=== PATIENT | female | born 1970 | race Caucasian/White ===

== ENCOUNTER 2020-05-14 22:38 | Emergency (ER) | payer OTHER, SELFPAY ==
--- NOTE | 2020-05-14 22:58 | ED.FEMALEGU ---
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 Time Seen by Provider: 05/14/20 22:58 Source: patient and RN notes reviewed Mode of arrival: ambulatory Limitations: no limitations History of Present Illness MD elicited complaint: other (Retained tampon) Onset (ago): week(s) (1) Location of symptoms: vaginal Severity: moderate Female Urogenital Radiation: Non-Radiating Quality of pain: dull and aching Consistency: constant Vaginal discharge: none Vaginal bleeding: none Exacerbating factors: intercourse Relieving factors: none Treatment prior to arrival: none Sexual activity: Yes Patient : No Related Data Home Medications Medication Instructions Recorded Confirmed citalopram 40 mg PO DAILY 05/14/20 05/14/20 Allergies Allergy/AdvReac Type Severity Reaction Status Date / Time adhesive Allergy Unknown Verified 08/02/15 09:30 bacitracin Allergy Unknown Verified 05/27/15 17:23 cefuroxime Allergy Unknown Verified 05/27/15 17:23 Cephalosporins Allergy Unknown . Verified 08/02/15 09:30 clarithromycin Allergy Unknown Verified 05/27/15 17:22 latex Allergy Unknown Verified 08/02/15 09:30 Review of Systems Review of Systems: All systems reviewed & are unremarkable except as noted in HPI and below Constitutional: Constitutional: Denies chills PMFSH Past Medical History Medical History (Updated 05/14/20 @ 23:09 by Husam Salas MD) Depression Surgical History Surgical History (Updated 05/14/20 @ 23:06 by Husam Salas MD) Delivery by section History of bilateral tubal ligation History of tonsillectomy and adenoidectomy Family History Family History (Updated 05/27/15 @ 17:26 by DOCTOR UNKNOWN) Grandparent Hypertension Carcinoma of colon Acute myocardial infarction Sibling Family history of malignant neoplasm of kidney Family history of rheumatoid arthritis Family history of lupus erythematosus Acute myocardial infarction Other Family history of malignant neoplasm of gastrointestinal tract Social History Social History (Updated 05/14/20 @ 23:07 by Husam Salas MD) Smoking packs per day: 1 Smoking cigarettes per day: 20.0 Smoking status: Current every day smoker Alcohol intake: current Substance use: never Exam Const: General: healthy appearing and no acute distress Nutritional Appearance: well nourished and thin Orientation/consciousness: patient oriented x3 HENMT: Head: normal to inspection Ears: external ears normal Eyes: Conjunctivae: conjunctivae normal Pupils: Equal, round and reactive pupils present EOM: EOMs intact bilaterally Neck: Neck: normal visual inspection Resp: Effort & Inspection: normal respiratory effort Auscultation: clear to auscultation bilaterally Cardio: Rate: regular rate Rhythm: regular rhythm GI: GI Palp: Yes Soft to palpation and No Tenderness to palpation present (GI) Auscultation: normal bowel sounds : External Female Exam: normal external appearance Speculum Exam - Vagina: normal appearance of the vagina, normal vaginal discharge, not erythematous and foreign body ( Tampon high in vaginal canal removed with ring forceps.) Back/Spine/Pelvis: Cervical Spine: cervical ROM normal Thoracic/Lumbar Spine: thoraco-lumbar ROM normal Neuro: General: patient oriented x3, moves all extremities, no meningeal signs and no focal motor deficits Speech: normal speech Gait exam (Neuro): Normal gait present Extrem: General: normal to inspection and no clubbing, cyanosis or edema Discharge Plan Discharge Clinical Impression: Retained tampon Qualifiers: Encounter type: initial encounter Qualified Code(s): T19.2XXA - Foreign body in vulva and vagina, initial encounter Patient Disposition: Home, Self-Care Condition: Improved Instructions: Vaginal Foreign Body (ED) Prescriptions: New clindamycin HCl 300 mg capsule 300 mg PO Q8H 10 Days Qty: 30 RF: 0 No A
[2020-05-14 23:00] VITALS: BP 123/75; PULSE 82; RESP 20; TEMP 36.6; O2SAT 98
[2020-05-14] MEDS: CLINDAMYCIN HCL 150 MG CAP 300 MG PO (23:14)
[2020-05-14 23:16] VITALS: BP 125/70; PULSE 98; RESP 18; TEMP 36.6; O2SAT 100
== END 2020-05-14 23:19 | disposition home or self-care (01) ==
PROVIDERS: Emergency Provider Emergency Medicine; PCP Internal Medicine
DX: T19.2XXA Foreign body in vulva and vagina, initial encounter (principal)
CPT/HCPCS: 99283; A9270

== ENCOUNTER 2020-05-15 13:53 | Emergency (ER) | payer OTHER, SELFPAY ==
--- NOTE | ~2020-05-15 | CT_ITS ---
EXAMINATION: CT abdomen pelvis w con INDICATION: Lower abdominal and pelvic pain TECHNIQUE: Computed tomographic images of the abdomen and pelvis were obtained after the administrati on of 100 cc of Omnipaque 350 intravenous contrast. The dose-length product (DLP) was 300.11 mGy-cm. Automated exposure control and iterative reconstruction technique were employed. COMPARISON: None available FINDINGS: The lung bases are clear. The heart size is normal. The liver, spleen, pancreas, gallbladde r, and adrenal glands are normal. The kidneys are unremarkable. No pathologically enlarged abdominal or pelvic lymph nodes are identified. There is no free intraperitoneal gas or evidence of bowel obstr uction. The appendix is normal. No significant pelvic inflammation is identified. IMPRESSION: 1. No CT correlate for the patient's symptoms. Reviewed, dictated and finalized at location A.
--- NOTE | ~2020-05-15 | US_ITS ---
EXAMINATION: US pelvic complete w TV EXAM DATE: 05/15/2020 15:53 INDICATION: Abdominal pain after foreign body removal. TECHNIQUE: Pelvic transabdominal and transvaginal sonogram was performed. There are multiple graysca le and Doppler images available for interpretation. There is no prior study for comparison. FINDINGS: Uterus measures 8.4 x 6.0 x 7.1 cm, and is morphologically normal. Endometrial stripe giovanna sures 15 mm, within normal limits. There is no free pelvic fluid. Right adnexa: The ovary measures 3.0 x 1.4 x 3.1 cm and is morphologically normal. Ovarian vascular f low confirmed. Left adnexa: The ovary measures 3.0 x 1.3 x 1.1 cm and is morphologically normal. Ovarian vascular fl ow confirmed. IMPRESSION: 1. Unremarkable pelvic ultrasound exam. Reviewed, dictated and finalized at location B.
[2020-05-15 14:14] VITALS: BP 122/74; PULSE 82; RESP 20; TEMP 36.9; O2SAT 100
--- NOTE | 2020-05-15 14:17 | ED.ABDPAIN ---
HPI - Abdominal Pain General Chief Complaint: Abdominal Pain Stated Complaint: dr sent pt back to er for tests Time Seen by Provider: 05/15/20 14:17 Source: patient Mode of arrival: ambulatory Limitations: no limitations History of Present Illness HPI narrative: 49-year-old comes in today complaining of pelvic pain. Patient states that she was seen here last night for retained tampon which was removed. She states that she was placed on clindamycin. She states that her pelvic pain has gotten worse since then and she feels nauseous. She denies vaginal discharge, dysuria, fever, vomiting, vaginal bleeding or rash. MD elicited complaint: abdominal pain Onset (ago): day(s) (2) Pain Consistency: constant Location: pelvis Severity: severe Quality: sharp Radiation: none Migration to: no migration Exacerbating factors: movement Relieving factors: nothing Associated symptoms: nausea Related Data Home Medications Medication Instructions Recorded Confirmed citalopram [Celexa] 40 mg PO DAILY 05/14/20 05/15/20 levocetirizine [Xyzal] 5 mg PO DAILY 05/15/20 05/15/20 Allergies Allergy/AdvReac Type Severity Reaction Status Date / Time adhesive Allergy Unknown Other Verified 05/15/20 14:22 bacitracin Allergy Unknown Unknown Verified 05/15/20 14:22 cefuroxime Allergy Unknown Unknown Verified 05/15/20 14:22 Cephalosporins Allergy Unknown . Verified 08/02/15 09:30 clarithromycin Allergy Unknown Unknown Verified 05/15/20 14:22 latex Allergy Unknown Unknown Verified 05/15/20 14:22 Review of Systems Constitutional: Constitutional: Denies chills and Denies fever(s) Eyes: Eyes: Denies change in vision and Denies photophobia ENT: Denies dysphagia, Denies nasal congestion and Denies sore throat Cardiovascular: Cardiovascular: Denies chest pain and Denies radiating jaw, neck or arm pain Respiratory: Respiratory: Denies cough, Denies dyspnea and Denies wheezing Gastrointestinal: Gastrointestinal: Reports abdominal pain, Denies diarrhea, Reports nausea and Denies vomiting Genitourinary: Genitourinary: Denies abnormal vaginal bleeding, Denies hematuria, Denies nocturia, Denies genital lesions, Denies dysuria, Reports pelvic pain and Denies vaginal discharge Musculoskeletal: Musculoskeletal: Denies back pain Integumentary/Breasts: Skin/Breast: Denies pruritus, Denies erythema and Denies rash Neurologic: Denies vertigo, Denies dizziness and Denies syncope Hematologic/Lymphatic: Hematologic/Lymphatic: Denies easy bleeding and Denies easy bruising Allergic/Immunologic: Allergic/Immunologic: Denies lip swelling and Denies wheezing PMFSH Past Medical History Medical History Depression Surgical History Surgical History Delivery by section History of bilateral tubal ligation History of tonsillectomy and adenoidectomy Family History Family History (Updated 05/27/15 @ 17:26 by DOCTOR UNKNOWN) Grandparent Hypertension Carcinoma of colon Acute myocardial infarction Sibling Family history of malignant neoplasm of kidney Family history of rheumatoid arthritis Family history of lupus erythematosus Acute myocardial infarction Other Family history of malignant neoplasm of gastrointestinal tract Social History Social History Smoking packs per day: 1 Smoking cigarettes per day: 20.0 Smoking status: Current every day smoker Alcohol intake: current Substance use: never Gender identity (if verbalized by the patient): Female Exam Const: General: healthy appearing and alert Nutritional Appearance: well nourished Orientation/consciousness: patient oriented x3 Other: Moderate acute distress. HENMT: Head: normal to inspection Face and sinus: normal facial exam Mouth: Yes moist mucous membranes Throat: posterior oropharynx normal Eyes
[2020-05-15 14:45] LABS: Basophils Absolute Auto 0.04 K/mm3 (0.00-0.10); Basophils Percent Auto 0.4 % (0.0-1.0); Eosinophils Absolute Auto 0.16 K/mm3 (0.02-0.50); Eosinophils Percent Auto 1.7 % (1.0-6.0); Hematocrit 40.2 % (35.0-49.0); Hemoglobin 13.3 g/dL (12.0-15.0); Immature Granulocyte Absolute 0.04 K/mm3 (0.00-0.00); Immature Granulocyte Percent A 0.4 % (0.0-0.0); Lymphocytes Absolute Auto 3.32 K/mm3 (1.10-4.50); Lymphocytes Percent Auto 34.5 % (18.0-42.0); Mean Corpuscular HGB Conc 33.1 g/dL (32.0-36.0); Mean Corpuscular Hemoglobin 33.8 pg (27.0-31.0); Mean Corpuscular Volume 102.3 fL (78.0-102.0); Monocytes Absolute Auto 0.67 K/mm3 (0.10-0.90); Neutrophils Absolute Auto 5.4 K/mm3 (1.7-7.2); Platelet Count Result 266 K/mm3 (150-420); Red Blood Count 3.93 M/mm3 (4.20-5.40); Red Cell Distribution Width 11.7 % (11.6-14.4); White Blood Count 9.6 K/mm3 (4.8-10.8)
[2020-05-15] MEDS: ONDANSETRON INJ 4 MG/2 ML VIAL IV PUSH (14:55)
[2020-05-15] MEDS: HYDROmorphone HCL INJ (*CRX) 2 MG/ML VIAL 0.5 MG IV PUSH ×3 (14:55→18:17)
[2020-05-15] MEDS: SODIUM CHLORIDE 0.9% IV 500 ML 999 ML IV CONT (14:57)
[2020-05-15 15:12] LABS: Lactic Acid Reflex 0.6 mmol/L (0.4-2.0)
[2020-05-15 15:15] LABS: Alanine Aminotransferase 43 U/L (14-59); Albumin Level 4.2 g/dL (3.4-5.0); Alkaline Phosphatase 67 U/L (46-116); Anion Gap 9 mmol/L (8-16); Aspartate Amino Transferase 20 U/L (15-37); Bilirubin,Total 0.5 mg/dL (0.00-1.00); Blood Urea Nitrogen 12 mg/dL (7-18); Carbon Dioxide 27 mmol/L (21-32); Chloride 101 mmol/L (98-108); Estimated CRCL calculation 70 ml/min; Estimated Glomerular Filt Rate > 60; Glucose 95 mg/dL (70-99); Lipase 148 U/L (73-393); Osmolality Calculated 283 mOsm/kg (285-295); Potassium 3.7 mmol/L (3.5-5.1); Sodium 137 mmol/L (136-145); Total Protein 7.7 g/dL (6.4-8.2)
[2020-05-15 15:32] LABS: Creatine Kinase 247 U/L (26-192)
[2020-05-15 16:06] LABS: Appearance Urine Clear (Clear); Bilirubin Urine Negative (Negative); Color Urine Yellow (Yellow); Glucose Urine UA Negative (Negative); Ketones Urine Negative (Negative); Leukocyte Esterase Ur Negative LEU/UL (Negative); Nitrate Urine Negative (Negative); Protein Urine Negative (Negative); Specific Grav Ur <= 1.005 (1.010-1.020); Urobilinogen Urine 0.2 mg/dL (0.2-1.0); pH Urine 5.5 (5.0-8.0)
[2020-05-15 16:10] LABS: Add Urine Microscopic? YES; Blood Urine Trace-Intact (Negative)
[2020-05-15 16:11] LABS: Bacteria Urine None seen /hpf; RBC Urine 0-2 /hpf (0-2); Squamous Epithelial Cell Urine Few /hpf (Few); WBC Urine 0-3 /hpf (0-3)
[2020-05-15 19:26] VITALS: BP 126/55; PULSE 66; RESP 20; O2SAT 98
== END 2020-05-15 19:28 | disposition home or self-care (01) ==
PROVIDERS: Emergency Provider Emergency Medicine; PCP Internal Medicine
DX: N73.9 Female pelvic inflammatory disease, unspecified (principal)
CPT/HCPCS: 36415; 74177; 76830; 76856; 80053; 81001; 82550; 83605; 83690; 84702; 85025; 87040; 87070; 87491; 87591; 96361; 96365; 96375; 96376; 99284; 99285; J1170; J1956; J2405; J7040; Q9965

== ENCOUNTER → 2021-04-19 00:29 | Outpatient (CLI) | payer OTHER, SELFPAY ==
[2021-04-19 22:45] LABS: SARS-CoV-2 RNA PCR Negative
== END ==
PROVIDERS: PCP Internal Medicine; Visit Provider Internal Medicine Gastroenterology
DX: Z01.812 Encounter for preprocedural laboratory examination (principal); Z20.822 Contact with and (suspected) exposure to COVID-19
CPT/HCPCS: C9803; U0003; U0005

== ENCOUNTER 2021-04-23 00:33 | Day surgery (SDC) | payer OTHER, SELFPAY ==
[2021-04-10 13:19] VITALS: BMI 25.7
--- NOTE | 2021-04-23 07:26 | PM.HPGS ---
History of Present Illness History of Present Illness Consent: Risks, benefits, and alternatives have been discussed and questions answered. Patient agrees to proceed with procedure. Chief complaint: family hx colon ca Z86.010, hx colon polyps Z80.0 Narrative: Ana Nagel is a 50 year old female referred for colon cancer screening. She has a strong family history of colon cancer, including her sister, grandmothe,r an aunt and great grandparent. Review of Systems Review of Systems: All systems reviewed & are unremarkable except as noted in HPI and below PMFSH Past Medical History Medical History Depression Surgical History Surgical History Delivery by section History of bilateral tubal ligation History of tonsillectomy and adenoidectomy Family History Family History Grandparent Hypertension Carcinoma of colon Acute myocardial infarction Sibling Family history of malignant neoplasm of kidney Family history of rheumatoid arthritis Family history of lupus erythematosus Acute myocardial infarction Other Family history of malignant neoplasm of gastrointestinal tract Social History Social History Smoking packs per day: 1 Smoking cigarettes per day: 20.0 Years smoked: 30 Smoking pack-years: 30.00 Smoking status: Current every day smoker Tobacco type: cigarettes Alcohol intake: current Drinks per week: 1 Substance use: current Substance use type: marijuana Living arrangements: with family Gender identity (if verbalized by the patient): Female Sexual Orientation (if Verbalized by the Patient): Straight or Heterosexual Spiritual care concerns: No Meds Home Medications and Allergies Home Medications Medication Instructions Recorded Confirmed Type citalopram [Celexa] 40 mg PO DAILY 05/14/20 04/23/21 History Allergies Allergy/AdvReac Type Severity Reaction Status Date / Time adhesive Allergy Unknown Other Verified 04/23/21 09:16 bacitracin Allergy Unknown Unknown Verified 04/23/21 09:16 cefuroxime Allergy Unknown Unknown Verified 04/23/21 09:16 Cephalosporins Allergy Unknown . Verified 04/23/21 09:16 clarithromycin Allergy Unknown Unknown Verified 04/23/21 09:16 latex Allergy Unknown Unknown Verified 04/23/21 09:16 Exam Resp: Auscultation: clear to auscultation bilaterally Cardio: Rate: regular rate Rhythm: regular rhythm GI: GI Palp: Yes Soft to palpation and No Tenderness to palpation present (GI) Assessment and Plan Assessment and plan (1) Colon cancer screening: Code(s): Z12.11 - Encounter for screening for malignant neoplasm of colon Status: Acute Assessment and Plan: Colonoscopy with possible biopsy or polypectomy or cautery or injection of substances.
[2021-04-23 09:18] VITALS: BP 113/70; PULSE 70; RESP 16; TEMP 36.2; O2SAT 98; BMI 26.0
[2021-04-23] MEDS: LACTATED RINGERS 1,000 ML 150 ML IV CONT (09:42)
--- NOTE | 2021-04-23 09:43 | WPDANESEPPF ---
Anes - Initial Pre Proc Eval Procedure: Operation Date: 04/23/21 10:00 Proposed Procedures p Screening Colonoscopy - Dennis Chris MD Date/Time: 04/23/21 09:43 Surgeon: Dennis Chris MD Pre Op Diagnosis: family hx colon ca Z86.010, hx colon polyps Z80.0 Patient Data Age: 50 Gender: F Height: 1.6 m Weight: 66.7 kg Last Vital Signs Temp 97.2 F L 04/23/21 09:18 Pulse 70 04/23/21 09:18 Resp 16 04/23/21 09:18 BP 113/70 04/23/21 09:18 Pulse Ox 98 04/23/21 09:18 Allergies Allergy/AdvReac Type Severity Reaction Status Date / Time adhesive Allergy Unknown Other Verified 04/23/21 09:16 bacitracin Allergy Unknown Unknown Verified 04/23/21 09:16 cefuroxime Allergy Unknown Unknown Verified 04/23/21 09:16 Cephalosporins Allergy Unknown . Verified 04/23/21 09:16 clarithromycin Allergy Unknown Unknown Verified 04/23/21 09:16 latex Allergy Unknown Unknown Verified 04/23/21 09:16 Home Medications Medication Instructions Recorded Confirmed Type citalopram [Celexa] 40 mg PO DAILY 05/14/20 04/23/21 History Patient hx anesthesia problems: none Family hx anesthesia problems: none PMFSH Past Medical History Medical History Depression Surgical History Surgical History Delivery by section History of bilateral tubal ligation History of tonsillectomy and adenoidectomy Family History Family History Grandparent Hypertension Carcinoma of colon Acute myocardial infarction Sibling Family history of malignant neoplasm of kidney Family history of rheumatoid arthritis Family history of lupus erythematosus Acute myocardial infarction Other Family history of malignant neoplasm of gastrointestinal tract Social History Social History Smoking packs per day: 1 Smoking cigarettes per day: 20.0 Years smoked: 30 Smoking pack-years: 30.00 Smoking status: Current every day smoker Tobacco type: cigarettes Alcohol intake: current Drinks per week: 1 Substance use: current Substance use type: marijuana Living arrangements: with family Gender identity (if verbalized by the patient): Female Sexual Orientation (if Verbalized by the Patient): Straight or Heterosexual Spiritual care concerns: No Anes - Eval Final PreProcedure Day of Procedure 04/23/21 09:43 Patient weight: normal Heart: regular rate and rhythm Lungs: clear to auscultation Airway: Mallampati scale class II Neurological: alert and oriented Last oral intake: >/= 8 hours ASA classification: II Emergent: no Anesthetic plan: proceed Anesthesia type and monitoring: general GIVS and standard monitoring Informed Consent: The patient's anesthetic plan and its attendant risks and benefits were discussed with the patient/family/POA. Questions were solicited and answers provided to the satisfaction of the patient/family/POA.
[2021-04-23 10:08] VITALS: BP 90/48; PULSE 68; RESP 18; O2SAT 99
[2021-04-23 10:18] VITALS: BP 106/78; PULSE 80; RESP 18; O2SAT 99
--- NOTE | 2021-04-23 10:26 | SUR.PHASEII ---
Patient is complaining of headache 9/110 on pain scale. Pre Op nurse states patient came in with headache this morning. This is comparable to her pre op baseline. She is requesting demerol. Told patient to take tylenol when she gets home and drink plenty of fluids. Gave her a pepsi and crackers to help relieve pain. Informed Dr. Andrews. No new interventions at this time.
[2021-04-23 10:28] VITALS: BP 104/61; PULSE 75; RESP 14; O2SAT 100
[2021-04-23 10:38] VITALS: BP 110/65; PULSE 69; RESP 21; O2SAT 100
== END 2021-04-23 10:40 | disposition home or self-care (01) ==
PROVIDERS: PCP Internal Medicine; Visit Provider Internal Medicine Gastroenterology
PROC: 0DJD8ZZ Inspection of Lower Intestinal Tract, Via Natural or Artificial Opening Endoscopic (ICD-10-PCS; CPT 45378; principal; 2021-04-23 10:00)
DX: Z12.11 Encounter for screening for malignant neoplasm of colon (principal); Z80.0 Family history of malignant neoplasm of digestive organs; F32.9 Major depressive disorder, single episode, unspecified; F17.210 Nicotine dependence, cigarettes, uncomplicated; F12.90 Cannabis use, unspecified, uncomplicated
CPT/HCPCS: 45378; J2704; J7120

== ENCOUNTER 2021-08-07 07:29 | Outpatient (CLI) | payer OTHER, SELFPAY ==
[2021-08-07 08:47] LABS: SARS-CoV-2 RNA PCR Negative (Negative)
== END 2021-08-07 07:30 | disposition home or self-care (01) ==
LOC: CHSLAB 07:32
PROVIDERS: PCP Internal Medicine; Visit Provider Internal Medicine
DX: J06.9 Acute upper respiratory infection, unspecified (principal); Z20.822 Contact with and (suspected) exposure to COVID-19
CPT/HCPCS: C9803; U0003; U0005

== ENCOUNTER 2021-08-15 13:04 | Outpatient (CLI) | payer OTHER, SELFPAY ==
--- NOTE | ~2021-08-15 | XR_ITS ---
XR abdomen/kub 1V 08/15/2021 13:24 INDICATION: Flank pain TECHNIQUE: KUB COMPARISON: None FINDINGS: Bowel gas pattern is normal. There is no evidence of free air, mass, organomegaly, ascites or obstruction. No abnormal calculi are seen. Calcifications in the pelvis are believed to be phleb oliths. The bones appear intact. IMPRESSION: 1: No acute abdominal abnormality identified. Reviewed, dictated and finalized at location A. MANAGEMENT SPECIALIST
[2021-08-15 13:21] LABS: Basophils Absolute Auto 0.07 K/mm3 (0.00-0.10); Basophils Percent Auto 0.8 % (0.0-1.0); Eosinophils Absolute Auto 0.26 K/mm3 (0.02-0.50); Hematocrit 41.8 % (35.0-49.0); Hemoglobin 13.3 g/dL (12.0-15.0); Immature Granulocyte Absolute 0.03 K/mm3 (0.00-0.00); Immature Granulocyte Percent A 0.3 % (0.0-0.0); Lymphocytes Absolute Auto 3.36 K/mm3 (1.10-4.50); Lymphocytes Percent Auto 38.6 % (18.0-42.0); Mean Corpuscular HGB Conc 31.8 g/dL (32.0-36.0); Mean Corpuscular Hemoglobin 32.7 pg (27.0-31.0); Mean Corpuscular Volume 102.7 fL (78.0-102.0); Mean Platelet Volume 9.1 fl (9.2-11.8); Monocytes Absolute Auto 0.51 K/mm3 (0.10-0.90); Monocytes Percent Auto 5.9 % (2.0-11.0); Neutrophils Absolute Auto 4.5 K/mm3 (1.7-7.2); Neutrophils Percent Auto 51.4 % (50.0-70.0); Platelet Count Result 305 K/mm3 (150-420); Red Blood Count 4.07 M/mm3 (4.20-5.40); Red Cell Distribution Width 12.1 % (11.6-14.4); White Blood Count 8.7 K/mm3 (4.8-10.8)
[2021-08-15 13:58] LABS: Alanine Aminotransferase 31 U/L (14-59); Albumin Level 4.1 g/dL (3.4-5.0); Alkaline Phosphatase 83 U/L (46-116); Amylase 165 U/L (25-115); Anion Gap 11 mmol/L (8-16); Aspartate Amino Transferase 16 U/L (15-37); Bilirubin,Total 0.4 mg/dL (0.00-1.00); Blood Urea Nitrogen 11 mg/dL (7-18); Carbon Dioxide 27 mmol/L (21-32); Chloride 102 mmol/L (98-108); Estimated Glomerular Filt Rate > 60; Glucose 116 mg/dL (70-99); Osmolality Calculated 290 mOsm/kg (285-295); Potassium 3.9 mmol/L (3.5-5.1); Sodium 140 mmol/L (136-145); Total Protein 7.1 g/dL (6.4-8.2)
[2021-08-15 14:04] LABS: Lipase 1710 U/L (73-393)
== END 2021-08-15 13:05 | disposition home or self-care (01) ==
LOC: CHSLAB 13:05
PROVIDERS: PCP Internal Medicine; Visit Provider Nurse Practitioner Family
DX: R10.9 Unspecified abdominal pain (principal)
CPT/HCPCS: 36415; 74018; 80053; 82150; 83690; 85025

== ENCOUNTER 2021-08-18 15:49 | Outpatient (CLI) | payer OTHER, SELFPAY ==
--- NOTE | ~2021-08-18 | CT_ITS ---
EXAMINATION: CT abdomen pelvis wo con DATE: 08/18/2021 16:09 INDICATION: Bilateral flank pain TECHNIQUE: Computed tomography (CT) of the bilateral flank pain was performed without intravenous con trast. The dose-length product (DLP) was 191.15 mGy-cm. Automated exposure control and iterative douglas nstruction technique were employed. COMPARISON: 05/15/2020 FINDINGS: Minimal dependent atelectasis is present in the lung bases. The heart size is normal. The l iver, spleen, pancreas, gallbladder, and adrenal glands are normal. The kidneys are unremarkable. No stones are identified in the kidneys, ureters, or bladder. There is no hydronephrosis or hydroureter. No pathologically enlarged abdominal or pelvic lymph nodes are identified. There is no free intraper itoneal gas or evidence of bowel obstruction. IMPRESSION: 1. No CT correlate for the patient's symptoms. Reviewed, dictated and finalized at location F. 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
== END 2021-08-18 15:50 | disposition home or self-care (01) ==
LOC: CHSIMG 15:50
PROVIDERS: PCP Internal Medicine; Visit Provider Nurse Practitioner Family
DX: R10.9 Unspecified abdominal pain (principal); R31.9 Hematuria, unspecified
CPT/HCPCS: 74176

== ENCOUNTER 2021-08-19 18:19 | Outpatient (CLI) | payer OTHER, SELFPAY ==
[2021-08-19 18:33] LABS: Basophils Absolute Auto 0.07 K/mm3 (0.00-0.10); Basophils Percent Auto 0.8 % (0.0-1.0); Eosinophils Absolute Auto 0.27 K/mm3 (0.02-0.50); Eosinophils Percent Auto 3.1 % (1.0-6.0); Hematocrit 38.6 % (35.0-49.0); Hemoglobin 12.8 g/dL (12.0-15.0); Immature Granulocyte Absolute 0.03 K/mm3 (0.00-0.00); Immature Granulocyte Percent A 0.3 % (0.0-0.0); Lymphocytes Absolute Auto 3.53 K/mm3 (1.10-4.50); Lymphocytes Percent Auto 40.7 % (18.0-42.0); Mean Corpuscular HGB Conc 33.2 g/dL (32.0-36.0); Mean Corpuscular Hemoglobin 34.3 pg (27.0-31.0); Mean Corpuscular Volume 103.5 fL (78.0-102.0); Mean Platelet Volume 9.3 fl (9.2-11.8); Monocytes Absolute Auto 0.52 K/mm3 (0.10-0.90); Neutrophils Absolute Auto 4.3 K/mm3 (1.7-7.2); Neutrophils Percent Auto 49.1 % (50.0-70.0); Platelet Count Result 291 K/mm3 (150-420); Red Blood Count 3.73 M/mm3 (4.20-5.40); Red Cell Distribution Width 12.3 % (11.6-14.4); White Blood Count 8.7 K/mm3 (4.8-10.8)
[2021-08-19 19:08] LABS: Alanine Aminotransferase 28 U/L (14-59); Albumin Level 3.8 g/dL (3.4-5.0); Alkaline Phosphatase 83 U/L (46-116); Amylase 123 U/L (25-115); Anion Gap 10 mmol/L (8-16); Aspartate Amino Transferase 16 U/L (15-37); Bilirubin,Total 0.2 mg/dL (0.00-1.00); Blood Urea Nitrogen 14 mg/dL (7-18); Calcium 8.9 mg/dL (8.5-10.1); Carbon Dioxide 28 mmol/L (21-32); Chloride 104 mmol/L (98-108); Estimated Glomerular Filt Rate > 60; Glucose 96 mg/dL (70-99); Lipase 520 U/L (73-393); Osmolality Calculated 294 mOsm/kg (285-295); Potassium 4.2 mmol/L (3.5-5.1); Sodium 142 mmol/L (136-145); Total Protein 6.8 g/dL (6.4-8.2)
[2021-08-19 19:17] LABS: Ethanol < 3 mg/dL (0-6)
== END 2021-08-19 18:20 | disposition home or self-care (01) ==
LOC: CHSLAB 18:20
PROVIDERS: PCP Internal Medicine; Visit Provider Internal Medicine
DX: K85.90 Acute pancreatitis without necrosis or infection, unspecified (principal)
CPT/HCPCS: 36415; 80053; 80307; 82150; 83690; 85025; 86038

== ENCOUNTER 2021-08-22 12:31 | Outpatient (CLI) | payer OTHER, SELFPAY ==
[2021-08-22 12:43] LABS: Basophils Absolute Auto 0.08 K/mm3 (0.00-0.10); Eosinophils Absolute Auto 0.12 K/mm3 (0.02-0.50); Eosinophils Percent Auto 1.5 % (1.0-6.0); Hematocrit 45.2 % (35.0-49.0); Immature Granulocyte Absolute 0.03 K/mm3 (0.00-0.00); Immature Granulocyte Percent A 0.4 % (0.0-0.0); Lymphocytes Absolute Auto 2.32 K/mm3 (1.10-4.50); Lymphocytes Percent Auto 29.1 % (18.0-42.0); Mean Corpuscular HGB Conc 33.2 g/dL (32.0-36.0); Mean Corpuscular Hemoglobin 33.7 pg (27.0-31.0); Mean Corpuscular Volume 101.6 fL (78.0-102.0); Monocytes Absolute Auto 0.44 K/mm3 (0.10-0.90); Monocytes Percent Auto 5.5 % (2.0-11.0); Neutrophils Percent Auto 62.5 % (50.0-70.0); Platelet Count Result 333 K/mm3 (150-420); Red Blood Count 4.45 M/mm3 (4.20-5.40)
[2021-08-22 13:55] LABS: Alanine Aminotransferase 28 U/L (14-59); Albumin Level 4.3 g/dL (3.4-5.0); Alkaline Phosphatase 92 U/L (46-116); Amylase 50 U/L (25-115); Anion Gap 9 mmol/L (8-16); Aspartate Amino Transferase 18 U/L (15-37); Bilirubin,Total 0.3 mg/dL (0.00-1.00); Blood Urea Nitrogen 11 mg/dL (7-18); Carbon Dioxide 28 mmol/L (21-32); Chloride 101 mmol/L (98-108); Estimated Glomerular Filt Rate > 60; Glucose 116 mg/dL (70-99); Lipase 99 U/L (73-393); Osmolality Calculated 286 mOsm/kg (285-295); Potassium 4.4 mmol/L (3.5-5.1); Sodium 138 mmol/L (136-145); Total Protein 7.8 g/dL (6.4-8.2)
[2021-08-22 14:07] LABS: Calcium 9.5 mg/dL (8.5-10.1)
[2021-08-22 15:21] LABS: Hemoglobin A1C 5.1 % (<5.7)
== END 2021-08-22 12:32 | disposition home or self-care (01) ==
LOC: CHSLAB 12:34
PROVIDERS: PCP Internal Medicine; Visit Provider Nurse Practitioner Family
DX: K85.90 Acute pancreatitis without necrosis or infection, unspecified (principal); R73.9 Hyperglycemia, unspecified
CPT/HCPCS: 36415; 80053; 82150; 83036; 83690; 85025; 86038

== ENCOUNTER 2021-09-01 12:20 | Outpatient (CLI) | payer OTHER, SELFPAY ==
[2021-09-01 13:41] LABS: Influenza Control Valid (Valid); SARS-CoV-2 Ag Positive (Negative)
== END 2021-09-01 12:21 | disposition home or self-care (01) ==
LOC: CHSLAB 12:22
PROVIDERS: PCP Internal Medicine; Visit Provider Internal Medicine
DX: U07.1 COVID-19 (principal); J06.9 Acute upper respiratory infection, unspecified
CPT/HCPCS: 87426; 87804; C9803

== ENCOUNTER 2022-09-30 16:14 | Outpatient (CLI) | payer OTHER, SELFPAY ==
--- NOTE | ~2022-09-30 | MM_ITS ---
EXAMINATION: MM screening mary BI w kristina HISTORY: Screening mammogram TECHNIQUE: Craniocaudal and mediolateral oblique 3-D tomosynthesis images were obtained and synthetic 2-D images were generated. CAD analysis was submitted and interpreted. COMPARISON: 07/20/2018, 05/28/2017, 12/13/2015 bilateral screening mammogram examinations BREAST PARENCHYMAL COMPOSITION: There are scattered areas of fibroglandular density. FINDINGS: There is no evidence of suspicious mass, calcification, or architectural distortion to sugg est malignancy in either breast. There has been no suspicious interval change. IMPRESSION: 1. No mammographic evidence of malignancy. 2. Recommend routine screening mammography in one year. BI-RADS Category 1: Negative Reviewed, dictated and finalized at location A. K UNLOADER
== END 2022-09-30 16:15 | disposition home or self-care (01) ==
LOC: ANHIMG 16:48
PROVIDERS: PCP Family Medicine; Visit Provider Nurse Practitioner Obstetrics & Gynecology
DX: Z12.31 Encounter for screening mammogram for malignant neoplasm of breast (principal)
CPT/HCPCS: 77063; 77067

== ENCOUNTER 2024-03-30 13:31 | Emergency (ER) | payer OTHER, SELFPAY ==
--- NOTE | ~2024-03-30 | XR_ITS ---
EXAMINATION: XR chest 2V DATE: 03/30/2024 14:13 INDICATION: Cough. TECHNIQUE: Frontal and lateral views of the chest were obtained. COMPARISON: Chest 2 views 07/02/2018 FINDINGS: There is no pneumonia, pleural effusion, or pneumothorax. The heart size is normal. IMPRESSION: 1. No acute cardiopulmonary disease. Reviewed, dictated and finalized at location A.
[2024-03-30 13:44] VITALS: BP 119/82; PULSE 90; RESP 16; TEMP 36.6; O2SAT 98
--- NOTE | 2024-03-30 13:57 | ED.URI ---
HPI - URI/Sore Throat General Chief Complaint: Upper Respiratory Infection Stated Complaint: Upper resp infection Time Seen by Provider: 03/30/24 13:34 History of Present Illness HPI Narrative: 53-year-old female presents to the emergency room for evaluation of cough, wheezing, difficulty breathing, PND, sinus congestion, rhinorrhea, ear fullness for 4 days. States 1 of her children had similar symptoms last week reports she went to her PCP 2 days ago at the onset of symptoms and was given amoxicillin for suspected pneumonia. States no improvement of her symptoms if. Reports a low-grade fever T-max 100.5 Related Data Home Medications Medication Instructions Recorded Confirmed citalopram 40 mg tablet (Celexa) 40 mg PO DAILY 05/14/20 04/23/21 Allergies Allergy/AdvReac Type Severity Reaction Status Date / Time adhesive Allergy Unknown Other Verified 03/30/24 13:50 bacitracin Allergy Unknown Unknown Verified 03/30/24 13:50 cefuroxime Allergy Unknown Unknown Verified 03/30/24 13:50 Cephalosporins Allergy Unknown . Verified 03/30/24 13:50 clarithromycin Allergy Unknown Unknown Verified 03/30/24 13:50 latex Allergy Unknown Unknown Verified 03/30/24 13:50 Review of Systems Review of Systems: ROS unremarkable supple noted in HPI PMFSH Past Medical History Medical History Depression Surgical History Surgical History Delivery by section History of bilateral tubal ligation History of tonsillectomy and adenoidectomy Family History Family History Grandparent Hypertension Carcinoma of colon Acute myocardial infarction Sibling Family history of malignant neoplasm of kidney Family history of rheumatoid arthritis Family history of lupus erythematosus Acute myocardial infarction Other Family history of malignant neoplasm of gastrointestinal tract Social History Social History Smoking packs per day: 1 Smoking cigarettes per day: 20.0 Years smoked: 30 Smoking pack-years: 30.00 Smoking status: Current every day smoker Tobacco type: cigarettes Alcohol intake: current Drinks per week: 1 Substance use: current Substance use type: marijuana Living arrangements: with family Gender identity (if verbalized by the patient): Female Sexual Orientation (if Verbalized by the Patient): Straight or Heterosexual Spiritual care concerns: No Exam Narrative: GENERAL: ill-appearing, well-nourished, no physical limitations, and in no acute distress. HEAD: Normocephalic, atraumatic. EYES: Conjunctivae normal, PERRLA and EOMI. ENT: External nose normal, clear rhinorrhea. Mucous membranes moist. Oropharynx without tonsillar hypertrophy exudate or other lesions. External ears normal, bilateral TMs normal bilaterally NECK: Supple. No meningeal signs. No adenopathy or masses. No carotid bruits or JVD CHEST: wheezing throughout HEART: Regular rate and rhythm. No murmur heard. Normal peripheral pulses. EXTREMITIES: Normal range of motion. No edema. No clubbing or cyanosis SKIN: Warm, dry, no rash. No noted wounds NEURO: No focal deficits. Alert and oriented x3. MAEW. CN's II-XI intact bilaterally, normal gait PSYCH: Cooperative. Normal mood and affect. Course Vital Signs Vital signs: Vital Signs Temperature 36.6 C 03/30/24 13:44 Pulse Rate 90 03/30/24 13:44 Respiratory Rate 16 03/30/24 13:44 Blood Pressure 119/82 03/30/24 13:44 Pulse Oximetry 98 03/30/24 13:44 Oxygen Delivery Room Air 03/30/24 13:44 Temperature 36.6 C 03/30/24 13:44 Pulse Rate 90 03/30/24 13:44 Respiratory Rate 16 03/30/24 13:44 Blood Pressure 119/82 03/30/24 13:44 Pulse Oximetry 98 03/30/24 13:44 Oxygen Delivery Room Air 03/30/24 13:44
[2024-03-30 14:21] LABS: Influenza A QL RT-PCR Negative (Negative); Influenza B QL RT-PCR Negative (Negative); RSV RNA, RT-PCR Negative (Negative); SARS-CoV-2 RNA PCR Negative (Negative)
[2024-03-30 14:35] VITALS: PULSE 69; RESP 18
[2024-03-30] MEDS: IPRATROPIUM 0.5 MG/ALBUTEROL SULFATE 2.5 MG AMPUL.NEB 3 ML INHALATION (14:35)
[2024-03-30 14:46] VITALS: PULSE 76; RESP 18
[2024-03-30 14:53] VITALS: BP 110/79; PULSE 68; RESP 16; TEMP 36.6; O2SAT 99
[2024-03-30] MEDS: dexAMETHasone SOD PHOS INJ 10 MG/ML 1 ML VIAL IM (14:53)
== END 2024-03-30 15:00 | disposition home or self-care (01) ==
PROVIDERS: Emergency Provider Nurse Practitioner Family; PCP Family Medicine
DX: J06.9 Acute upper respiratory infection, unspecified (principal); Z20.822 Contact with and (suspected) exposure to COVID-19; F32.A Depression, unspecified; F17.210 Nicotine dependence, cigarettes, uncomplicated
CPT/HCPCS: 71046; 87637; 94640; 96372; 99283; J1100

== ENCOUNTER 2025-02-07 12:31 | Emergency (ER) | payer OTHER, SELFPAY ==
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
[2025-02-07 12:31] VITALS: BP 115/78; PULSE 85; RESP 16; TEMP 36.4; O2SAT 95
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
[2025-02-07] MEDS: KETOROLAC 30 MG/ML VIAL (*BKC) IM (13:45)
--- OUTSIDE RECORDS SUMMARY | 2025-02-07 13:56 | XMS_ITS ---
Author Organization [facility] Address [address] [facility] [address] [place] [address] Care Team Providers Care Tc Operator Name Role Phone Josephine Lopez MD Primary Care Provider Unavail able Yaritza Martinez Unavailable [phone] Sanchez Brown Unavailable [phone] Allergies Allergen (clinical drug ingredient) Drug/Non Drug Allergy documented on EMR Reaction Allergy Type Onset Date Status Biaxin Unknown Drug Allergy Active Medicinal cephalosporin and acting as antibacterial agent (FN) Cephalosporins Unknown Drug Allergy Active Latex Latex Unknown Allergy Active REASON FOR VISIT walk in Medications Medication SIG (Take, Route, Frequency, Duration) Notes Start Date End Date Status Phentermine HCl 37.5 MG 1 capsule Orally Once a day Active hydrOXYzine HCl 25 MG 1 tablet as needed Orally twice a day for 30 days As needed Active DULoxetine HCl 60 MG 1 capsule Oral Once a day for 90 days Active Hebo Carbonate 150 MG 1 capsule at be dtime Oral once a day for 30 days 01/08/2025 Active LORazepam 1 MG 1 tablet Oral twice a day for 30 days As needed 12/28/2024 Active Escitalopram Oxalate 5 MG 1 tablet Orall y Once a day for 90 days Active Spravato (56 MG Dose) 28 MG/DEVICE 2 sprays in each nostril Nasally once for 1 days 01/11/2025 Active Spravato (84 MG Dose) 28 MG/DEVICE 3 sprays in each nostril Nasally twice a week for 1 days 01/11/2025 Active Social History Tobacco Use: Social History Observation Description Date Details (start date - stop date) Current Smoker 12/10/1989 - NA Sex Assigned At : Social History Observation Description Sex Assigned At Female Tobacco Control (Standard) Question Answer Notes Tobacco use: Current smoker When did you start smoking? 12/10/1989 How often do you smoke cigarettes? Every day How many cigarettes a day do you smoke? 6-10 How soon after you wake up d o you smoke your first cigarette? 31-60 minutes Are you interested in quitting? Thinking about q uitting AUDIT-C (Standard) Question Answer Notes Points 4 Did you have a drink contain ing alcohol in the past year? Yes How often did you have six o r more drinks on one occasion in the past year? Less than monthly (1 point) How many drinks did you have on a typical day when you were drinking in the past year? 5 or 6 drinks (2 points) How often did you have a dri nk containing alcohol in the past year? Monthly or less (1 point) Encounters Encounter Location Date Provider Diagnosis [facility], [place] [address] [address] 01/16/2025 Sanchez Brown Plan Of Treatment Next Appt Details Provider Name:Yaritza Nj cosme, 02/16/2025 10:45:00 AM, [address], [facility] [address], [place], [address], Progress Notes * Kelsie NAGELOB: 3 (54 yo F)Acc No.[id number]:01/16/2025 Patient: Ana STORM Provider: MONICA MagañaHNMichel :1970 A ge:54 Y S ex:Female Date:01/16/2025 Phone: Address:[address] [place], [place] [phone] Pcp:Josephine Lopez MD Subjective: * Chief Complaints: * 1 . Walk in. * Medical History: P ast Psychiatric History: Anxiety Disorder,PTSD. * Social History: T obacco Use: T obacco Control (Standard) T obacco use: C urrent smoker W hen did you start smoking? H ow often do you smoke cigarettes? E very day H ow many cigarettes a day do you smoke? 6 -10 H ow soon after you wake up do you smoke your first cigarette? 3 1-60 minutes A re you interested in quitting? T hinking about quitting D rug/Alcohol: D rugs H ave you used drugs other than those for medical reasons in the past 12 months? Y es M ethamphetamine? N o C rack? N o L SD? N o E cstacy? N o P rescription opiates? N o M arijuana? Y es K etamine? N o P CP? N o I s there a minor (18 years or younger) at risk at home? N o A re you still using? Y es D o you want treatment? N o Do you smoke marijuana?: Admits. Do you drink alcohol?: Socially. AUDIT-C (Standard) D id you have a drink containing alcohol in the past year? Y es H ow often did you have six or more drinks on one occasion in the past year? L ess than monthly (1 point) H ow many drinks did you have on a typical day when you were drinking in the past year? 5 or 6 drinks (2 points) H ow often did you have a drink containing alcohol in the past year? M onthly or less (1 point) P oints 4 M iscellaneous: S afety issues A re there any firearms in the house? 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 N o * Medications: T aking Hebo Carbonate 150 MG Capsule 1 capsule at bedtime Oral once a day , Taking Spravato (56 MG Dose) 28 MG/DEVICE Solution Therapy Pack 2 sprays in each nostril Nasally once , Taking Spravato (84 MG Dose) 28 MG/DEVICE Solution Therapy Pack 3 sprays in each nostril Nasally twice a week , Taking Escitalopram Oxalate 5 MG Tablet 1 tablet Orally Once a day , Taking LORazepam 1 MG Tablet 1 tablet Oral twice a day As needed, Taking DULoxetine HCl 60 MG Capsule Delayed Release Particles 1 capsule Oral Once a day , Taking Phentermine HCl 37.5 MG Capsule 1 capsule Orally Once a day , Taking hydrOXYzine HCl 25 MG Tablet 1 tablet as needed Orally twice a day As needed * Allergies: L atex, Biaxin, Cephalosporins. Objective: * Vitals: Assessment: Plan: * Treatment: * Billing Information: * Visit Code: * Procedure Codes: * Electronic signature of JOSE Gaytan on 02/07/2025 at 01:56 PM CDT Sign off status: Pending * Provider: Ángel Brown PMHNP Date: 0 01/16/2025 Generated for Mark mejias/Carlo/Suleiman on: 0 02/07/2025 01:56 PM CDT
--- OUTSIDE RECORDS SUMMARY | 2025-02-07 13:56 | XMS_ITS | Patient Health Record ---
Author Organization [facility] [employer] Address [address] [facility] [address] [place] [address] Care Team Providers Care Bowstring Maker Name Role Phone Josephine Lopez MD Primary Care Provider Unavail able Yaritza Martinez Unavailable [phone] Silvia Kelley Unavailable [phone] Dean Ram Unavailable [phone] Ashley Rutherford Unavailable [phone] Sanchez Brown Unavailable [phone] Allergies Allergen (clinical drug ingredient) Drug/Non Drug Allergy documented on EMR Reaction Allergy Type Onset Date Status Biaxin Unknown Drug Allergy Active Medicinal cephalosporin and acting as antibacterial agent (FN) Cephalosporins Unknown Drug Allergy Active Latex Latex Unknown Allergy Active Results Component Value Reference Range Notes UDT Reviewed date:03/14/2024 09:45:33 AM Interpretation: Performing Lab: Notes/Report: THC POS 0 - 50 ng/ml Cocaine NEG 0 - 300 ng/ml Amphetamine NEG 0 - 1000 ng/ml Buprenorphine (BUP) NEG 0 - 10 ng/ml Secobarbital (Bar) NEG 0 - 300 ng/ml Oxazepam (BZO) NEG 0 - 300 ng/ml 0-jroecnvahz-4,3-vrqszozr-6,3-diphenylpyrrolidine (MARIAN P) NEG 0 - 300 ng/ml Methamphetamine (MET) NEG 0 - 1000 ng/ml Methylenedioxymethamphetamine (MDMA) NEG 0 - 500 ng/ml Morphine (MOP 300/[id number]) NEG 0 - 300 ng/ml Methadone (MTD) NEG 0 - 300 ng/ml Phencyclidine (PCP) NEG 0 - 25 ng/ml Nortriptyline (TCA) NEG 0 - 1000 ng/ml Oxycodone NEG 0 - 300 ng/ml x NEG 0 - 300 ng/ml Reason For Referral No Information Medications Medication SIG (Take, Route, Frequency, Duration) Notes Start Date End Date Status Phentermine HCl 37.5 MG 1 capsule Orally Once a day Active [place] Carbonate 150 MG 1 capsule at be dtime Oral once a day for 30 days 01/08/2025 Not-Taking Spravato (56 MG Dose) 28 MG/DEVICE 2 sprays in each nostril Nasally once for 1 days 01/11/2025 Active Spravato (84 MG Dose) 28 MG/DEVICE 3 sprays in each nostril Nasally twice a week for 1 days 01/11/2025 Active Escitalopram Oxalate 20 MG 1 tablet Orally Once a day for 90 days Active [place] Carbonate 150 MG 1 capsule Oral Twice a day for 30 days 01/26/2025 Active hydrOXYzine HCl 25 MG 1 tablet as needed Orally twice a day for 30 days As needed Active LORazepam 1 MG 1 tablet Oral twice a day for 30 days As needed 01/26/2025 Active Spravato (56 MG Dose) 28 MG/DEVICE 2 sprays in each nostril Nasally once for 1 days 02/07/2025 Active Spravato (84 MG Dose) 28 MG/DEVICE 3 sprays in each nostril Nasally twice a week for 1 days 02/07/2025 Active Social History Tobacco Use: Social History [...] past year? Monthly or less (1 point) Problems Problem Type SNOMED Code ICD Code Onset Dates Problem Status W/U Status Risk Notes Problem Generalized anxiety disorder (42106191) WILL (generalized anxiety disorder) (F41.1) Active confirmed Problem Attention deficit hyperactivity disorder (955525624) ADHD (attention deficit hyperactivity disorder), combined type (F90.2) Active confirmed Problem Posttraumatic stress disorder (54850049) PTSD (post-traumatic stress disorder) (F43.10) Active confirmed Problem Severe recurrent major depression without psychotic features (53388587) MDD (major depressive disorder), recurrent severe, 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.2) Active confirmed Problem Grief (036245868) Grief (F43.21) Active confirm ed Vital Signs Heart Rate 106 /min 12/28/2024 Height-cm 165.1 cm 12/28/2024 Blood pressure diastolic 83 mm Hg 12/28/2024 Weight-kg 68.04 kg 12/28/2024 Height 65 in 12/28/2024 Blood pressure systolic 117 mm Hg 12/28/2024 Weight 150 lbs 12/28/2024 BMI 24.96 kg/m2 12/28/2024 Procedures Procedure Date Ordered Date Performed Result Body Sit e ADHD Testing 03/14/2024 N/A Encounters Encounter Location Date Provider Diagnosis [facility] [employer] [facility] [address] [facility] [address] [facility] [address] [place] [address] 03/14/2024 Yaritza Martinez MDD (major depressiv e disorder), recurrent severe, without psychosis F33.2 ; WILL (generalized anxiety disorder) F41.1 ; PTSD (post-traumatic stress disorder) F43.10 and ADHD (attention deficit hyperactivity disorder), combined type F90.2 [employer] [facility] [address] [place] [address] 03/23/2024 Dean Ram ADHD (attention deficit hyperactivity disorder), combined type F90.2 [employer] [facility] [address] [place] [address] 03/30/2024 Yaritza Martinez MDD (major depressiv e disorder), recurrent severe, without psychosis F33.2 ; WILL (generalized anxiety disorder) F41.1 ; PTSD (post-traumatic stress disorder) F43.10 and ADHD (attention deficit hyperactivity disorder), combined type F90.2 [employer] [facility] [address] [place] [address] 06/14/2024 Yaritza Kurilla MDD (major depressiv e disorder), recurrent severe, without psychosis F33.2 ; WILL (generalized anxiety disorder) F41.1 ; PTSD (post-traumatic stress disorder) F43.10 and ADHD (attention deficit hyperactivity disorder), combined type F90.2 [facility] [employer] [facility] [address] [place] [address] 07/28/2024 Yaritza Kurilla [facility] [email or web address] [facility] [address] [place] [address] 07/31/2024 Yaritza Kurilla MDD (major depressiv e disorder), recurrent severe, without psychosis F33.2 ; WILL (generalized anxiety disorder) F41.1 ; PTSD (post-traumatic stress disorder) F43.10 and ADHD (attention deficit hyperactivity disorder), combined type F90.2 [facility] [employer] [facility], [facility] [address] [place] [address] 07/31/2024 Ashley Hinderliter MDD (major depressiv e disorder), recurrent severe, without psychosis F33.2 ; WILL (generalized anxiety disorder) F41.1 ; PTSD (post-traumatic stress disorder) F43.10 ; ADHD (attention deficit hyperactivity disorder), combined type F90.2 and Grief F43.21 [employer] [facility], [address] [address] [place] [address] 08/11/2024 Ashley Hinderliter MDD (major depressiv e disorder), recurrent severe, without psychosis F33.2 ; Grief F43.21 ; PTSD (post-traumatic stress disorder) F43.10 ; WILL (generalized anxiety disorder) F41.1 and ADHD (attention deficit hyperactivity disorder), combined type F90.2 [facility] [employer] [facility], [facility] [address] [place] [address] 08/25/2024 Ashley Hinderliter MDD (major depressiv e disorder), recurrent severe, without psychosis F33.2 ; ADHD (attention deficit hyperactivity disorder), combined type F90.2 and Grief F43.21 [facility] [employer] [facility] [address] [place] [address] 09/25/2024 Yaritza Kurilla MDD (major depressiv e disorder), recurrent severe, without psychosis F33.2 ; WILL (generalized anxiety disorder) F41.1 ; PTSD (post-traumatic stress disorder) F43.10 and ADHD (attention deficit hyperactivity disorder), combined type F90.2 [facility] [employer] [facility], [place] [address] [address] 09/25/2024 Ashley Hinderliter MDD (major depressiv e disorder), recurrent severe, without psychosis F33.2 ; ADHD (attention deficit hyperactivity disorder), combined type F90.2 ; WILL (generalized anxiety disorder) F41.1 and Grief F43.21 [facility] [employer] [place] [address] [address] 10/30/2024 Yaritza Martinez MDD (major depressiv e disorder), recurrent severe, without psychosis F33.2 ; WILL (generalized anxiety disorder) F41.1 ; PTSD (post-traumatic stress disorder) F43.10 ; ADHD (attention deficit hyperactivity disorder), combined type F90.2 ; Nicotine use Z72.0 and Encounter for screening for cardiovascular disorders Z13.6 [facility] [employer] [facility], [place] [address] [address] 10/30/2024 Ashley Hinderliter MDD (major depressiv e disorder), recurrent severe, without psychosis F33.2 ; ADHD (attention deficit hyperactivity disorder), combined type F90.2 ; WILL (generalized anxiety disorder) F41.1 ; PTSD (post-traumatic stress disorder) F43.10 and Grief F43.21 [facility] [employer] [facility], [place] [address] [address] 11/10/2024 Ashley Hinderliter MDD (major depressiv e disorder), recurrent severe, without psychosis F33.2 ; WILL (generalized anxiety disorder) F41.1 ; PTSD (post-traumatic stress disorder) F43.10 ; Grief F43.21 and Encounter for screening for depression Z13.31 [facility] [employer] [facility] [address] [address] 11/15/2024 Ashley Hinderliter MDD (major depressiv e disorder), recurrent severe, without psychosis F33.2 ; WILL (generalized anxiety disorder) F41.1 ; ADHD (attention deficit hyperactivity disorder), combined type F90.2 ; PTSD (post-traumatic stress disorder) F43.10 ; Grief F43.21 and Encounter for screening for depression Z13.31 [employer] [facility] [address] 11/24/2024 Yaritza Martinez Nicotine use Z72.0 ; MDD (major depressive disorder), recurrent severe, without psychosis F33.2 ; WILL (generalized anxiety disorder) F41.1 ; PTSD (post-traumatic stress disorder) F43.10 ; ADHD (attention deficit hyperactivity disorder), combined type F90.2 ; Encounter for screening for cardiovascular disorders Z13.6 and Encounter for screening for depression Z13.31 [employer] [address] [address] 11/24/2024 Ashley Hinderliter MDD (major depressiv e disorder), recurrent severe, without psychosis F33.2 ; WILL (generalized anxiety disorder) F41.1 ; ADHD (attention deficit hyperactivity disorder), combined type F90.2 ; PTSD (post-traumatic stress disorder) F43.10 ; Grief F43.21 and Encounter for screening for depression Z13.31 [employer] [facility] [address] 11/30/2024 Ashley Hinderliter MDD (major depressiv e disorder), recurrent severe, without psychosis F33.2 ; WILL (generalized anxiety disorder) F41.1 ; ADHD (attention deficit hyperactivity disorder), combined type F90.2 ; PTSD (post-traumatic stress disorder) F43.10 ; Grief F43.21 and Encounter for screening for depression Z13.31 [employer] [address] [address] 12/13/2024 Ashley Hinderliter MDD (major depressiv e disorder), recurrent severe, without psychosis F33.2 ; WILL (generalized anxiety disorder) F41.1 ; ADHD (attention deficit hyperactivity disorder), combined type F90.2 ; PTSD (post-traumatic stress disorder) F43.10 ; Grief F43.21 ; Nicotine use Z72.0 and Encounter for screening for depression Z13.31 [employer] [facility] [address] 12/28/2024 Ashley Rutherford MDD (major depressiv e disorder), recurrent severe, without psychosis F33.2 ; WILL (generalized anxiety disorder) F41.1 ; Grief F43.21 ; PTSD (post-traumatic stress disorder) F43.10 ; ADHD (attention deficit hyperactivity disorder), combined type F90.2 and Encounter for screening for depression Z13.31 [facility] [employer] [place] [address] [place] [address] 12/28/2024 Yaritza Kurilla Nicotine use Z72.0 ; MDD (major depressive disorder), recurrent severe, without psychosis F33.2 ; WILL (generalized anxiety disorder) F41.1 ; PTSD (post-traumatic stress disorder) F43.10 ; ADHD (attention deficit hyperactivity disorder), combined type F90.2 ; Encounter for screening for cardiovascular disorders Z13.6 and Encounter for screening for depression Z13.31 [facility] [employer] [facility], [facility] [address] [place] [address] [address] [place] [address] 01/04/2025 Ashley Rutherford MDD (major depressiv e disorder), recurrent severe, without psychosis F33.2 ; WILL (generalized anxiety disorder) F41.1 ; ADHD (attention deficit hyperactivity disorder), combined type F90.2 ; PTSD (post-traumatic stress disorder) F43.10 ; Grief F43.21 and Encounter for screening for depression Z13.31 [facility] [employer] [facility], [facility] [facility] [place] [address] 01/16/2025 Ashley Rutherford MDD (major depressiv e disorder), recurrent severe, without psychosis F33.2 ; WILL (generalized anxiety disorder) F41.1 ; ADHD (attention deficit hyperactivity disorder), combined type F90.2 ; Grief F43.21 and Encounter for screening for depression Z13.31 [employer] [facility] [address] [place] [address] 01/26/2025 Yaritza Kurilla Nicotine use Z72.0 ; MDD (major depressive disorder), recurrent severe, without psychosis F33.2 ; WILL (generalized anxiety disorder) F41.1 ; PTSD (post-traumatic stress disorder) F43.10 ; ADHD (attention deficit hyperactivity disorder), combined type F90.2 ; Encounter for screening for cardiovascular disorders Z13.6 and Encounter for screening for depression Z13.31 [facility], [facility] [address] [place] [address] 02/02/2025 Yaritza Martinez [facility], [facility] [address] [place] [address] 05/11/2024 Yaritza Martinez [facility], [facility] [address] [place] [address] 07/24/2024 Yaritza Martinez [facility], [facility] [address] [place] [address] 09/18/2024 Yaritza Martinez [facility], [facility] [address] [place] [address] 11/10/2024 Yaritza Martinez [facility], [facility] [address] [place] [address] 01/16/2025 Yaritza Martinez [facility], [facility] [address] [place] [address] 04/05/2024 Yaritza Martinez [facility], [facility] [address] [place] [address] 04/12/2024 Yaritza Martinez [facility], [facility] [address] [place] [address] 04/12/2024 Yaritza Martinez [facility], [facility] [address] [place] [address] 04/12/2024 Yaritza Martinez [facility], [facility] [address] [place] [address] 04/14/2024 Yaritza Martinez MDD (major depressiv e disorder), recurrent severe, without psychosis F33.2 [facility], [facility] [address] [place] [address] 05/10/2024 Yaritza Martinez [facility], [facility] [address] [place] [address] 05/10/2024 Yaritza Martinez [facility], [facility] [address] [place] [address] 06/19/2024 Yaritza Martinez [facility], [facility] [address] [place] [address] 07/24/2024 Yaritza Martinez [facility], [facility] [address] [place] [address] 07/30/2024 Yaritza Martinez [facility], [facility] [address] [place] [address] 09/18/2024 Yaritza Martinez [facility], [facility] [address] [place] [address] 09/20/2024 Yaritza Martinez WILL (generalized anxiety disorder) F41.1 [facility], [facility] [address] [place] [address] 10/12/2024 Yaritza Martinez [facility], [facility] [address] [place] [address] 10/30/2024 Yaritza Martinez [facility], [facility] [address] [place] [address] 11/09/2024 Yaritza Martinez [facility], [facility] [address] [place] [address] 11/09/2024 Yaritza Martinez [facility], [facility] [address] [place] [address] 01/04/2025 Yaritza Martinez [facility], [facility] [address] [place] [address] 01/07/2025 Yaritza Martinez [facility], [facility] [address] [place] [address] 01/07/2025 Yaritza Martinez [facility], [facility] [address] [place] [address] 01/08/2025 Yaritza Martinez [facility], [facility] [address] [place] [address] 01/08/2025 Yaritza Martinez [facility], [facility] [address] [place] [address] 01/08/2025 Yaritza Martinez [facility], [facility] [address] [place] [address] 01/09/2025 Yaritza Martinez [facility], [facility] [address] [place] [address] 01/09/2025 Yaritza Martinez [facility], [facility] [address] [place] [address] 01/11/2025 Yaritzahumera Jacob[facility]ph [facility] [employer] [address] [place] [address] 01/26/2025 Yaritzahumera Martinez [facility] [email or web address] [facility] [address] [place] [address] 01/29/2025 Yaritzahumera Martinez [facility] [email or web address] [facility] [address] [place] [address] 01/30/2025 Yaritzahumera Martinez Assessments Encounter Date Diagnosis (ICD Code) Assessment Notes Treatment Notes Treatment Clinical Notes Section Notes 03/14/2024 MDD (major depressive disorder), recurrent severe, without psychosis (ICD-10 - F33.2) 03/23/2024 ADHD (attention deficit hyperactivity disorder), combined type (ICD-10 - F90.2) 03/14/2024 WILL (generalized anxiety disorder) (ICD-10 - F41.1) 03/30/2024 MDD (major depressive disorder), recurrent severe, without psychosis (ICD-10 - F33.2) 06/14/2024 MDD (major depressive disorder), recurrent severe, without psychosis (ICD-10 - F33.2) 07/31/2024 MDD (major depressive disorder), recurrent severe, without psychosis (ICD-10 - F33.2) 07/31/2024 WILL (generalized anxiety disorder) (ICD-10 - F41.1) 1. Complex PTSD, Anxiety, and ADHD - Continue the current treatment regimen as managed by her psychiatrist. Explore referral for EMDR therapy, previously planned but interrupted due to insurance issues. Consider cognitive behavioral therapy sessions to address symptoms, focusing on coping mechanisms for recent stressors. 2. Grief and Loss - Refer to grief support groups like [facility] and [facility] for free sessions. Encourage participation in group therapy to provide support and coping strategies during intense mourning. 3. Family Dynamics and Support - Discuss strategies for setting boundaries with family members, especially with her mother and brother. Encourage open communication about needs and limits to ensure a supportive home environment. Consider family therapy sessions if appropriate. 4. Substance Use - Continue monitoring cannabis use. Discuss its role in coping strategies during therapy sessions to ensure it remains beneficial and does not interfere with daily functioning or mental health treatment. 5. Sleep and Nutrition - Address sleep hygiene practices and consider behavioral strategies to improve sleep. Encourage nutritional counseling or consultation with a dietitian to ensure adequate nutrition, crucial for mental health management. 6. Personal Coping Strategies - Encourage re-engagement with art as a therapeutic tool and explore other leisure activities for emotional relief. Provide resources for motivational enhancement therapy to help regain interest in life activities. Follow-up: - Schedule a follow-up appointment for a four o'clock slot on a Wednesday as per availability to reassess condition and adjust the treatment plan as necessary. Offer flexibility for earlier appointments if needed for more immediate support. 07/31/2024 MDD (major depressive disorder), recurrent severe, without psychosis (ICD-10 - F33.2) 1. Complex PTSD, Anxiety, and ADHD - Continue the current treatment regimen as managed by her psychiatrist. Explore referral for EMDR therapy, previously planned but interrupted due to insurance issues. Consider cognitive behavioral therapy sessions to address symptoms, focusing on coping mechanisms for recent stressors. 2. Grief and Loss - Refer to grief support groups like [employer] and [facility] for free sessions. Encourage participation in group therapy to provide support and coping strategies during intense mourning. 3. Family Dynamics and Support - Discuss strategies for setting boundaries with family members, especially with her mother and brother. Encourage open communication about needs and limits to ensure a supportive home environment. Consider family therapy sessions if appropriate. 4. Substance Use - Continue monitoring cannabis use. Discuss its role in coping strategies during therapy sessions to ensure it remains beneficial and does not interfere with daily functioning or mental health treatment. 5. Sleep and Nutrition - Address sleep hygiene practices and consider behavioral strategies to improve sleep. Encourage nutritional counseling or consultation with a dietitian to ensure adequate nutrition, crucial for mental health management. 6. Personal Coping Strategies - Encourage re-engagement with art as a therapeutic tool and explore other leisure activities for emotional relief. Provide resources for motivational enhancement therapy to help regain interest in life activities. Follow-up: - Schedule a follow-up appointment for a four o'clock slot on a Wednesday as per availability to reassess condition and adjust the treatment plan as necessary. Offer flexibility for earlier appointments if needed for more immediate support. 08/25/2024 ADHD (attention deficit hyperactivity disorder), combined type (ICD-10 - F90.2) Assessment and Plan: 1. ADHD - Encourage the patient to discuss ADHD management with their primary care provider for possible alternative treatments. 2. Anxiety and Grief - Continue Cognitive Behavioral Therapy sessions to address anxiety and grief related to the loss of the patient's . - Encourage the patient to continue journaling as a coping mechanism. - Support the patient's advocacy for mental health care and suicide awareness. 4. Family and Social Support - Encourage the patient to communicate their needs and emotions with family members and friends. - Suggest exploring local support groups for grief and mental health. 5. Work-related Stress - Encourage the patient to address any ethical concerns with their employer or appropriate regulatory bodies. - Discuss stress management techniques and coping strategies for dealing with work-related stress. 6. Spiritual Beliefs and Experiences - Validate the patient's experiences and beliefs regarding their 's presence. - Encourage the patient to explore their spiritual beliefs further and consider discussing them with a home service advisor or counselor if desired. 7. Transgender Child - Support the patient in understanding and accepting their child's gender identity and transition process. - Encourage open communication between the patient and their child regarding their experiences and needs. Follow-up: - Schedule a follow-up appointment in one week to continue addressing the patient's concerns and monitor progress. 08/25/2024 MDD (major depressive disorder), recurrent severe, without psychosis (ICD-10 - F33.2) Assessment and Plan: 1. ADHD - Encourage the patient to discuss ADHD management with their primary care provider for possible alternative treatments. 2. Anxiety and Grief - Continue Cognitive Behavioral Therapy sessions to address anxiety and grief related to the loss of the patient's . - Encourage the patient to continue journaling as a coping mechanism. - Support the patient's advocacy for mental health care and suicide awareness. 4. Family and Social Support - Encourage the patient to communicate their needs and emotions with family members and friends. - Suggest exploring local support groups for grief and mental health. 5. Work-related Stress - Encourage the patient to address any ethical concerns with their employer or appropriate regulatory bodies. - Discuss stress management techniques and coping strategies for dealing with work-related stress. 6. Spiritual Beliefs and Experiences - Validate the patient's experiences and beliefs regarding their 's presence. - Encourage the patient to explore their spiritual beliefs further and consider discussing them with a home service advisor or counselor if desired. 7. Transgender Child - Support the patient in understanding and accepting their child's gender identity and transition process. - Encourage open communication between the patient and their child regarding their experiences and needs. Follow-up: - Schedule a follow-up appointment in one week to continue addressing the patient's concerns and monitor progress. 09/20/2024 WILL (generalized anxiety disorder) (ICD-10 - F41.1) 09/25/2024 MDD (major depressive disorder), recurrent severe, without psychosis (ICD-10 - F33.2) 09/25/2024 ADHD (attention deficit hyperactivity disorder), combined type (ICD-10 - F90.2) Grief and Bereavement Continue attending therapy sessions to address grief and bereavement. Assist with FMLA paperwork to ensure job protection during the grieving period. Family Stressors Seek support from family and friends to help manage stressors, including her daughter's mental health issues, her son's gender transition, and her grandson's developmental delays. Recommend exploring local resources and support groups for parents of children with mental health issues and gender transition. ADHD Monitor ADHD symptoms and discuss potential medication adjustments if necessary. Implement coping strategies, such as using noise or music to help focus and finding healthy distractions to manage impulsivity. Skin Picking Identify triggers for skin picking and develop alternative coping strategies, such as engaging in activities that occupy her hands. Monitor skin picking behavior and consider referral to a specialist if the behavior worsens or does not improve. Workplace Stress Address workplace issues directly with supervisors and coworkers when appropriate. Explore other job opportunities if the current work environment continues to negatively impact mental health. Financial Stress Seek financial counseling or assistance to help manage financial situation. Assist with FMLA paperwork to ensure job protection and minimize financial stress related to time off work. Self-Care Prioritize self-care and consider taking a weekend for oneself to recharge. Discuss the importance of setting boundaries and asking for help when needed to manage stress and maintain mental health. Follow-up: Schedule a follow-up appointment to monitor the patient's progress and continue working on the identified issues. 09/25/2024 MDD (major depressive disorder), recurrent severe, without psychosis (ICD-10 - F33.2) Grief and Bereavement Continue attending therapy sessions to address grief and bereavement. Assist with FMLA paperwork to ensure job protection during the grieving period. Family Stressors Seek support from family and friends to help manage stressors, including her daughter's mental health issues, her son's gender transition, and her grandson's developmental delays. Recommend exploring local resources and support groups for parents of children with mental health issues and gender transition. ADHD Monitor ADHD symptoms and discuss potential medication adjustments if necessary. Implement coping strategies, such as using noise or music to help focus and finding healthy distractions to manage impulsivity. Skin Picking Identify triggers for skin picking and develop alternative coping strategies, such as engaging in activities that occupy her hands. Monitor skin picking behavior and consider referral to a specialist if the behavior worsens or does not improve. Workplace Stress Address workplace issues directly with supervisors and coworkers when appropriate. Explore other job opportunities if the current work environment continues to negatively impact mental health. Financial Stress Seek financial counseling or assistance to help manage financial situation. Assist with [place] paperwork to ensure job protection and minimize financial stress related to time off work. Self-Care Prioritize self-care and consider taking a weekend for oneself to recharge. Discuss the importance of setting boundaries and asking for help when needed to manage stress and maintain mental health. Follow-up: Schedule a follow-up appointment to monitor the patient's progress and continue working on the identified issues. 10/30/2024 ADHD (attention deficit hyperactivity disorder), combined type (ICD-10 - F90.2) Assessment and Plan: 1. Major Depressive Disorder - Patient reports continued daily crying and struggles with mood. - Frustration with medication trials. - Plan: Start Abilify as an adjunct to current antidepressant medication per [facility]. Monitor for side effects and efficacy. Continue weekly therapy sessions with a focus on Cognitive Behavioral Therapy. 2. Grief and Loss - Patient is grieving the loss of her and experiencing emotional distress. - Plan: Continue weekly therapy sessions to address grief and loss. Explore the possibility of joining a grief support group, such as [employer] or [employer], for additional support. 3. Work-related stress - Patient experienced a conflict at work and is struggling with the work environment. 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 Utilize stress management techniques and coping strategies during therapy sessions. 4. Family concerns - Patient has concerns about her children's well-being and development. - Plan: Encourage the patient to seek appropriate resources and support for her children, such as the [employer] parent education program and [employer] for grief support. Continue to address family dynamics and concerns during therapy sessions. 5. Interest in alternative treatments - Patient expressed interest in microdosing and Transcranial Magnetic Stimulation (TMS) as alternative treatments for depression. - Plan: Provide the patient with information on TMS and esketamine nasal spray treatment options available at the clinic. Discuss the potential benefits and risks of these treatments during therapy sessions. Informed client that [facility] does not provide psilocybin microdosing treatments at this time. 6. Social and recreational activities - Patient is attempting to re-engage in hobbies and social activities to improve her mood and overall well-being. - Plan: Encourage the patient to continue pursuing her interests in art, photography, and socializing with friends and family. Incorporate discussions about these activities and their impact on her mood during therapy sessions. 10/30/2024 MDD (major depressive disorder), recurrent severe, without psychosis (ICD-10 - F33.2) Assessment and Plan: 1. Major Depressive Disorder - Patient reports continued daily crying and struggles with mood. - Frustration with medication trials. - Plan: Start Abilify as an adjunct to current antidepressant medication per [facility]. Monitor for side effects and efficacy. Continue weekly therapy sessions with a focus on Cognitive Behavioral Therapy. 2. Grief and Loss - Patient is grieving the loss of her and experiencing emotional distress. - Plan: Continue weekly therapy sessions to address grief and loss. Explore the possibility of joining a grief support group, such as [employer] or [employer], for additional support. 3. Work-related stress - Patient experienced a conflict at work and is struggling with the work environment. 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 Utilize stress management techniques and coping strategies during therapy sessions. 4. Family concerns - Patient has concerns about her children's well-being and development. - Plan: Encourage the patient to seek appropriate resources and support for her children, such as the [employer] parent education program and [employer] for grief support. Continue to address family dynamics and concerns during therapy sessions. 5. Interest in alternative treatments - Patient expressed interest in microdosing and Transcranial Magnetic Stimulation (TMS) as alternative treatments for depression. - Plan: Provide the patient with information on TMS and esketamine nasal spray treatment options available at the clinic. Discuss the potential benefits and risks of these treatments during therapy sessions. Informed client that [facility] does not provide psilocybin microdosing treatments at this time. 6. Social and recreational activities - Patient is attempting to re-engage in hobbies and social activities to improve her mood and overall well-being. - Plan: Encourage the patient to continue pursuing her interests in art, photography, and socializing with friends and family. Incorporate discussions about these activities and their impact on her mood during therapy sessions. 11/10/2024 WILL (generalized anxiety disorder) (ICD-10 - F41.1) 1. Medication-relat ed side effects and inefficacy - Patient reports significant side effects and inefficacy with recent medication changes - Abilify, started approximately 2 weeks ago, has led to increased irritability, sadness, and cognitive difficulties (slug brain) - Topamax, prescribed by primary care physician for weight management, was started concurrently and may be contributing to these symptoms - History of adverse reactions to Topamax, including vision problems and drowsiness while driving - Medication changes have resulted in increased use of Ativan to manage irritability - Previous medication trials include Vraylar (associated with weight gain) and Lamictal (discontinued due to perceived inefficacy and headaches) - Patient expresses desire to discontinue both Abilify and Topamax due to side effects and lack of efficacy Plan: - Follow up with prescribers about discontinuing Abilify and Topamax due to reported side effects and lack of efficacy - Consider restarting Lamictal 100 mg daily with prescriber, as it was previously better tolerated than current regimen - Monitor Ativan use and consider alternative strategies for managing irritability - Schedule follow-up appointment to reassess medication efficacy and side effects with all prescribers - Educate patient on importance of consulting with prescribing physicians before discontinuing medications 2. Persistent depressive symptoms - Reports ongoing depressive symptoms, including increased sadness and anhedonia - Difficulty engaging in previously enjoyed activities, specifically art - Recent medication changes appear to have exacerbated these symptoms - Expresses concern about impact of mental health on son - Demonstrates insight into need for improvement Plan: - Continue to monitor depressive symptoms and their impact on daily functioning - Explore non-pharmacologi fabiola interventions for managing depression - Discuss potential art therapy techniques for emotional expression and symptom management - Encourage open communication with son about emotions while maintaining appropriate boundaries 3. Weight gain and body image concerns - Reports significant weight gain (30 pounds) associated with previous medication and steroid use - Current weight is 160 pounds - Expresses frustration with inability to lose weight despite perceived normal eating habits - Weight gain causing distress and impacting self-image Plan: - Discuss healthy weight management strategies - Consider referral to [facility] or dietitian for personalized dietary advice - Explore relationship between mood, medication, and weight changes 4. Psychosocial stressors - Experiencing multiple psychosocial stressors: financial difficulties (considering bankruptcy), car problems, work-related stress, and grief related to 's - Received diagnosis of C-PTSD related to childhood experiences with father - Stressors likely contributing to overall mental health symptoms and functioning Plan: - Continue to provide supportive therapy to address ongoing stressors - Explore coping strategies for managing work-related stress - Discuss financial planning options, including potential resources for bankruptcy assistance - Address grief and loss related to 's through targeted interventions - Incorporate trauma-informed care approaches in light of C-PTSD diagnosis 11/10/2024 MDD (major depressive disorder), recurrent severe, without psychosis (ICD-10 - F33.2) 1. Medication-relat ed side effects and inefficacy - Patient reports significant side effects and inefficacy with recent medication changes - Abilify, started approximately 2 weeks ago, has led to increased irritability, sadness, and cognitive difficulties (slug brain) - Topamax, prescribed by primary care physician for weight management, was started concurrently and may be contributing to these symptoms - History of adverse reactions to Topamax, including vision problems and drowsiness while driving - Medication changes have resulted in increased use of Ativan to manage irritability - Previous medication trials include Vraylar (associated with weight gain) and Lamictal (discontinued due to perceived inefficacy and headaches) - Patient expresses desire to discontinue both Abilify and Topamax due to side effects and lack of efficacy Plan: - Follow up with prescribers about discontinuing Abilify and Topamax due to reported side effects and lack of efficacy - Consider restarting Lamictal 100 mg daily with prescriber, as it was previously better tolerated than current regimen - Monitor Ativan use and consider alternative strategies for managing irritability - Schedule follow-up appointment to reassess medication efficacy and side effects with all prescribers - Educate patient on importance of consulting with prescribing physicians before discontinuing medications 2. Persistent depressive symptoms - Reports ongoing depressive symptoms, including increased sadness and anhedonia - Difficulty engaging in previously enjoyed activities, specifically art - Recent medication changes appear to have exacerbated these symptoms - Expresses concern about impact of mental health on son - Demonstrates insight into need for improvement Plan: - Continue to monitor depressive symptoms and their impact on daily functioning - Explore non-pharmacologi fabiola interventions for managing depression - Discuss potential art therapy techniques for emotional expression and symptom management - Encourage open communication with son about emotions while maintaining appropriate boundaries 3. Weight gain and body image concerns - Reports significant weight gain (30 pounds) associated with previous medication and steroid use - Current weight is 160 pounds - Expresses frustration with inability to lose weight despite perceived normal eating habits - Weight gain causing distress and impacting self-image Plan: - Discuss healthy weight management strategies - Consider referral to [facility] or dietitian for personalized dietary advice - Explore relationship between mood, medication, and weight changes 4. Psychosocial stressors - Experiencing multiple psychosocial stressors: financial difficulties (considering bankruptcy), car problems, work-related stress, and grief related to 's - Received diagnosis of C-PTSD related to childhood experiences with father - Stressors likely contributing to overall mental health symptoms and functioning Plan: - Continue to provide supportive therapy to address ongoing stressors - Explore coping strategies for managing work-related stress - Discuss financial planning options, including potential resources for bankruptcy assistance - Address grief and loss related to 's through targeted interventions - Incorporate trauma-informed care approaches in light of C-PTSD diagnosis 11/15/2024 MDD (major depressive disorder), recurrent severe, without psychosis (ICD-10 - F33.2) 1. Major Depressive Disorder with Suicidal Ideation Assessment: - Patient reports current worsening of depressive symptoms - Expresses feeling sad, crying, depressed, and irritable, particularly after starting Abilify and Topamax prescribed by primary care physician - Reports experiencing multiple panic attacks during a recent trip without access to medications Plan: - Follow prescribers' directions for discontinuing medication - Continue other medications as prescribed - Discuss potential treatment options with psychiatrist, including Spravato (esketamine) nasal spray or Transcranial Magnetic Stimulation (TMS) - Provide crisis intervention resources and safety planning - Encourage patient to reach out to support system if experiencing suicidal thoughts 2. Interpersonal Relationships and Emotional Support Assessment: - Patient expresses developing feelings for a friend who has been supportive during recent emotional difficulties - Individual described as a and father, with shared experiences of loss via suicide - Patient acknowledges fear of falling in love but values the emotional support provided Plan: - Encourage patient to maintain healthy boundaries and take relationships slowly - Discuss the importance of self-care and emotional stability in forming new relationships - Explore coping strategies for managing intense emotions in relationships -Continue to process hesitancy of forming new romantic relationships due to grief and loss of 11/15/2024 WILL (generalized anxiety disorder) (ICD-10 - F41.1) 1. Major Depressive Disorder with Suicidal Ideation Assessment: - Patient reports current worsening of depressive symptoms - Expresses feeling sad, crying, depressed, and irritable, particularly after starting Abilify and Topamax prescribed by primary care physician - Reports experiencing multiple panic attacks during a recent trip without access to medications Plan: - Follow prescribers' directions for discontinuing medication - Continue other medications as prescribed - Discuss potential treatment options with psychiatrist, including Spravato (esketamine) nasal spray or Transcranial Magnetic Stimulation (TMS) - Provide crisis intervention resources and safety planning - Encourage patient to reach out to support system if experiencing suicidal thoughts 2. Interpersonal Relationships and Emotional Support Assessment: - Patient expresses developing feelings for a friend who has been supportive during recent emotional difficulties - Individual described as a and father, with shared experiences of loss via suicide - Patient acknowledges fear of falling in love but values the emotional support provided Plan: - Encourage patient to maintain healthy boundaries and take relationships slowly - Discuss the importance of self-care and emotional stability in forming new relationships - Explore coping strategies for managing intense emotions in relationships -Continue to process hesitancy of forming new romantic relationships due to grief and loss of 11/24/2024 Nicotine use (ICD-10 - Z72.0) 11/24/2024 WILL (generalized anxiety disorder) (ICD-10 - F41.1) 1. Complicated grief Assessment: - Patient continues to experience grief related to the loss of her - Plans to take some of his ashes on upcoming trip to [place], where they were and had planned to move - Receipt of son's social security payment triggered unexpected sadness - Grief continues to impact daily life and emotional state Plan: - Continue supportive therapy to address grief and loss - Explore patient's feelings about upcoming trip and incorporating 's ashes - Monitor for signs of complicated grief and adjust treatment plan as needed 2. Anxiety with panic attacks Assessment: - Reports recent experience of multiple panic attacks over a weekend, described as exhausting - Medication is now helping patient feel better - Working on establishing sleep habits and routine, disrupted by recent car issues - Anxiety impacting social interactions with reluctance to engage due to fear of disappointment Plan: - Continue current medication regimen - Encourage continuation of efforts to establish consistent sleep habits and daily routine - Discuss strategies for managing social anxiety and building resilience in interpersonal relationships - Monitor effectiveness of medication and adjust as needed 3. Financial stressors Assessment: - Experiencing significant financial stress with recent initiation of bankruptcy proceedings - Credit score has improved - Engaging [employer] to supplement income Plan: - Provide supportive counseling around financial stressors - Explore impact of financial situation on mental health and daily functioning - Encourage patient to follow financial associate's bankruptcy process as planned - Discuss potential resources or support services for managing financial difficulties 4. Parenting stress and son's medical needs Assessment: - Managing stress related to son's upcoming dental surgery - Secured funding through social security payment - Actively seeking appropriate healthcare provider Plan: - Provide supportive counseling around parenting stress and medical decision-making - Explore patient's coping strategies for balancing son's needs with own - Discuss potential impact of job change on patient's mental health and financial situation Follow-up: - Schedule follow-up appointment to monitor progress and continue working on identified issues 11/24/2024 MDD (major depressive disorder), recurrent severe, without psychosis (ICD-10 - F33.2) 1. Complicated grief Assessment: - Patient continues to experience grief related to the loss of her - Plans to take some of his ashes on upcoming trip to [place], where they were and had planned to move - Receipt of son's social security payment triggered unexpected sadness - Grief continues to impact daily life and emotional state Plan: - Continue supportive therapy to address grief and loss - Explore patient's feelings about upcoming trip and incorporating 's ashes - Monitor for signs of complicated grief and adjust treatment plan as needed 2. Anxiety with panic attacks Assessment: - Reports recent experience of multiple panic attacks over a weekend, described as exhausting - Medication is now helping patient feel better - Working on establishing sleep habits and routine, disrupted by recent car issues - Anxiety impacting social interactions with reluctance to engage due to fear of disappointment Plan: - Continue current medication regimen - Encourage continuation of efforts to establish consistent sleep habits and daily routine - Discuss strategies for managing social anxiety and building resilience in interpersonal relationships - Monitor effectiveness of medication and adjust as needed 3. Financial stressors Assessment: - Experiencing significant financial stress with recent initiation of bankruptcy proceedings - Credit score has improved - Engaging [employer] to supplement income Plan: - Provide supportive counseling around financial stressors - Explore impact of financial situation on mental health and daily functioning - Encourage patient to follow financial associate's bankruptcy process as planned - Discuss potential resources or support services for managing financial difficulties 4. Parenting stress and son's medical needs Assessment: - Managing stress related to son's upcoming dental surgery - Secured funding through social security payment - Actively seeking appropriate healthcare provider Plan: - Provide supportive counseling around parenting stress and medical decision-making - Explore patient's coping strategies for balancing son's needs with own - Discuss potential impact of job change on patient's mental health and financial situation Follow-up: - Schedule follow-up appointment to monitor progress and continue working on identified issues 11/30/2024 WILL (generalized anxiety disorder) (ICD-10 - F41.1) 1. Caregiver stress - Follow up with dental surgeon after son's procedure on December 14 to discuss outcomes and potential long-term treatment plan - Explore support resources for caregivers of chronically ill family members - Discuss stress management techniques in future sessions 2. Occupational burnout - Explore career options and job satisfaction in future sessions - Discuss potential coping strategies for workplace stress - Encourage patient to use upcoming [place] trip as an opportunity for relaxation and rejuvenation along with potential grief processing 3. Financial stress - Follow up on status of applications for medical card and food stamps - Explore additional financial resources or support services if needed Follow-up: - Schedule a follow-up appointment to monitor the patient's progress and continue working on the identified issues. 11/30/2024 MDD (major depressive disorder), recurrent severe, without psychosis (ICD-10 - F33.2) 1. Caregiver stress - Follow up with dental surgeon after son's procedure on December 14 to discuss outcomes and potential long-term treatment plan - Explore support resources for caregivers of chronically ill family members - Discuss stress management techniques in future sessions 2. Occupational burnout - Explore career options and job satisfaction in future sessions - Discuss potential coping strategies for workplace stress - Encourage patient to use upcoming [place] trip as an opportunity for relaxation and rejuvenation along with potential grief processing 3. Financial stress - Follow up on status of applications for medical card and food stamps - Explore additional financial resources or support services if needed Follow-up: - Schedule a follow-up appointment to monitor the patient's progress and continue working on the identified issues. 01/04/2025 WILL (generalized anxiety disorder) (ICD-10 - F41.1) Treatment-resist ant depression Assessment: Patient reports ongoing depressive symptoms despite current medication regimen. She expresses feeling sad every day and crying frequently. Given the persistent symptoms and lack of response to multiple medication trials, treatment-resist ant depression is a primary concern. Plan: - Discuss Spravato (esketamine) nasal spray as a potential treatment option for treatment-resist ant depression. - Encourage exploring insurance coverage and potential patient assistance programs through [employer]. - Investigate possibility of medical transportation services through insurance for Spravato treatments. - Recommend patient contact Yaritza to discuss medication efficacy and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
[2025-02-07 14:03] VITALS: BP 121/65; PULSE 79; RESP 18; O2SAT 99
== END 2025-02-07 14:03 | disposition home or self-care (01) ==
PROVIDERS: Emergency Provider Internal Medicine Critical Care Medicine; PCP Family Medicine
DX: R07.89 Other chest pain (principal); M25.561 Pain in right knee; F17.210 Nicotine dependence, cigarettes, uncomplicated; V49.49XA Driver injured in collision with other motor vehicles in traffic accident, initial encounter
CPT/HCPCS: 71045; 72125; 72170; 73562; 96372; 99284; J1885

== ENCOUNTER 2025-06-25 10:24 | Outpatient (CLI) | payer OTHER, SELFPAY ==
--- NOTE | ~2025-06-25 | MM_ITS ---
EXAMINATION: MM screening mary BI w kristina HISTORY: Screening TECHNIQUE: Craniocaudal and mediolateral oblique 3-D tomosynthesis images were obtained and synthetic 2-D images were generated. CAD analysis was submitted and interpreted. COMPARISON: Comparison to multiple prior studies sequentially, with oldest reviewed study dated 03/09/2014. BREAST PARENCHYMAL COMPOSITION: There are scattered areas of fibroglandular density. FINDINGS: There is no evidence of suspicious mass, calcification, or architectural distortion to suggest malignancy in either breast. Scattered benign-appearing calcifications are present. IMPRESSION: 1. No mammographic evidence of malignancy. 2. Recommend routine screening mammography in one year. BI-RADS Category 2: Benign finding(s). Reviewed, dictated and finalized at location B. 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
--- OUTSIDE RECORDS SUMMARY | 2025-06-25 11:26 | XMS_ITS | Data Portability ---
Author Organization [facility] [place] Address [address] [place] [address] Assessment Encounter Date Assessment Date Assessment LastModified by Organization Details LastModified Time 06/22/2020 06/22/2020 Time spent in visit is a total of 15 mins with at least 50% of visit consisting of counseling and review of plan of care. [email or web address] Not available 06/22/2020 11:40:03 12/17/2023 12/17/2023 Annual gynecological exam performed. Patient will come back in a year unless there are new symptoms. Not available 12/17/2023 12:52:54 06/18/2025 06/18/2025 Annual gynecological exam performed. [email or web address] Not available 06/19/2025 09:43:10 Plan of Treatment Reminders Order Date Submit Date Provider Last Modified By Organization Details Last Modified Time Details Appointments [facility] COMPLE[facility] E 2024 01:30P M ULTRASOUND Not available Not available Not available Lab pap, IG + HR HPV - HPV regardl ess but if HPV is positiv e need subtypi ng 16,18/4 5 add gc/ct/t rich 2024 025 [facility] (Lab), [address], [place], [address], 06/22/2025 13:07:17 lh + FSH, serum 2022 023 [facility] (Lab), [address] [place], [address], 08/29/2022 05:51:45 estradi ol, serum 2022 023 [facility] (Lab), [address], [place], [address], 08/29/2022 05:51:44 prolact in, serum 2022 023 [facility] (Lab), [address] [place], [address], 08/29/2022 05:51:44 CBC w/ auto diff 2022 023 [facility] (Lab), [address] [place], [address], 08/29/2022 05:51:42 CMP, serum or plasma 2022 023 [facility] (Lab), [address] [place], [address], 08/29/2022 05:51:43 TSH, serum or plasma 2022 023 [facility] (Lab), [address] [place], [address], 08/29/2022 05:51:43 testost erone, total, serum 2022 023 [facility] (Lab), [address] [place], [address], 08/29/2022 05:51:43 Referral psychia trist referra l - Mixed anxiety and depress aisha disorde r Please contact this patient to lidya hogue appoint ment. Attache herrera are the patient s demogra phics and most recent office visit notes. If you have any questio ns, please contact me at [phone]. Thank you, Jami Medina's [address] [facility], [address] [place], [address], 09/08/2022 13:00:56 Procedures None recorde d. Surgeries None recorde d. Imaging MAMMO, screeni singh mejias al [address] [facility], [address], [address], [place], [address], 12/17/2023 14:28:12 Medication Orders Upneeq (PF) 0.1 % eye drops in a dropper ette 2022 023 [id number], [address], [place], [address], 12/17/2023 12:56:10 nystati n-triam cinolon e 100,000 unit/gr am-0.1 % topical ointmen t 2019 020 [id number], [address] [place], [address], 12/17/2023 12:55:48 Patient TargetsNo targets recorded. Patient InstructionsNo instructions recorded. Reason for Referral Psychiatrist Referral for Mi xed anxiety and depressive disorder Mixed anxiety and depressive disorder Mixed anxiety and depressive disorderPlease contact this patient to schedule an appointment.Attached are the patients demographics and most recent office visit notes.If you have any questions, please contact me at [phone].Thank you,Carol Referral's Referring Physician: Raquel Yoder, [employer], Encounter Date: 08/28/2022 Results Created Date Observation Date Name Description Value Unit Range Abnormal Flag Note LastModifiedBy Organization Detail LastModifiedTime 08/28/1908/28/2022 CBC W/DIF F WBC 7.4 10'3/ uL 3.6-10 .2 Not Available [facility] (Lab) [address], [place], [address], 08/29/2022 05:51:42 08/28/19 23 08/28/2022 CBC W/DIF F RBC 4.08 10'6/ uL (based on docume nted legal sex) 4.10-5 .30 low Not Available [facility] (Lab) [address], [place], [address], 08/29/2022 05:51:42 08/28/19 23 08/28/2022 CBC W/DIF F HGB 13.5 g/dL (based on docume nted legal sex) 11.9-1 5.8 Not Available [facility] (Lab) [address], [place], [address], 08/29/2022 05:51:42 08/28/19 23 08/28/2022 CBC W/DIF F HCT 41.9 % (based on docume nted legal sex) 37.4-4 8.3 Not Available [facility] (Lab) [address], [place], [address], 08/29/2022 05:51:42 08/28/19 23 08/28/2022 CBC W/DIF F MCV 102.7 fL 82.0-9 9.0 high Not Available [facility] (Lab) [address], [place], [address], 08/29/2022 05:51:42 08/28/19 23 08/28/2022 CBC W/DIF F MCH 33.1 pg 27.0-3 3.0 high Not Available [facility] (Lab) [address] [place], [address], 08/29/2022 05:51:42 08/28/19 23 08/28/2022 CBC W/DIF F MCHC 32.2 g/dL 32.0-3 6.0 Not Available [facility] (Lab) [address] [place], [address], 08/29/2022 05:51:42 08/28/19 23 08/28/2022 CBC W/DIF F RDW 11.9 % 11.0-1 5.0 Not Available [facility] (Lab) [address] [place], [address], 08/29/2022 05:51:42 08/28/19 23 08/28/2022 CBC W/DIF F plt 316 10'3/ uL 150-45 0 Not Available [facility] (Lab) [address], [place], [address], 08/29/2022 05:51:42 08/28/19 23 08/28/2022 CBC W/DIF F MPV 9.5 fL 9.8-12 .7 low Not Available [facility] (Lab) [address], [place], [address], 08/29/2022 05:51:42 08/28/19 23 08/28/2022 CBC W/DIF F NRBC's 0.0 % 0 Not Available [facility] (Lab) [address], [place], [address], 08/29/2022 05:51:42 08/28/19 23 08/28/2022 CBC W/DIF F absolute NRBCs 0.0 10'3/ uL 0 Not Available [facility] (Lab) [address], [place], [address], 08/29/2022 05:51:42 08/28/19 23 08/28/2022 CBC W/DIF F neutrophils 72.0 % 37.0-7 2.0 Not Available [facility] (Lab) [address], [place], [address], 08/29/2022 05:51:42 08/28/19 23 08/28/2022 CBC W/DIF F lymphocytes 17.9 % 16.0-4 8.0 Not Available [facility] (Lab) [address], [place], [address], 08/29/2022 05:51:42 08/28/19 23 08/28/2022 CBC W/DIF F monocytes 5.4 % 4.0-14 .0 Not Available [facility] (Lab) [address] [facility], [place], [address], 08/29/2022 05:51:42 08/28/19 23 08/28/2022 CBC W/DIF F eosinophils 3.6 % 0.0-9. 0 Not Available [facility] (Lab) [address] [facility], [place], [address], 08/29/2022 05:51:42 08/28/19 23 08/28/2022 CBC W/DIF F basophils 0.8 % 0.0-2. 0 Not Available [facility] (Lab) [address] [facility], [place], [address], 08/29/2022 05:51:42 08/28/19 23 08/28/2022 CBC W/DIF F immature granulocytes 0.3 % no define d refere nce range Not Available [facility] (Lab) [address] [facility], [place], [address], 08/29/2022 05:51:42 08/28/19 23 08/28/2022 CBC W/DIF F absolute neutrophils 5.3 10'3/ uL 1.1-6. 0 Not Available [facility] (Lab) [address] [facility], [place], [address], 08/29/2022 05:51:42 08/28/19 23 08/28/2022 CBC W/DIF F absolute lymphocytes 1.3 10'3/ uL 0.7-3. 4 Not Available [facility] (Lab) [address] [facility], [place], [address], 08/29/2022 05:51:42 08/28/19 23 08/28/2022 CBC W/DIF F absolute monocytes 0.4 10'3/ uL 0.3-1. 0 Not Available [facility] (Lab) [address] [facility], [place], [address], 08/29/2022 05:51:42 08/28/19 23 08/28/2022 CBC W/DIF F absolute eosinophils 0.3 10'3/ uL 0.0-0. 6 Not Available [facility] (Lab) [address], [place], [address], 08/29/2022 05:51:42 08/28/19 23 08/28/2022 CBC W/DIF F absolute basophils 0.1 10'3/ uL 0.0-0. 1 Not Available [facility] (Lab) [address], [place], [address], 08/29/2022 05:51:42 08/28/19 23 08/28/2022 CBC W/DIF F absolute immature granulocytes 0.0 10'3/ uL 0.00-0 .10 023 4:10 AM: P indic ates parti al resul ts on a panel have been relea sed. Addit ional resul ts will follo w. 023 4:10 AM: This resul t has been final verif ied. No addit ional or nguyễn ed resul ts are expec mohini. Not Available [facility] (Lab) [address] [facility], [place], [address], 08/29/2022 05:51:42 08/28/19 23 08/28/2022 CMP WITH BUN/C REAT RATIO sodium 141 mmol/ L 133-14 6 Not Available [facility] (Lab) [address], [place], [address], 08/29/2022 05:51:43 08/28/19 23 08/28/2022 CMP WITH BUN/C REAT RATIO potassium 4.4 mmol/ L 3.5-5. 1 Not Available [facility] (Lab) [address] [facility], [place], [address], 08/29/2022 05:51:43 08/28/19 23 08/28/2022 CMP WITH BUN/C REAT RATIO chloride 105 mmol/ L 98-107 Not Available [facility] (Lab) [address], [place], [address], 08/29/2022 05:51:43 08/28/19 23 08/28/2022 CMP WITH BUN/C REAT RATIO carbon dioxide 29 mmol/ L 21-31 Not Available [facility] (Lab) [address], [place], [address], 08/29/2022 05:51:43 08/28/19 23 08/28/2022 CMP WITH BUN/C REAT RATIO anion gap 7 mmol/ L 4-13 Not Available [facility] (Lab) [address], [place], [address], 08/29/2022 05:51:43 08/28/19 23 08/28/2022 CMP WITH BUN/C REAT RATIO blood urea nitrogen 11 mg/dL 7-25 Not Available [facility] (Lab) [address], [place], [address], 08/29/2022 05:51:43 08/28/19 23 08/28/2022 CMP WITH BUN/C REAT RATIO creatinine 0.73 mg/dL 0.60-1 .30 Not Available [facility] (Lab) [address], [place], [address], 08/29/2022 05:51:43 08/28/19 23 08/28/2022 CMP WITH BUN/C REAT RATIO egfrcr (CKD-epi 2020) >90 mL/mi n/1.7 3_m2 >=60 Not Available [facility] (Lab) [address], [place], [address], 08/29/2022 05:51:43 08/28/19 23 08/28/2022 CMP WITH BUN/C REAT RATIO BUN/creatini ne ratio 15.1 . 10.0-2 2.0 Not Available [facility] (Lab) [address], [place], [address], 08/29/2022 05:51:43 08/28/19 23 08/28/2022 CMP WITH BUN/C REAT RATIO calcium 9.4 mg/dL 8.3-10 .5 Not Available [facility] (Lab) [address] [facility], [place], [address], 08/29/2022 05:51:43 08/28/19 23 08/28/2022 CMP WITH BUN/C REAT RATIO glucose 87 mg/dL 70-100 Not Available [facility] (Lab) [address] [facility], [place], [address], 08/29/2022 05:51:43 08/28/19 23 08/28/2022 CMP WITH BUN/C REAT RATIO protein, total 7.1 g/dL 6.4-8. 3 Not Available [facility] (Lab) [address] [facility], [place], [address], 08/29/2022 05:51:43 08/28/19 23 08/28/2022 CMP WITH BUN/C REAT RATIO albumin 4.3 g/dL 3.5-5. 0 Not Available [facility] (Lab) [address] [facility], [place], [address], 08/29/2022 05:51:43 08/28/19 23 08/28/2022 CMP WITH BUN/C REAT RATIO ALT 15 units /L 9-43 Not Available [facility] (Lab) [address] [facility], [place], [address], 08/29/2022 05:51:43 08/28/19 23 08/28/2022 CMP WITH BUN/C REAT RATIO alkaline phosphatase 86 units /L 34-104 Not Available [facility] (Lab) [address] [facility], [place], [address], 08/29/2022 05:51:43 08/28/19 23 08/28/2022 CMP WITH BUN/C REAT RATIO AST 16 units /L 13-39 Not Available [facility] (Lab) [address] [place], [address], 08/29/2022 05:51:43 08/28/19 23 08/28/2022 CMP WITH BUN/C REAT RATIO bilirubin, total 0.4 mg/dL 0.2-1. 2 Not Available [facility] (Lab) [address] [place], [address], 08/29/2022 05:51:43 08/28/19 23 08/28/2022 TESTO STERO NE, TOTAL testosterone , total 36 NG/dL 0-100 Not Available [facility] (Lab) [address] [place], [address], 08/29/2022 05:51:43 08/28/19 23 08/28/2022 TSH, REFLE X FREE T4 TSH 0.62 uIU/m L 0.30-5 .33 Not Available [facility] (Lab) [address] [place], [address], 08/29/2022 05:51:43 08/28/19 23 08/28/2022 ESTRA DIOL estradiol 44.2 pg/mL This assay was perfo rmed using [employer] reage nts and test kits. Value s obtai ryan with other assay metho ds or kits canno t be used inter nguyễn eably . Femal e Estra diol Range s: Folli cular phase 12.4- 233 pg/mL Ovula tion phase 41.0- 398 pg/mL Lutea l phase 22.3- 341 pg/mL Postm enopa usal< 5-138 pg/mL Healt hy Pregn ant Women 1st Trime ster1 54-32 43 pg/mL 2nd Trime ster1 561-2 1280 pg/mL 3rd Trime ster8 525-> 23465 pg/mL Not Available [facility] (Lab) [address] [place], [address], 08/29/2022 05:51:44 08/28/19 23 08/28/2022 PROLA CTIN prolactin, total 5.60 NG/mL 4.79-2 3.30 This assay was perfo rmed using [employer] reage nts and test kits. Value s obtai ryan with other assay metho ds or kits canno t be used inter [facility] . Not Available [facility] (Lab) [address] [place], [address], 08/29/2022 05:51:44 08/28/19 23 08/28/2022 FSH / LH FSH 67.0 mIU/m L Not Available [facility] (Lab) [address] [place], [address], 08/29/2022 05:51:45 08/28/19 23 08/28/2022 FSH / LH LH 46.0 mIU/m L This assay was perfo rmed using [employer] reage nts and test kits. Value s obtai ryan with other assay metho ds or kits canno t be used inter [facility] . 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 Elect doron bryant garett d by Noemy Prajapati, CT on 024 at 11:26 AM ----- ----- ----- ----- ----- ----- ----- ----- ----- ----- ----- ----- ----- ----- ----- ----- ----- ---- HPV RESUL TS: HPV mRNA E6/E7 : No HPV mRNA Detec mohini NOTE: This high risk HPV mRNA assay detec ts fourt een high- risk HPV types (16, 18, 31, 33, 35, 39, 45, 51, 52, 56, 58, 59, 66, 68) witho ut diffe renti ation . COMME NT: This speci men was revie wed by a Cytot echno logis t and/o r Patho logis t (as indic ated in this repor t) after evalu ation using the Thinp rep Imagi ng Syste m. CLINI FABIOLA INFOR MATIO N: Menst rual Statu s: LMP (if appli cable ): Clini fabiola Histo ry/Pr eviou s Pap: Type of Neopl jose (if appli cable ): Signi fican t Clini fabiola Findi ngs: Other Histo ry: Hormo dylan (if appli cable ): PAP EDUCA BOLA L NOTE: The Pap Test is a scree coretta test with an inher ent false negat aisha rate. Liqui d-bas ed sampl ing may decre ase, but will not elimi betzy, false negat aisha resul ts. A negat aisha resul t does not precl ude the prese nce and/o r devel opmen t of disea se, since the prese nce of abnor mal cells in the sampl e depen ds on the locat ion of the lesio n and sampl ing techn ique. Mahesh nued regul ar scree coretta is the best metho d of cance r preve ntion . If repor omhini cytol ogic findi ng do not corre late with physi fabiola and/o r histo rical findi ngs, furmaximo er inves alanna ion is recom dom d, as clini zacarias hoffman nted. Not Available [facility] (Lab) [address] [facility], [place], [address], 12/24/2023 12:29:58 12/17/19 24 12/17/2023 CT/GC (ROSA) , THINP REP VIAL chlamydia trachomatis, PCR Negati ve negati ve Not Available [facility] (Lab) [address] [facility], [place], [address], 12/24/2023 12:29:59 12/17/19 24 12/17/2023 CT/GC (ROSA) , THINP REP VIAL neisseria gonorrhoeae, PCR Negati ve negati ve Not Available [facility] (Lab) [address] [facility], [place], [address], 12/24/2023 12:29:59 12/17/19 24 12/17/2023 TRICH OMONA S VAGIN NEAL (RRNA ) trichomonas vaginalis ribosomal RNA (rrna) Negati ve negati ve Not Available [facility] (Lab) [address] [facility], [place], [address], 12/24/2023 12:29:59 10/01/19 23 09/30/2022 imagi ng/ct ashby tic resul t No observ ation record ed. [facility] [address], [place], [address], 12/30/2023 09:52:16 Result Notes None recorded. Problems Name Problem SNOMED Code Status Onset Date Resolution Date Notes Provider Name and Address Organization Details Recorded Time Adult health examinati on Active 2011 Routine Medical Exam;Recor ded Elsewhere: No Locatio n: [facility] rce: EHR Chroni c: N Practice ID: 0001 Billa ble Time: 01:30:00 PM Not Available [facility] 0 16:55:52 Family planning surveilla nce Active 2011 Contracept aisha surveillan ce, unspecifie d;Recorded Elsewhere: No Locatio n: [facility] rce: EHR Chroni c: N Practice ID: 0001 Billa ble Time: 01:30:00 PM Not Available [facility] 0 16:55:55 Specializ ed medical examinati on Active 2013 Other specified chlamydial diseases;R ecorded Elsewhere: No Locatio n: [facility] rce: EHR Chroni c: N Practice ID: 0001 Billa ble Time: 02:30:00 PM Not Available [facility] 0 16:55:52 Specializ ed medical examinati on Active 2013 Gynecologi fabiola Examinatio n;Recorded Elsewhere: No Locatio n: [facility] rce: EHR Chroni c: N Practice ID: 0001 Billa ble Time: 02:30:00 PM Not Available [facility] 0 16:55:54 Venereal disease screening Active 2013 Screening examinatio n for venereal disease;Re corded Elsewhere: No Locatio n: [facility] rce: EHR Chroni c: N Practice ID: 0001 Billa ble Time: 02:30:00 PM Not Available [facility] 0 16:55:55 Anxiety state [id number] Active 2014 Anxiety;Re corded Elsewhere: No Locatio n: [facility] rce: EHR Chroni c: N Practice ID: 0001 Billa ble Time: 02:45:00 PM Not Available [facility] 0 16:55:52 Backache 388366206 Active 2014 Back pain;Recor ded Elsewhere: No Locatio n: [facility] rce: EHR Chroni c: N Practice ID: 0001 Billa ble Time: 02:45:00 PM Not Available [facility] 0 16:55:53 Amenorrhe a [id number] Active 2014 Absence of menstruati on;Recorde d Elsewhere: No Locatio n: [facility] rce: EHR Chroni c: N Practice ID: 0001 Billa ble Time: 09:30:00 AM Not Available [facility] 0 16:55:52 test positive [id number] Active 2014 examinatio n or test, positive result;Rec orded Elsewhere: No Locatio n: [facility] rce: EHR Chroni c: N Practice ID: 0001 Billa ble Time: 09:30:00 AM Not Available [facility] 0 16:55:54 Threatene d miscarria ge 65789045 Active 2014 Threatened ;R ecorded Elsewhere: No Locatio n: [facility] rce: EHR Chroni c: N Practice ID: 0001 Billa ble Time: 09:30:00 AM Not Available [facility] 0 16:55:52 Ultrasono graphy Active 2014 screening for malformati on using ultrasonic s;Recorded Elsewhere: No Locatio n: [facility] rce: EHR Chroni c: N Practice ID: 0001 Billa ble Time: 08:30:00 AM Not Available [facility] 0 16:55:51 screening Active 2014 screening for malformati on using ultrasonic s;Recorded Elsewhere: No Locatio n: [facility] rce: EHR Chroni c: N Practice ID: 0001 Billa ble Time: 08:30:00 AM Not Available [facility] 0 16:55:52 Congenita l malformat ion [id number] Active 2014 screening for malformati on using ultrasonic s;Recorded Elsewhere: No Locatio n: [facility] rce: EHR Chroni c: N Practice ID: 0001 Billa ble Time: 08:30:00 AM Not Available [facility] 0 16:55:52 Abnormal finding on screening of mother [id number] Active 2014 Abnormal finding on screening; Practice ID: 0001 Not Available [facility] 0 16:55:58 anatomy study Active 2014 [facility] SURVEY;Rec orded Elsewhere: No Locatio n: [facility] rce: EHR Chroni c: N Practice ID: 0001 Billa ble Time: 01:00:00 PM Not Available [facility] 0 16:55:52 Multigrav toby of advanced maternal age 335040984 Active 2014 Other advanced maternal age, antepartum condition or complicati on;Recorde d Elsewhere: No Locatio n: [facility] rce: EHR Chroni c: N Practice ID: 0001 Billa ble Time: 01:00:00 PM Not Available [facility] 0 16:55:53 Cough 78332483 Active 2014 COUGH;Prac leny ID: 0001 Not Available [facility] 0 16:55:54 Transient hypertens ion of - not delivered [id number] Active 2014 TRANS HYPERTEN-A NTEPART;Pr actice ID: 0001 Not Available [facility] 0 16:55:55 Routine care Active 2014 Supervisio n of other normal ; Practice ID: 0001 Not Available [facility] 0 16:55:50 Complicat ion related to Active 2014 PREG COMPL NEC-ANTEPA RT;Practic e ID: 0001 Not Available [facility] 0 16:55:51 Uterine scar from previous surgery in , childbirt h and the puerperiu m - delivered [id number] Active 2014 PREV C-DELIVERY -DELIVRD;P ractice ID: 0001 Not Available [facility] 0 16:55:51 Single live from alvarez 194933718 Active 2014 DELIVER-SI NGLE LIVEBORN;P ractice ID: 0001 Not Available [facility] 0 16:55:51 Procedure on genitouri nary system Active 2014 STERILIZAT ION;Practi ce ID: 0001 Not Available [facility] 0 16:55:51 Steriliza tion procedure Active 2014 Encounter for sterilizat ion;Practi ce ID: 0001 Not Available [facility] 0 16:55:50 Blood leukocyte number above reference range 210258986 Active 2014 Elevated white blood cell count, unspecifie d;Practice ID: 0001 Not Available [facility] 0 16:55:51 Lochia finding Active 2014 Encounter for routine follow-up; Practice ID: 0001 Not Available [facility] 0 16:55:50 Screening for malignant neoplasm of cervix Active 2014 Encounter for screening for malignant neoplasm of cervix;Rec orded Elsewhere: No Locatio n: [facility] rce: EHR Chroni c: N Practice ID: 0001 Billa ble Time: 11:00:00 AM Not Available [facility] 0 16:55:51 Body mass index 25-29 - overweigh t [id number] Active 2014 Body mass index (BMI) 25.0-25.9, adult;Eliezer rded Elsewhere: No Locatio n: [facility] rce: EHR Chroni c: N Practice ID: 0001 Billa ble Time: 11:00:00 AM Not Available [facility] 0 16:55:[address] Concept Active 2016 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 movie star 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 (general) (routine) w/o abn findings;P ractice ID: 0001 Not Available [facility] 0 16:55:50 Screening for malignant neoplasm of rectum Active 2016 Encounter for screening for malignant neoplasm of rectum;Pra ctice ID: 0001 Not Available [facility] 0 16:55:[address] Concept Active 2016 Encntr for general adult medical exam w/o abnormal findings;R ecorded Elsewhere: No Locatio n: [facility] rce: EHR Chroni c: N Practice ID: 0001 Billa ble Time: 11:15:00 AM Not Available [facility] 0 16:55:55 Finding of menstrual bleeding Active 2017 Excessive and frequent menstruati on with regular cycle;Prac leny ID: 0001 Not Available [facility] 0 16:55:[address] Concept Active 2019 Anxiety disorder, unspecifie d;Practice ID: 0001 Not Available [employer] 0 16:55:50 test negative [id number] Active 2019 Encounter for test, result negative;Michel rowlandleny ID: [id number] Not Available [facility] 0 16:55:50 Problem Notes None recorded. Procedures Surgical History Date Name Laterality Status Provider Name and Address Organization Details Recorded Time 4 Date of Last Pap Smear completed [facility] 06/18/2025 13:05:58 3 Date of Last Mammogram completed Kathleen Casper [facility] 12/17/2023 12:57:01 5 Tubal L[address] [facility] 06/18/2025 13:09:17 7 tonsilectomy/a denoids completed [facility] 06/22/2020 09:19:33 ligation of fallopian tube completed [facility] 06/22/2020 09:22:45 Imaging Results None recorded. Procedure Notes None recorded. Medical Equipment None Reported. Allergies Allergen ID Allergen Name Allergen Category Reaction Reaction Severity Criticality Documentation Date Start Date Code Code System Note Provider Name and Address Organization Details Recorded Time 2568 cefuroxim e Not available Not available Not available Not available 06/22/2020 2194 RxNorm Marli Pleitez [facility] 0 09:22:03 2569 clarithro mycin medicatio n Not available Not available Not available 06/22/202035282 RxNorm Marli Pleitez [facility] 0 09:22:09 Medications Name Sig Start Date Stop Date Status Note LastModified by Organization Details LastModified Time azelastin e 0.05 % eye drops INSTILL 1 DROP INTO BOTH EYES TWICE A DAY 12/16 completed Not Available Not Available Not Available Celexa 10 mg tablet take 1 tablet by oral route every day x 7 days 07/14 completed Prescrib ed Elsewher e: No Locat ion: [facility] odify By: cfrieder ich Enco unter DateTime : 06/02/20 11:00:00 AM Not Available Not Available Not Available citalopra m 40 mg tablet TAKE 1 TABLET BY MOUTH EVERY DAY 12/16 completed Not Available Not Available Not Available azithromy rosalinda 250 mg tablet take 2 tablet by oral route every day for 1 day then 1 tablet (250 mg) by oral route once daily for 4 days 04/14 completed Prescrib mary ann Arceo e: No Locat ion: [facility] odify By: srussell Encount er DateTime : 04/10/20 04:45:00 PM Not Available Not Available Not Available fluconazo le 150 mg tablet TAKE 1 TABLET BY MOUTH 06/22 completed Not Available Not Available Not Available hydrocodo ne 5 mg-acetam inophen 325 mg tablet TAKE 1 TABLET BY MOUTH EVERY 6 HOURS NEEDED FOR PAIN 06/22 completed Not Available Not Available Not Available phentermi ne 15 mg capsule TAKE 1 CAPSULE BY MOUTH DAILY. 06/18 completed Not Available Not Available Not Available hydroxyzi ne pamoate 50 mg capsule TAKE 1 CAPSULE BY MOUTH EVERY 6 HOURS NEEDED 12/16 completed Not Available Not Available Not Available lithium carbonate 150 mg capsule TAKE 1 CAPSULE BY MOUTH TWICE A DAY 06/18 completed Not Available Not Available Not Available metronida zole 500 mg tablet TAKE 1 TABLET BY MOUTH EVERY 12 HOURS 06/22 completed Not Available Not Available Not Available omeprazol e 40 mg capsule,d elayed release TAKE 1 CAPSULE (40 MG TOTAL) BY MOUTH DAILY. active Not Available Not Available No t Available tramadol 50 mg tablet TAKE 1 TABLET BY MOUTH EVERY 6 HOURS NEEDED FOR PAIN OR ACUTE PAIN 12/16 completed Not Available Not Available Not Available lamotrigi ne 25 mg tablet TAKE 1 TABLET ONCE A DAY FOR 15 DAYS, 2 TABLETS ONCE A DAY FOR 15 DAYS ORALLY active Not Available Not Available No t Available nystatin- triamcino lone 100,000 unit/gram -0.1 % topical ointment APPLY TO AFFECTED AREA TWICE A DAY FOR 7 DAYS Days 12/16 completed Not Available Not Available Not Available meloxicam 7.5 mg tablet TAKE 1 TO 2 TABLETS BY MOUTH DAILY NEEDED FOR SHOULDER PAIN. DO NOT TAKE ON AN EMPTY STOMACH 12/16 completed Not Available Not Available Not Available Tessalon Perles 100 mg capsule take 1 capsule by oral route 3 times every day 05/24 completed Prescrib ed Elsewher e: No Locat ion: [facility] odify By: renato Jose jhon DateTime : 04/05/20 15 10:56:02 AM Not Available Not Available Not Available citalopra m 20 mg tablet TAKE 1 TABLET BY MOUTH EVERY DAY 12/16 completed Not Available Not Available Not Available lorazepam 0.5 mg tablet TAKE 1 TABLET BY MOUTH TWICE A DAY NEEDED active Not Available Not Available No t Available topiramat e 25 mg sprinkle capsule TAKE 1 CAPSULE (25 MG TOTAL) BY MOUTH DAILY FOR 60 DAYS. 06/18 completed Not Available Not Available Not Available baclofen 10 mg tablet TAKE 1 TABLET (10 MG TOTAL) BY MOUTH 3 (THREE) TIMES DAILY FOR 30 DAYS. active Not Available Not Available No t Available Xanax 0.25 mg tablet take 1 tablet by oral route 3 times every day 04/04 completed Prescrib ed Elsewher e: Yes Loca tion: [facility] odify By: roma vyas DateTime : 04/01/20 12 01:53:11 PM Not Available Not Available Not Available doxycycli ne monohydra te 100 mg capsule TAKE 1 CAPSULE BY MOUTH TWICE A DAY 12/16 completed Not Available Not Available Not Available Micronor (28) 0.35 mg tablet take 1 tablet by oral route every day 03/02 completed Prescrib ed Elsewher e: No Locat ion: [facility] odify By: cmedical Encount er DateTime : 04/04/20 12 01:30:00 PM Not Available Not Available Not Available nicotine 21 mg/24 hr daily transderm al patch APPLY 1 PATCH TO SKIN ONCE DAILY AND REMOVE AT BEDTIME FOR 4 WEEKS 12/16 completed Not Available Not Available Not Available Tylenol 325 mg tablet take 1 tablet by oral route every 4 hours as needed 05/24 completed Prescrib ed Elsewher e: Yes Loca tion: [facility] odify By: amisaac Ibrahim ncounter DateTime : 09/28/19 15 09:30:00 AM Not Available Not Available Not Available hydrocort isone 2.5 % topical cream APPLY TOPICALL Y TWICE A DAY active Not Available Not Available No t Available hydroxyzi ne HCl 25 mg tablet TAKE 1 TABLET BY MOUTH TWICE A DAY NEEDED active Not Available Not Available No t Available lorazepam 1 mg tablet TAKE 1 TABLET BY MOUTH TWICE A DAY NEEDED active Not Available Not Available No t Available azelastin e 137 mcg (0.1 %) nasal spray SPRAY TWICE IN EACH NOSTRIL EVERY DAY active Not Available Not Available No t Available levofloxa rosalinda 750 mg tablet TAKE 1 TABLET BY MOUTH EVERY DAY 06/22 completed Not Available Not Available Not Available methylpre dnisolone 4 mg tablets in a dose pack TAKE DIRECTED 12/16 completed Not Available Not Available Not Available Vitamin D2 1,250 mcg (50,000 unit) capsule take 1 capsule by oral route every week 05/24 completed Prescrib ed Elsewher e: No Locat ion: [facility] odify By: amisaac Ibrahim ncounter DateTime : 03/04/20 15 01:01:24 PM Not Available Not Available Not Available ondansetr on 4 mg disintegr ating tablet DISSOLVE 1 TABLET BY MOUTH EVERY 6 HOURS 06/22 completed Not Available Not Available Not Available lamotrigi ne 100 mg tablet TAKE 1.5 TABLETS BY MOUTH EVERY DAY 06/18 completed Not Available Not Available Not Available phentermi ne 37.5 mg capsule TAKE 1 CAPSULE (37.5 MG TOTAL) BY MOUTH BEFORE BREAKFAS T. 06/18 completed Not Available Not Available Not Available spironola ctone 50 mg tablet take 1 tablet by oral route every day 06/02 completed Prescrib ed Elsewher e: No Locat ion: [facility] odify By: sang Ibrahim ncounter DateTime : 12/25/19 18 10:07:38 AM Not Available Not Available Not Available Flexeril 10 mg tablet take 1 tablet by oral route 2 times every day 05/24 completed Prescrib ed Elsewher e: No Locat ion: [facility] odify By: amisaac Ibrahim ncounter DateTime : 01/25/20 10:56:20 AM Not Available Not Available Not Available buspirone 15 mg tablet take 1 tablet by oral route 3 times every day 11/01 completed Prescrib ed Elsewher e: No Locat ion: [facility] odify By: laura Ibrahim ncounter DateTime : 09/21/19 02:45:00 PM Not Available Not Available Not Available hydroxyzi ne pamoate 25 mg capsule TAKE 1 CAPSULE BY MOUTH THREE TIMES A DAY NEEDED FOR 30 DAYS 12/16 completed Not Available Not Available Not Available Benadryl 25 mg capsule take 2 capsule by oral route every 4 - 6 hours as needed 06/02 completed Prescrib ed Elsewher e: Yes Loca tion: [facility] odify By: sang Ibrahim ncounter DateTime : 09/28/19 09:30:00 AM Not Available Not Available Not Available Vitamins and Minerals tablet 11/01 completed Prescrib ed Elsewher e: Yes [facility] By: laura Ibrahim ncounter DateTime : 04/01/20 12 01:53:11 PM Not Available Not Available Not Available escitalop jessica 10 mg tablet 12/16 completed Not Available Not Available Not Available escitalop jessica 20 mg tablet TAKE 1 TABLET BY MOUTH EVERY DAY active Not Available Not Available No t Available Vitamin D3 25 mcg (1,000 unit) capsule 12/16 completed Prescrib ed Elsewher e: Yes [facility] By: amisaac Ibrahim ncounter DateTime : 05/24/20 11:15:00 AM Not Available Not Available Not Available cyclobenz aprine 5 mg tablet 12/16 completed Not Available Not Available Not Available bupropion HCl XL 150 mg 24 hr tablet, extended release 12/16 completed Not Available Not Available Not Available escitalop jessica 5 mg tablet TAKE 1 TABLET BY MOUTH EVERY DAY FOR 90 DAYS 06/18 completed Not Available Not Available Not Available duloxetin e 30 mg capsule,d elayed release TAKE 1 CAPSULE EVERY EVENING ORAL ONCE A DAY 90 DAYS 06/18 completed Not Available Not Available Not Available duloxetin e 60 mg capsule,d elayed release TAKE 1 CAPSULE BY MOUTH EVERY DAY FOR 90 DAYS 06/18 completed Not Available Not Available Not Available aripipraz ole 2 mg tablet TAKE 1 TABLET BY MOUTH EVERY DAY FOR 30 DAYS 06/18 completed Not Available Not Available Not Available quetiapin e 50 mg tablet TAKE 1 TABLET BY MOUTH EVERY DAY AT BEDTIME FOR 30 DAYS 12/16 completed Not Available Not Available Not Available Lysteda 650 mg tablet take 2 tablet by oral route 3 times every day during menses 06/02 completed Prescrib ed Elsewher e: No Locat ion: [facility] odify By: sang barneyunter DateTime : 12/23/19 18 09:00:00 AM Not Available Not Available Not Available One Daily 27 mg iron-800 mcg tablet take 1 tablet by oral route every day 06/02 completed Prescrib ed Elsewher e: Yes [facility] By: sang barneyunter DateTime : 11/02/19 15 09:00:00 AM Not Available Not Available Not Available Vraylar 1.5 mg capsule TAKE 1 CAPSULE BY MOUTH DAILY 06/18 completed Not Available Not Available Not Available Anusol-HC 2.5 % topical cream with perineal applicato r apply by topical route 2 times every day to the affected area(s) 05/24 completed Prescrib ed Elsewher e: No Locat ion: [facility] odify By: amkryan barneyunter DateTime : 04/12/20 15 11:00:00 AM Not Available Not Available Not Available Spravato active Not Available Not Avai lable Not Available Upneeq (PF) 0.1 % eye drops in a dropperet te INSTILL 1 DROP INTO AFFECTED EYE(S) BY OPHTHALM IC ROUTE ONCE DAILY 12/16 completed Not Available Not Available Not Available Vitals Date Recorded Body height Body mass index (BMI) Body weight Systolic And Diastolic Provider Name and Address Organization Details Last Updated DateTime 08/28/2022 160.02 cm 26 kg/m2 21512.36 g 108/74 mm[Hg] Abi Jo [facility] 08/28/2022 10:10:00 Date Recorded Body height Body mass index (BMI) Body weight Systolic And Diastolic Provider Name and Address Organization Details Last Updated DateTime 12/17/2023 160.02 cm 24.8 kg/m2 47373.93 g 123/84 mm[Hg] Kathleen Tremayne [facility] 12/17/2023 12:53:52 Date Recorded Body height Body mass index (BMI) Body weight Systolic And Diastolic Provider Name and Address Organization Details Last Updated DateTime 06/18/2025 160.02 cm 27.3 kg/m2 92222.22 g 128/86 mm[Hg] Shaesouleymane Paulinomela [facility] 06/18/2025 13:01:52 Date Recorded Body weight Systolic And Diastolic Provider Name and Address Organization Details Last Updated DateTime 06/22/2020 26572.34 g 120/78 mm[Hg] Marli Pleitez [facility] 06/22/2020 10:52:41 Social History Question Answer Notes LastModified by Organizat ion Details LastModified Time Tobacco Smoking Status Current Every Day Smoker Shae Paulinomela [facility], [facility] 06/18/2025 13:07:25 Are You Blind Or Do You Have Difficulty Seeing? No Information n ot available 08/28/2022 What Is Your Level Of Caffeine Consumption? Moderate [email or web address] Information not available 06/18/2025 In The 14 Days Before Symptom Onset, Have You Had Close Contact With A Laboratory-confirm ed COVID-19 While That Case Was Ill? No Information n ot available 12/17/2023 In The 14 Days Before Symptom Onset, Have You Had Close Contact With A Person Who Is Under Investigation For COVID-19 While That Person Was Ill? No Information not available 12/17/2023 Have You Been To An Area Known To Be High Risk For COVID-19? No Information not available 12/17/2023 Are You Deaf Or Do You Have Serious Difficulty Hearing? Yes [email or web address] Information not available 06/18/2025 What Type Of Diet Are You Following? REGULAR Information n ot available 08/28/2022 What Is The Highest Grade Or Level Of School You Have Completed Or The Highest Degree You Have Received? [id number] [email or web address] Information not available 06/18/2025 Are There Any Guns Present In Your Home? No Information not available 06/18/2025 Do You Use Protection During Sex? Usually [email or web address] Information not available 06/18/2025 Do You Use Your Seat Belt Or Car Seat Routinely? Yes [email or web address] Information not available 06/18/2025 Are You Sexually Active? Yes [email or web address] Information not available 06/18/2025 Do You Have Smoke And Carbon Monoxide Detectors In Your Home? Yes [email or web address] Information not available 06/18/2025 Do You Use Sunscreen Routinely? Yes [email or web address] Information not available 06/18/2025 Do You Have Difficulty Walking Or Climbing Stairs? No Information not available 08/28/2022 Sex: Unknown Functional Status Question Answer Note LastModified by Organizat ion Details LastModified Time What is your level of alcohol consumption? Occasional [email or web address] Information not available 06/18/2025 Are you currently employed? No [email or web address] Information not available 06/18/2025 Are you able to walk independently without assistance or assistive devices? [email or web address] Information not available 08/28/2022 Are you able to care for yourself independently? Yes Information not available 08/28/2022 Do you have difficulty dressing, bathing, grooming, or toileting? No Information not available 08/28/2022 What is your exercise level? Occasional Information not available 08/28/2022 Mental Status Question Answer Note LastModified by Organization D etails LastModified Time Do you feel stressed (tense, restless, nervous, or anxious, or unable to sleep at night)? [id number] [email or web address] Information not available 06/18/2025 Family History Relationship Description Onset Age of this Age Resolved Age Notes LastModified by Organization Details LastModified Time Maternal Grandmother Myocardial infarction [email or web address] Not available 06/22 09:20:13 Maternal Grandmother Carcinoma in situ of colon [email or web address] Not available 2019 09:20:39 Sister Myocardial infarction [email or web address] Not available 06/22 09:20:24 Sister Carcinoma in situ of colon [email or web address] Not available 2019 09:20:47 Sister Carcinoma in situ of kidney [email or web address] Not available 2019 09:21:35 Maternal Aunt Carcinoma in situ of colon [email or web address] Not available 2019 09:20:54 Notes:Grandmother: Cancer, c olon, Myocardial infarction Maternal aunt: Cancer, colon Sister: Cancer, colon, Myocardial infarction, Kidney Cancer Medical History Condition Response Anxiety Disorder Y GI Problems Y Depression/ depression Y Gynecological History Statement/Question Response Abnormal Pap N Date of Last Mammogram 09/30/2022 Sexually Active? N STIs/STDs N Menses Monthly N HPV Vaccine N Date of Last Pap Smear 12/17/2023 Sexual Problems? N Current Control Method Tubal Ligat ion LMP Unknown Obstetrics History GPAL:G 3 P 3 0 0 3 Type Value Full Term 3 Living 3 Total 3 Past Encounters Encounter ID Performer Location Encounter Start Date Encounter Closed Date Diagnosis/Indication Diagnosis SNOMED-CT Code Diagnosis ICD10 Code Diagnosis IMO Codes Diagnosis Note [id number] Raquel Yoder [place] [address] [address] 06/22/2020 10:37:25 06/22/2020 11:50:44 Tampon retained in vagina 409049148 Z18.89 No issues. Feeling better. Exam is wnl ED records available for review onfile. RTO prn if issues. Candidiasis of skin 4988 3006 B37.2 Area on face that seems to resemble possible yeast like issue. We agreed on short course of mycolog ointment & if not better will f/u PCP or Derm. Likely from frequent mask use during covid-19 [id number] [facility] [address] [address] 08/28/2022 09:57:36 08/31/2022 16:22:14 Secondary amenorrhea 565411088 N91.1 Today we agreed to start with lab work & if FSH/LH are not menopausal ranges we will proceed with US. Will reach out with results. Encouraged new PCP & will refer new psych but unsure who takes her insurance. Time spent in visit is a total of 30 mins with at least 50% of visit consisting of counseling and review of plan of care. 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 [id number] [facility] [address] [address] 12/17/2023 12:46:35 12/17/2023 14:28:12 Gynecologic examination 32526287 Z01.419 Suggested Calcium with Vitamin D 1200-1500m g daily. Patient advised to get an annual flu shot in the fall and she could obtain at [facility] or [facility] care clinic. Also to obtain TDap vaccinatio n if you have not had one in the last 10 years. Recommend yearly mammograms . Encouraged monthly self breast exams. Encourage safe sexual practices, to use condoms and limit partners if not already in a monogamous relationsh ip. Engage in daily exercise of low impact aerobic exercise 45-60 minutes 4-5 times weekly. Avoid tobacco and illicit drugs as well as using moderation with alcohol intake less than 1-2 8 oz beverages daily. This lifestyle behavior pattern will lead to less health conditions and longer life span. If BMI greater than 25 weight watchers or dietary consult advised. All questions have been answered. Patient appears to understand informatio n, but if you have any questions please call or respond to this email.Pap/ hpv sentSTD Screen sentGeneti c Screen discussedC olon Screen PCPDexa Screen naRoutine Labs PCP Screening mammography 24 209854 Z12.31 [id number] Sharron Awan TREMA[facility] [place] [address] [address] 06/18/2025 12:50:25 06/19/2025 09:57:05 Gynecologic examination 94374124 Z01.304 [id number] WWEpostmen opausalPap - done todaySTI screen - gc/ct/tric h testing added to papMammogr am - orderedCol on cancer screening - scheduled with GIDexa - n/aRoutine labs - UTD/PCPRTC in 1 yr or sooner if needed Do monthly self breast exams.It is advised to get annual flu shot in the fall and she could obtain at local pharmacy. If you haven't received the Tdap vaccine in the last 10 years you should obtain one as well.Have mammogram yearly, bone density every 2-3 years and stay up to date on colon cancer screening. Engage in regular exercise. Avoid tobacco and illicit drugs. This lifestyle behavior pattern will lead to less health conditions and longer life span. If BMI greater than 25 dietary consult advised.Qu estions have been answered. Venereal d isease screening 714784654 Z11.3 30165 Polyp of cervix 54282075 N84.1 44564 pelvic u/s scheduledw ill discuss removal options at f/u Postmenopa usal bleeding 86366370 N95.0 00409 Pelvic u/s orderedwil l RTC to review and discuss next steps/rec Time spent in visit is a total of 35 mins with at least 50% of visit consisting of counseling and review of plan of care. Health Concerns Section Related Observation LastModified by Organization Detai ls LastModified Time None Recorded Concern Status LastModified by Organization Details LastModified Time None Recorded Advance Directives Directive None Recorded Payers Insurance Date Sequence Insurance Name Policy Number Policy Carias Covered Member ID Carias Member ID Guarantor Name 06/18/2025 2 [facility] (MEDICAID HMO) [id number] Ana Nagel [id number] 06/18/2025 1 [employer] (HMO) [id number] Ana Nagel [id number] Notes Date Note Type Note Provider Name and Address Organization Details Recorded Time 0 text/html ROS as noted in the HPI Patient is a 49yo white female here today for f/u to ED for retained tampon. This was over 4wks ago. Was given IV abx, sent home on oral abx, & diflucan for yeast. Feeling better. No sx's and no movie star issues. She does mention some acne or yeast like area on her face. Unsure if it's from mask or not? [facility] [address], [place], [address], [facility] 06/22/2020 11:41:29 3 text/html ROS as noted in the HPI Patient is a51yo white perimenopausal female who is here to discuss mood changes, mestrual changes, night sweats and poor sleep. She is under immense stress with current life situations.She has seen a Psychiatrist in [place] & does not feel she is being heard.Was diagnosed as Bipolar but other therapists do not agree according to her reports.She is trying to manage a lot with family & children but her stress is causing much anxiety.Is worried her depression will soon come on if she doesn't get more adequate help. In addition, She has had no menstrual cycle since 03/2022, experienced night sweats at least 2-3x/wk that disrupt her sleep which only adds to her anxiety and ability to function on a daily basis.She's noticed a few chin hairsas well. Denies suicidal ideations/thoughts of self harm/extreme lows or highs in her moods.Has issues with insomnia almost nightly regardless of night sweats. Neg pain of abd/pelvis/flankNeg urinary sx'sNeg GI sx'sNeg N/V/F/C/DNeg Vag d/c, odor, irritation, itching Blepharitis.Questions if she could try a product called Upneeq? Raquel Yoder TREMA[facility]- [address], [place], [address], [facility] 09/08/2022 12:15:25 4 text/html Annual Product Safety Tester Post-MenopausalReported by PatientGenitourinary symptomsFor menopausal symptoms, patient reportsno menopausal symptomsandnormal vaginal lubrication. For vaginal bleeding, patient reportshistory of menopause having occurredandno history of post menopausal bleeding. For urinary symptoms, patient reportsno hematuria,no incontinence,no nocturia, andno urinary frequency. For vulva, patient reportsno genital lesionandno vulvar atrophy. For vagina, patient reportsnormal vaginal dischargeandno vaginal atrophy.Breast symptomsFor breast, patient reportsno breast lump,no nipple discharge, andno breast pain.Psychological symptomsFor sexual complaints, patient reportsno sexual complaints. For psychological symptoms, patient reportsno depressionandno anxiety.Preventative measuresFor preventive measures, patient reportsencourage regular mammograms starting age 40,encourage self breast examination,encourage regular exercise,encourage no tobacco use,needs to schedule mammogram, andneeds to schedule colonoscopy. JERONIMO Santoyo- [address], [place], [address], [facility] 12/17/2023 13:14:59 5 text/html Annual Product Safety Tester Post-MenopausalReported by PatientGenitourinary symptomsFor menopausal symptoms, patient reportsno menopausal symptomsandnormal vaginal lubrication. For vaginal bleeding, patient reportshistory of menopause having occurredandno history of post menopausal bleeding. For urinary symptoms, patient reportsno hematuria,no incontinence,no nocturia, andno urinary frequency. For vulva, patient reportsno genital lesionandno vulvar atrophy. For vagina, patient reportsnormal vaginal dischargeandno vaginal atrophy.Breast symptomsFor breast, patient reportsno breast lump,no nipple discharge, andno breast pain.Psychological symptomsFor sexual complaints, patient reportsno sexual complaints. For psychological symptoms, patient reportsno depressionandno anxiety.Preventative measuresFor preventive measures, patient reportsencourage regular mammograms starting age 40,encourage self breast examination,encourage regular exercise, andencourage no tobacco use.54yo wwePostmenopausal , LMP age 52last pap 2023 wnlmammogram olonoscopy 4-5 yrs ago Has had a few episodes of rectal bleeding with bowel movements over the past few months. Saw PCP about this, scheduled with GI.May have had an episode of PMB during this time as well JERONIMO Castro [address], [place], [id number], [facility] 06/19/2025 09:45:12 OBGyn Episode Ob Episode Information Episode Created Date Number of Fetuses Patient Bloodtype Patient rh Status Prepregnancy Weight lbs Domestic Partner Domestic Partner Phone Father Name Appointment Scheduler Status 06/22/20 1 CLOSED Fetus Data First Name Last Name Admitted to NICU Weight (g) Sex Living Outcome Pediatric Complications Fetus ID Race Codes Race Delivery Type [id number] Vaginal Delivery Dash Calculation Initial Dash Date Initial Exam Date Initial Exam Provider Initial Ultrasound Date Last Menstrual Period Date Ultra Sound Weeks Gestation 0 Eighteen To Twenty Week Dash Update Ultra Sound Date Fundal Height At Umbil Quickening Date Ultra Sound Latest Weeks Gestation Final Dash Confirmed By Final Dash Confirmed Date Final Dash Date Ultra Sound Latest Days Gestation 0 0 Menstrual History Last Menstrual Date Menses Monthly On Bcp Conception Prior Menses Frequency Hcg Plus Date Menarche Onset Age Delivery Information Delivery Date Delivery Type Labor Anesthesia Weeks Gestation Incision Type Labor Labor Length Hrs Delivered By Post Complications Tubal Sterilization Discharge Date Comments 5 Discharge Information Feeding Method Contraceptive Method Maternal HG B and HCT Levels Ob Episode Information Episode Created Date Number of Fetuses Patient Bloodtype Patient rh Status Prepregnancy Weight lbs Domestic Partner Domestic Partner Phone Father Name Appointment Scheduler Status 06/22/20 1 CLOSED Fetus Data First Name Last Name Admitted to NICU Weight (g) Sex Living Outcome Pediatric Complications Fetus ID Race Codes Race Delivery Type [id number] Vaginal Delivery Dash Calculation Initial Dash Date Initial Exam Date Initial Exam Provider Initial Ultrasound Date Last Menstrual Period Date Ultra Sound Weeks Gestation 0 Eighteen To Twenty Week Dash Update Ultra Sound Date Fundal Height At Umbil Quickening Date Ultra Sound Latest Weeks Gestation Final Dash Confirmed By Final Dash Confirmed Date Final Dash Date Ultra Sound Latest Days Gestation 0 0 Menstrual History Last Menstrual Date Menses Monthly On Bcp Conception Prior Menses Frequency Hcg Plus Date Menarche Onset Age Delivery Information Delivery Date Delivery Type Labor Anesthesia Weeks Gestation Incision Type Labor Labor Length Hrs Delivered By Post Complications Tubal Sterilization Discharge Date Comments 4 Discharge Information Feeding Method Contraceptive Method Maternal HG B and HCT Levels Ob Episode Information Episode Created Date Number of Fetuses Patient Bloodtype Patient rh Status Prepregnancy Weight lbs Domestic Partner Domestic Partner Phone Father Name Appointment Scheduler Status 06/22/20 1 CLOSED Fetus Data First Name Last Name Admitted to NICU Weight (g) Sex Living Outcome Pediatric Complications Fetus ID Race Codes Race Delivery Type [id number] Primary Dash Calculation Initial Dash Date Initial Exam Date Initial Exam Provider Initial Ultrasound Date Last Menstrual Period Date Ultra Sound Weeks Gestation 0 Eighteen To Twenty Week Dash Update Ultra Sound Date Fundal Height At Umbil Quickening Date Ultra Sound Latest Weeks Gestation Final Dash Confirmed By Final Dash Confirmed Date Final Dash Date Ultra Sound Latest Days Gestation 0 0 Menstrual History Last Menstrual Date Menses Monthly On Bcp Conception Prior Menses Frequency Hcg Plus Date Menarche Onset Age Delivery Information Delivery Date Delivery Type Labor Anesthesia Weeks Gestation Incision Type Labor Labor Length Hrs Delivered By Post Complications Tubal Sterilization Discharge Date Comments 6 Discharge Information Feeding Method Contraceptive Method Maternal HG B and HCT Levels
--- OUTSIDE RECORDS SUMMARY | 2025-06-25 11:26 | XMS_ITS | Patient Health Record ---
Author Organization [facility] [employer] Address [address] [facility] [address] [place] [address] Care Team Providers Care Lock Technician Name Role Phone Josephine Lopez MD Primary Care Provider Unavail able Parminder Martinez Unavailable [phone] Silvia Kelley Unavailable [phone] Dean Ram Unavailable [phone] Paradise Evans Unavailable [phone] Ashley Rutherford Unavailable [phone] Sanchez Brown Unavailable [phone] Cherrie Garnett Unavailable [phone] Carol Sinha Unavailable [phone] Allergies Allergen (clinical drug ingredient) Drug/Non Drug Allergy documented on EMR Reaction Allergy Type Onset Date Status Biaxin Unknown Drug Allergy Active Medicinal cephalosporin and acting as antibacterial agent (FN) Cephalosporins Unknown Drug Allergy Active Latex Latex Unknown Allergy Active Reason For Referral No Information Medications Medication SIG (Take, Route, Frequency, Duration) Notes Start Date End Date Status lamoTRIgine 25 MG Tablet 2 tablets Orally daily; Duration: 30 days 05/25/2025 Active hydrOXYzine HCl 25 MG Tablet 1 tablet as needed Orally twice a day; Duration: 30 days As needed 05/25/2025 Unknown Escitalopram Oxalate 20 MG Tablet 1 tablet Orally Once a day; Duration: 90 days 05/25/2025 Unknown Spravato (84 MG Dose) 28 MG/DEVICE Solution Therapy Pack 3 sprays in each nostril Nasally once a week; Duration: 1 days note frequency decrease 05/25/2025 Unknown Omeprazole 40 MG Capsule Delayed Release Oral; Duration: 30 Days Unknown Phentermine HCl 37.5 MG Capsule 1 capsule Orally Once a day Unknown LORazepam 1 MG Tablet 1 tablet Oral twice a day; Duration: 30 days As needed 05/25/2025 Unknown Social History Tobacco Use: Social History Observation Description Date Details (start date - stop date) Current Smoker 12/21/1990 - NA Sex Assigned At : Social History Observation Description Sex Assigned At Female Social History Miscellaneous: Social Info Question Answer Notes Advance Care Planning Are you your own decision-maker Yes Do you have Power of Bilingual Student Tutor for Health or [facility]? No Safety issues: Are there any firearms in the house? No Social History Social Info Question Answer Notes Household: Marital Status: Not Answered Number of Adults in household: 1 Number of Children in Household: 1 Level of Education: Not Finished College Household: Social Info Question Answer Notes Household Marital status: comp leted suicide Drug/Alcohol: Social Info Question Answer Notes Drugs Have you used drugs other than those for medical reasons in the past 12 months? Yes Methamphetamine? No Crack? No LSD? No Ecstacy? No Prescription opiates? No Marijuana? Yes Ketamine? No PCP? No Is there a minor (18 years or younger) at risk at home? No Are you still using? Yes Do you want treatment? No AUDIT-C (Standard) Points 4 Did you have a drink contain ing alcohol in the past year? Yes How often did you have six or more drinks on one occasion in the past year? Less than monthly (1 point) How many drinks did you have on a typical day when you were drinking in the past year? 1 or 2 drinks (0 point) How often did you have a drink containing alcohol in the past year? Monthly or less (1 point) Tobacco Use: Social Info Question Answer Notes Tobacco Control (Standard) Tobacco use: Current smoker When did you start smoking? 12/21/1990 How often do you smoke cigarettes? Every day How many cigarettes a day do you smoke? 6-10 How soon after you wake up do you smoke your first cigarette? 6-30 minutes Are you interested in quitting? Thinking about quitting Additional Details Category Social Info Options Details Miscellaneous: Occupation: Currently une mployed Drug/Alcohol: Do you smoke marijuana? Adm its Do you drink alcohol? Socially Problems Problem Type SNOMED Code ICD Code Onset Dates Problem Status W/U Status Risk Notes Problem Severe recurrent major depression without psychotic features (25338530) Major depressive disorder, recurrent severe without psychotic features (F33.2) Active confirmed Problem Posttraumatic stress disorder (98487942) Post-traumatic stress disorder, chronic (F43.12) Active confirmed Problem Generalized anxiety disorder (23705380) WILL (generalized anxiety disorder) (F41.1) Active confirmed Problem Attention deficit hyperactivity disorder (103755478) ADHD (attention deficit hyperactivity disorder), combined type (F90.2) Active confirmed Problem Grief (193852269) Grief (F43.21) Active confirmed Problem Posttraumatic stress disorder (98254966) PTSD (post-traumatic stress disorder) (F43.10) Inactive confirmed Better described as chronic F43.12 Problem Severe recurrent major depression without psychotic features (37808815) MDD (major depressive disorder), recurrent severe, 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.2) Inactive confirmed F33.2 is listed twice in patient's problem list Vital Signs Heart Rate 93 /min 06/21/2025 Oximetry 99 % 06/21/2025 Height-cm 165.1 cm 06/21/2025 Blood pressure diastolic 81 mm Hg 06/21/2025 Weight-kg 67.04 kg 05/25/2025 Height 65 in 06/21/2025 Blood pressure systolic 117 mm Hg 06/21/2025 Weight 147.8 lbs 05/25/2025 BMI 24.59 kg/m2 05/25/2025 Encounters Encounter Location Date Provider Diagnosis [facility], [place] [address] [facility] [address] [place] [address] 07/24/2024 Parminder Martinez [facility], [place] [address] [facility] [address] [place] [address] 09/18/2024 Parminder Martinez [facility], [place] [address] [facility] [address] [place] [address] 11/10/2024 Parminder Martinez [facility], [place] [address] [place] [address] 01/16/2025 Parminder Martinez [facility], [facility] [address] [facility] [address] [place] [address] 02/02/2025 Parminder Martinez [facility], [place] [address] [place] [address] 02/13/2025 Silvia Kelley [facility], [place] [address] [place] [address] 03/01/2025 Parminder Martinez MDD (major depressiv e disorder), recurrent severe, without psychosis F33.2 [facility], [facility] [address] [place] [address] 03/05/2025 Parminder Martinez [facility], [facility] [address] [place] [address] 03/21/2025 Parminder Martinez [facility], [facility] [address] [place] [address] 04/16/2025 Parminder Martinez [facility], [facility] [address] [place] [address] 04/26/2025 Parminderhumera Martinez [facility], [facility] [address] [place] [address] 04/27/2025 Parminderhumera Martinez Major depressive disorder, recurrent severe without psychotic features F33.2 [facility], [facility] [address] [place] [address] 06/07/2025 Parminderhumera Martinez Major depressive disorder, recurrent severe without psychotic features F33.2 [facility], [facility] [address] [place] [address] 06/15/2025 Parminder Martinez [facility], [facility] [address] [place] [address] 07/24/2024 Parminder Martinez [facility], [facility] [address] [place] [address] 07/30/2024 Parminder Martinez [facility], [facility] [address] [place] [address] 09/18/2024 Parminder Martinez [facility], [facility] [address] [place] [address] 09/20/2024 Parminder Martinez WILL (generalized anxiety disorder) F41.1 [facility], [facility] [address] [place] [address] 10/12/2024 Parminder Martinez [facility], [facility] [address] [place] [address] 10/30/2024 Parminder Martinez [facility], [facility] [address] [place] [address] 11/09/2024 Parminder Martinez [facility], [facility] [address] [place] [address] 11/09/2024 Parminder Martinez [facility], [facility] [address] [place] [address] 01/04/2025 Parminder Martinez [facility], [facility] [address] [place] [address] 01/07/2025 Parminder Martinez [facility], [facility] [address] [place] [address] 01/07/2025 Parminder Martinez [facility], [facility] [address] [place] [address] 01/08/2025 Parminder Martinez [facility], [facility] [address] [place] [address] 01/08/2025 Parminder Martinez [facility], [facility] [address] [place] [address] 01/08/2025 Parminder Martinez [facility], [facility] [address] [place] [address] 01/09/2025 Parminder Martinez [facility], [facility] [address] [place] [address] 01/09/2025 Parminder Martinez [facility], [facility] [address] [place] [address] 01/11/2025 Parminder Martinez [facility], [facility] [address] [place] [address] 01/26/2025 Parminder Martinez [facility], [facility] [address] [place] [address] 01/29/2025 Parminder Martinez [facility], [facility] [address] [place] [address] 01/30/2025 Parminder Martinez [facility], [facility] [address] [place] [address] 02/13/2025 Parminder Martinez [facility], [facility] [address] [place] [address] 03/08/2025 Parminder Martinez WILL (generalized anxiety disorder) F41.1 [facility], [facility] [address] [place] [address] 03/14/2025 Parminder Martinez [facility], [facility] [address] [place] [address] 03/29/2025 Parminder Martinez [facility], [facility] [address] [place] [address] 04/03/2025 Parminder Martinez [facility], [facility] [address] [place] [address] 04/03/2025 Parminder Martinez [facility], [facility] [address] [place] [address] 04/03/2025 Parminder Martinez [facility], [facility] [address] [place] [address] 06/07/2025 Parminder Martinez [facility], [facility] [address] [place] [address] 06/07/2025 Parminder Martinez [facility], [facility] [address] [place] [address] 06/14/2025 Parminder Martinez [facility], [place] [address] [place] [address] 07/31/2024 Parminder Martinez MDD (major depressiv e disorder), recurrent severe, without psychosis F33.2 ; WILL (generalized anxiety disorder) F41.1 ; PTSD (post-traumatic stress disorder) F43.10 and ADHD (attention deficit hyperactivity disorder), combined type F90.2 [facility], [place] [address] [place] [address] 02/16/2025 Parminder Martinez Nicotine use Z72.0 ; MDD (major depressive disorder), recurrent severe, without psychosis F33.2 ; WILL (generalized anxiety disorder) F41.1 ; PTSD (post-traumatic stress disorder) F43.10 ; ADHD (attention deficit hyperactivity disorder), combined type F90.2 ; Encounter for screening for cardiovascular disorders Z13.6 and Encounter for screening for depression Z13.31 [place] [address] [place] [address] 10/30/2024 Parminder Martinez MDD (major depressiv e disorder), recurrent severe, without psychosis F33.2 ; WILL (generalized anxiety disorder) F41.1 ; PTSD (post-traumatic stress disorder) F43.10 ; ADHD (attention deficit hyperactivity disorder), combined type F90.2 ; Nicotine use Z72.0 and Encounter for screening for cardiovascular disorders Z13.6 [facility] [employer] [facility] [address] [facility] [address] [address] 12/28/2024 Parminder Kurilla Nicotine use Z72.0 ; MDD (major depressive disorder), recurrent severe, without psychosis F33.2 ; WILL (generalized anxiety disorder) F41.1 ; PTSD (post-traumatic stress disorder) F43.10 ; ADHD (attention deficit hyperactivity disorder), combined type F90.2 ; Encounter for screening for cardiovascular disorders Z13.6 and Encounter for screening for depression Z13.31 [facility] [employer] [place] [address] [facility] [address] [address] 01/26/2025 Parminder Kurilla Nicotine use Z72.0 ; MDD (major depressive disorder), recurrent severe, without psychosis F33.2 ; WILL (generalized anxiety disorder) F41.1 ; PTSD (post-traumatic stress disorder) F43.10 ; ADHD (attention deficit hyperactivity disorder), combined type F90.2 ; Encounter for screening for cardiovascular disorders Z13.6 and Encounter for screening for depression Z13.31 [facility], [place] [address] [facility] [address] [address] 07/31/2024 Ashley Rutherford MDD (major depressiv e disorder), recurrent severe, without psychosis F33.2 ; WILL (generalized anxiety disorder) F41.1 ; PTSD (post-traumatic stress disorder) F43.10 ; ADHD (attention deficit hyperactivity disorder), combined type F90.2 and Grief F43.21 [facility] [place] [address] [facility] [address] [address] 09/25/2024 Parminder Kurilla MDD (major depressiv e disorder), recurrent severe, without psychosis F33.2 ; WILL (generalized anxiety disorder) F41.1 ; PTSD (post-traumatic stress disorder) F43.10 and ADHD (attention deficit hyperactivity disorder), combined type F90.2 [facility] [employer] [place] [address] [facility] [address] [address] 11/24/2024 Parminder Kurilla Nicotine use Z72.0 ; MDD (major depressive disorder), recurrent severe, without psychosis F33.2 ; WILL (generalized anxiety disorder) F41.1 ; PTSD (post-traumatic stress disorder) F43.10 ; ADHD (attention deficit hyperactivity disorder), combined type F90.2 ; Encounter for screening for cardiovascular disorders Z13.6 and Encounter for screening for depression Z13.31 [facility] [address] [facility] [address] [place] [address] 03/19/2025 Parminder Kurilla Nicotine use Z72.0 ; MDD (major depressive disorder), recurrent severe, without psychosis F33.2 ; WILL (generalized anxiety disorder) F41.1 ; PTSD (post-traumatic stress disorder) F43.10 and ADHD (attention deficit hyperactivity disorder), combined type F90.2 [facility] [facility] [address] [place] [address] 04/16/2025 Parminder Kurilla Nicotine use Z72.0 ; MDD (major depressive disorder), recurrent severe, without psychosis F33.2 ; WILL (generalized anxiety disorder) F41.1 ; PTSD (post-traumatic stress disorder) F43.10 and ADHD (attention deficit hyperactivity disorder), combined type F90.2 [facility] [facility] [address] [place] [address] 05/25/2025 Parminder Kurilla Nicotine use Z72.0 ; MDD (major depressive disorder), recurrent severe, without psychosis F33.2 ; WILL (generalized anxiety disorder) F41.1 ; PTSD (post-traumatic stress disorder) F43.10 and ADHD (attention deficit hyperactivity disorder), combined type F90.2 [facility] [facility] [address] [place] [address] 02/12/2025 Sanchez Clubb Major depressive disorder, recurrent severe without psychotic features F33.2 ; Encounter for screening for cardiovascular disorders Z13.6 ; WILL (generalized anxiety disorder) F41.1 ; ADHD (attention deficit hyperactivity disorder), combined type F90.2 ; PTSD (post-traumatic stress disorder) F43.10 and Nicotine use Z72.0 [facility] [facility] [address] [place] [address] 02/15/2025 Cherrie Garnett Major depressive disorder, recurrent severe without psychotic features F33.2 and Encounter for screening for cardiovascular disorders Z13.6 [facility] [address] [facility] [address] [facility] [address] [place] [address] 02/20/2025 Sanchez Clubb Nicotine use Z72.0 ; WILL (generalized anxiety disorder) F41.1 ; PTSD (post-traumatic stress disorder) F43.10 ; ADHD (attention deficit hyperactivity disorder), combined type F90.2 ; Major depressive disorder, recurrent severe without psychotic features F33.2 and Encounter for screening for cardiovascular disorders Z13.6 [facility] [employer] [place] [address] [facility] [address] [place] [address] 02/22/2025 Sanchez Clubb Major depressive disorder, recurrent severe without psychotic features F33.2 ; Encounter for screening for cardiovascular disorders Z13.6 ; Nicotine use Z72.0 ; WILL (generalized anxiety disorder) F41.1 ; PTSD (post-traumatic stress disorder) F43.10 and ADHD (attention deficit hyperactivity disorder), combined type F90.2 [facility] [address] [address] 02/26/2025 Sanchez [place] Major depressive disorder, recurrent severe without psychotic features F33.2 ; WILL (generalized anxiety disorder) F41.1 ; PTSD (post-traumatic stress disorder) F43.10 ; Nicotine use Z72.0 ; ADHD (attention deficit hyperactivity disorder), combined type F90.2 and Encounter for screening for cardiovascular disorders Z13.6 [facility] [address] [address] 03/01/2025 Sanchez Clubb Major depressive disorder, recurrent severe without psychotic features F33.2 ; Nausea R11.0 ; WILL (generalized anxiety disorder) F41.1 ; PTSD (post-traumatic stress disorder) F43.10 ; Nicotine use Z72.0 and ADHD (attention deficit hyperactivity disorder), combined type F90.2 [facility] [address] [address] 03/05/2025 Sanchez Clubb Major depressive disorder, recurrent severe without psychotic features F33.2 ; WILL (generalized anxiety disorder) F41.1 ; PTSD (post-traumatic stress disorder) F43.10 ; Nicotine use Z72.0 and ADHD (attention deficit hyperactivity disorder), combined type F90.2 [facility] [address] [facility] [address] [place] [address] 03/08/2025 Cherrie Garnett Major depressive disorder, recurrent severe without psychotic features F33.2 [facility] [address] [place] [address] 03/21/2025 Paradise Evans Major depressive disorder, recurrent severe without psychotic features F33.2 ; Nicotine use Z72.0 ; MDD (major depressive disorder), recurrent severe, without psychosis F33.2 ; WILL (generalized anxiety disorder) F41.1 ; PTSD (post-traumatic stress disorder) F43.10 and ADHD (attention deficit hyperactivity disorder), combined type F90.2 [facility] [address] [place] [address] 03/29/2025 Cherrie Hagopian Major depressive disorder, recurrent severe without psychotic features F33.2 [facility] [address] [place] [address] 04/05/2025 Cherrie Hagopian Major depressive disorder, recurrent severe without psychotic features F33.2 [facility] [address] [facility] [address] [place] [address] 04/12/2025 Chrerie Hagopian Major depressive disorder, recurrent severe without psychotic features F33.2 [facility] [address] [facility] [address] [place] [address] 04/19/2025 Cherrie Hagopian Major depressive disorder, recurrent severe without psychotic features F33.2 [facility] [address] [place] [address] 04/26/2025 Cherrie Hagopian Major depressive disorder, recurrent severe without psychotic features F33.2 [facility] [address] [place] [address] 05/03/2025 Sanchez Rosalesb Major depressive disorder, recurrent severe without psychotic features F33.2 [facility] [address] [place] [address] 05/10/2025 Cherrie Hagopian Major depressive disorder, recurrent severe without psychotic features F33.2 [facility], [facility] [address] [place] [address] 08/11/2024 Ashley Rutherford MDD (major depressiv e disorder), recurrent severe, without psychosis F33.2 ; Grief F43.21 ; PTSD (post-traumatic stress disorder) F43.10 ; WILL (generalized anxiety disorder) F41.1 and ADHD (attention deficit hyperactivity disorder), combined type F90.2 [employer] [address] [place] [address] 08/25/2024 Ashley Hinderliter MDD (major depressiv e disorder), recurrent severe, without psychosis F33.2 ; ADHD (attention deficit hyperactivity disorder), combined type F90.2 and Grief F43.21 [employer] [address] [place] [address] 10/30/2024 Ashley Hinderliter MDD (major depressiv e disorder), recurrent severe, without psychosis F33.2 ; ADHD (attention deficit hyperactivity disorder), combined type F90.2 ; WILL (generalized anxiety disorder) F41.1 ; PTSD (post-traumatic stress disorder) F43.10 and Grief F43.21 [employer] [address] [place] [address] 11/10/2024 Ashley Hinderliter MDD (major depressiv e disorder), recurrent severe, without psychosis F33.2 ; WILL (generalized anxiety disorder) F41.1 ; PTSD (post-traumatic stress disorder) F43.10 ; Grief F43.21 and Encounter for screening for depression Z13.31 [employer] [address] [place] [address] 11/15/2024 Ashley Hinderliter MDD (major depressiv e disorder), recurrent severe, without psychosis F33.2 ; WILL (generalized anxiety disorder) F41.1 ; ADHD (attention deficit hyperactivity disorder), combined type F90.2 ; PTSD (post-traumatic stress disorder) F43.10 ; Grief F43.21 and Encounter for screening for depression Z13.31 [employer], [employer] [address] [place] [address] 05/10/2025 Ashley Hinderliter Major depressive disorder, recurrent severe without psychotic features F33.2 ; Post-traumatic stress disorder, chronic F43.12 and Grief F43.21 [employer], [employer] [address] [place] [address] 04/26/2025 Ashley Hinderliter Major depressive disorder, recurrent severe without psychotic features F33.2 ; Post-traumatic stress disorder, chronic F43.12 and WILL (generalized anxiety disorder) F41.1 [employer], [employer] [address] [place] [address] 05/01/2025 Ashley Hinderliter Grief F43.21 ; Major depressive disorder, recurrent severe without psychotic features F33.2 ; ADHD (attention deficit hyperactivity disorder), combined type F90.2 and Post-traumatic stress disorder, chronic F43.12 [facility] [employer], [address] [place] [address] 04/19/2025 Ashley Hinderliter MDD (major depressiv e disorder), recurrent severe, without psychosis F33.2 ; Post-traumatic stress disorder, chronic F43.12 and Grief F43.21 [facility] [employer], [employer] [place] [address] 04/12/2025 Ashley Hinderliter WILL (generalized anxiety disorder) F41.1 ; Major depressive disorder, recurrent severe without psychotic features F33.2 ; ADHD (attention deficit hyperactivity disorder), combined type F90.2 ; Grief F43.21 and Post-traumatic stress disorder, chronic F43.12 [employer], [employer] [place] [address] 04/05/2025 Ashley Hinderliter WILL (generalized anxiety disorder) F41.1 ; ADHD (attention deficit hyperactivity disorder), combined type F90.2 ; Grief F43.21 ; Major depressive disorder, recurrent severe without psychotic features F33.2 and Post-traumatic stress disorder, chronic F43.12 [employer], [employer] [address] [place] [address] 03/29/2025 Ashley Hinderliter WILL (generalized anxiety disorder) F41.1 ; ADHD (attention deficit hyperactivity disorder), combined type F90.2 ; Grief F43.21 ; Major depressive disorder, recurrent severe without psychotic features F33.2 and Post-traumatic stress disorder, chronic F43.12 [employer], [employer] [address] [place] [address] 02/26/2025 Ashley Hinderliter MDD (major depressiv e disorder), recurrent severe, without psychosis F33.2 ; Post-traumatic stress disorder, chronic F43.12 ; ADHD (attention deficit hyperactivity disorder), combined type F90.2 ; Grief F43.21 and Encounter for screening for depression Z13.31 [employer], [employer] [address] [place] [address] 02/20/2025 Ashley Hinderliter MDD (major depressiv e disorder), recurrent severe, without psychosis F33.2 ; WILL (generalized anxiety disorder) F41.1 ; ADHD (attention deficit hyperactivity disorder), combined type F90.2 ; Grief F43.21 ; PTSD (post-traumatic stress disorder) F43.10 and Encounter for screening for depression Z13.31 [employer], [address] [facility] [address] [place] [address] 11/24/2024 Ashley Hinderliter MDD (major depressiv e disorder), recurrent severe, without psychosis F33.2 ; WILL (generalized anxiety disorder) F41.1 ; ADHD (attention deficit hyperactivity disorder), combined type F90.2 ; PTSD (post-traumatic stress disorder) F43.10 ; Grief F43.21 and Encounter for screening for depression Z13.31 [employer], [employer] [address] [address] 11/30/2024 Ashley Hinderliter MDD (major depressiv e disorder), recurrent severe, without psychosis F33.2 ; WILL (generalized anxiety disorder) F41.1 ; ADHD (attention deficit hyperactivity disorder), combined type F90.2 ; PTSD (post-traumatic stress disorder) F43.10 ; Grief F43.21 and Encounter for screening for depression Z13.31 [employer], [employer] [address] [address] 12/13/2024 Ashley Hinderliter MDD (major depressiv e disorder), recurrent severe, without psychosis F33.2 ; WILL (generalized anxiety disorder) F41.1 ; ADHD (attention deficit hyperactivity disorder), combined type F90.2 ; PTSD (post-traumatic stress disorder) F43.10 ; Grief F43.21 ; Nicotine use Z72.0 and Encounter for screening for depression Z13.31 [employer], [employer] [address] [place] [address] 12/28/2024 Ashley Hinderliter MDD (major depressiv e disorder), recurrent severe, without psychosis F33.2 ; WILL (generalized anxiety disorder) F41.1 ; Grief F43.21 ; PTSD (post-traumatic stress disorder) F43.10 ; ADHD (attention deficit hyperactivity disorder), combined type F90.2 and Encounter for screening for depression Z13.31 [employer], [employer] [place] [address] 09/25/2024 Ashley Hinderliter MDD (major depressiv e disorder), recurrent severe, without psychosis F33.2 ; ADHD (attention deficit hyperactivity disorder), combined type F90.2 ; WILL (generalized anxiety disorder) F41.1 and Grief F43.21 [employer], [employer] [place] [address] 01/04/2025 Ashley Hinderliter MDD (major depressiv e disorder), recurrent severe, without psychosis F33.2 ; WILL (generalized anxiety disorder) F41.1 ; ADHD (attention deficit hyperactivity disorder), combined type F90.2 ; PTSD (post-traumatic stress disorder) F43.10 ; Grief F43.21 and Encounter for screening for depression Z13.31 [employer], [address] [place] [address] 01/16/2025 Ashley Hinderliter MDD (major depressiv e disorder), recurrent severe, without psychosis F33.2 ; WILL (generalized anxiety disorder) F41.1 ; ADHD (attention deficit hyperactivity disorder), combined type F90.2 ; Grief F43.21 and Encounter for screening for depression Z13.31 [employer], [address] [place] [address] 06/21/2025 Ashley Hinderliter Major depressive disorder, recurrent severe without psychotic features F33.2 and Post-traumatic stress disorder, chronic F43.12 [employer], [address] [place] [address] 06/14/2025 Ashley Hinderliter Major depressive disorder, recurrent severe without psychotic features F33.2 ; Post-traumatic stress disorder, chronic F43.12 and Other specified problems related to primary support group Z63.8 [employer], [employer] [address] [place] [address] 06/07/2025 Ashleydanial Vallesliter Major depressive disorder, recurrent severe without psychotic features F33.2 ; Post-traumatic stress disorder, chronic F43.12 and Grief F43.21 [employer], [employer] [address] [place] [address] 03/19/2025 Ashleydanial Vallesliter Major depressive disorder, recurrent severe without psychotic features F33.2 ; Post-traumatic stress disorder, chronic F43.12 ; ADHD (attention deficit hyperactivity disorder), combined type F90.2 ; Grief F43.21 ; Encounter for screening for depression Z13.31 and Nicotine use Z72.0 [employer], [employer] [address] [place] [address] 05/31/2025 Ashleydanial Vallesliter Major depressive disorder, recurrent severe without psychotic features F33.2 ; Post-traumatic stress disorder, chronic F43.12 and WILL (generalized anxiety disorder) F41.1 [employer], [employer] [address] [place] [address] 05/17/2025 Ashley Rutherford WILL (generalized anxiety disorder) F41.1 ; Major depressive disorder, recurrent severe without psychotic features F33.2 ; Post-traumatic stress disorder, chronic F43.12 and Irritability and anger R45.4 [employer], [employer] [address] [place] [address] 05/24/2025 Ashleydanial Vallesliter Major depressive disorder, recurrent severe without psychotic features F33.2 and Post-traumatic stress disorder, chronic F43.12 [facility] [employer] [address] [place] [address] 02/13/2025 Silvia Kelley Nicotine use Z72.0 a nd Encounter for screening for depression Z13.31 [facility] [employer] [address] [place] [address] 05/17/2025 Cherrie Garnett Major depressive disorder, recurrent severe without psychotic features F33.2 [facility] [employer] [address] [place] [address] 05/31/2025 Dean Ram Major depressive disorder, recurrent severe without psychotic features F33.2 [facility] [address] [facility] [address] [facility] [address] [place] [address] 06/07/2025 Carol Sinha Major depressive disorder, recurrent severe without psychotic features F33.2 [facility] [address] [facility] [address] [facility] [address] [place] [address] 06/14/2025 Cherrie Garnett Major depressive disorder, recurrent severe without psychotic features F33.2 [facility] [address] [facility] [address] [place] [address] 06/21/2025 Carol Sinha Major depressive disorder, recurrent severe without psychotic features F33.[address] [facility] [address] [place] [address] 07/28/2024 Parminder Martinez Assessments Encounter Date Diagnosis (ICD Code) Assessment Notes Treatment Notes Treatment Clinical Notes Section Notes 03/01/2025 MDD (major depressive disorder), recurrent severe, without psychosis (ICD-10 - F33.2) 04/27/2025 Major depressive disorder, recurrent severe without psychotic features (ICD-10 - F33.2) 06/07/2025 Major depressive disorder, recurrent severe without psychotic features (ICD-10 - F33.2) 06/07/2025 Major depressive disorder, recurrent severe without psychotic features (ICD-10 - F33.2) 06/14/2025 Major depressive disorder, recurrent severe without psychotic features (ICD-10 - F33.2) Family conflict and interpersonal dysfunction Assessment: Patient reports significant escalating conflict with daughter involving accusations of narcissistic behavior from multiple family members including daughter, son, and sister. Recent argument triggered by bathroom scheduling conflict escalated to daughter making statements about patient's parenting history and expressing desire for patient to leave. Patient describes feeling hurt by daughter's characterization of past disciplinary actions and reports difficulty forgiving hurtful words. Patient feels unwanted in current living situation with daughter stating she allows patient to live there out of pity. Interpersonal stress is compounded by daughter's request for full-time childcare which patient declined due to desire to relocate. Plan: - Continue working on treatment and personal growth as patient acknowledges doing so despite ongoing challenges - Focus on developing coping strategies for managing family conflict while planning transition out of current living situation Housing instability and financial stress Assessment: Patient reports urgent desire to relocate due to family conflict but lacks financial resources and housing options. Has been on housing waitlist without placement for 2 years in [facility] with poor responsiveness from housing authorities. 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 Patient has goal of relocating to [place] to start over and has considered RV purchase as potential housing solution. Current living situation is tenuous with family member expressing that patient's presence is unwelcome. Both CPS and police have been called due to neighbor's child screaming for lengthy periods of time daily, causing disruption in Ana's household along with causing her emotional distress. Plan: - Patient will continue to contact housing resources - Continue exploring employment options that accommodate current health limitations - Await disability determination as potential income source - Consider RV purchase as previously discussed housing solution for relocation to [place] Depression and social isolation Assessment: Patient reports increased crying, social isolation, and reduced work activity. Expresses feeling that youngest son Davey is primary reason for continuing. 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 Patient acknowledges taking step back from work and isolating behaviors. Mood symptoms appear exacerbated by multiple stressors including health concerns, family conflict, and housing instability. Upcoming one year anniversary of 's in June. Plan: - Focus on self-care, especially during June - Continue therapeutic work on coping strategies for managing multiple stressors - Monitor mood symptoms and safety 06/14/2025 Post-traumatic stress disorder, chronic (ICD-10 - F43.12) Family conflict and interpersonal dysfunction Assessment: Patient reports significant escalating conflict with daughter involving accusations of narcissistic behavior from multiple family members including daughter, son, and sister. Recent argument triggered by bathroom scheduling conflict escalated to daughter making statements about patient's parenting history and expressing desire for patient to leave. Patient describes feeling hurt by daughter's characterization of past disciplinary actions and reports difficulty forgiving hurtful words. Patient feels unwanted in current living situation with daughter stating she allows patient to live there out of pity. Interpersonal stress is compounded by daughter's request for full-time childcare which patient declined due to desire to relocate. Plan: - Continue working on treatment and personal growth as patient acknowledges doing so despite ongoing challenges - Focus on developing coping strategies for managing family conflict while planning transition out of current living situation Housing instability and financial stress Assessment: Patient reports urgent desire to relocate due to family conflict but lacks financial resources and housing options. Has been on housing waitlist without placement for 2 years in [facility] with poor responsiveness from housing authorities. 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 Patient has goal of relocating to [place] to start over and has considered RV purchase as potential housing solution. Current living situation is tenuous with family member expressing that patient's presence is unwelcome. Both CPS and police have been called due to neighbor's child screaming for lengthy periods of time daily, causing disruption in Ana's household along with causing her emotional distress. Plan: - Patient will continue to contact housing resources - Continue exploring employment options that accommodate current health limitations - Await disability determination as potential income source - Consider RV purchase as previously discussed housing solution for relocation to [place] Depression and social isolation Assessment: Patient reports increased crying, social isolation, and reduced work activity. Expresses feeling that youngest son Davey is primary reason for continuing. 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 Patient acknowledges taking step back from work and isolating behaviors. Mood symptoms appear exacerbated by multiple stressors including health concerns, family conflict, and housing instability. Upcoming one year anniversary of 's in June. Plan: - Focus on self-care, especially during June - Continue therapeutic work on coping strategies for managing multiple stressors - Monitor mood symptoms and safety 06/14/2025 Major depressive disorder, recurrent severe without psychotic features (ICD-10 - F33.2) continue current treatment as prescribed by primary psychiatric care provider 06/21/2025 Major depressive disorder, recurrent severe without psychotic features (ICD-10 - F33.2) Medical care frustration and advocacy Assessment: Patient reports significant distress related to feeling unheard by medical providers despite presenting with concerning symptoms including gastrointestinal bleeding, vomiting, and back pain. Recent ER visit with blood work and CT scan showed no acute findings, though patient reports abnormal glucose and cholesterol levels that she feels are being overlooked. Patient describes feeling violated after medical examinations and experiences daily crying due to pain and medical uncertainty. The frustration is compounded by multiple upcoming medical appointments and procedures including gastroenterology consultation scheduled for July 10, OBGYN visit, and mammogram scheduling. Plan: - Patient has gastroenterology appointment scheduled for July 10 - OBGYN visit scheduled to address cervical polyp/fibroid findings - Ultrasound scheduled for cervical findings - Mammogram to be scheduled - Patient sees Bailey on the for EMDR Housing concerns Assessment: Patient received phone call from [facility] in [place] while she was in another appointment and unable to answer the phone. She states she has called back and since left 2 voicemails that have not been returned. She is hopeful to obtain housing as staying with her daughter has become too stressful and is negatively impacting her mental health. Plan: - Continue to look for affordable housing options. - Consider follow up with housing again in [place] 06/21/2025 Post-traumatic stress disorder, chronic (ICD-10 - F43.12) Medical care frustration and advocacy Assessment: Patient reports significant distress related to feeling unheard by medical providers despite presenting with concerning symptoms including gastrointestinal bleeding, vomiting, and back pain. Recent ER visit with blood work and CT scan showed no acute findings, though patient reports abnormal glucose and cholesterol levels that she feels are being overlooked. Patient describes feeling violated after medical examinations and experiences daily crying due to pain and medical uncertainty. The frustration is compounded by multiple upcoming medical appointments and procedures including gastroenterology consultation scheduled for July 10, OBGYN visit, and mammogram scheduling. Plan: - Patient has gastroenterology appointment scheduled for July 10 - OBGYN visit scheduled to address cervical polyp/fibroid findings - Ultrasound scheduled for cervical findings - Mammogram to be scheduled - Patient sees Bailey on the for EMDR Housing concerns Assessment: Patient received phone call from [facility] in [place] while she was in another appointment and unable to answer the phone. She states she has called back and since left 2 voicemails that have not been returned. She is hopeful to obtain housing as staying with her daughter has become too stressful and is negatively impacting her mental health. Plan: - Continue to look for affordable housing options. - Consider follow up with housing again in [place] 06/21/2025 Major depressive disorder, recurrent severe without psychotic features (ICD-10 - F33.2) Persistent low mood reported. Denies suicidal or homicidal thoughts, hallucinations , delusions, or paranoia. Recent increase in medication dose from 25 mg to 50 mg without noticeable improvement. Upcoming anniversary of 's contributing to emotional distress. - Refill Lamictal 50 mg as requested. - Monitor for medication efficacy and side effects. - Supportive care and follow-up as needed. 05/01/2025 Major depressive disorder, recurrent severe without psychotic features (ICD-10 - F33.2) Major Depressive Disorder Assessment: Patient reports experiencing persistent sadness over the past couple of weeks, which appears to be exacerbated by the approaching one-year anniversary of her 's suicide. She expresses feeling overly sad and tired of being sad all the time. Contributing factors include dissatisfaction with her current living situation, reduced activity levels, and ongoing grief. The patient has been engaging in self-help activities, including watching videos on psychology and mental health topics. She also mentions picking at her face when upset, which may be a manifestation of her emotional distress. The patient's depression seems to be impacting her daily functioning and quality of life. Plan: - Continue current antidepressant medication regimen as prescribed - Provide patient with a list of over 200 pleasant activities to encourage engagement and mood improvement. - Encourage continued engagement in self-help activities and education on mental health topics. - Schedule follow-up appointment for next week to monitor progress and reassess treatment plan. Complicated Grief Assessment: Patient is approaching the one-year anniversary of her 's suicide, which is contributing to her current depressive symptoms. She mentions advocating for suicide awareness and receiving messages from her late 's mother, indicating ongoing processing of the loss. The patient also expresses distress when confronted with others' suicidal ideation, demonstrating the lasting impact of her 's on her emotional well-being. Plan: - Continue to provide support and validate patient's feelings surrounding the anniversary of her 's . - Explore grief-specific coping strategies and resources. - Discuss healthy boundaries when engaging in suicide awareness advocacy to protect patient's mental health. Attention-Defici t/Hyperactivity Disorder (ADHD) Assessment: Patient has a history of ADHD and expresses frustration with previous medication trials, which was ineffective. She indicates a willingness to try new medication only if it specifically targets her ADHD symptoms. The patient's current reduced activity levels may be exacerbating her ADHD symptoms and contributing to her overall mood state. Plan: - Explore non-pharmacologi fabiola interventions for managing ADHD symptoms. Social Isolation and Family Conflict Assessment: Patient reports doing a whole lot of nothing and expresses dissatisfaction with this inactivity. She mentions going to the torres to sit, suggesting a desire for solitude. Additionally, the patient discloses ongoing conflict with her middle child, who refuses to communicate with her due to past hospitalization experiences. This family tension likely contributes to her overall emotional distress and feelings of isolation. Plan: - Encourage gradual increase in social activities and engagement. - Discuss strategies for addressing and potentially resolving the conflict with her middle child. 04/26/2025 Major depressive disorder, recurrent severe without psychotic features (ICD-10 - F33.2) continue current treatment as prescribed by primary psychiatric care provider 05/01/2025 Grief (ICD-10 - F43.21) Major Depressive Disorder Assessment: Patient reports experiencing persistent sadness over the past couple of weeks, which appears to be exacerbated by the approaching one-year anniversary of her 's suicide. She expresses feeling overly sad and tired of being sad all the time. Contributing factors include dissatisfaction with her current living situation, reduced activity levels, and ongoing grief. The patient has been engaging in self-help activities, including watching videos on psychology and mental health topics. She also mentions picking at her face when upset, which may be a manifestation of her emotional distress. The patient's depression seems to be impacting her daily functioning and quality of life. Plan: - Continue current antidepressant medication regimen as prescribed - Provide patient with a list of over 200 pleasant activities to encourage engagement and mood improvement. - Encourage continued engagement in self-help activities and education on mental health topics. - Schedule follow-up appointment for next week to monitor progress and reassess treatment plan. Complicated Grief Assessment: Patient is approaching the one-year anniversary of her 's suicide, which is contributing to her current depressive symptoms. She mentions advocating for suicide awareness and receiving messages from her late 's mother, indicating ongoing processing of the loss. The patient also expresses distress when confronted with others' suicidal ideation, demonstrating the lasting impact of her 's on her emotional well-being. Plan: - Continue to provide support and validate patient's feelings surrounding the anniversary of her 's . - Explore grief-specific coping strategies and resources. - Discuss healthy boundaries when engaging in suicide awareness advocacy to protect patient's mental health. Attention-Defici t/Hyperactivity Disorder (ADHD) Assessment: Patient has a history of ADHD and expresses frustration with previous medication trials, which was ineffective. She indicates a willingness to try new medication only if it specifically targets her ADHD symptoms. The patient's current reduced activity levels may be exacerbating her ADHD symptoms and contributing to her overall mood state. Plan: - Explore non-pharmacologi fabiola interventions for managing ADHD symptoms. Social Isolation and Family Conflict Assessment: Patient reports doing a whole lot of nothing and expresses dissatisfaction with this inactivity. She mentions going to the torres to sit, suggesting a desire for solitude. Additionally, the patient discloses ongoing conflict with her middle child, who refuses to communicate with her due to past hospitalization experiences. This family tension likely contributes to her overall emotional distress and feelings of isolation. Plan: - Encourage gradual increase in social activities and engagement. - Discuss strategies for addressing and potentially resolving the conflict with her middle child. 05/03/2025 Major depressive disorder, recurrent severe without psychotic features (ICD-10 - F33.2) Continue medication as prescribed by primary psychiatric care provider 05/10/2025 Major depressive disorder, recurrent severe without psychotic features (ICD-10 - F33.2) Social Anxiety and Interpersonal Difficulties Assessment: Patient reports experiencing cattiness from women in general, with a specific incident occurring on Wednesday that bothered her. This suggests ongoing difficulties with social interactions, particularly with other women. Patient also mentions having zero desire for relationships and ignoring men who attempt to engage her in public, indicating potential avoidance behaviors or decreased interest in social connections related to the grief of her . Plan: - Continue to explore and address social anxiety and interpersonal difficulties in therapy sessions. - Discuss coping strategies for managing challenging social interactions. -Continue to process grief, specifically with the nearing one year anniversary of 's Daily Functioning and Activity Level Assessment: Patient expresses dissatisfaction with inactivity, stating I don't like to sit around a lot. However, she reports engaging in outdoor activities, such as visiting a torres at [place], suggesting some improvement in activity level and initiative to engage in enjoyable pursuits. Plan: - Encourage continued engagement in outdoor activities and other enjoyable pursuits. - Explore additional strategies to maintain consistent daily activity levels. Financial Concerns and Resource Management Assessment: Patient reports having an interview with [facility]. The process is expected to take 8-12 months, with the possibility of additional need-based social security support. Plan: - Provide information about [facility] ([facility]) for access to area resources including food pantries, utility assistance, and rental assistance if needed. - Follow up on the progress of SSI application and potential need-based social security support in future sessions. 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 Plan: - Continue to monitor and discuss homeschooling progress and concerns in future sessions. - Explore resources or strategies to address concerns about educational transferability. 05/10/2025 Post-traumatic stress disorder, chronic (ICD-10 - F43.12) Social Anxiety and Interpersonal Difficulties Assessment: Patient reports experiencing cattiness from women in general, with a specific incident occurring on Wednesday that bothered her. This suggests ongoing difficulties with social interactions, particularly with other women. Patient also mentions having zero desire for relationships and ignoring men who attempt to engage her in public, indicating potential avoidance behaviors or decreased interest in social connections related to the grief of her . Plan: - Continue to explore and address social anxiety and interpersonal difficulties in therapy sessions. - Discuss coping strategies for managing challenging social interactions. -Continue to process grief, specifically with the nearing one year anniversary of 's Daily Functioning and Activity Level Assessment: Patient expresses dissatisfaction with inactivity, stating I don't like to sit around a lot. However, she reports engaging in outdoor activities, such as visiting a torres at [place], suggesting some improvement in activity level and initiative to engage in enjoyable pursuits. Plan: - Encourage continued engagement in outdoor activities and other enjoyable pursuits. - Explore additional strategies to maintain consistent daily activity levels. Financial Concerns and Resource Management Assessment: Patient reports having an interview with [employer]. The process is expected to take 8-12 months, with the possibility of additional need-based social security support. Plan: - Provide information about [facility] ([facility]) for access to area resources including food pantries, utility assistance, and rental assistance if needed. - Follow up on the progress of SSI application and potential need-based social security support in future sessions. 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 Plan: - Continue to monitor and discuss homeschooling progress and concerns in future sessions. - Explore resources or strategies to address concerns about educational transferability. 04/16/2025 Nicotine use (ICD-10 - Z72.0) 04/19/2025 Post-traumatic stress disorder, chronic (ICD-10 - F43.12) Complicated Grief Assessment: Patient reports ongoing difficulty coping with her 's , particularly on the monthly anniversary as it has not been one year yet. She describes feeling like shit on these days, indicating persistent grief symptoms 9 months post-loss. The intensity of her emotional response suggests complicated grief, as the patient is struggling to adapt to the loss and return to normal functioning. Plan: - Explore grief-specific coping strategies Financial Stress Assessment: Patient expresses frustration and anxiety about her financial situation, particularly regarding Social Security benefits. She is considering applying for her 's benefits but is conflicted about potentially reducing the amount his children receive. This financial uncertainty is contributing to her overall stress and may be exacerbating her mood symptoms. Plan: - Encourage patient to seek professional advice regarding Social Security benefits options - Explore stress management techniques to cope with financial uncertainty Perimenopausal Symptoms Assessment: Patient mentions experiencing menopause, which may be contributing to her overall mood and physical symptoms. The combination of grief, financial stress, and hormonal changes could be intensifying her emotional distress. 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 She describes feeling like shit on these days, indicating persistent grief symptoms 9 months post-loss. The intensity of her emotional response suggests complicated grief, as the patient is struggling to adapt to the loss and return to normal functioning. Plan: - Explore grief-specific coping strategies Financial Stress Assessment: Patient expresses frustration and anxiety about her financial situation, particularly regarding Social Security benefits. She is considering applying for her 's benefits but is conflicted about potentially reducing the amount his children receive. This financial uncertainty is contributing to her overall stress and may be exacerbating her mood symptoms. Plan: - Encourage patient to seek professional advice regarding Social Security benefits options - Explore stress management techniques to cope with financial uncertainty Perimenopausal Symptoms Assessment: Patient mentions experiencing menopause, which may be contributing to her overall mood and physical symptoms. The combination of grief, financial stress, and hormonal changes could be intensifying her emotional distress. Plan: - Educate patient on common perimenopausal symptoms and their potential impact on mood - Discuss lifestyle modifications to manage perimenopausal symptoms - Consider referral to [facility] for further evaluation and management if symptoms are severe 04/19/2025 Major depressive disorder, recurrent severe without psychotic features (ICD-10 - F33.2) continue current treatment as prescribed by primary psychiatric care provider 04/26/2025 Major depressive disorder, recurrent severe without psychotic features (ICD-10 - F33.2) Family Conflict Assessment: Patient reports significant tension with her daughter, describing their living situation as a war zone. Specific issues include the daughter's parenting style (arguing with and spanking her 4-year-old son), perceived neglect of the child, and repetitive complaints about being stuck in the house for 5 years. The patient's coping mechanism involves isolating herself in her room or going outside to avoid confrontations. This ongoing conflict is causing considerable stress and may be exacerbating other mental health concerns. Plan: - Explore family dynamics and communication patterns in future sessions - Discuss potential family therapy or mediation options to address ongoing conflicts - Develop strategies for setting boundaries and managing stress within the home environment Financial Stress Assessment: Patient expresses concern about running out of money and is anxiously awaiting a decision on her disability application. The prolonged waiting period is causing frustration and restlessness, with the patient feeling itching to go do something and tired of being confined to her house. She has explored [id number] options but hasn't found suitable opportunities. The financial uncertainty is a significant stressor, potentially impacting her overall mental health and well-being. Plan: - Continue to monitor progress of disability application - Explore additional resources for financial assistance or temporary employment options - Discuss stress management techniques to cope with financial uncertainty Relationship Concerns Assessment: Patient has been analyzing her relationship patterns and has concluded that her partner likely has an avoidant attachment style. She recognizes that this conflicts with her own attachment needs, which tend towards anxious or a mix of anxious-avoidant (fearful avoidant or disorganized attachment). This insight suggests a growing self-awareness of her relationship dynamics and potential areas for personal growth. 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 The patient demonstrates awareness of the limitations of peer support and the importance of directing members to professional help when needed. Plan: - Discuss strategies for managing the online support group effectively - Explore self-care techniques to prevent burnout from group management responsibilities - Provide guidance on creating clear group guidelines and crisis response protocols 04/26/2025 Post-traumatic stress disorder, chronic (ICD-10 - F43.12) Family Conflict Assessment: Patient reports significant tension with her daughter, describing their living situation as a war zone. Specific issues include the daughter's parenting style (arguing with and spanking her 4-year-old son), perceived neglect of the child, and repetitive complaints about being stuck in the house for 5 years. The patient's coping mechanism involves isolating herself in her room or going outside to avoid confrontations. This ongoing conflict is causing considerable stress and may be exacerbating other mental health concerns. Plan: - Explore family dynamics and communication patterns in future sessions - Discuss potential family therapy or mediation options to address ongoing conflicts - Develop strategies for setting boundaries and managing stress within the home environment Financial Stress Assessment: Patient expresses concern about running out of money and is anxiously awaiting a decision on her disability application. The prolonged waiting period is causing frustration and restlessness, with the patient feeling itching to go do something and tired of being confined to her house. She has explored [id number] options but hasn't found suitable opportunities. The financial uncertainty is a significant stressor, potentially impacting her overall mental health and well-being. Plan: - Continue to monitor progress of disability application - Explore additional resources for financial assistance or temporary employment options - Discuss stress management techniques to cope with financial uncertainty Relationship Concerns Assessment: Patient has been analyzing her relationship patterns and has concluded that her partner likely has an avoidant attachment style. She recognizes that this conflicts with her own attachment needs, which tend towards anxious or a mix of anxious-avoidant (fearful avoidant or disorganized attachment). This insight suggests a growing self-awareness of her relationship dynamics and potential areas for personal growth. 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 The patient demonstrates awareness of the limitations of peer support and the importance of directing members to professional help when needed. 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 She describes difficulty stopping once the behavior starts, with recent relapse after months of abstinence. This compulsive behavior is causing visible skin damage and emotional distress, consistent with symptoms of dermatillomania. The cyclical nature and association with stress suggest a need for targeted interventions to address both the behavior and underlying triggers. Plan: - Explore stress management techniques to reduce triggers for skin-picking - Discuss strategies for keeping hands occupied during high-stress periods - Consider referral for specialized treatment in compulsive skin-picking if symptoms persist Sleep Disturbance Assessment: Patient reports significant sleep difficulties, including only sleeping for approximately one hour the previous night. She describes physical discomfort while trying to sleep due to poor sleeping conditions. The sleep disturbance is not characterized as insomnia but rather as difficulty finding a comfortable position due to bedding. This acute sleep deprivation is contributing to increased irritability and mood instability. Plan: - Consider short-term interventions to address immediate sleep needs and prevent further mood deterioration - Monitor sleep patterns and their impact on overall functioning in subsequent sessions Irritability and Emotional Dysregulation Assessment: Patient expresses feeling overwhelmed, irritable, and on the verge of snapping. She reports a sense of being pushed to her limits by others and a need for quiet, solitary spaces. The combination of sleep deprivation, ongoing stressors, and possible sensory sensitivities appears to be exacerbating her emotional state. There is a risk of interpersonal conflicts due to her current emotional volatility. Plan: - Explore coping strategies for managing irritability and preventing emotional outbursts - Discuss potential quiet spaces or isolation pods for temporary respite - Encourage use of the torres as a calming environment when needed - Assess need for more intensive interventions if emotional dysregulation persists or worsens Interpersonal Conflicts and Social Support Assessment: Patient mentions ongoing family issues and a recent conflict with a member from a mental health support group. The member is described as vengeful and angry, potentially impacting the patient's support system and emotional well-being. This situation highlights the complexity of maintaining supportive relationships while managing one's own mental health needs. 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 She describes difficulty stopping once the behavior starts, with recent relapse after months of abstinence. This compulsive behavior is causing visible skin damage and emotional distress, consistent with symptoms of dermatillomania. The cyclical nature and association with stress suggest a need for targeted interventions to address both the behavior and underlying triggers. Plan: - Explore stress management techniques to reduce triggers for skin-picking - Discuss strategies for keeping hands occupied during high-stress periods - Consider referral for specialized treatment in compulsive skin-picking if symptoms persist Sleep Disturbance Assessment: Patient reports significant sleep difficulties, including only sleeping for approximately one hour the previous night. She describes physical discomfort while trying to sleep due to poor sleeping conditions. The sleep disturbance is not characterized as insomnia but rather as difficulty finding a comfortable position due to bedding. This acute sleep deprivation is contributing to increased irritability and mood instability. Plan: - Consider short-term interventions to address immediate sleep needs and prevent further mood deterioration - Monitor sleep patterns and their impact on overall functioning in subsequent sessions Irritability and Emotional Dysregulation Assessment: Patient expresses feeling overwhelmed, irritable, and on the verge of snapping. She reports a sense of being pushed to her limits by others and a need for quiet, solitary spaces. The combination of sleep deprivation, ongoing stressors, and possible sensory sensitivities appears to be exacerbating her emotional state. There is a risk of interpersonal conflicts due to her current emotional volatility. Plan: - Explore coping strategies for managing irritability and preventing emotional outbursts - Discuss potential quiet spaces or isolation pods for temporary respite - Encourage use of the torres as a calming environment when needed - Assess need for more intensive interventions if emotional dysregulation persists or worsens Interpersonal Conflicts and Social Support Assessment: Patient mentions ongoing family issues and a recent conflict with a member from a mental health support group. The member is described as vengeful and angry, potentially impacting the patient's support system and emotional well-being. This situation highlights the complexity of maintaining supportive relationships while managing one's own mental health needs. 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 She expresses feeling down for the past week and has been going to bed early (around 6 PM) due to wanting to be done with the day. Current treatment includes escitalopram and Spravato (esketamine) therapy, with the patient noting diminished efficacy of Spravato since reducing frequency from twice weekly to once weekly. Patient also mentions frustration with her inability to engage in activities despite having the desire to do so, which may indicate psychomotor retardation or avolition associated with depression. Plan: - Continue Spravato treatment as scheduled (next appointment June 28, 2025) - Begin EMDR therapy as scheduled (weekly from July 02 through August 20, 2025) Anxiety Assessment: Patient exhibits anxiety symptoms, particularly related to recent financial stressors. She reports engaging in skin-picking behavior when stressed, which leads to social withdrawal. The anxiety appears to be exacerbated by the anticipated expenses for her child's dental work. Plan: - Monitor anxiety symptoms and their impact on daily functioning - Explore coping strategies for stress management - Address skin-picking behavior and its consequences Sleep Disturbance Assessment: Patient reports not sleeping well and going to bed unusually early (around 6 PM) on some nights. This sleep pattern disruption may be related to her depressive symptoms and overall stress levels. Plan: - Assess sleep hygiene practices - Consider sleep diary to track patterns and potential triggers for early bedtimes 05/24/2025 Post-traumatic stress disorder, chronic (ICD-10 - F43.12) Major Depressive Disorder Assessment: Patient reports ongoing depressive symptoms, including low mood, anhedonia, and sleep disturbances. She expresses feeling down for the past week and has been going to bed early (around 6 PM) due to wanting to be done with the day. Current treatment includes escitalopram and Spravato (esketamine) therapy, with the patient noting diminished efficacy of Spravato since reducing frequency from twice weekly to once weekly. Patient also mentions frustration with her inability to engage in activities despite having the desire to do so, which may indicate psychomotor retardation or avolition associated with depression. Plan: - Continue Spravato treatment as scheduled (next appointment June 28, 2025) - Begin EMDR therapy as scheduled (weekly from July 02 through August 20, 2025) Anxiety Assessment: Patient exhibits anxiety symptoms, particularly related to recent financial stressors. She reports engaging in skin-picking behavior when stressed, which leads to social withdrawal. The anxiety appears to be exacerbated by the anticipated expenses for her child's dental work. Plan: - Monitor anxiety symptoms and their impact on daily functioning - Explore coping strategies for stress management - Address skin-picking behavior and its consequences Sleep Disturbance Assessment: Patient reports not sleeping well and going to bed unusually early (around 6 PM) on some nights. This sleep pattern disruption may be related to her depressive symptoms and overall stress levels. Plan: - Assess sleep hygiene practices - Consider sleep diary to track patterns and potential triggers for early bedtimes 05/25/2025 Nicotine use (ICD-10 - Z72.0) 05/31/2025 Major depressive disorder, recurrent severe without psychotic features (ICD-10 - F33.2) Multiple somatic complaints Assessment: Patient reports experiencing multiple somatic symptoms, including daily headaches, back pain, and general malaise. She also mentions thinning hair, which is causing her distress. There is a history of gastrointestinal issues, including a previous ulcer diagnosis and current reports of blood in stool. The patient has been avoiding medical care for these issues due to lack of motivation. The combination of these symptoms suggests a possible underlying medical condition or could be related to her mental health status. Further medical evaluation is warranted to rule out organic causes and determine appropriate treatment. Plan: - Encourage patient to schedule an appointment with her primary care physician for evaluation of multiple somatic complaints, including headaches, back pain, and gastrointestinal issues. - Advise patient to seek immediate medical attention for blood in stool, emphasizing the importance of ruling out serious conditions given family history of gastrointestinal issues. - Recommend scheduling the delayed appointment with her regular doctor to address ongoing health concerns. Mood symptoms and decreased motivation Assessment: Patient reports improved mood with the recent initiation of Lamictal. She continues to experience decreased motivation and increased sleep, which may indicate ongoing depressive symptoms. The patient also mentions being disturbed by imagery she watched, suggesting potential anxiety or intrusive thoughts. These symptoms, combined with her somatic complaints, indicate a need for continued monitoring and possible adjustment of her treatment plan. Plan: - Continue Lamictal as prescribed for mood stabilization. - Explore coping strategies for managing disturbing thoughts or imagery. - Discuss techniques to improve motivation and energy levels. 05/31/2025 Post-traumatic stress disorder, chronic (ICD-10 - F43.12) Multiple somatic complaints Assessment: Patient reports experiencing multiple somatic symptoms, including daily headaches, back pain, and general malaise. She also mentions thinning hair, which is causing her distress. There is a history of gastrointestinal issues, including a previous ulcer diagnosis and current reports of blood in stool. The patient has been avoiding medical care for these issues due to lack of motivation. The combination of these symptoms suggests a possible underlying medical condition or could be related to her mental health status. Further medical evaluation is warranted to rule out organic causes and determine appropriate treatment. Plan: - Encourage patient to schedule an appointment with her primary care physician for evaluation of multiple somatic complaints, including headaches, back pain, and gastrointestinal issues. - Advise patient to seek immediate medical attention for blood in stool, emphasizing the importance of ruling out serious conditions given family history of gastrointestinal issues. - Recommend scheduling the delayed appointment with her regular doctor to address ongoing health concerns. Mood symptoms and decreased motivation Assessment: Patient reports improved mood with the recent initiation of Lamictal. She continues to experience decreased motivation and increased sleep, which may indicate ongoing depressive symptoms. The patient also mentions being disturbed by imagery she watched, suggesting potential anxiety or intrusive thoughts. These symptoms, combined with her somatic complaints, indicate a need for continued monitoring and possible adjustment of her treatment plan. Plan: - Continue Lamictal as prescribed for mood stabilization. - Explore coping strategies for managing disturbing thoughts or imagery. - Discuss techniques to improve motivation and energy levels. 05/31/2025 Major depressive disorder, recurrent severe without psychotic features (ICD-10 - F33.2) 06/07/2025 Major depressive disorder, recurrent severe without psychotic features (ICD-10 - F33.2) Plan: - Continue to process upcoming anniversary and grief related to loss of . Provided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 prevention hotline 988. 03/05/2025 Other 1. Major Depressive Disorder - Patient rates depression at . - Plan: a. Administer Spravato as scheduled. b. Patient expressed understanding of risks and benefits of Spravato treatment. c. Patient instructed not to drive after Spravato administration . d. Next Spravato treatment scheduled for 03/08/2025. e. Follow-up appointment with primary psychiatric care provider Parminder scheduled for 03/11/2025. 2. Generalized Anxiety Disorder - Patient rates anxiety at . - Plan: a. Continue current medication regimen. b. Monitor anxiety levels at future appointments. 3. Suicidal Ideation - Patient denies suicidal ideation. 4. Hallucinations , Delusions, and Paranoia - Patient denies hallucinations , delusions, or paranoia. 5. Sleep - Patient reports approximately 8 hours of sleep per night. 6. Appetite - Patient reports normal appetite. 7. Mood - Patient's general mood is described as agitated, with a tendency to snap easily. 8. Medication Management - Patient reports no side effects from current medications. - No recent medication changes or adjustments. 9. Physical Complaints - No specific physical complaints mentioned. 03/19/2025 Other Continue current medications Schedule for esketamine treatments for weekly, expect improvement in current symptoms, as esketamine treatments were stabilizing depression until lapse in treatments due to scheduling error. Patient educated on all medications including potential benefits, side effects, risks. Educated on proper dosing schedule and importance of compliance. Cont therapy -Assessment and treatment plan reviewed with patient. -Compliance with treatment plan importance discussed. -Discussed the risks/benefits of this medication -Discussed medication side effects. -Contact office if symptoms worsen. -Discussed that it can take up to 6-8 weeks to see full therapeutic effects of psychotropic medications. -Crisis prevention hotline 988. 07/31/2024 Other Increase lamictal-75mg daily for one week then 100mg daily. Continue lorazepam as needed, not intended for jail use. Patient educated on all medications including potential benefits, side effects, risks. Educated on proper dosing schedule and importance of compliance. [place] PDMP report checked and consistent with prescription history, no controlled substance prescriptions from other providers. Encouraged to utilize walk in clinic to get in with Ashley for counseling Suicide support resource list provided. 04/16/2025 Other Continue current medications -she declines augmentation for depression at this time. - recently restarted vitamin D supplements, which she was previously deficient in. Schedule for esketamine treatments for weekly Patient educated on all medications including potential benefits, side effects, risks. Educated on proper dosing schedule and importance of compliance. Cont therapy Supportive therapy provided -Assessment and treatment plan reviewed with patient. -Compliance with treatment plan importance discussed. -Discussed the risks/benefits of this medication -Discussed medication side effects. -Contact office if symptoms worsen. -Discussed that it can take up to 6-8 weeks to see full therapeutic effects of psychotropic medications. -Crisis prevention hotline 988. 04/26/2025 Other Major Depressive DisorderAssessment: Patient reports ongoing depressive symptoms, rating her mood as a 7 this week. She notes some improvement with Spravato, suggesting partial response to treatment. Sleep and appetite remain variable. Plan:- Continue current treatment regimen- Monitor for further improvement in depressive symptoms- Encourage consistent sleep hygiene practices- Follow up to reassess mood and medication efficacy Generalized Anxiety DisorderAssessment: Patient reports anxiety levels have been a little high but notes improvement compared to the previous week. Living situation with daughter is mentioned, which may be a contributing factor to anxiety. The fluctuation in anxiety levels suggests ongoing management is necessary.Plan:- Continue current anxiety management strategies- Monitor anxiety levels and their impact on daily functioning- Explore potential stressors related to living situation with daughter 03/29/2025 Other Major Depressive DisorderAssessment: Patient reports current depression severity of 8/10. Recent 2-week gap in Spravato treatments was noted to be detrimental. Sleep is described as hit or miss, and appetite is reported as always messed up. Patient denies any side effects from Spravato. Current living situation with daughter is described as stressful, impacting patient's peace and contributing to ongoing depressive symptoms.Plan:- continue current treatment as prescribed by primary psychiatric care provider Generalized Anxiety DisorderAssessment: Patient reports severe anxiety, rating it 10/10. Contributing factors include high-stress living situation with daughter, recent history of homelessness, and ongoing car problems. These stressors are significantly impacting patient's quality of life and ability to find relief from anxiety symptoms.Plan:- Continue current anxiety management plan- Encourage patient to prioritize self-care and relaxation after Spravato treatments 02/26/2025 Other Major Depressive Disorder Assessment: Patient reports depression severity of 8/10. Sleep is approximately 8 hours per night, but appetite has decreased. Patient denies suicidal ideation, hallucinations , delusions, or paranoia. No medication side effects or changes reported since last visit. Plan: - Continue medications as prescribed by Parminder - Lyndsey Spravato treatment scheduled for 03/01/25 and 03/16/25 - Next therapy appointment with Ashley on 03/05/25 - Follow-up appointment with primary psychiatric care provider Parminder on 03/19/25 Generalized Anxiety Disorder Assessment: Patient reports anxiety severity of 9/10. Denies suicidal ideation, hallucinations , delusions, or paranoia. No medication side effects or changes reported since last visit. Plan: - Continue medications as prescribed by Parminder - Lyndsey therapy appointment with Ashley on 03/05/25 - Follow-up appointment with primary psychiatric care provider Parminder on 03/19/25 The note is transcribed using speech recognition software. It is a reflection of a visit with the patient. It might have some inaccuracy, including medication names and transcribing errors, though efforts have been made to correct them. 03/01/2025 Other 1. Major Depressive Disorder - Patient rates depression at 03/01. - Sleep is adequate at approximately 8 hours per night. - Appetite is decreased. - No suicidal ideation, hallucinations, delusions, or paranoia reported. - Plan: a. Continue Spravato treatment. b. Next Spravato treatment scheduled for 03-05-2025. c. Follow-up appointment with primary psychiatric care provider Parminder scheduled for 03-19-2025. 2. Generalized Anxiety Disorder - Patient rates anxiety at 05/02. - No specific anxiety-provoking situations or triggers discussed. - Plan: a. Continue current medication regimen (no side effects or recent changes reported). b. Next therapy appointment scheduled for 03-05-2025. 3. Medication Management - Current treatment: Spravato for depression management. - Plan: a. Continue current medication regimen. b. Monitor patient's response to Spravato treatment. 12/28/2024 Other Increase duloxetine to 60mg daily [...] with treatment plan importance discussed. -Discussed the risks/benefits of this medication -Discussed medication side effects. -Contact office if symptoms worsen. -Discussed that it can take up to 6-8 weeks to see full therapeutic effects of psychotropic medications. -Crisis prevention hotline 988. 10/30/2024 Other Discontinue lamictal due to ineffectivenes s. Start Abilify 2mg daily for mood Patient educated on all medications including potential benefits, side effects, risks. Educated on proper dosing schedule and importance of compliance. -Assessment and treatment plan reviewed with patient. -Compliance with treatment plan importance discussed. -Discussed the risks/benefits of this medication -Discussed medication side effects. -Contact office if symptoms worsen. -Discussed that it can take up to 6-8 weeks to see full therapeutic effects of psychotropic medications. -Crisis prevention hotline 988. 02/22/2025 Other 1. Major Depressive Disorder - Patient reports depression severity of 7/10. - No suicidal ideation, hallucinations , delusions, or paranoia reported. - Sleep is adequate at approximately 8 hours per night. - Patient is receiving Spravato treatment for depression management. - Plan: a. Administer Spravato as scheduled. b. Educate patient on risks, benefits, and driving restrictions associated with Spravato. c. Schedule next Spravato treatment for 02-26-2025. d. Continue current medications as prescribed by Parminder. e. Follow-up appointment with primary psychiatric care provider Parminder scheduled for 02-27-2025. f. Next therapy appointment with Ashley scheduled for 02-26-2025. 2. Anxiety - Patient reports anxiety severity of 03/01. - No specific anxiety symptoms or triggers discussed in this encounter. - Plan: a. Continue current medications as prescribed by Parminder. b. Follow-up appointment with primary psychiatric care provider Parminder scheduled for 02-27-2025. c. Next therapy appointment with Ashley scheduled for 02-26-2025. 04/05/2025 Other Major Depressi ve DisorderAssessment: Patient reports current depression severity of 7/10. Recent lapse in treatment correlated with symptom exacerbation, which has caused what she describes as causing her to bottom back out. Patient denies suicidal thoughts. Recent stressors include processing multiple family members' autism diagnoses. No reported hallucinations or delusions.Plan:- Continue current treatment regimen 02/12/2025 Other Major Depressive Disorder Assessment: Patient reports severe depression, rating it as 9 out of 10. She is currently undergoing Spravato treatment for depression management. Patient denies suicidal ideation, self-harm thoughts, or thoughts of harming others. No hallucinations, delusions, or paranoia reported. Sleep is reported as 8 hours per night, with variable appetite. Patient denies experiencing side effects from current medications. Plan: - Administer Spravato 56 mg today - Schedule next Spravato treatment on 02/16 with increased dose to 84 mg - Continue medications as prescribed by primary psychiatric care provider Parminder * patient reports she is not taking lithium as prescribed by parminder. - Patient expressed understanding of risks and benefits of Spravato treatment - Patient instructed not to drive after Spravato administration - Follow up with primary psychiatric care provider Parminder as scheduled Generalized Anxiety Disorder Assessment: Patient reports severe anxiety, rating it as 9 out of 10. No specific anxiety-related symptoms or triggers were discussed in this encounter. Plan: - Continue medications as prescribed by primary psychiatric care provider Parminder The note is transcribed using speech recognition software. It is a reflection of a visit with the patient. It might have some inaccuracy, including medication names and transcribing errors, though efforts have been made to correct them. 04/12/2025 Other DepressionAssessmen t: Patient reports feeling really sad when asked about depression. Denies suicidal ideations. Plan:- Continue monitoring mood symptoms - Continue current treatment regimen as presribed by primary pyschiatric provider 01/26/2025 Other Start lithium 150mg BID for mood stabilization Patient educated on all medications including potential benefits, side effects, risks. Educated on proper dosing schedule and importance of compliance. Plan to start Spravato treatments when transportation /childcare figured out -Assessment and treatment plan reviewed with patient. -Compliance with treatment plan importance discussed. -Discussed the risks/benefits of this medication -Discussed medication side effects. -Contact office if symptoms worsen. -Discussed that it can take up to 6-8 weeks to see full therapeutic effects of psychotropic medications. -Crisis prevention hotline 988. 06/14/2025 Mely Nagel presents with severe depression (10/10) and high anxiety, experiencing ongoing health issues, back pain disrupting sleep, and housing instability following conflict with daughter. DepressionPatient reports depression severity at 10/10, indicating severe symptoms. Currently receiving Spravato treatments weekly but feels she may not be working as effectively as before, requesting higher dose. Patient expresses feeling that treatments are less effective than previously experienced.Plan:- Continue current treatment regimen- Patient to discuss potential changes to treatment with Parminder next visit Anxiety disorderPatient reports anxiety levels as pretty high in context of multiple stressors including health issues, housing instability, and family conflict.Plan:- Continue current treatment approach- Monitor anxiety levels in context of ongoing stressors Housing instabilityPatient reports not feeling like she has a home following conflict with daughter regarding moving out. This is contributing to overall distress and sense of not having her own space.Plan:- Patient seeking independent housing arrangement Spravato Therapy- Patient remains an appropriate candidate for Spravato treatment.- Patient has no noted contraindications to treatment today.- Patient denied having concerns regarding treatment today.- Tolerating previous sessions well with positive response.- Observed for 2 hours post-dose; patient remained alert, oriented, and cooperative throughout observation. No reported or observed adverse effects, or clinical signs indicating intolerance, distress, or discomfort. Vital signs remained stable. - Post-treatment patient was alert, oriented, and ambulating steadily. - Cleared for discharge per protocol, accompanied by designated cryogenic transport driver.- Verbalized understanding of post-treatment precautions:Avoid driving, operating machinery, or making major decisions until next day- Patient asked appropriate questions, verbalized understanding, and agreed to the recommended treatment and to continue to be followed.- Patient knows how to reach clinic should any problems, questions, or concerns arise. 02/20/2025 Mely Perez presents for photo administration for treatment of depression, reporting depression rated 7/10 and anxiety rated 10/10. Major Depressive Disorder Assessment: Patient reports depression rated as 7 out of 10. Currently undergoing photo treatment for depression. Patient expressed understanding of the risks associated with photo treatment, including the embedded risks and the importance of not driving after administration. Plan: - Next photo treatment scheduled for 02-22-2025 - Follow-up appointment scheduled with Parminder - Continue current medications as prescribed by Parminder Generalized Anxiety Disorder Assessment: Patient reports anxiety rated as 10 out of 10, indicating severe anxiety symptoms. Plan: - Continue current medications as prescribed by Parminder Sleep and Appetite Assessment: Patient reports getting approximately 8 hours of sleep at night. Appetite has decreased. The note is transcribed using speech recognition software. It is a reflection of a visit with the patient. It might have some inaccuracy, including medication names and transcribing errors, though efforts have been made to correct them. 02/15/2025 Mely Nagel, a patient with depression, presents for Spravato treatment. DepressionAssessmen t: Patient reports recently struggling with severe depression, which was at its peak prior to the current treatment. The exact specifics of current depressive symptoms are not provided, but the patient indicates slight improvements. Current depression severity is unclear, as the patient was unable to provide a specific rating on the 0-10 scale when asked, stating it was really bad prior to first Spravato administration but it is difficult to gauge improvements at this time. Plan:- Continue current treatment regimen- Follow-up with primary provider (Parminder) for ongoing care 02/16/2025 Other Discontinue lithium per pt Continue current medications Continue esketamine treatments as scheduled Patient educated on all medications including potential benefits, side effects, risks. Educated on proper dosing schedule and importance of compliance. [place]MP report checked and consistent with prescription history, no controlled substance prescriptions from other providers. -Assessment and treatment plan reviewed with patient. -Compliance with treatment plan importance discussed. -Discussed the risks/benefits of this medication -Discussed medication side effects. -Contact office if symptoms worsen. -Discussed that it can take up to 6-8 weeks to see full therapeutic effects of psychotropic medications. -Crisis prevention hotline 988. 04/19/2025 Other Major Depressi ve DisorderAssessment: Patient reports ongoing depressive symptoms, describing today as not a good day and having a rough day. The patient's mood appears to be influenced by the loss of her 9 months ago. Current stressors include a challenging home environment, which recently resulted in a confrontation. The patient's appetite is described as always messed up, and she reports forgetting to eat at times. No current suicidal ideation is reported. The patient is currently undergoing Spravato treatment, which appears to be helping manage symptoms.Plan:- Continue depression treatment as currently prescribed 05/03/2025 Other 1. Major Depressive Disorder - Patient rates depression at 03/01. - Plan: a. Administer Spravato as scheduled. b. Provided education on benefits of Spravato treatment. c. Next Spravato treatment scheduled for 05/10/2025. d. Follow-up appointment with primary psychiatric care provider scheduled for 05/25/2025. 2. Anxiety - Patient rates anxiety at 03/01. - Plan: a. Continue current treatment plan. b. Follow-up with primary psychiatric care provider as scheduled. 3. Decreased Appetite - Patient reports decreased appetite. - Plan: a. Monitor nutritional status. 4. Variable Sleep - Patient reports variable sleep. - Plan: a. Monitor sleep patterns. 05/17/2025 Other Major Depressive DisorderAssessment: Patient is currently undergoing Spravato treatments once weekly for depression. She reports that the treatments are okay but expresses uncertainty about their continued effectiveness. The patient's mood appears to be affected by poor sleep due to an air mattress issue the previous night, contributing to irritability.Plan:- Continue Spravato treatments once weekly- Advised to discuss treatment efficacy concerns with Parminder at next appointment Generalized Anxiety DisorderAssessment: Patient reports high levels of anxiety, particularly exacerbated by the clinical environment during this visit. She expresses discomfort with the room's location, citing it as too busy and loud. The patient also mentions increasing anxiety about coming to campus for appointments compared to exploring outside environments.Plan:- Note patient's environmental preferences for future appointments to minimize anxiety triggers- Encourage continued use of coping mechanisms (e.g., headphones) during anxiety-provoking situations 05/25/2025 Other Start Lamictal 25mg daily for two weeks then 50mg daily for mood, irritability Patient educated on all medications including potential benefits, side effects, risks. Educated on proper dosing schedule and importance of compliance. [place] PDMP report checked and consistent with prescription history, no controlled substance prescriptions from other providers. Continue Spravato on weekly schedule -Assessment and treatment plan reviewed with patient. -Compliance with treatment plan importance discussed. -Discussed the risks/benefits of this medication -Discussed medication side effects. -Contact office if symptoms worsen. -Discussed that it can take up to 6-8 weeks to see full therapeutic effects of psychotropic medications. -Crisis prevention hotline [phone]. 05/10/2025 Other Major Depressi ve DisorderAssessment: Patient reports current depression severity at 7 out of 10. Sleep is described as pretty decent, though patient mentions waking up at 4 AM on one occasion. Appetite remains unchanged from previous visits. No suicidal ideation reported. Plan:- Continue current treatment regimen as prescribed- Monitor for any changes in symptoms 03/08/2025 Other Major Depressi ve DisorderAssessment: Patient reports current treatment approach is going well. No hallucinations, paranoia, or delusions reported. Patient denies any side effects or concerns related to current treatment. Patient denies any current suicidal ideations.Plan:- Continue current treatment regimen Plan Of Treatment Pending Test Test Name Order Date UDT 03/23/2024 ADHD Testing 03/14/2024 Next Appt Details Provider Name:Ashley vyas, 06/28/2025 02:00:00 PM, [address], [facility] [address], [place], [address], Provider Name:Cherrie penn, 06/28/2025 03:00:00 PM, [address], [address], [place], [address], Provider Name:Bailey Fernandez, 07/02/2025 01:00:00 PM, [address], [address], [place], [address], Provider Name:Dean Nj Ram , 07/05/2025 01:00:00 PM, [address], [address], [place], [address], Provider Name:Parminder cosme, 07/06/2025 01:45:00 PM, [address], [address], [place], [address], Provider Name:Bailey Fernandez, 07/09/2025 02:00:00 PM, [address], [address], [place], [address], Provider Name:Sanchez Brown, 07/09/2025 03:00:00 PM, [facility], [address], [place], [address], Provider Name:Bailey Fernandez, 07/17/2025 01:00:00 PM, [facility], [address], [place], [address], Provider Name:Sanchez Brown, 07/17/2025 03:00:00 PM, [facility], [address], [place], [address], Provider Name:Bailey Fernandez, 07/24/2025 01:00:00 PM, [facility], [address], [place], [address], Provider Name:Sanchez Brown, 07/24/2025 03:00:00 PM, [facility], [address], [place], [address], Provider Name:Bailey Fernandez, 07/31/2025 01:00:00 PM, [facility], [address], [place], [address], Provider Name:Sanchez Brown, 07/31/2025 03:00:00 PM, [address], [address], [place], [address], Provider Name:Bailey Fernandez, 08/07/2025 01:00:00 PM, [address], [address], [place], [address], Provider Name:Sanchez Brown, 08/07/2025 03:00:00 PM, [address], [address], [place], [address], Provider Name:Bailey Fernandez, 08/20/2025 01:00:00 PM, [address], [facility] [address], [place], [address], Provider Name:Sanchez Brown, 08/20/2025 03:15:00 PM, [address], [address] [address], [place], [address], Insurance Providers Payer Name Payer Address Payer Phone Subscriber Number Group Number Insured Name Patient Relationship to Insured Coverage Start Date Coverage End Date [employer] [address] [place] [address] [phone] [id number] Ana Nagel Self - patient is the insured Medications Administered Medication Instructions Date of Administration Dosage Notes Spravato (56 MG Dose) 02/12/2025 56 mg Spravato (84 MG Dose) 02/15/2025 84 mg Spravato (84 MG Dose) 02/20/2025 84 mg Spravato (84 MG Dose) 02/22/2025 84 mg Spravato (84 MG Dose) 02/26/2025 84 mg Spravato (84 MG Dose) 03/01/2025 84 mg Spravato (84 MG Dose) 03/05/2025 84 mg Spravato (84 MG Dose) 03/08/2025 84 mg Spravato (84 MG Dose) 03/29/2025 84 mg Spravato (84 MG Dose) 04/05/2025 84 mg Spravato (84 MG Dose) 04/12/2025 84 mg Spravato (84 MG Dose) 04/19/2025 84 mg Spravato (84 MG Dose) 04/26/2025 84 mg Spravato (84 MG Dose) 05/03/2025 84 mg Spravato (84 MG Dose) 05/10/2025 84 mg Spravato (84 MG Dose) 05/17/2025 84 mg Spravato (84 MG Dose) 05/31/2025 84 mg Spravato (84 MG Dose) 06/07/2025 84 mg Spravato (84 MG Dose) 06/14/2025 84 mg Spravato (84 MG Dose) 06/21/2025 84 mg Medical (General) History Medical History History ICD Code Past Psychiatric History: Anxiety Disord er,PTSD Past Psychiatric History: An xiety Disorder,Panic Disorder,PTSD,Major Depressive Episode undefined abdominal aortic aneurysm: No atrial fibrillation: No chronic fatigue syndrome: No essential tremor: No hypertension: No Parkinson's disease: No restless leg syndrome: No stroke: No subdural hematoma: No type 2 diabetes mellitus: No vitamin B12 deficiency: Yes vitamin D deficiency: Yes Please check off any of the following medical conditions you currently have or have had in the past:: allergies,anxiety,depression,high cholesterol Do you have any other diseas e, condition or problem not listed above that you feel we should know about? If so, Please explain:: Cptsd adhd Major depressive disorder, recurrent sev ere without psychotic features Generalized anxiety disorder
== END 2025-06-25 10:25 | disposition home or self-care (01) ==
LOC: ANHFOHIMG 10:26
PROVIDERS: PCP Family Medicine; Visit Provider Family Medicine
DX: Z12.31 Encounter for screening mammogram for malignant neoplasm of breast (principal)
CPT/HCPCS: 77063; 77067

== ENCOUNTER 2025-08-02 01:16 | Day surgery (SDC) | payer OTHER, MEDICAID, SELFPAY ==
[2025-07-13 13:31] VITALS: BMI 27.5
--- OUTSIDE RECORDS SUMMARY | 2025-07-24 07:00 | XMS_ITS ---
Author Organization [facility] [employer] [facility] Address [facility] [facility] [address] [facility] [address] [place] [address] Care Team Providers Care Inside Meter Tester Name Role Phone John DELACRUZ, Josephine Primary Care Provider Unavail able Yaritza Martinez Unavailable [phone] Bailey Corado Unavailable [phone] REASON FOR VISIT Therapy Visit Social History Sex Assigned At : Social History Observation Description Sex Assigned At Female Encounters Encounter Location Date Provider Diagnosis [facility] [employer] [place] [address] [address] [facility] [address] [address] 07/24/2025 Bailey Mclain Plan Of Treatment Next Appt Details Provider Name:Sanchez Brown, 08/06/2025 11:30:00 AM, [facility], [address], [address], Provider Name:Bailey Mclain, 08/07/2025 01:00:00 PM, [facility] [address] [facility], [address], [address], Provider Name:Sanchez Brown, 08/07/2025 03:00:00 PM, [facility] [address], [address], Provider Name:Bailey Mclain, 08/20/2025 01:00:00 PM, [facility] [address], [address], [address], Provider Name:Sanchez Brown, 08/20/2025 03:15:00 PM, [facility], [address], [address], Progress Notes * Kelsie NAGELOB: 3 (54 yo F)Acc No.[id number]:07/24/2025 Patient: Ana Bunch Provider: Sid MCLAIN LCSW :1970 A ge:54 Y S ex:Female Date:07/24/2025 Phone: Address:[address] [place], [place] [id number] Pcp:Josephine Lopez MD Data: * Chief Complaints: * T herapy Visit Billing Information: * Procedure Codes: * Electronic signature of Therese Mclain LCSW on 08/02/2025 at 01:20 AM BEE RANCHER Sign off status: Pending Signatures: No Ad Hoc Signature Added * Provider: Sid MCLAIN LCSW Date: 09/24/2024 Generated for Mark mejias/Carlo/Naitting on: 10/03/2024 01:20 AM BEE RANCHER
--- OUTSIDE RECORDS SUMMARY | 2025-07-24 09:00 | XMS_ITS ---
Author Organization [facility] [employer] [facility] Address [facility] [facility] [address] [place] [address] Care Team Providers Care Roentgenology Teacher Name Role Phone John DELACRUZ, Josephine Primary Care Provider Unavail able Yaritza Martinez Unavailable [phone] Sanchez Brown Unavailable [phone] REASON FOR VISIT Spravato Treatment Social History Sex Assigned At : Social History Observation Description Sex Assigned At Female Encounters Encounter Location Date Provider Diagnosis [facility] [place] [address] [address] [facility] [address] [address] 07/24/2025 Sanchez Brown Plan Of Treatment Next Appt Details Provider Name:Sanchez Brown, 08/06/2025 11:30:00 AM, [facility], [address], [address], Provider Name:Bailey Fernandez, 08/07/2025 01:00:00 PM, [facility] [address] [facility], [address], [address], Provider Name:Sanchez Brown, 08/07/2025 03:00:00 PM, [facility] [address], [address], [address], Provider Name:Bailey Fernandez, 08/20/2025 01:00:00 PM, [facility] [address], [address], [address], Provider Name:Sanchez Brown, 08/20/2025 03:15:00 PM, [facility] [address], [address], [address], Progress Notes * Kelsie NAGELOB: 3 (54 yo F)Acc No.[id number]:07/24/2025 Patient: Ana Bunch Provider: JOSE Magaña :1970 A ge:54 Y S ex:Female Date:07/24/2025 Phone: Address:[address] [place], [place] [id number] Pcp:Josephine Lopez MD Subjective: * Chief Complaints: * S pravato Treatment Billing Information: * Procedure Codes: * Electronic signature of JOSE Gaytan on 08/02/2025 at 01:19 AM [employer] Sign off status: Pending * Provider: JOSE Magaña Date: 09/24/2024 Generated for Mark mejias/Carlo/eTransmitting on: 10/03/2024 01:19 AM [facility] [employer] [facility]
--- OUTSIDE RECORDS SUMMARY | 2025-07-31 09:00 | XMS_ITS ---
Author Organization [facility] As [place] Address [address] [facility] [address] [place] [address] Care Team Providers Care Java Scala Developer Name Role Phone Josephine Lopez MD Primary Care Provider Unavail able Yaritza Martinez Unavailable [phone] Cherrie Garnett Unavailable [phone] Allergies Allergen (clinical drug ingredient) Drug/Non Drug Allergy documented on EMR Reaction Allergy Type Onset Date Status Biaxin Unknown Drug Allergy Active Medicinal cephalosporin and acting as antibacterial agent (FN) Cephalosporins Unknown Drug Allergy Active Latex Latex Unknown Allergy Active REASON FOR VISIT Spravato Treatment Medications Medication SIG (Take, Route, Frequency, Duration) Notes Start Date End Date Status Escitalopram Oxalate 20 MG Tablet 1 tablet Orally Once a day; Duration: 90 days 07/06/2025 Active hydrOXYzine HCl 25 MG Tablet 1 tablet as needed Orally twice a day; Duration: 30 days As needed 07/06/2025 Active LORazepam 1 MG Tablet 1 tablet Oral twice a day; Duration: 30 days As needed 07/06/2025 Active lamoTRIgine 25 MG Tablet 3 tablets Orall y once a day; Duration: 30 days Active Baclofen 10 MG Tablet Oral; Duration: 30 Days Active Spravato (84 MG Dose) 28 MG/DEVICE Solution Therapy Pack 3 sprays in each nostril Nasally once a week; Duration: 1 days 07/24/2025 Active Omeprazole 40 MG Capsule Delayed Release Oral; Duration: 30 Days A ctive Social History Tobacco Use: Social History Observation Description Date Details (start date - stop date) Current Smoker 12/21/1990 - NA Sex Assigned At : Social History Observation Description Sex Assigned At Female Social History Miscellaneous: Social Info Question Answer Notes Advance Care Planning Are you your own decision-maker Yes Do you have Power of [employer] [facility] or [facility]? No Safety issues: Are there any firearms in the house? No Household: Social Info Question Answer Notes Household Marital status: comp leted suicide Drug/Alcohol: Social Info Question Answer Notes Drugs Have you used drugs other than those for medical reasons in the past 12 months? No Methamphetamine? No Crack? No LSD? No Ecstacy? [...] Adm its Do you drink alcohol? Socially Vital Signs Blood pressure systolic 99 mm Hg 07/31/20 25 Blood pressure diastolic 71 mm Hg 025 Heart Rate 82 /min 07/31/2025 Height 65 in 07/31/2025 Height-cm 165.1 cm 07/31/2025 Oximetry 99 % 07/31/2025 Encounters Encounter Location Date Provider Diagnosis [facility] [address] [facility] [address] [place] [address] 07/31/2025 Cherrie Garnett Major depressive disorder, recurrent severe without psychotic features F33.2 Assessments Encounter Date Diagnosis (ICD Code) Assessment Notes Treatment Notes Treatment Clinical Notes Section Notes 07/31/2025 Major depressive disorder, recurrent severe without psychotic features (ICD-10 - F33.2) continue current treatment regimen as prescribed by primary psychiatric care provider Plan Of Treatment Treatment Notes Assessment Notes Major depressive disorder, r ecurrent severe without psychotic features continue current treatment regimen as prescribed by primary psychiatric care provider Next Appt Details Follow Up: 08/06/2025 @ 11:3 0 PM, Reason: gerardo/ Sanchez Provider Name:Sanchez Brown, 08/06/2025 11:30:00 AM, [address], [facility] [address], [place], [address], Provider Name:Bailey Fernandez, 08/07/2025 01:00:00 PM, [address], [address], [place], [address], Provider Name:Sanchez Brown, 08/07/2025 03:00:00 PM, [address], [facility] [address], [place], [address], Provider Name:Bailey Fernandez, 08/20/2025 01:00:00 PM, [facility], [place] [address], [place], [address], Provider Name:Sanchez Brown, 08/20/2025 03:15:00 PM, [facility], [place] [address], [place], [address], Medications Administered Medication Instructions Date of Administration Dosage Notes Spravato (84 MG Dose) 07/31/2025 84 mg History and Physical Notes * HPI (History of Present Illness) Category Sub-Category Detail Notes Category Not es Esketamine Administration Time at the start of Administration: 2:30 PM Time of discharge: 4:30 PM Was patient monitored for at least 2 hours? Yes Was the patient clinically ready for discharge prior to the required 2 hours? No Serious adverse event during the treatment? NO Any problems since the last treatment session? NO Staff Notes for today's visit Who is picking the patient up? daughter When did the patient last eat? earlier this afternoon Any medication changes since last visit? NO Esketamine Nasal [place] Administration and Supervised Monitoring Staff attending the patient: Mary Mauro Supervising provider as in rendering provider: JOSE Ndiaye Is patient taking any of the following concomitant medication that may cause sedation of blood pressure changes? Benzodiazepine Yes Non-benzodiazepine sedative-hypnotics: No Psychostimulant: No Monoamine oxidase inhibitors [MAOIs]: No Dose of Spravato: 84 Mg Lot number [id number] Date: 04/22/2028 Examination Category Sub-Category Detail Notes Category Not es Psychiatry Mental Status Examination - Cognition: Alert and able to engage in conversation. - Behavior: Cooperative with the evaluation process. - Mood: - Affect: Appropriate, mood-congruent. - Thought Content: Denies suicidal ideations when directly asked. - Thought process: Linear and goal-directed, as evidenced by appropriate responses to questions. - Perceptions: No hallucinations, delusions, paranoia noted. - Insight: Appears intact evident by awareness of mental health symptoms and medication needs. - Judgment: Appears intact evident by proactive communication about symptoms, medications, and adherence to treatment plan. Progress Notes * ZOHRARonnie AVILABenOB: 3 (54 yo F)Acc No.[id number]:07/31/2025 Patient: Ana Bunch Provider: Nj Garnett :1970 A ge:54 Y S ex:Female Date:07/31/2025 Phone: Address:[address] [place], [place] [id number] Pcp:Josephine Lopez MD Subjective: * Chief Complaints: * S pravato Treatment * HPI: H istory of Presenting Problem: This note is transcribed using speech recognition software. It is a reflection of a visit with the patient. It might have some inaccuracy, including medication names and transcribing errors, though efforts have been made to correct them. The patient denies any suicidal thoughts or thoughts of self-harm or harm to others. The patient denies experiencing any hallucinations, delusions, or paranoia. The patient sees their primary psychiatric provider routinely and reports adherence to current treatment regimen. There have been no reported changes in medical history, social history, o r substance use since the last visit. E sketamine Administration: Time at the start of Administration: 2:30 PM Time of discharge: 4:30 PM Was patient monitored for at least 2 hours? Yes Was the patient clinically ready for discharge prior to the required 2 hours? No Serious adverse event during the treatment? NO Any problems since the last treatment session? NO Staff Notes for today's visit Who is picking the patient up? daughter When did the patient last eat? earlier this afternoon Any medication changes since last visit? NO Esketamine Nasal [place] Administration and Supervised Monitoring Staff attending the patient: Mary Mauro Supervising provider as in rendering provider: JOSE Ndiaye Is patient taking any of the following concomitant medication that may cause sedation of blood pressure changes? Benzodiazepine Yes Non-benzodiazepine sedative-hypnotics: No Psychostimulant: No Monoamine oxidase inhibitors [MAOIs]: No Dose of Spravato: 84 Mg Lot number [id number] Date: 04/22/2028. E sketamine Administration: Encounter date: 2025-07-31. Total time spent: 43 minutes. This meets the required threshold for CPT 20500. During this encounter, the following activities were completed: review patient medical records, recent test results, last visit summary (3 min); greet patient and escort to treatment room (1 min); review and document history and medication (3 min); evaluate clinical status and determine readiness/appropriateness of treatment (5 min); confirm orders and review plans with staff (1 min); observe the patient self-administration of the medication and remain present for observation (15 min); review progress with staff (vitals, tolerance, side effects) during the treatment (coordinated care with ma or direct observation) (4 min); completion of observation: review course and assess stability / discharge readiness (4 min); provide patient education / instruction (2 min); complete medical record documentation (5 min). * ROS: G eneral / Constitutional: Headache d enies. L ightheadedness d enies. S edation D enies. s pinning sensation D enies. R espiratory: Shortness of breath d enies. C ardiovascular: Chest pain d enies. P alpitations d enies. ? G astrointestinal: Nausea d enies. V omiting d enies. N eurologic: Patient denies c onfusion. B alance difficulty d enies. T remor d enies. P sychiatric: Comments S [facility] for details. * Medical History: Past Psychiatric History: Anxiety Disorder,PTSD Past Psychiatric History: Anxiety Disorder,Panic Disorder,PTSD,Major Depressive Episode abdominal aortic aneurysm: No atrial fibrillation: No [...] allergies,anxiety,depression,high cholesterol Do you have any other disease, condition or problem not listed above that you feel we should know about? If so, Please explain:: Cptsd adhd Major depressive disorder, recurrent severe without psychotic features Generalized anxiety disorder hyperlipidemia: No type 1 diabetes mellitus: No * Social History: T obacco Use: T obacco Control (Standard) T obacco use: C urrent smoker W hen did you start smoking? 0 12/21/1990 H ow often do you smoke cigarettes? E very day H ow many cigarettes a day do you smoke? 6 -10 H ow soon after you wake up do you smoke your first cigarette? 6 -30 minutes A re you interested in quitting? T hinking about quitting D rug/Alcohol: D rugs H ave you used drugs other than those for medical reasons in the past 12 months? N o M ethamphetamine? N o C rack? N [...] year? 1 or 2 drinks (0 point) H ow often did you have a drink containing alcohol in the past year? M onthly or less (1 point) P oints 4 H ousehold: H ousehold M arital status: w idowed completed suicide M iscellaneous: S afety issues A re there any firearms in the house? N o Occupation: Currently unemployed. Advance Care Planning A re you your own decision-maker Y es D o you have Power of [employer] for Health or Medical? N o * Medications: T akingSpravato (84 MG Dose) 28 MG/DEVICE Solution Therapy Pack 3 sprays in each nostril Nasally once a week Omeprazole 40 MG Capsule Delayed Release Oral Baclofen 10 MG Tablet Oral Escitalopram Oxalate 20 MG Tablet 1 tablet Orally Once a day hydrOXYzine HCl 25 MG Tablet 1 tablet as needed Orally twice a day As neededLORazepam 1 MG Tablet 1 tablet Oral twice a day As neededlamoTRIgine 25 MG Tablet 3 tablets Orally once a day Taking Spravato (84 MG Dose) 28 MG/DEVICE Solution Therapy Pack 3 sprays in each nostril Nasally once a week Taking Omeprazole 40 MG Capsule Delayed Release Oral Taking Baclofen 10 MG Tablet Oral Taking Escitalopram Oxalate 20 MG Tablet 1 tablet Orally Once a day Taking hydrOXYzine HCl 25 MG Tablet 1 tablet as needed Orally twice a day As neededTaking LORazepam 1 MG Tablet 1 tablet Oral twice a day As neededTaking lamoTRIgine 25 MG Tablet 3 tablets Orally once a day * Allergies: L atexBiaxinCephalosporins Objective: * Vitals: B P: 116/75 mm Hg,113/77 mm Hg,99/71mm Hg, HR: 92 /min,88 /min,82/min, Oxygen sat %: 93 %,97 %,99%, Ht: 65 in, Ht-cm: 165.1 cm. * Examination: P sychiatry: M ental Status Examination - Cognition: Alert and able to engage in conversation. - Behavior: Cooperative with the evaluation process. - Mood: - Affect: Appropriate, mood-congruent. - Thought Content:Denies suicidal ideations when directly asked. - Thought process: Linear and goal-directed, as evidenced by appropriate responses to questions. - Perceptions: No hallucinations, delusions, paranoia noted. - Insight: Appears intact e vident b y awareness of mental health symptoms and medication needs. - Judgment: Appears intact evident by proactive communication about symptoms, medications, and adherence to treatment plan. Assessment: * Assessment: 1. M ajor depressive disorder, recurrent severe without psychotic features - F33.2 (Primary)? Plan: * Treatment: * Therapeutic Injections: Spravato 84 mg : 84 mg (Route: Nasal) given by Mary Sandoval (Major depressive disorder, recurrent severe without psychotic features) * Procedure Codes: 9 9417 PROLONGED OFFICE OR OTHER OUTPATIENT EVALUATION AND MANAGEMENT SERVICE(S) (BEYOND THE TOTAL TIME OF THE PRIMARY PROCEDURE WHICH HAS BEEN SELECTED USING TOTAL TIME), REQUIRING TOTAL TIME WITH OR WITHOUT DIRECT PATIENT CONTACT BEYOND THE USUAL SERVICE, ON T, Units: 4.00 * Preventive Medicine: Counseling: S afety: Discussed the risk and benefits of medication(s)? Y es Spravato (Esketamine) for Treatment-Resistant DepressionWhat is Spravato?- Spravato is a nasal spray medication that contains esketamine, a form of ketamine. It is FDA-approved for adults with treatment-resistant depression (TRD).How does it work?- Spravato works differently from traditional antidepressants by affecting glutamate, a brain chemical involved in mood regulation. It can lead to improvements in symptoms more quickly than standard medications.How is it given?- Nasal spray, self-administered under medical supervision.- Given in a certified healthcare setting due to possible side effects.- Initial dosing is twice a week for 4 weeks, then usually once weekly or every other week depending on your response.What to expect during treatment:- You'll stay at the clinic for at least 2 hours after each dose to monitor for side effects.- You cannot drive or operate machinery until the next day.- You should have someone available to take you home.Common side effects:- Dissociation (feeling disconnected)- Drowsiness and/or fatigue- dizziness and/or spinning sensation- Nausea and/or vomiting- Increased blood pressure (monitored before during and after treatment)- These usually improve shortly after treatment.Important reminders:- Continue taking your oral antidepressants as prescribed.- Report any unusual thoughts or behaviors, including thoughts of self-harm.- Attend all scheduled appointments for safety and to monitor progress.Is it effective?- Many patients experience significant improvement in mood, often within hours to days. However, response varies. It may take several treatments to notice full benefit.Questions?- Always reach out to your provider with any concerns or to discuss how you're feeling during treatment.There is a risk for abuse and misuse with SPRAVATO, which may lead to physical and psychological dependence. Your healthcare provider should check you for signs of abuse, misuse, and dependence before and during treatment.Tell your healthcare provider if you have ever abused or been dependent on alcohol, prescription medicines, or street drugs.SPRAVATO Risk Evaluation and Mitigation Strategy (REMS). Because of the risks for sedation, dissociation, respiratory depression, and abuse and misuse, SPRAVATO is only available through a restricted program called the SPRAVATO Risk Evaluation and Mitigation Strategy (REMS) Program. SPRAVATO can only be administered at healthcare settings certified in the SPRAVATO REMS Program. Patients treated in outpatient healthcare settings (such as medical offices and clinics) must be enrolled in the program. * Follow Up: 1 10/07/2024 @ 11:30 PM (Reason: kiko Bradford) Billing Information: * Procedure Codes: 84975 PROLONGED OFFICE OR OTHER OUTPATIENT EVALUATION AND MANAGEMENT SERVICE(S) (BEYOND THE TOTAL TIME OF THE PRIMARY PROCEDURE WHICH HAS BEEN SELECTED USING TOTAL TIME), REQUIRING TOTAL TIME WITH OR WITHOUT DIRECT PATIENT CONTACT BEYOND THE USUAL SERVICE, ON T. Units: 4.00. * Electronic signature of Abdulaziz Garnett on 08/02/2025 at 01:19 AM BLOOD TESTER Sign off status: Pending * Provider: Nj Garnett Date: 10/01/2024 Generated for Mark mejias/Carlo/Suleiman on: 10/03/2024 01:19 AM BLOOD TESTER
--- OUTSIDE RECORDS SUMMARY | 2025-08-02 01:19 | XMS_ITS | Continuity of Care Document ---
Author Organization [facility] Address [address] [place] [address] [address] Assessment No assessment recorded. 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 Procedures None recorde d. Surgeries None recorde d. Imaging None recorde d. Medication Orders ondanse madalyn 4 mg disinte grating tablet 2024 025 [facility]/Pharmacy #[id number], [address] [place], [address], 07/26/2025 11:43:28 Patient TargetsNo targets recorded. Patient InstructionsNo instructions recorded. Reason for Referral None Reported. Results Created Date Observation Date Name Description Value Unit Range Abnormal Flag Note LastModifiedBy Organization Detail LastModifiedTime 07/26/2007/26/2025 SURGI FABIOLA PATHO LOGY surgical pathology SEE RESULT S BELOW CASE REPOR T: Surgi fabiola Patho logy Repor t Case: [id number] Autho nessa cartagena Provi an: Sharron Mondragon, TREMAINE Colle cted: 07/26 1329 Order ing Locat ion: [place] Patho logy Recei sarahy: 07/27 0548 Patho logis t: Ruddy Casper MD Speci mens: A) - Cervi x, Cervi fabiola Polyp B) - Endoc ervix , ECC ----- ----- ----- ----- ----- ----- ----- ----- ----- ----- ----- ----- ----- ----- ----- ----- ----- ---- FINAL DIAGN OSIS: A. Cervi x, polyp ectom y: - Anucl eated squam ous epith elium with rica stero l cleft s sugge stive of inclu jeffery cyst or benig n cervi fabiola cyst with prola pse-r elwally gutierrez. - No dyspl jose or neopl jose ident ified . B. Endoc ervix , curet tage: - Benig n cervi fabiola trans forma tion zone mucos a with no patho logic abnor malit ies. 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 A porti on of the testi ng proce ss was perfo rmed at [facility] Labor atory site NMDP1 11. Digit al imagi ng was used in the diagn ostic asses sment of this case. GROSS DESCR IPTIO N: A. Cervi x. The speci men is label ed with the patie nt's name, demog raphi cs and cervi fabiola polyp . Recei sarahy in forma nimo is a 1.0 x 0.9 x 0.6 cm nodul e of yello w-lopez tissu e. The speci men is bisec mohini and submi tted in casse tte A1. Gross ed by Teddy Banks on B. Endoc ervix . The speci men is label ed with the patie nt's name, demog raphi cs and ECC . Recei sarahy in forma nimo is a 2.5 x 1.9 x 0.3 cm dark red tissu e aggre gate of minut e white tissu e and mucus . It is submi tted all in one casse tte. Gross ed by Teddy Banks on Not Available [facility] (Lab) [address], [place], [address], 07/28/2025 17:48:45 07/26/20 25 07/26/2025 pregn karon test, urine HCG negati ve Not Available [place] [address], [place], [address], 07/26/2025 11:09:15 07/10/20 25 07/10/2025 US, efrem tracy No observ ation record ed. [email or web address] [place] [address], [place], [address], 07/10/2025 18:26:34 07/10/20 25 07/11/2025 US, trans vagin al No observ ation record ed. [email or web address] [place] [address], [place], [address], 07/11/2025 13:29:10 07/10/20 25 07/10/2025 US, efrem s No observ ation record ed. [address], [place], [address], 07/16/2025 15:40:41 Result Notes None recorded. Problems Name Problem SNOMED Code Status Onset Date Resolution Date Notes Provider Name and Address Organization Details Recorded Time Adult health examinati on Active 2011 Routine Medical Exam;Recor ded Elsewhere: No Locatio n: [facility] rce: EHR Chroni c: N Practice ID: 0001 Billa ble Time: 01:30:00 PM Not Available [facility] 0 16:55:52 Family planning surveilla nce Active 2011 Contracept aisha surveillan ce, unspecifie d;Recorded Elsewhere: No Locatio n: [facility] rce: EHR Chroni c: N Practice ID: 0001 Billa ble Time: 01:30:00 PM Not Available [facility] 0 16:55:55 Specializ ed medical examinati on Active 2013 Other specified chlamydial diseases;R ecorded Elsewhere: No Locatio n: [facility] rce: EHR Chroni c: N Practice ID: 0001 Billa ble Time: 02:30:00 PM Not Available [facility] 0 16:55:52 Specializ ed medical examinati on Active 2013 Gynecologi fabiola Examinatio n;Recorded Elsewhere: No Locatio n: [facility] rce: EHR Chroni c: N Practice ID: 0001 Billa ble Time: 02:30:00 PM Not Available [facility] 0 16:55:54 Venereal disease screening Active 2013 Screening examinatio n for venereal disease;Re corded Elsewhere: No Locatio n: [facility] rce: EHR Chroni c: N Practice ID: 0001 Billa ble Time: 02:30:00 PM Not Available [facility] 0 16:55:55 Anxiety state 077516167 Active 2014 Anxiety;Re corded Elsewhere: No Locatio n: [facility] rce: EHR Chroni c: N Practice ID: 0001 Billa ble Time: 02:45:00 PM Not Available [facility] 0 16:55:52 Backache 732774275 Active 2014 Back pain;Recor ded Elsewhere: No Locatio n: [facility] rce: EHR Chroni c: N Practice ID: 0001 Billa ble Time: 02:45:00 PM Not Available [facility] 0 16:55:53 Amenorrhe a 53039110 Active 2014 Absence of menstruati on;Recorde d Elsewhere: No Locatio n: [facility] rce: EHR Chroni c: N Practice ID: 0001 Billa ble Time: 09:30:00 AM Not Available [facility] 0 16:55:52 test positive 271665085 Active 2014 examinatio n or test, positive result;Rec orded Elsewhere: No Locatio n: [facility] rce: EHR Chroni c: N Practice ID: 0001 Billa ble Time: 09:30:00 AM Not Available [facility] 0 16:55:54 Threatene d miscarria ge 58228251 Active 2014 Threatened ;R ecorded Elsewhere: No Locatio n: [facility] rce: EHR Chroni c: N Practice ID: 0001 Billa ble Time: 09:30:00 AM Not Available [facility] 0 16:55:52 Ultrasono graphy Active 2014 screening for malformati on using ultrasonic s;Recorded Elsewhere: No Locatio n: [facility] rce: EHR Chroni c: N Practice ID: 0001 Billa ble Time: 08:30:00 AM Not Available [facility] 0 16:55:51 screening Active 2014 screening for malformati on using ultrasonic s;Recorded Elsewhere: No Locatio n: [facility] rce: EHR Chroni c: N Practice ID: 0001 Billa ble Time: 08:30:00 AM Not Available [facility] 0 16:55:52 Congenita l malformat ion 633422034 Active 2014 screening for malformati on using ultrasonic s;Recorded Elsewhere: No Locatio n: [facility] rce: EHR Chroni c: N Practice ID: 0001 Billa ble Time: 08:30:00 AM Not Available [facility] 0 16:55:52 Abnormal finding on screening of mother 824915940 Active 2014 Abnormal finding on screening; Practice ID: 0001 Not Available [facility] 0 16:55:58 anatomy study Active 2014 SCRN ANATMC SURVEY;Rec orded Elsewhere: No Locatio n: [facility] rce: EHR Chroni c: N Practice ID: 0001 Billa ble Time: 01:00:00 PM Not Available [facility] 0 16:55:52 Multigrav toby of advanced maternal age 174592744 Active 2014 Other advanced maternal age, antepartum condition or complicati on;Recorde d Elsewhere: No Locatio n: [facility] rce: EHR Chroni c: N Practice ID: 0001 Billa ble Time: 01:00:00 PM Not Available [facility] 0 16:55:53 Cough 95736900 Active 2014 COUGH;Prac leny ID: 0001 Not Available [facility] 0 16:55:54 Transient hypertens ion of - not delivered 000053904 Active 2014 TRANS HYPERTEN-A NTEPART;Pr actice ID: 0001 Not Available [facility] 0 16:55:55 Routine care Active 2014 Supervisio n of other normal ; Practice ID: 0001 Not Available [facility] 0 16:55:50 Complicat ion related to Active 2014 PREG COMPL NEC-ANTEPA RT;Practic e ID: 0001 Not Available [facility] 0 16:55:51 Uterine scar from previous surgery in , childbirt h and the puerperiu m - delivered 200322748 Active 2014 PREV C-DELIVERY -DELIVRD;P ractice ID: 0001 Not Available [facility] 0 16:55:51 Single live from alvarez 466830247 Active 2014 DELIVER-SI NGLE LIVEBORN;P ractice ID: 0001 Not Available [facility] 0 16:55:51 Procedure on genitouri nary system Active 2014 STERILIZAT ION;Practi ce ID: 0001 Not Available [facility] 0 16:55:51 Steriliza tion procedure Active 2014 Encounter for sterilizat ion;Practi ce ID: 0001 Not Available [facility] 0 16:55:50 Blood leukocyte number above reference range 872112666 Active 2014 Elevated white blood cell count, unspecifie d;Practice ID: 0001 Not Available [facility] 0 16:55:51 Lochia finding Active 2014 Encounter for routine follow-up; Practice ID: 0001 Not Available [facility] 0 16:55:50 Screening for malignant neoplasm of cervix Active 2014 Encounter for screening for malignant neoplasm of cervix;Rec orded Elsewhere: No Locatio n: [facility] rce: EHR Chroni c: N Practice ID: 0001 Billa ble Time: 11:00:00 AM Not Available [facility] 0 16:55:51 Body mass index 25-29 - overweigh t 977071051 Active 2014 Body mass index (BMI) 25.0-25.9, adult;Eliezer rded Elsewhere: No Locatio n: [facility]: EHR Chroni c: N Practice ID: 0001 Billa ble Time: 11:00:00 AM Not Available [facility] 0 16:55:[address] Concept Active 2016 Encntr for cloth examiner hand exam (general) (routine) w/o abn findings;P ractice ID: 0001 Not Available [facility] 0 16:55:50 Screening for malignant neoplasm of rectum Active 2016 Encounter for screening for malignant neoplasm of rectum;Pra ctice ID: 0001 Not Available [facility] 0 16:55:[address] Concept Active 2016 Encntr for general adult medical exam w/o abnormal findings;R ecorded Elsewhere: No Locatio n: [facility]: EHR Chroni c: N Practice ID: 0001 Billa ble Time: 11:15:00 AM Not Available [facility] 0 16:55:55 Finding of menstrual bleeding Active 2017 Excessive and frequent menstruati on with regular cycle;Prac leny ID: 0001 Not Available [facility] 0 16:55:[address] Concept Active 2019 Anxiety disorder, unspecifie d;Practice ID: 0001 Not Available [facility] 0 16:55:50 test negative 489161033 Active 2019 Encounter for test, result negative;P ractice ID: 0001 Not Available [facility] 0 16:55:50 Polyp of cervix 45837424 Active 2024 Angélica farris [facility] 5 15:16:40 Problem Notes None recorded. Procedures Surgical History Date Name Laterality Status Provider Name and Address Organization Details Recorded Time 07/26/20 25 Endometrial Biopsy completed JERONIMO Castro [address], [place], [address], [facility] 07/27/2025 10:40:37 12/17/19 24 Date of Last Pap Smear completed Shae Santillan [facility] 06/18/2025 13:05:58 09/30/19 23 Date of Last Mammogram completed Kathleen Casper [facility] 12/17/2023 12:57:01 05/17/20 15 Tubal Ligation completed [facility] 06/18/2025 13:09:17 08/23/18 97 tonsilectomy/ad enoids completed , [facility] 06/22/2020 09:19:33 ligation of fallopian tube completed [facility] 06/22/2020 09:22:45 Imaging Results None recorded. Procedure Notes None recorded. Medical Equipment None Reported. Allergies Allergen ID Allergen Name Allergen Category Reaction Reaction Severity Criticality Documentation Date Start Date Code Code System Note Provider Name and Address Organization Details Recorded Time 2568 cefuroxim e Not available Not available Not available Not available 06/22/2020 2194 RxNorm [facility] 0 09:22:03 2569 clarithro mycin medicatio n Not available Not available Not available 06/22/202058168 RxNorm [facility] 0 09:22:09 87923 cephalexi n medicatio n hives Not available Not available 07/12/20252022 2231 RxNorm Not Available [facility] - External Data Service - prod 16:11:18 22079 Cephalosp anisa (substanc e) medicatio n hives Not available high 07/12/20252021 02493 7003 SNOMED Not Available [facility] - External Data Service - prod 16:11:18 17433 duloxetin e medicatio n other Not available high 07/12/20252024 43211 RxNorm Suici lucius ideat ion Not Available [facility] - External Data Service - prod 16:11:18 83267 Latex (substanc e) environme nt,medica tion itching Not available low 07/12/20252021 43897 8007 SNOMED Not Available [facility] - External Data Service - prod 16:11:18 57077 bupropion Not available other Not available high 07/12/20252022 20122 RxNorm SUICI LUCIUS IDEAT ION Not Available [facility] - External Data Service - prod 16:11:18 37273 latex environme nt,medica tion Not available Not available Not available 07/12/2025 63957 91 RxNorm Not Available [facility] External Data Service - prod 16:15:08 Medications Name Sig Start Date Stop Date Status Note LastModified by Organization Details LastModified Time atorvasta tin 40 mg tablet TAKE 1 TABLET BY MOUTH NIGHTLY AT BEDTIME active Not Available Not Available No t Available azelastin e 0.05 % eye drops INSTILL 1 DROP INTO BOTH EYES TWICE A DAY 12/16 completed Not Available Not Available Not Available Celexa 10 mg tablet take 1 tablet by oral route every day x 7 days 07/14 completed Prescrib ed Elsewher e: No Locat ion: [facility] odify By: dejaer mazin connors DateTime : 06/02/20 11:00:00 AM Not Available Not Available Not Available citalopra m 40 mg tablet TAKE 1 TABLET BY MOUTH EVERY DAY 12/16 completed Not Available Not Available Not Available azithromy rosalinda 250 mg tablet take 2 tablet by oral route every day for 1 day then 1 tablet (250 mg) by oral route once daily for 4 days 04/14 completed Prescrib ed Elsewher e: No Locat ion: [facility] odify By: kalee donohue DateTime : 04/10/20 04:45:00 PM Not Available Not Available Not Available tizanidin e 4 mg tablet TAKE 1 TABLET BY MOUTH EVERY 6 HOURS NEEDED active Not Available Not Available No t Available fluconazo le 150 mg tablet TAKE [...] Available lamotrigi ne 25 mg tablet TAKE 3 TABLETS BY MOUTH ONCE DAILY active Not Available Not Available No t [...] Prescrib ed Elsewher e: No [facility] By: renato Ibrahim ncowaylon DateTime : 04/05/20 10:56:02 AM Not Available Not Available Not Available citalopra m 20 mg tablet TAKE 1 TABLET BY MOUTH EVERY DAY 12/16 completed Not Available Not Available Not Available lorazepam 0.5 mg tablet TAKE 1 TABLET BY MOUTH TWICE A DAY NEEDED 07/10 completed Not Available Not Available Not Available topiramat e 25 mg sprinkle capsule [...] ed Elsewher e: Yes Loca tion: [facility] odify By: roma vyas DateTime : 04/01/20 12 01:53:11 PM Not Available Not Available Not Available doxycycli ne monohydra te 100 mg capsule TAKE 1 CAPSULE BY MOUTH TWICE A DAY 12/16 completed Not Available Not Available Not Available Micronor (28) 0.35 mg tablet take 1 tablet by oral route every day 03/02 completed Prescrib ed Elsewher e: No [facility] By: theo Palma er DateTime : 04/04/20 12 01:30:00 PM [...] Prescrib ed Elsewher e: Yes Loca tion: [facility] odify By: renato ferreira DateTime : 09/28/19 15 09:30:00 AM Not Available Not Available Not Available hydrocort isone 2.5 % topical cream APPLY TOPICALL Y TWICE A DAY 07/10 completed Not Available Not Available Not Available hydroxyzi ne HCl 25 mg tablet TAKE 1 TABLET BY MOUTH TWICE A DAY NEEDED active Not Available Not Available No t Available lorazepam 1 mg tablet TAKE 1 TABLET BY MOUTH TWICE A DAY NEEDED active Not Available Not Available No t Available azelastin e 137 mcg (0.1 %) nasal spray SPRAY TWICE IN EACH NOSTRIL EVERY DAY 07/10 completed Not Available Not Available Not Available levofloxa rosalinda 750 mg tablet TAKE [...] Prescrib ed Elsewher e: No Locat ion: [facility] odify By: renato ferreira DateTime : 03/04/20 15 01:01:24 PM Not Available Not Available Not Available ondansetr on 4 mg disintegr ating tablet Place 1 tablet twice a day by translin gual route. 2024 active Not Available Not Available Not Avai lable lamotrigi ne 100 mg tablet TAKE 1.5 [...] Prescrib ed Elsewher e: No Locat ion: [facility] odify By: sang Ibrahim ncounter DateTime : 12/25/19 18 10:07:38 AM Not Available Not Available Not Available Flexeril 10 mg tablet take 1 tablet by oral route 2 times every day 05/24 completed Prescrib ed Elsewher e: No Locat ion: [facility] odify By: renato Ibrahim ncounter DateTime : 01/25/20 15 10:56:20 AM Not Available Not Available Not Available buspirone 15 mg tablet take 1 tablet by oral route 3 times every day 11/01 completed Prescrib ed Elsewher e: No Locat ion: [facility] odify By: laura Ibrahim ncounter DateTime : 09/21/19 15 02:45:00 PM Not Available Not Available Not Available hydroxyzi ne pamoate 25 mg capsule TAKE 1 CAPSULE BY MOUTH THREE TIMES A DAY NEEDED FOR 30 DAYS 12/16 completed Not Available Not Available Not Available Benadryl 25 mg capsule take 2 capsule by oral route every 4 - 6 hours as needed 06/02 completed Prescrib ed Elsewher e: Yes Loca tion: [facility] pat[facility] odify By: sang Ibrahim ncounter DateTime : 09/28/19 15 09:30:00 AM Not Available Not Available Not Available Vitamins and Minerals tablet 11/01 completed Prescrib ed Elsewher e: Yes Loca tion: [facility] odify By: laura ferreira DateTime : 04/01/20 12 01:53:11 PM Not Available Not Available Not Available escitalop jessica 10 mg tablet 12/16 completed Not Available Not Available Not Available escitalop jessica 20 mg tablet TAKE 1 TABLET BY MOUTH EVERY DAY active Not Available Not Available No t Available Vitamin D3 25 mcg (1,000 unit) capsule 12/16 completed Prescrib ed Elsewher e: Yes Loca tion: [facility] odify By: renato barneyuntjayde DateTime : 05/24/20 15 11:15:00 AM Not Available Not Available Not [...] Prescrib ed Elsewher e: No Locat ion: [facility] odify By: sang ferreira DateTime : 12/23/19 18 09:00:00 AM Not Available Not Available Not Available One Daily 27 mg iron-800 mcg tablet take 1 tablet by oral route every day 06/02 completed Prescrib ed Elsewher e: Yes Loca tion: [facility] pat[facility] odify By: tmryan E ncounter DateTime : 11/02/19 09:00:00 AM Not Available Not Available Not Available Vraylar 1.5 mg capsule TAKE 1 CAPSULE BY MOUTH DAILY 06/18 completed Not Available Not Available Not Available Anusol-HC 2.5 % topical cream with perineal applicato r apply by topical route 2 times every day to the affected area(s) 05/24 completed Prescrib ed Elsewher e: No Locat ion: [facility] odify By: renato Ibrahmi ncounter DateTime : 04/12/20 11:00:00 AM Not Available Not Available Not [...] and Address Organization Details Last Updated DateTime 07/26/2025 160.02 cm 31.7 kg/m2 53924.03 g 116/74 mm[Hg] Emilia Brian [facility] 07/26/2025 11:03:25 Social History Question Answer Notes LastModified by Organizat ion Details LastModified Time Tobacco Smoking Status Current Every Day Smoker Shae farris, [facility] 06/18/2025 13:07:25 Are You Blind Or Do You Have Difficulty Seeing? No Information n ot available 08/28/2022 What Is Your Level Of Caffeine Consumption? Moderate Information not available 06/18/2025 In The 14 [...] Do You Have Serious Difficulty Hearing? Yes [email or web address] Information not available 06/18/2025 What Type Of Diet Are You Following? REGULAR Information n ot available 08/28/2022 What Is The Highest Grade Or Level Of School You Have Completed Or The Highest Degree You Have Received? [id number] Information not available 06/18/2025 Are There Any Guns Present In Your Home? No [email or web address] Information not available 06/18/2025 Do You Use Protection During Sex? Usually [email or web address] Information not available 06/18/2025 Do You Use Your Seat Belt Or Car Seat Routinely? Yes [email or web address] Information not available 06/18/2025 Are You Sexually Active? Yes Information not available 06/18/2025 Do You Have Smoke And Carbon Monoxide Detectors In Your Home? Yes [email or web address] Information not available 06/18/2025 Do You Use Sunscreen Routinely? Yes [email or web address] Information not available 06/18/2025 Do You Have Difficulty Walking Or Climbing Stairs? No Information not available 08/28/2022 Sex: Unknown Functional Status Question Answer Note LastModified by Organizat ion Details LastModified Time What is your level of alcohol consumption? Occasional [email or web address] Information not available 06/18/2025 Are you currently employed? No [email or web address] Information not available 06/18/2025 Are you able [...] anxious, or unable to sleep at night)? [id number] [email or web address] Information not available 06/18/2025 Family History Relationship Description Onset Age of this Age Resolved Age Notes LastModified by Organization Details LastModified Time Maternal Grandmother Myocardial infarction [email or web address] Not available 06/22 09:20:13 Maternal Grandmother Carcinoma in situ of colon [email or web address] Not available 2024 14:33:40 Sister Myocardial infarction [email or web address] Not available 06/22 09:20:24 Sister Carcinoma in situ of colon Not available 2024 14:33:40 Sister Carcinoma in situ of kidney Not available 2024 14:33:40 Maternal Aunt Carcinoma in situ of colon [email or web address] Not available 2024 14:33:40 Notes:Grandmother: Cancer, c olon, Myocardial infarction Maternal [...] ICD10 Code Diagnosis IMO Codes Diagnosis Note [id number] Ariel Gomez MD [place] [address] [address] 07/10/2025 14:33:29 07/10/2025 15:20:15 Polyp of cervix 96642214 N84.1 [id number] JERONIMO Castro [place] [address] [address] 07/26/2025 10:30:18 07/27/2025 11:58:31 Polyp of cervix 88248430 N84.1 54448 r/b discussed with ptCervical lesion removed (see procedure note)speci men sent to pathologyw ill update pt results when available Postmenopa usal bleeding [id number] N95.0 [id number] unable to obtain EMB d/t stenotic cervixreco mmended MD consult to discuss hysterosco py D&Cshe declined at this time, discussed riskdiscus sed if she does not pursue MD consult needs to have repeat pelvic u/s in 6-8 wks and monitor for any further bleedingpr ecautions discussed Time spent in visit is a total of 30 mins with at least 50% of visit consisting of counseling and review of plan of care. Health Concerns Section Related Observation LastModified by Organization Detai ls LastModified Time None Recorded Concern Status LastModified by Organization Details LastModified Time None Recorded Payers Encounter Date Sequence Insurance Name Policy Number Policy Carias Covered Member ID Carias Member ID Guarantor Name 07/26/2025 1 [employer] (HMO) [id number] Ana Nagel [id number] 07/26/2025 2 [place] [facility] PUBLIC AID Ana Nagel [id number] Notes Date Note Type Note Provider Name and Address Organization Details Recorded Time 07/26/2025 text/html 54yoHere today for pelvic ultrasound review and cervical polyp removal with EMB JERONIMO Castro [address], [place], [address], [facility] 07/27/2025 11:23:01 OBGyn Episode No OBEpisode recorded.
--- OUTSIDE RECORDS SUMMARY | 2025-08-02 01:19 | XMS_ITS | Encounter Summary ---
Author Organization [facility] Address [facility] [place] [address] Care Team Providers Care Director Emergency Name Role Phone Josephine Lopez MD Primary Care Provider [phone] Encounter Details Date Type Department Care Team (Late st Contact Info) Description 07/23/2023 [employer] Message Enc [facility] Family & Internal Medicine [facility] [address] [place] [address] Josephine Lopez MD [address] [place] [address] Rx Social History Tobacco Use Types Packs/Day Years Used Date Smoking Tobacco: Every Day Cigarettes Smokeless Tobacco: Never Alcohol Use Standard Drinks/Week Comments Yes 0 (1 standard drink = 0.6 oz pur e alcohol) PHQ-2 Answer Date Recorded Patient Health Questionnaire-2 Score 6 07/23/2023 Comments No Sex and Gender Information Value Date Recorded Sex Assigned at Female 01/26/2025 3:17 PM CDT Legal Sex Female 7:28 PM CDT Gender Identity Not on file Sexual Orientation Not on file documented as of this encounter Functional Status * Over the past 2 weeks, how often have you been bothered by any of the following problems? Question Answer Date of Assessment Author Status Little interest or pleasure in doing things Nearly every day 07/23/2023 11:33 AM Ana Reza Active Feeling down, depressed, or hopeless Nearly every day 07/23/2023 11:33 AM Ana Reza Active Patient Health Questionnaire-2 Score 6 07/23/2023 11:33 AM Ana Reza Active * Question Answer Date of Assessment Author Status Trouble falling or staying asleep, or sleeping too much Nearly every day 07/23/2023 11:33 AM Ana Reza Active Feeling tired or having little energy Nearly every day 07/23/2023 11:33 AM Ana Reza Active Poor appetite or overeating Nearly every day 07/23/2023 11:33 AM Ana Reza Active Feeling bad about yourself - or that you are a failure or have let yourself or your family down Nearly every day 07/23/2023 11:33 AM Ana Reza Active Trouble concentrating on things, such as reading the newspaper or watching television Nearly every day 07/23/2023 11:33 AM Ana Reza Active Moving or speaking so slowly that other people could have noticed? Or the opposite - being so fidgety or restless that you have been moving around a lot more than usual. Nearly every day 07/23/2023 11:33 AM Ana Reza Active Thoughts that you would be better off or hurting yourself in some way Not at all 07/23/2023 11:33 AM Ana Reza Active Patient Health Questionnaire-9 Score 24 07/23/2023 11:33 AM Ana Reza * If you checked off any problems on this questionnaire so far, Question Answer Date of Assessment Author Status How difficult have these problems made it for you to do your work, take care of things at home, or get along with other people? Very difficult 07/23/2023 11:33 AM Ana Reza Active * Over the last 2 weeks, how often have you been bothered by any of the following problems? Question Answer Date of Assessment Author Status Feeling nervous, anxious, or on edge 3 07/23/2023 11:34 AM Ana Reza Activ e Not being able to stop or control worrying 3 07/23/2023 11:34 AM PERSONNEL CONSULTANT Ana Vargas Acti ve Worrying too much about different things 3 07/23/2023 11:34 AM PERSONNEL CONSULTANT Ana Vargas Acti ve Trouble relaxing 3 07/23/2023 11:34 AM PERSONNEL CONSULTANT Ana Hermosillo Active Being so restless that it is hard to sit still 3 07/23/2023 11:34 AM PERSONNEL CONSULTANT Ana Vargas Act aisha Becoming easily annoyed or irritable 3 07/23/2023 11:34 AM PERSONNEL CONSULTANT Ana Vargas Activ e Feeling afraid as if something awful might happen 3 07/23/2023 11:34 AM PERSONNEL CONSULTANT Robbie Vargas Active WILL-7 Total Score 21 07/23/2023 11:34 AM PERSONNEL CONSULTANT Ana Palm Active documented as of this encounter Plan of Treatment Upcoming Encounters Date Type Department Care Team (Late st Contact Info) Description 12/05/2025 3:20 PM CDT Office Visit [facility] Family & Internal Medicine [address] [address] Josephine Lopez MD [address] [place] [address]. [address] [place] [address] documented as of this encounter Visit Diagnoses Diagnosis PTSD (post-traumatic stress disorder) Posttraumatic stress disorder Moderate episode of recurrent major depressive disorder (CMS/HCC) documented in this encounter Additional Health Concerns Infection Onset Date Last Indicated Resolved Time COVID-19 Rule Out 03/28/2024 03/28/2024 03/28/2024 10:35 AM CDT Assessment Noted Time PHQ-9 Depression Total Score: 24 023 11:33 AM PERSONNEL CONSULTANT documented as of this encounter Care Teams Director Emergency Relationship Specialty Start Date End Date Josephine Lopez MD [address] [place] [address]. [address] [address] PCP - General FAMILY PRACTICE 08/28/22 documented as of this encounter
--- OUTSIDE RECORDS SUMMARY | 2025-08-02 01:19 | XMS_ITS | Encounter Summary ---
Author Organization [facility] Address [facility] [place] [address] Care Team Providers Care Renal Dietitian Name Role Phone Josephine Lopez MD Primary Care Provider [phone] Encounter Details Date Type Department Care Team (Late st Contact Info) Description 07/13/[address] [facility] Family & Internal Medicine [address] [address] [facility] Referral Social History Tobacco Use Types Packs/Day Years Used Date Smoking Tobacco: Every Day Cigarettes Smokeless Tobacco: Never Alcohol Use Standard Drinks/Week Comments Yes 0 (1 standard drink = 0.6 oz pur e alcohol) PHQ-2 Answer Date Recorded Patient Health Questionnaire-2 Score 6 06/17/2023 Comments No Sex and Gender Information Value Date Recorded Sex Assigned at Female 01/26/2025 3:17 PM CDT Legal Sex Female 7:28 PM CDT Gender Identity Not on file Sexual Orientation Not on file documented as of this encounter Plan of Treatment Upcoming Encounters Date Type Department Care Team (Late Contact Info) Description 12/05/2025 3:20 PM CDT Office Visit [facility] Family & Internal Medicine [address] [address] Josephine Lopez MD [address] [place] [address]. [address] [place] [address] documented as of this encounter Visit Diagnoses Not on filedocumented in this encounter Additional Health Concerns Infection Onset Date Last Indicated Resolved Time COVID-19 Rule Out 03/28/2024 03/28/2024 03/28/2024 10:35 AM CDT Assessment Noted Time PHQ-9 Depression Total Score: 16 023 3:56 PM CDT documented as of this encounter Care Teams Renal Dietitian Relationship Specialty [place] [address] [facility]. [address] [place] [address] PCP - General FAMILY PRACTICE 08/28/22 documented as of this encounter
--- OUTSIDE RECORDS SUMMARY | 2025-08-02 01:19 | XMS_ITS | Encounter Summary ---
Author Organization [facility] Address [facility] [place] [address] Care Team Providers Care Screener And Blender Operator Name Role Phone Josephine Lopez MD Primary Care Provider [phone] Encounter Details Date Type Department Care Team (Latest Contact Info) Description 06/19/2025 Results Follow-Up [facility] Family & Internal Medicine [facility] [id number] [place] [phone] Josephine Lopez MD [address] [place] [address] CBC W/DIFF AUTOMATED, COMPREHENSIVE METABOLIC PANEL, TSH W/REFLEX, Additional followed-up results: 8 Social History Tobacco Use Types Packs/Day Years Used Date Smoking Tobacco: Every Day Cigarettes Smokeless Tobacco: Never Alcohol Use Standard Drinks/Week Comments Yes 0 (1 standard drink = 0.6 oz pur e alcohol) PHQ-2 Answer Date Recorded Patient Health Questionnaire-2 Score 5 11/03/2024 Comments No Sex and Gender Information Value Date Recorded Sex Assigned at Female 01/26/2025 3:17 PM CDT Legal Sex Female 7:28 PM CDT Gender Identity Not on file Sexual Orientation Not on file documented as of this encounter Functional Status * Calculated C-SSRS Risk Score (Lifetime/Recent) Answer Date of Assessment Author Status No Risk Indicated 06/20/2025 5:26 PM CDT Misa Champagne RN Active * [place] Suicide Severity Rating Scale (Screener/Recent Self-Report) Question Answer Date of Assessment Author Status 1. Wish to be (Past 1 Month) No 06/20/2025 5:26 PM CDT Misa Champagne RN Active 2. Non-Specific Active Suicidal Thoughts (Past 1 Month) No 06/20/2025 5:26 PM CDT Misa Champagne RN Active 6. Suicidal Behavior (Lifetime) No 06/20/2025 5:26 PM CDT Misa Champagne RN Active documented as of this encounter Plan of Treatment Upcoming Encounters Date Type Department Care Team (Late st Contact Info) Description 12/05/2025 3:20 PM CDT Office Visit [facility] Family & Internal Medicine [address] [address] [place] [address] [facility]. [address] [place] [phone] documented as of this encounter Visit Diagnoses Not on filedocumented in this encounter Additional Health Concerns Assessment Noted Time PHQ-9 Depression Total Score: 11 11/03/2 025 3:38 PM CDT documented as of this encounter Care Teams Screener And Blender Operator Relationship Specialty Start Date End Date Josephine Lopez MD [address] [place] [address]. [address] [place] [address] PCP - General FAMILY PRACTICE 08/28/22 documented as of this encounter
--- OUTSIDE RECORDS SUMMARY | 2025-08-02 01:19 | XMS_ITS | Encounter Summary ---
Author Organization [facility] Address [facility] [place] [address] Care Team Providers Care Safety Engineer Name Role Phone Josephine Lopez MD Primary Care Provider [phone] Encounter Details Date Type Department Care Team (Late st Contact Info) Description 08/05/2023 [employer] Message Enc [facility] [address] [place] [address] [facility] Provider Preventive Screenings Social History Tobacco Use Types Packs/Day Years [...] Description 12/05/2025 3:20 PM CDT Office Visit [facility] Family & Internal Medicine [address] [address] Josephine Lopez MD [address] [place] [address] [place] [address] documented as of this encounter Visit Diagnoses Not on filedocumented in this encounter Additional Health Concerns Infection Onset Date Last Indicated Resolved Time COVID-19 Rule Out 03/28/2024 03/28/2024 03/28/2024 10:35 AM CDT Assessment Noted Time PHQ-9 Depression Total Score: 24 023 11:33 AM CORPORATION OFFICER documented as of this encounter Care Teams Safety Engineer Relationship Specialty [place] [address] [facility]. [address] [place] [address] PCP - General FAMILY PRACTICE 08/28/22 documented as of this encounter
--- OUTSIDE RECORDS SUMMARY | 2025-08-02 01:19 | XMS_ITS | Encounter Summary ---
Author Organization [facility] Address [facility] [place] [address] Care Team Providers Care Traffic Investigator Name Role Phone Josephine Lopez MD Primary Care Provider [phone] Encounter Details Date Type Department Care Team (Late Contact Info) Description 12/05/2024 MyChart Message Enc [facility] Family & Internal Medicine [address] [address] [place] [id number] [place] [address]. [address] [place] [address] Rx wasn t sent in Social History Tobacco Use Types Packs/Day Years [...] Description 12/05/2025 3:20 PM CDT Office Visit [facility] Family & Internal Medicine [facility] [address] [place] [phone] [place] [address] [address] [place] [address] documented as of this encounter Visit Diagnoses Not on filedocumented in this encounter Additional Health Concerns Assessment Noted Time PHQ-9 Depression Total Score: 11 11/03/ 025 3:38 PM CDT documented as of this encounter Care Teams Traffic Investigator Relationship Specialty [place] [address] [address] [place] [address] PCP - General FAMILY PRACTICE 08/28/22 documented as of this encounter
--- OUTSIDE RECORDS SUMMARY | 2025-08-02 01:19 | XMS_ITS | Encounter Summary ---
Author Organization [facility] Address [facility] [place] [address] Care Team Providers Care Screen Tender Helper Name Role Phone Josephine Lopez MD Primary Care Provider [phone] Encounter Details Date Type Department Care Team (Late st Contact Info) Description 12/02/2022 [employer] Message Enc [facility] Family & Internal Medicine [address] [address] [facility] medication refills Social History Tobacco Use Types Packs/Day Years Used Date Smoking Tobacco: Every Day Cigarettes Smokeless Tobacco: Never Alcohol Use Standard Drinks/Week Comments Yes 0 (1 standard drink = 0.6 oz pur e alcohol) PHQ-2 Answer Date Recorded Patient Health Questionnaire-2 Score 0 08/28/2022 Comments No Sex and Gender Information Value Date Recorded Sex Assigned at Female 01/26/2025 3:17 PM CDT Legal Sex Female 7:28 PM CDT Gender Identity Not on file Sexual Orientation Not on file documented as of this encounter Plan of Treatment Upcoming Encounters Date Type Department Care Team (Late Contact Info) Description 12/05/2025 3:20 PM CDT Office Visit [facility] Family & Internal Medicine [address] [address] Josephine Lopez MD [address] [place] [address]. [address] [place] [address] documented as of this encounter Visit Diagnoses Not on filedocumented in this encounter Additional Health Concerns Infection Onset Date Last Indicated Resolved Time COVID-19 Rule Out 03/28/2024 03/28/2024 03/28/2024 10:35 AM CDT documented as of this encounter Care Teams Screen Tender Helper Relationship Specialty [place] [address] [facility] [address] [place] [address] PCP - General FAMILY PRACTICE 08/28/22 documented as of this encounter
--- OUTSIDE RECORDS SUMMARY | 2025-08-02 01:20 | XMS_ITS | Encounter Summary ---
Author Organization [facility] Address [facility] [place] [address] Care Team Providers Care Distribution Center Assistant Name Role Phone Josephine Lopez MD Primary Care Provider [phone] Encounter Details Date Type Department Care Team (Late st Contact Info) Description 06/26/2025 [employer] Message Enc [facility] Family & Internal Medicine [facility] [id number] [place] [address] [facility] Provider Mammogram Social History Tobacco Use Types Packs/Day Years [...] Description 12/05/2025 3:20 PM CDT Office Visit [facility] Family & Internal Medicine [facility] [address] [place] [address] Josephine Lopez MD [address] [place] [address]. [address] [place] [address] documented as of this encounter Visit Diagnoses Not on filedocumented in this encounter Additional Health Concerns Assessment Noted Time PHQ-9 Depression Total Score: 11 025 3:38 PM CDT documented as of this encounter Care Teams Distribution Center Assistant Relationship Specialty [place] [address] [facility] [address] [place] [address] PCP - General FAMILY PRACTICE 08/28/22 documented as of this encounter
--- OUTSIDE RECORDS SUMMARY | 2025-08-02 01:20 | XMS_ITS | Continuity of Care Document ---
Author Organization [facility] Address [address] [place] [address] Assessment Encounter Date Assessment Date Assessment LastModified by Organization Details LastModified Time 06/18/2025 06/18/2025 Annual gynecological exam performed. 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 Procedures None recorde d. Surgeries None recorde d. Imaging None recorde d. Medication Orders None recorde d. Patient TargetsNo targets recorded. Patient InstructionsNo instructions recorded. Reason for Referral None Reported. 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 Elect doron herrera by Vikram Merino, CT on 06/22 at 1202 CDT ----- ----- ----- ----- ----- ----- ----- [...] cance r preve ntion . If repor mohini cytol ogic findi ng do not corre late with physi fabiola and/o r histo rical findi ngs, furth er inves tigat ion is recom dom d, as clini zacarias warrcyndee nted. Not Available [facility] (Lab) [address] [facility] [facility], [place], [address], 06/22/2025 13:07:17 06/18/20 25 06/18/2025 CT/GC AND TRICH OMONA S VAGIN NEAL (RRNA ), THINP REP VIAL CT/GC and trichomonas vaginalis (rrna), thinprep SEE RESULT S BELOW negati ve CHLAM YDIA TRACH OMATI S, PCR: Negat aisha NEISS ERIA GONOR RHOEA E, PCR: Negat aisha TRICH OMONA S VAGIN NEAL RIBOS OMAL RNA (RRNA ): Negat aisha Not Available [facility] (Lab) [address] [facility], [place], [address], 06/22/2025 13:07:18 07/10/20 25 07/10/2025 US, efrem s No observ ation record ed. [email or web address] Neligh [address], [place], [address], 07/10/2025 18:26:34 07/10/20 25 07/11/2025 US, trans vagin al No observ ation record ed. [email or web address] Neligh [address], [place], [address], 07/11/2025 13:29:10 07/10/20 25 07/10/2025 US, efrem s No observ ation record ed. [address], [place], [address], 07/16/2025 15:40:41 Result Notes None recorded. Problems Name Problem SNOMED Code Status Onset Date Resolution Date Notes Provider Name and Address Organization Details Recorded Time Adult health examinati on Active 2011 Routine Medical Exam;Recor ded Elsewhere: No Locatio n: [facility] rce: EHR Chroni c: N Practice ID: 0001 Billa ble Time: 01:30:00 PM Not Available [facility] 0 16:55:52 Family planning surveilla nce Active 2011 Contracept aisha surveillan ce, unspecifie d;Recorded Elsewhere: No Locatio n: [facility] rce: EHR Chroni c: N Practice ID: 0001 Billa ble Time: 01:30:00 PM Not Available [facility] 0 16:55:55 Specializ ed medical examinati on Active 2013 Other specified chlamydial diseases;R ecorded Elsewhere: No Locatio n: [facility] rce: EHR Chroni c: N Practice ID: 0001 Billa ble Time: 02:30:00 PM Not Available [facility] 0 16:55:52 Specializ ed medical examinati on Active 2013 Gynecologi fabiola Examinatio n;Recorded Elsewhere: No Locatio n: [facility] rce: EHR Chroni c: N Practice ID: 0001 Billa ble Time: 02:30:00 PM Not Available [facility] 0 16:55:54 Venereal disease screening Active 2013 Screening examinatio n for venereal disease;Re corded Elsewhere: No Locatio n: [facility] rce: EHR Chroni c: N Practice ID: 0001 Billa ble Time: 02:30:00 PM Not Available [facility] 0 16:55:55 Anxiety state 614341061 Active 2014 Anxiety;Re corded Elsewhere: No Locatio n: [facility] rce: EHR Chroni c: N Practice ID: 0001 Billa ble Time: 02:45:00 PM Not Available [facility] 0 16:55:52 Backache 340827109 Active 2014 Back pain;Recor ded Elsewhere: No Locatio n: [facility] rce: EHR Chroni c: N Practice ID: 0001 Billa ble Time: 02:45:00 PM Not Available [facility] 0 16:55:53 Amenorrhe a 96934447 Active 2014 Absence of menstruati on;Recorde d Elsewhere: No Locatio n: [facility] rce: EHR Chroni c: N Practice ID: 0001 Billa ble Time: 09:30:00 AM Not Available [facility] 0 16:55:52 test positive 506539545 Active 2014 examinatio n or test, positive result;Rec orded Elsewhere: No Locatio n: [facility] rce: EHR Chroni c: N Practice ID: 0001 Billa ble Time: 09:30:00 AM Not Available [facility] 0 16:55:54 Threatene d miscarria ge 84721724 Active 2014 Threatened ;R ecorded Elsewhere: No Locatio n: [facility] rce: EHR Chroni c: N Practice ID: 0001 Billa ble Time: 09:30:00 AM Not Available [facility] 0 16:55:52 Ultrasono graphy Active 2014 screening for malformati on using ultrasonic s;Recorded Elsewhere: No Locatio n: [facility] rce: EHR Chroni c: N Practice ID: 0001 Billa ble Time: 08:30:00 AM Not Available [facility] 0 16:55:51 screening Active 2014 screening for malformati on using ultrasonic s;Recorded Elsewhere: No Locatio n: [facility] rce: EHR Chroni c: N Practice ID: 0001 Billa ble Time: 08:30:00 AM Not Available [facility] 0 16:55:52 Congenita l malformat ion 378619817 Active 2014 screening for malformati on using ultrasonic s;Recorded Elsewhere: No Locatio n: [facility] rce: EHR Chroni c: N Practice ID: 0001 Billa ble Time: 08:30:00 AM Not Available [facility] 0 16:55:52 Abnormal finding on screening of mother 570476013 Active 2014 Abnormal finding on screening; Practice ID: 0001 Not Available [facility] 0 16:55:58 anatomy study Active 2014 SCRN ANATMC SURVEY;Rec orded Elsewhere: No Locatio n: [facility] rce: EHR Chroni c: N Practice ID: 0001 Billa ble Time: 01:00:00 PM Not Available [facility] 0 16:55:52 Multigrav toby of advanced maternal age 161127412 Active 2014 Other advanced maternal age, antepartum condition or complicati on;Recorde d Elsewhere: No Locatio n: [facility] rce: EHR Chroni c: N Practice ID: 0001 Billa ble Time: 01:00:00 PM Not Available [facility] 0 16:55:53 Cough 48987866 Active 2014 COUGH;Prac leny ID: 0001 Not Available [facility] 0 16:55:54 Transient hypertens ion of - not delivered 870415361 Active 2014 TRANS HYPERTEN-A NTEPART;Pr actice ID: [...] h and the puerperiu m - delivered 284168966 Active 2014 PREV C-DELIVERY -DELIVRD;P ractice ID: 0001 Not Available [facility] 0 16:55:51 Single live from alvarez 546316339 Active 2014 DELIVER-SI NGLE LIVEBORN;P ractice ID: 0001 Not Available [facility] 0 16:55:51 Procedure on genitouri nary system Active 2014 STERILIZAT ION;Practi ce ID: 0001 Not Available [facility] 0 16:55:51 Steriliza tion procedure Active 2014 Encounter for sterilizat ion;Practi ce ID: 0001 Not Available [facility] 0 16:55:50 Blood leukocyte number above reference range 320941664 Active 2014 Elevated white blood cell count, unspecifie d;Practice ID: 0001 Not Available [facility] 0 16:55:51 Lochia finding Active 2014 Encounter for routine follow-up; Practice ID: 0001 Not Available [facility] 0 16:55:50 Screening for malignant neoplasm of cervix Active 2014 Encounter for screening for malignant neoplasm of cervix;Rec orded Elsewhere: No Locatio n: [facility] rce: EHR Chroni c: N Practice ID: 0001 Billa ble Time: 11:00:00 AM Not Available [facility] 0 16:55:51 Body mass index 25-29 - overweigh t 730132953 Active 2014 Body mass index (BMI) 25.0-25.9, adult;Eliezer rded Elsewhere: No Locatio n: [facility] rce: EHR Chroni c: N Practice ID: 0001 Billa ble Time: 11:00:00 AM Not Available [facility] 0 16:55:[address] Concept Active 2016 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 findings;P ractice ID: 0001 Not Available [facility] 0 16:55:50 Screening for malignant neoplasm of rectum Active 2016 Encounter for screening for malignant neoplasm of rectum;Pra ctice ID: 0001 Not Available [facility] 0 16:55:[address] Concept Active 2016 Encntr for general adult medical exam w/o abnormal findings;R ecorded Elsewhere: No Locatio n: [facility] rce: EHR Chroni c: N Practice ID: 0001 Billa ble Time: 11:15:00 AM Not Available [facility] 0 16:55:55 Finding of menstrual bleeding Active 2017 Excessive and frequent menstruati on with regular cycle;Prac leny ID: 0001 Not Available [facility] 0 16:55:[address] Concept Active 2019 Anxiety disorder, unspecifie d;Practice ID: 0001 Not Available [facility] 0 16:55:50 test negative 365585460 Active 2019 Encounter for test, result negative;P ractice ID: 0001 Not Available [facility] 0 16:55:50 Polyp of cervix 54130067 Active 2024 Angélica farris [facility] 5 15:16:40 Problem Notes None recorded. Procedures Surgical History Date Name Laterality Status Provider Name and Address Organization Details Recorded Time 07/26/20 25 Endometrial Biopsy completed JERONIMO Castro [address], [place], [address], [facility] 07/27/2025 10:40:37 12/17/19 24 Date of Last Pap Smear completed Shae Santillan [facility] 06/18/2025 13:05:58 09/30/19 23 Date of Last Mammogram completed Kathleen Casper [facility] 12/17/2023 12:57:01 05/17/20 15 Tubal Ligation [facility] 06/18/2025 13:09:17 08/23/18 97 tonsilectomy/ad enoids completed [facility] 06/22/2020 09:19:33 ligation of fallopian tube completed [facility] 06/22/2020 09:22:45 Imaging Results None recorded. Procedure Notes None recorded. Medical Equipment None Reported. Allergies Allergen ID Allergen Name Allergen Category Reaction Reaction Severity Criticality Documentation Date Start Date Code Code System Note Provider Name and Address Organization Details Recorded Time 2568 cefuroxim e Not available Not available Not available Not available 06/22/2020 2194 RxNorm Marli [facility] [facility] 0 09:22:03 2569 clarithro mycin medicatio n Not available Not available Not available 06/22/202053119 RxNorm [facility] [place] [facility] 0 09:22:09 34357 cephalexi n medicatio n hives Not available Not available 07/12/20252022 2231 RxNorm Not Available [facility] - External Data Service - prod 16:11:18 26842 Cephalosp naisa (substanc e) medicatio n hives Not available high 07/12/20252021 51308 7003 SNOMED Not Available [facility] - External Data Service - prod 16:11:18 44207 duloxetin e medicatio n other Not available high 07/12/20252024 49751 RxNorm Suici lucius ideat ion Not Available [facility] - External Data Service - prod 16:11:18 59649 Latex (substanc e) environme nt,medica tion itching Not available low 07/12/20252021 45711 8007 SNOMED Not Available [facility] - External Data Service - prod 16:11:18 55908 bupropion Not available other Not available high 07/12/20252022 19327 RxNorm SUICI LUCIUS IDEAT ION Not Available [facility] - External Data Service - prod 16:11:18 16941 latex environme nt,medica tion Not available Not available Not available 07/12/2025 66921 91 RxNorm Not Available [facility] External Data Service - prod 16:15:08 Medications [...] Prescrib ed Elsewher e: No Locat ion: [facility] odify By: trey connors DateTime : 06/02/20 11:00:00 AM Not [...] Prescrib ed Elsewher e: No Locat ion: [facility] odify By: kalee donohue DateTime : 04/10/20 [...] Prescrib ed Elsewher e: No [facility] By: renato Ibrahim ncowaylon DateTime [...] Prescrib ed Elsewher e: Yes [facility] By: roma vyas DateTime : 04/01/20 12 01:53:11 PM Not Available Not Available Not Available doxycycli ne monohydra te 100 mg capsule TAKE 1 CAPSULE BY MOUTH TWICE A DAY 12/16 completed Not Available Not Available Not Available Micronor (28) 0.35 mg tablet take 1 tablet by oral route every day 03/02 completed Prescrib ed Elsewher e: No Locat ion: [facility] odify By: theo Palma er DateTime [...] Prescrib ed Elsewher e: Yes [facility] By: renato ferreira DateTime : [...] Prescrib ed Elsewher e: No [facility] By: renato ferreira DateTime : [...] ed Elsewher e: No Locat ion: Néstor ibarhim [facility] odify By: sang Ibrahim ncounter DateTime : 12/25/19 18 10:07:38 AM Not Available Not Available Not Available Flexeril 10 mg tablet take 1 tablet by oral route 2 times every day 05/24 completed Prescrib ed Elsewher e: No Locat ion: Ruth patrice [facility] odify By: renato Ibrahim ncounter DateTime : 01/25/20 15 10:56:20 AM Not Available Not Available Not Available buspirone 15 mg tablet take 1 tablet by oral route 3 times every day 11/01 completed Prescrib ed Elsewher e: No Locat ion: Ruth patrice [facility] odify By: laura Ibrahim ncounter DateTime [...] Elsewher e: Yes Loca tion: Néstor patrice [facility] odify By: sang Ibrahim ncounter DateTime : 09/28/19 15 09:30:00 AM Not Available Not Available Not Available Vitamins and Minerals tablet 11/01 completed Prescrib ed Elsewher e: Yes Loca tion: Néstor patrice [facility] odify By: laura ferreira DateTime : [...] Prescrib ed Elsewher e: Yes Loca tion: Niviaacrienash ibrahim [facility] odify By: renato ferreira DateTime : 05/24/20 15 11:15:00 AM Not [...] Elsewher e: No Locat ion: Niviacarienash ibrahim [facility] odify By: sang ferreira DateTime : 12/23/19 18 09:00:00 AM Not Available Not Available Not Available One Daily 27 mg iron-800 mcg tablet take 1 tablet by oral route every day 06/02 completed Prescrib ed Elsewher e: Yes Loca tion: Néstor patrice [facility] odify By: tmryan E ncounter DateTime : 11/02/19 09:00:00 AM Not Available Not Available Not Available Vraylar 1.5 mg capsule TAKE 1 CAPSULE BY MOUTH DAILY 06/18 completed Not Available Not Available Not Available Anusol-HC 2.5 % topical cream with perineal applicato r apply by topical route 2 times every day to the affected area(s) 05/24 completed Prescrib ed Devher e: No [facility] od[facility] By: renato Patrice ncounter DateTime : 04/12/20 11:00:00 AM Not [...] Updated DateTime 06/18/2025 160.02 cm 27.3 kg/m2 74348.22 g 128/86 mm[Hg] Shaemarzena Santillan [facility] 06/18/2025 13:01:52 Social History Question Answer Notes LastModified by Organizat ion Details LastModified Time Tobacco Smoking Status Current Every Day Smoker Shae Tyrell [facility] 06/18/2025 13:07:25 Are You Blind Or Do You Have Difficulty Seeing? No Information n ot available 08/28/2022 What Is Your Level Of Caffeine Consumption? Moderate [email or web address] Information not available 06/18/2025 In The 14 [...] Do You Have Serious Difficulty Hearing? Yes [email or web address] Information not available 06/18/2025 What Type Of Diet Are You Following? REGULAR Information n ot available 08/28/2022 What Is The Highest Grade Or Level Of School You Have Completed Or The Highest Degree You Have Received? [id number] [email or web address] Information not available 06/18/2025 Are There Any Guns Present In Your Home? No [email or web address] Information not available 06/18/2025 Do You Use Protection During Sex? Usually Information not available 06/18/2025 Do You Use Your Seat Belt Or Car Seat Routinely? Yes [email or web address] Information not available 06/18/2025 Are You Sexually Active? Yes [email or web address] Information not available 06/18/2025 Do You Have Smoke And Carbon Monoxide Detectors In Your Home? Yes [email or web address] Information not available 06/18/2025 Do You Use Sunscreen Routinely? Yes Information not available 06/18/2025 Do You Have Difficulty Walking Or Climbing Stairs? No Information not available 08/28/2022 Sex: Unknown Functional Status Question Answer Note LastModified by Organizat ion Details LastModified Time What is your level of alcohol consumption? Occasional [email or web address] Information not available 06/18/2025 Are you currently employed? No [email or web address] Information not available 06/18/2025 Are you able [...] anxious, or unable to sleep at night)? [id number] [email or web address] Information not available 06/18/2025 Family History Relationship Description Onset Age of this Age Resolved Age Notes LastModified by Organization Details LastModified Time Maternal Grandmother Myocardial infarction [email or web address] Not available 06/22 09:20:13 Maternal Grandmother Carcinoma in situ of colon [email or web address] Not available 2024 14:33:40 Sister Myocardial infarction [email or web address] Not available 06/22 09:20:24 Sister Carcinoma in situ of colon [email or web address] Not available 2024 14:33:40 Sister Carcinoma in situ of kidney Not available 2024 14:33:40 Maternal Aunt Carcinoma in situ of colon [email or web address] Not available 2024 14:33:40 Notes:Grandmother: Cancer, c [...] ICD10 Code Diagnosis IMO Codes Diagnosis Note [id number] JERONIMO Castro Neligh [address] [address] 06/18/2025 12:50:25 06/19/2025 09:57:05 Gynecologic examination 59562264 Z01.170 [id number] WWEpostmen opausalPap - done todaySTI screen - [...] have been answered. Venereal d isease screening 496524097 Z11.3 77143 Polyp of cervix 35334687 N84.1 69844 pelvic u/s scheduledw ill discuss removal options at f/u Postmenopa usal bleeding 78334425 N95.0 41771 Pelvic u/s orderedwil l RTC to review [...] Carias Member ID Guarantor Name 06/18/2025 2 [employer] (MEDICAID HMO) [id number] Ana Nagel [id number] 06/18/2025 1 [employer] (HMO) [id number] Ana Nagel [id number] Notes Date Note Type Note Provider Name and Address Organization Details Recorded Time 5 text/html Annual Quantitative Developer Post-MenopausalReported by PatientGenitourinary symptomsFor menopausal symptoms, patient [...] as well JERONIMO Castro [address], [place], [address], [place] - [facility] 06/19/2025 09:45:12 OBGyn Episode No OBEpisode recorded.
--- OUTSIDE RECORDS SUMMARY | 2025-08-02 01:20 | XMS_ITS | Clinical Summary ---
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 MG/DL 06/18/2025 1:33 PM CDT [facility] LIPID INTERPRETATION 06/18/2025 1:33 PM CDT [facility] Comment: [facility] REPORT RECOMMENDATIONS: ADULT CHILD LOW RISK: CHOLESTEROL <200 <170 TRIGLYCERIDE <150 --- HDL >=60 --- LDL <100 <110 BORDERLINE: CHOLESTEROL 200-239 170-199 TRIGLYCERIDE 150-199 --- HDL 40-59 --- LDL 100-159 110-129 HIGH RISK: CHOLESTEROL >=240 >=200 TRIGLYCERIDE >=200 --- HDL <40 --- LDL >=160 >=130 06/18/2025 9:15 AM CDT Josephine Lopez MD LABORATORY Final Result [facility] [address] [place] [address], [place] [phone] * HEPATITIS C AB ([facility] ONLY) (06/18/2025 9:15 AM CDT) HEPATITIS C AB NON-REACTI VE NON-REACTI VE 06/18/2025 3:20 PM CDT [facility] 06/18/2025 9:15 AM CDT Josephine Lopez MD LABORATORY Final Result [facility] [address] [place] [address], [place] [phone] * FSH, FOLLICLE STIM HORMONE (06/18/2025 9:15 AM CDT) FSH 106.4 MIU/ML 06/19/2025 12:32 PM CDT [facility] Comment: REFERENCE RANGES FOR FEMALES: FOLLICULAR 3.5-12.5 MID-CYCLE 4.7-21.5 LUTEAL 1.7-7.7 POSTMENOPAUSAL 25.8-134.8 06/18/2025 9:15 AM CDT Josephine Lopez MD LABORATORY Final Result [facility] [address] [place] [address], [place] [phone] * VITAMIN D, 25 OH (06/18/2025 9:15 AM CDT) VITAMIN D 25 HYDROXY S/P/B 45 30 - 100 NG/ML 06/18/2025 1:50 PM CDT [facility] Comment: INTERPRETATION DEFICIENT <20 INSUFFICIENT 20-29 SUFFICIENT 30-100 06/18/2025 9:15 AM CDT Josephine Lopez MD LABORATORY Final Result [facility] [address] [place] [address], [place] [phone] * COLONOSCOPY GENERIC (04/23/2021) 04/23/2021 [facility] Scanned SCANNING Final Resu lt from Last 3 Months or Most Recently Relevant to Health Maintenance Insurance [employer] Care Teams Rehab/Pre Vocational Counselor Relationship Specialty [place] [id number] [address] [place] [address] [phone] PCP - General FAMILY PRACTICE 08/28/22
--- OUTSIDE RECORDS SUMMARY | 2025-08-02 01:20 | XMS_ITS | Patient Health Record ---
Author Organization [facility] [employer] Address [address] [facility] [address] [place] [address] Care Team Providers Care Firestopper Installer Name Role Phone Josephine Lopez MD Primary Care Provider Unavail able Parminder Martinez Unavailable [phone] Bailey Corado Unavailable [phone] Silvia Kelley Unavailable [phone] Dean Ram Unavailable [phone] Paradise Evans Unavailable [phone] Ashley Rutherford Unavailable [phone] Sanchez Brown Unavailable [phone] Cherrie Garnett Unavailable [phone] Carol Sinha Unavailable [phone] Allergies Allergen (clinical drug ingredient) Drug/Non Drug [...] Active lamoTRIgine 25 MG Tablet 3 tablets Orally once a day; Duration: 30 days Active Spravato (84 MG Dose) 28 MG/DEVICE Solution Therapy Pack 3 sprays in each nostril Nasally once a week; Duration: 1 days 07/24/2025 Active Spravato (84 MG Dose) 28 MG/DEVICE Solution Therapy Pack 3 sprays in each nostril Nasally once a week; Duration: 1 days note frequency decrease 07/06/2025 Unknown Omeprazole 40 MG Capsule Delayed Release Oral; Duration: 30 Days Active Baclofen 10 MG Tablet Oral; Duration: 30 Days Active LORazepam 1 MG Tablet 1 tablet Oral twice a day; Duration: 30 days As needed 07/31/2025 Active Social History Tobacco Use: Social History Observation Description Date Details (start date - stop date) Current Smoker 12/21/1990 - NA Sex Assigned At : Social History Observation Description Sex Assigned At Female Social History Miscellaneous: Social Info Question Answer Notes Advance Care Planning Are you your own decision-maker Yes Do you have Power of Float Operator for Health or [facility]? No Safety issues: Are there any firearms [...] Severe recurrent major depression without psychotic features (98324632) Major depressive disorder, recurrent severe without psychotic features (F33.2) Active confirmed Problem Posttraumatic stress disorder (66534422) Post-traumatic stress disorder, chronic (F43.12) Active confirmed Problem Generalized anxiety disorder (03501998) WILL (generalized anxiety disorder) (F41.1) Active confirmed Problem Attention deficit hyperactivity disorder (330595471) ADHD (attention deficit hyperactivity disorder), combined type (F90.2) Active confirmed Problem Grief (577228327) Grief (F43.21) Active confirmed Problem Posttraumatic stress disorder (95060698) PTSD (post-traumatic stress disorder) (F43.10) Inactive confirmed Better described as chronic F43.12 Problem Severe recurrent major depression without psychotic features (11550548) MDD (major depressive disorder), recurrent severe, 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.2) Inactive confirmed F33.2 is listed twice in patient's problem list Vital Signs Heart Rate 82 /min 07/31/2025 Oximetry 99 % 07/31/2025 Height-cm 165.1 cm 07/31/2025 Blood pressure diastolic 71 mm Hg 07/31/2025 Weight-kg 69.76 kg 07/06/2025 Height 65 in 07/31/2025 Blood pressure systolic 99 mm Hg 07/31/2025 Weight 153.8 lbs 07/06/2025 BMI 25.59 kg/m2 07/06/2025 Encounters Encounter Location Date Provider Diagnosis [facility] [address] [facility] [address] [place] [address] 07/31/2025 Cherrie Garnett Major depressive disorder, recurrent severe without psychotic features F33.2 [facility] [address] [facility] [address] [place] [address] 08/11/2024 Ashley Rutherford MDD (major depressiv e disorder), recurrent severe, without psychosis F33.2 ; Grief F43.21 ; PTSD (post-traumatic stress disorder) F43.10 ; WILL (generalized anxiety disorder) F41.1 and ADHD (attention deficit hyperactivity disorder), combined type F90.2 [facility] [address] [facility] [address] [place] [address] 08/25/2024 Ashley Hinderliter MDD (major depressiv e disorder), recurrent severe, without psychosis F33.2 ; ADHD (attention deficit hyperactivity disorder), combined type F90.2 and Grief F43.21 [facility] [employer] [place] [id number] [address] 09/25/2024 Parminder Kurilla MDD (major depressiv e disorder), recurrent severe, without psychosis F33.2 ; WILL (generalized anxiety disorder) F41.1 ; PTSD (post-traumatic stress disorder) F43.10 and ADHD (attention deficit hyperactivity disorder), combined type F90.2 [facility] [employer] [facility], [facility] [address] [facility] [address] [place] [address] 09/25/2024 Ashleydanial Vallesliter MDD (major depressiv e disorder), recurrent severe, without psychosis F33.2 ; ADHD (attention deficit hyperactivity disorder), combined type F90.2 ; WILL (generalized anxiety disorder) F41.1 and Grief F43.21 [facility] [employer] [place] [address] [address] 10/30/2024 Parminder Kurilla MDD (major depressiv e disorder), recurrent severe, without psychosis F33.2 ; WILL (generalized anxiety disorder) F41.1 ; PTSD (post-traumatic stress disorder) F43.10 ; ADHD (attention deficit hyperactivity disorder), combined type F90.2 ; Nicotine use Z72.0 and Encounter for screening for cardiovascular disorders Z13.6 [facility] [employer] [facility], [facility] [address] [address] 10/30/2024 Ashleydanial Vallesliter MDD (major depressiv e disorder), recurrent severe, without psychosis F33.2 ; ADHD (attention deficit hyperactivity disorder), combined type F90.2 ; WILL (generalized anxiety disorder) F41.1 ; PTSD (post-traumatic stress disorder) F43.10 and Grief F43.21 [facility] [employer] [facility], Walk[facility] [address] 11/10/2024 Ashleydanial Vallesliter MDD (major depressiv e disorder), recurrent severe, without psychosis F33.2 ; WILL (generalized anxiety disorder) F41.1 ; PTSD (post-traumatic stress disorder) F43.10 ; Grief F43.21 and Encounter for screening for depression Z13.31 [facility] [employer] [facility], [place] [facility] [address] 11/15/2024 Ashley Hinderliter MDD (major depressiv e disorder), recurrent severe, without psychosis F33.2 ; WILL (generalized anxiety disorder) F41.1 ; ADHD (attention deficit hyperactivity disorder), combined type F90.2 ; PTSD (post-traumatic stress disorder) F43.10 ; Grief F43.21 and Encounter for screening for depression Z13.31 [facility] [employer] [place] [address] [facility] [address] [place] [address] 11/24/2024 Parminderhumera Martinez Nicotine use Z72.0 ; MDD (major depressive disorder), recurrent severe, without psychosis F33.2 ; WILL (generalized anxiety disorder) F41.1 ; PTSD (post-traumatic stress disorder) F43.10 ; ADHD (attention deficit hyperactivity disorder), combined type F90.2 ; Encounter for screening for cardiovascular disorders Z13.6 and Encounter for screening for depression Z13.31 [facility] [employer] [facility], [place] [address] [address] 11/24/2024 Ashley Hinderliter MDD (major depressiv e disorder), recurrent severe, without psychosis F33.2 ; WILL (generalized anxiety disorder) F41.1 ; ADHD (attention deficit hyperactivity disorder), combined type F90.2 ; PTSD (post-traumatic stress disorder) F43.10 ; Grief F43.21 and Encounter for screening for depression Z13.31 [facility] [employer] [facility], [facility] [address] 11/30/2024 Ashley Hinderliter MDD (major depressiv e disorder), recurrent severe, without psychosis F33.2 ; WILL (generalized anxiety disorder) F41.1 ; ADHD (attention deficit hyperactivity disorder), combined type F90.2 ; PTSD (post-traumatic stress disorder) F43.10 ; Grief F43.21 and Encounter for screening for depression Z13.31 [facility] [employer] [facility], [facility] [address] 12/13/2024 Ashley Hinderliter MDD (major depressiv e disorder), recurrent severe, without psychosis F33.2 ; WILL (generalized anxiety disorder) F41.1 ; ADHD (attention deficit hyperactivity disorder), combined type F90.2 ; PTSD (post-traumatic stress disorder) F43.10 ; Grief F43.21 ; Nicotine use Z72.0 and Encounter for screening for depression Z13.31 [facility] [facility] [address] [place] [address] 12/28/2024 Ashley Hinderliter MDD (major depressiv e disorder), recurrent severe, without psychosis F33.2 ; WILL (generalized anxiety disorder) F41.1 ; Grief F43.21 ; PTSD (post-traumatic stress disorder) F43.10 ; ADHD (attention deficit hyperactivity disorder), combined type F90.2 and Encounter for screening for depression Z13.31 [facility] [address] [facility] [address] [place] [address] 12/28/2024 Parminder Martinez Nicotine use Z72.0 ; MDD (major depressive disorder), recurrent severe, without psychosis F33.2 ; WILL (generalized anxiety disorder) F41.1 ; PTSD (post-traumatic stress disorder) F43.10 ; ADHD (attention deficit hyperactivity disorder), combined type F90.2 ; Encounter for screening for cardiovascular disorders Z13.6 and Encounter for screening for depression Z13.31 [facility] [address] [facility] [address] [place] [address] 01/04/2025 Ashley Hinderliter MDD (major depressiv e disorder), recurrent severe, without psychosis F33.2 ; WILL (generalized anxiety disorder) F41.1 ; ADHD (attention deficit hyperactivity disorder), combined type F90.2 ; PTSD (post-traumatic stress disorder) F43.10 ; Grief F43.21 and Encounter for screening for depression Z13.31 [facility] [place] [address] 01/16/2025 Ashley Hinderliter MDD (major depressiv e disorder), recurrent severe, without psychosis F33.2 ; WILL (generalized anxiety disorder) F41.1 ; ADHD (attention deficit hyperactivity disorder), combined type F90.2 ; Grief F43.21 and Encounter for screening for depression Z13.31 [facility] [address] 01/26/2025 Parminder Kurilla Nicotine use Z72.0 ; MDD (major depressive disorder), recurrent severe, without psychosis F33.2 ; WILL (generalized anxiety disorder) F41.1 ; PTSD (post-traumatic stress disorder) F43.10 ; ADHD (attention deficit hyperactivity disorder), combined type F90.2 ; Encounter for screening for cardiovascular disorders Z13.6 and Encounter for screening for depression Z13.[address] [address] 02/12/2025 Sanchez Clubb Major depressive disorder, recurrent severe without psychotic features F33.2 ; Encounter for screening for cardiovascular disorders Z13.6 ; WILL (generalized anxiety disorder) F41.1 ; ADHD (attention deficit hyperactivity disorder), combined type F90.2 ; PTSD (post-traumatic stress disorder) F43.10 and Nicotine use Z72.0 [facility] [employer] [address] [address] 02/13/2025 Silvia Kelley Nicotine use Z72.0 and Encounter for screening for depression Z13.[address] [address] 02/15/2025 Cherrie Garnett Major depressive disorder, recurrent severe without psychotic features F33.2 and Encounter for screening for cardiovascular disorders Z13.[address] [address] 02/16/2025 Parminder Kurilla Nicotine use Z72.0 ; MDD (major depressive disorder), recurrent severe, without psychosis F33.2 ; WILL (generalized anxiety disorder) F41.1 ; PTSD (post-traumatic stress disorder) F43.10 ; ADHD (attention deficit hyperactivity disorder), combined type F90.2 ; Encounter for screening for cardiovascular disorders Z13.6 and Encounter for screening for depression Z13.31 [facility] [employer] [address] [address] 02/20/2025 Sanchez Clubb Nicotine use Z72.0 ; WILL (generalized anxiety disorder) F41.1 ; PTSD (post-traumatic stress disorder) F43.10 ; ADHD (attention deficit hyperactivity disorder), combined type F90.2 ; Major depressive disorder, recurrent severe without psychotic features F33.2 and Encounter for screening for cardiovascular disorders Z13.6 [employer] [facility], [facility] [address] [facility] [address] [place] [address] 02/20/2025 Ashley Hinderliter MDD (major depressiv e disorder), recurrent severe, without psychosis F33.2 ; WILL (generalized anxiety disorder) F41.1 ; ADHD (attention deficit hyperactivity disorder), combined type F90.2 ; Grief F43.21 ; PTSD (post-traumatic stress disorder) F43.10 and Encounter for screening for depression Z13.31 [facility] [employer] [facility] [address] [facility] [address] [place] [address] 02/22/2025 Sanchez Clubb Major depressive disorder, recurrent severe without psychotic features F33.2 ; Encounter for screening for cardiovascular disorders Z13.6 ; Nicotine use Z72.0 ; WILL (generalized anxiety disorder) F41.1 ; PTSD (post-traumatic stress disorder) F43.10 and ADHD (attention deficit hyperactivity disorder), combined type F90.2 [employer] [place] [address] [facility] [address] [place] [address] 02/26/2025 Sanchez Clubb Major depressive disorder, recurrent severe without psychotic features F33.2 ; WILL (generalized anxiety disorder) F41.1 ; PTSD (post-traumatic stress disorder) F43.10 ; Nicotine use Z72.0 ; ADHD (attention deficit hyperactivity disorder), combined type F90.2 and Encounter for screening for cardiovascular disorders Z13.6 [employer] [facility], [place] [address] [address] 02/26/2025 Ashley Hinderliter MDD (major depressiv e disorder), recurrent severe, without psychosis F33.2 ; Post-traumatic stress disorder, chronic F43.12 ; ADHD (attention deficit hyperactivity disorder), combined type F90.2 ; Grief F43.21 and Encounter for screening for depression Z13.31 [facility] [employer] [facility] [address] [facility] [address] [place] [address] 03/01/2025 Sanchez Clubb Major depressive disorder, recurrent severe without psychotic features F33.2 ; Nausea R11.0 ; WILL (generalized anxiety disorder) F41.1 ; PTSD (post-traumatic stress disorder) F43.10 ; Nicotine use Z72.0 and ADHD (attention deficit hyperactivity disorder), combined type F90.2 [facility] [employer] [facility] [address] [facility] [address] [facility] [address] [place] [address] 03/05/2025 Sanchez Rosalesray Major depressive disorder, recurrent severe without psychotic features F33.2 ; WILL (generalized anxiety disorder) F41.1 ; PTSD (post-traumatic stress disorder) F43.10 ; Nicotine use Z72.0 and ADHD (attention deficit hyperactivity disorder), combined type F90.2 [facility] [employer] [facility] [address] [facility] [address] [facility] [address] [place] [address] 03/08/2025 Cherrie Garnett Major depressive disorder, recurrent severe without psychotic features F33.2 [facility] [employer] [address] [facility] [address] [place] [address] 03/19/2025 Parminder Juan Nicotine use Z72.0 ; MDD (major depressive disorder), recurrent severe, without psychosis F33.2 ; WILL (generalized anxiety disorder) F41.1 ; PTSD (post-traumatic stress disorder) F43.10 and ADHD (attention deficit hyperactivity disorder), combined type F90.2 [facility] [employer] [facility], [facility] [address] [facility] [address] [facility] [address] [place] [address] 03/19/2025 Ashley Rutherford Major depressive disorder, recurrent severe without psychotic features F33.2 ; Post-traumatic stress disorder, chronic F43.12 ; ADHD (attention deficit hyperactivity disorder), combined type F90.2 ; Grief F43.21 ; Encounter for screening for depression Z13.31 and Nicotine use Z72.0 [facility] [employer] [place] [address] [facility] [address] [address] 03/21/2025 Paradise Evans Major depressive disorder, recurrent severe without psychotic features F33.2 ; Nicotine use Z72.0 ; MDD (major depressive disorder), recurrent severe, without psychosis F33.2 ; WILL (generalized anxiety disorder) F41.1 ; PTSD (post-traumatic stress disorder) F43.10 and ADHD (attention deficit hyperactivity disorder), combined type F90.2 [facility] [employer] [place] [address] [facility] [address] [facility] [address] [place] [address] 03/29/2025 Cherrie Garnett Major depressive disorder, recurrent severe without psychotic features F33.2 [employer] [facility], [facility] [address] [place] [address] 03/29/2025 Ashley Hinderliter WILL (generalized anxiety disorder) F41.1 ; ADHD (attention deficit hyperactivity disorder), combined type F90.2 ; Grief F43.21 ; Major depressive disorder, recurrent severe without psychotic features F33.2 and Post-traumatic stress disorder, chronic F43.12 [facility] [employer] [facility] [address] [place] [address] 04/05/2025 Cherrie Garnett Major depressive disorder, recurrent severe without psychotic features F33.2 [employer] [facility], [facility] [address] [place] [address] 04/05/2025 Ashley Hinderliter WILL (generalized anxiety disorder) F41.1 ; ADHD (attention deficit hyperactivity disorder), combined type F90.2 ; Grief F43.21 ; Major depressive disorder, recurrent severe without psychotic features F33.2 and Post-traumatic stress disorder, chronic F43.12 [facility] [address] [place] [address] 04/12/2025 Cherrie Garnett Major depressive disorder, recurrent severe without psychotic features F33.2 [facility] [facility], [place] [address] [place] [address] 04/12/2025 Ashley Sangeeta WILL (generalized anxiety disorder) F41.1 ; Major depressive disorder, recurrent severe without psychotic features F33.2 ; ADHD (attention deficit hyperactivity disorder), combined type F90.2 ; Grief F43.21 and Post-traumatic stress disorder, chronic F43.12 [facility] [employer] [facility] [address] [place] [address] 04/16/2025 Parminder Kurilla Nicotine use Z72.0 ; MDD (major depressive disorder), recurrent severe, without psychosis F33.2 ; WILL (generalized anxiety disorder) F41.1 ; PTSD (post-traumatic stress disorder) F43.10 and ADHD (attention deficit hyperactivity disorder), combined type F90.2 [employer] [facility] [address] [place] [address] 04/19/2025 Cherrie Garnett Major depressive disorder, recurrent severe without psychotic features F33.2 [facility] [address] [place] [address] 04/19/2025 Ashley Sangeeta MDD (major depressiv e disorder), recurrent severe, without psychosis F33.2 ; Post-traumatic stress disorder, chronic F43.12 and Grief F43.21 [facility] [address] [place] [address] 04/26/2025 Cherrie Garnett Major depressive disorder, recurrent severe without psychotic features F33.2 [facility], [facility] [address] [place] [address] 04/26/2025 Ashley Hinderliter Major depressive disorder, recurrent severe without psychotic features F33.2 ; Post-traumatic stress disorder, chronic F43.12 and WILL (generalized anxiety disorder) F41.1 [facility] [employer] [facility], [facility] [address] [place] [address] 05/01/2025 Ashley Reenaliter Grief F43.21 ; Major depressive disorder, recurrent severe without psychotic features F33.2 ; ADHD (attention deficit hyperactivity disorder), combined type F90.2 and Post-traumatic stress disorder, chronic F43.12 [facility] [employer] [facility] [address] [place] [address] 05/03/2025 Sanchez Brown Major depressive disorder, recurrent severe without psychotic features F33.2 [facility] [address] [place] [address] 05/10/2025 Cherrie Garnett Major depressive disorder, recurrent severe without psychotic features F33.2 [facility] [employer] [facility], [facility] [address] [place] [address] 05/10/2025 Ashley Hinderliter Major depressive disorder, recurrent severe without psychotic features F33.2 ; Post-traumatic stress disorder, chronic F43.12 and Grief F43.21 [facility] [address] [place] [address] 05/17/2025 Cherrie Garnett Major depressive disorder, recurrent severe without psychotic features F33.2 [facility] [employer] [facility], [facility] [address] [place] [address] 05/17/2025 Ashleydanial Vallesliter WILL (generalized anxiety disorder) F41.1 ; Major depressive disorder, recurrent severe without psychotic features F33.2 ; Post-traumatic stress disorder, chronic F43.12 and Irritability and anger R45.4 [employer] [address] [place] [address] 05/24/2025 Ashley Hinderliter Major depressive disorder, recurrent severe without psychotic features F33.2 and Post-traumatic stress disorder, chronic F43.12 [facility] [employer] [address] [place] [address] 05/25/2025 Parminder Martinez Nicotine use Z72.0 ; MDD (major depressive disorder), recurrent severe, without psychosis F33.2 ; WILL (generalized anxiety disorder) F41.1 ; PTSD (post-traumatic stress disorder) F43.10 and ADHD (attention deficit hyperactivity disorder), combined type F90.2 [employer] [address] [place] [address] 05/31/2025 Ashley Hinderliter Major depressive disorder, recurrent severe without psychotic features F33.2 ; Post-traumatic stress disorder, chronic F43.12 and WILL (generalized anxiety disorder) F41.1 [facility] [address] [place] [address] 05/31/2025 Dean Ram Major depressive disorder, recurrent severe without psychotic features F33.2 [facility] [address] [place] [address] 06/07/2025 Ashley Hinderliter Major depressive disorder, recurrent severe without psychotic features F33.2 ; Post-traumatic stress disorder, chronic F43.12 and Grief F43.21 [facility] [employer] [facility] [address] [place] [address] 06/07/2025 Carol Sinha Major depressive disorder, recurrent severe without psychotic features F33.2 [facility] [address] [place] [address] 06/14/2025 Ashley Hinderliter Major depressive disorder, recurrent severe without psychotic features F33.2 ; Post-traumatic stress disorder, chronic F43.12 and Other specified problems related to primary support group Z63.8 [employer] [address] [place] [address] 06/14/2025 Cherrie Garnett Major depressive disorder, recurrent severe without psychotic features F33.2 [facility] [employer] [facility], [facility] [address] [place] [address] 06/21/2025 Ashley Rutherford Major depressive disorder, recurrent severe without psychotic features F33.2 and Post-traumatic stress disorder, chronic F43.12 [facility] [address] [place] [address] 06/21/2025 Carol Sinha Major depressive disorder, recurrent severe without psychotic features F33.2 [facility] [employer] [facility], [facility] [address] [facility] [address] [place] [address] 06/28/2025 Ashley Rutherford Major depressive disorder, recurrent severe without psychotic features F33.2 ; Grief F43.21 and Post-traumatic stress disorder, chronic F43.12 [facility] [employer] [facility] [address] [facility] [address] [place] [address] 06/28/2025 Cherrie Garnett Major depressive disorder, recurrent severe without psychotic features F33.2 [facility] [employer] [address] [facility] [address] [place] [address] 07/02/2025 Bailey Fernandez Major depressive disorder, recurrent severe without psychotic features F33.2 ; PTSD (post-traumatic stress disorder) F43.10 ; WILL (generalized anxiety disorder) F41.1 and ADHD (attention deficit hyperactivity disorder), combined type F90.2 [facility] [employer] [facility] [address] [facility] [address] [place] [address] 07/05/2025 Cherrie Garnett Major depressive disorder, recurrent severe without psychotic features F33.2 [facility] [employer] [address] [facility] [address] [place] [address] 07/06/2025 Parminder Kurilla Nicotine use Z72.0 ; MDD (major depressive disorder), recurrent severe, without psychosis F33.2 ; WILL (generalized anxiety disorder) F41.1 ; PTSD (post-traumatic stress disorder) F43.10 and ADHD (attention deficit hyperactivity disorder), combined type F90.2 [facility] [employer] [facility] [address] [place] [address] 07/09/2025 Bialey Fernandez Major depressive disorder, recurrent severe without psychotic features F33.2 ; ADHD (attention deficit hyperactivity disorder), combined type F90.2 ; WILL (generalized anxiety disorder) F41.1 and PTSD (post-traumatic stress disorder) F43.10 [facility] [address] [place] [address] 07/09/2025 Cherrie Garnett Major depressive disorder, recurrent severe without psychotic features F33.2 [facility] [address] [place] [address] 07/17/2025 Bailey Fernandez Major depressive disorder, recurrent severe without psychotic features F33.2 ; ADHD (attention deficit hyperactivity disorder), combined type F90.2 and WILL (generalized anxiety disorder) F41.1 [facility] [address] [place] [address] 07/17/2025 Cherrie Garnett Major depressive disorder, recurrent severe without psychotic features F33.2 [facility], [facility] [address] [place] [address] 07/20/2025 Ashley Sangeeta Major depressive disorder, recurrent severe without psychotic features F33.2 ; Grief F43.21 and Post-traumatic stress disorder, chronic F43.12 [facility] [address] [place] [address] 07/31/2025 Bailey Fernandez Major depressive disorder, recurrent severe without psychotic features F33.2 ; WILL (generalized anxiety disorder) F41.1 and ADHD (attention deficit hyperactivity disorder), combined type F90.2 [facility] [address] [place] [address] 09/18/2024 Parminder Martinez [facility], [facility] [address] [place] [address] 11/10/2024 Parminder Martinez [facility], [facility] [address] [place] [address] 01/16/2025 Parminder Martinez [facility], [facility] [address] [place] [address] 02/02/2025 Parminder Martinez [facility], [facility] [address] [place] [address] 02/13/2025 Silvia Kelley [facility], [facility] [address] [place] [address] 03/01/2025 Parminder Martinez MDD (major depressiv e disorder), recurrent severe, without psychosis F33.2 [facility], [facility] [address] [place] [address] 03/05/2025 Parminder Martinez [facility], [facility] [address] [place] [address] 03/21/2025 Parminderhumera Martinez [facility], [facility] [address] [place] [address] 04/16/2025 Parminderhumera Martinez [facility], [facility] [address] [place] [address] 04/26/2025 Parminderhumera Martinez [facility], [facility] [address] [place] [address] 04/27/2025 Parminderhumera Jacobilla Major depressive disorder, recurrent severe without psychotic features F33.2 [facility], [facility] [address] [place] [address] 06/07/2025 Parminder Kurilla Major depressive disorder, recurrent severe without psychotic features F33.2 [facility], [facility] [address] [place] [address] 06/15/2025 Parminder Martinez [facility], [facility] [address] [place] [address] 07/24/2025 Parminderhumera Jacobilla Major depressive disorder, recurrent severe without psychotic features F33.2 [facility], [facility] [address] [place] [address] 07/31/2025 Cherrie Garnett WILL (generalized anxiety disorder) F41.1 [facility], [facility] [address] [place] [address] 09/18/2024 Parminder Martinez [facility], [facility] [address] [place] [address] 09/20/2024 Parminderhumera Martinez WILL (generalized anxiety disorder) F41.1 [facility], [facility] [address] [place] [address] 10/12/2024 Parminder Martinez [facility], [facility] [address] [place] [address] 10/30/2024 Parminder Martinez [facility], [facility] [address] [place] [address] 11/09/2024 Parminder Martinez [facility], [facility] [address] [place] [address] 11/09/2024 Parminder Martinez [facility], [facility] [address] [place] [address] 01/04/2025 Parminder Martinez [facility], [facility] [address] [place] [address] 01/07/2025 Parminder Martinez [facility], [facility] [address] [place] [address] 01/07/2025 Parminder Martinez [facility], [facility] [address] [place] [address] 01/08/2025 Parminder Martinez [facility], [facility] [address] [place] [address] 01/08/2025 Parminder Martinez [facility], [facility] [address] [place] [address] 01/08/2025 Parminder Martinez [facility], [facility] [address] [place] [address] 01/09/2025 Parminder Martinez [facility], [facility] [address] [place] [address] 01/09/2025 Parminder Martinez [facility], [facility] [address] [place] [address] 01/11/2025 Parminder Martinez [facility], [facility] [address] [place] [address] 01/26/2025 Parminder Martinez [facility], [facility] [address] [place] [address] 01/29/2025 Parminder Martinez [facility], [facility] [address] [place] [address] 01/30/2025 Parminder Martinez [facility], [facility] [address] [place] [address] 02/13/2025 Parminder Martinez [facility], [facility] [address] [place] [address] 03/08/2025 Parminder Martinez WILL (generalized anxiety disorder) F41.1 [facility], [facility] [address] [place] [address] 03/14/2025 Parminder Martinez [facility], [facility] [address] [place] [address] 03/29/2025 Parminderhumera Martinez [facility], [facility] [address] [place] [address] 04/03/2025 Parminderhumera Martinez [facility], [facility] [address] [place] [address] 04/03/2025 Parminderhumera Martinez [facility], [facility] [address] [place] [address] 04/03/2025 Parminder Martinez [facility], [facility] [address] [place] [address] 06/07/2025 Parminder Martinez [facility], [facility] [address] [place] [address] 06/07/2025 Parminder Martinez [facility], [facility] [address] [place] [address] 06/14/2025 Parminderhumera Martinez [facility], [facility] [address] [place] [address] 06/29/2025 Parminder Martinez Assessments Encounter Date Diagnosis (ICD Code) Assessment Notes Treatment Notes Treatment Clinical Notes Section Notes 04/27/2025 Major depressive disorder, recurrent severe without psychotic features (ICD-10 - F33.2) 03/01/2025 MDD (major depressive disorder), recurrent severe, without psychosis (ICD-10 - F33.2) 07/24/2025 Major depressive disorder, recurrent severe without psychotic features (ICD-10 - F33.2) 06/07/2025 Major depressive disorder, recurrent severe without psychotic features (ICD-10 - F33.2) 05/31/2025 Major depressive disorder, recurrent severe without psychotic features (ICD-10 - F33.2) 05/17/2025 Major depressive disorder, recurrent severe without psychotic features (ICD-10 - F33.2) continue current treatment as prescribed by primary psychiatric care provider 05/10/2025 Major depressive disorder, recurrent severe without psychotic features (ICD-10 - F33.2) continue current treatment as prescribed by primary psychiatric care provider 05/03/2025 Major depressive disorder, recurrent severe without psychotic features (ICD-10 - F33.2) Continue medication as prescribed by primary psychiatric care provider 04/26/2025 Major depressive disorder, recurrent severe without psychotic features (ICD-10 - F33.2) continue current treatment as prescribed by primary psychiatric care provider 04/19/2025 Major depressive disorder, recurrent severe without psychotic features (ICD-10 - F33.2) continue current treatment as prescribed by primary psychiatric care provider 04/16/2025 Nicotine use (ICD-10 - Z72.0) 04/12/2025 Major depressive disorder, recurrent severe without psychotic features (ICD-10 - F33.2) continue current treatment as prescribed by primary psychiatric care provider 04/05/2025 Major depressive disorder, recurrent severe without psychotic features (ICD-10 - F33.2) continue current treatment as prescribed by primary psychiatric care provider 03/29/2025 Major depressive disorder, recurrent severe without psychotic features (ICD-10 - F33.2) continue current treatment as prescribed by primary psychiatric care provider 03/29/2025 WILL (generalized anxiety disorder) (ICD-10 - [...] better process related thoughts and emotions 03/21/2025 Major depressive disorder, recurrent severe without [...] and young adults, and serotonin syndrome. 03/19/2025 Nicotine use (ICD-10 - Z72.0) 03/08/2025 Major depressive disorder, recurrent severe without psychotic features (ICD-10 - F33.2) continue current treatment as prescribed by primary psychiatric care provider 03/05/2025 Major depressive disorder, recurrent severe without psychotic features (ICD-10 - F33.2) continue current treatment as prescribed by primary psychiatric care provider 03/01/2025 Major depressive disorder, recurrent severe without psychotic features (ICD-10 - F33.2) continue current treatment as prescribed by primary psychiatric care provider continue current treatment as prescribed by primary psychiatric care provider 03/01/2025 Nausea (ICD-10 - R11.0) 02/26/2025 Major depressive disorder, recurrent severe without psychotic features (ICD-10 - F33.2) continue current treatment as prescribed by primary psychiatric care provider 02/26/2025 WILL (generalized anxiety disorder) (ICD-10 - F41.1) 02/26/2025 Post-traumatic stress disorder, chronic (ICD-10 - [...] and grief response in therapy sessions 02/22/2025 Major depressive disorder, recurrent severe without psychotic features (ICD-10 - F33.2) continue current treatment as prescribed by primary psychiatric care provider 02/26/2025 MDD (major depressive disorder), recurrent severe, [...] and grief response in therapy sessions 02/20/2025 Nicotine use (ICD-10 - Z72.0) 02/20/2025 WILL [...] Provide psychoeducation on ADHD management techniques 02/16/2025 Nicotine use (ICD-10 - Z72.0) 02/15/2025 Major depressive disorder, recurrent severe without psychotic features (ICD-10 - F33.2) continue current treatment as prescribed by primary psychiatric care provider 02/13/2025 Nicotine use (ICD-10 - Z72.0) 01/26/2025 Nicotine use (ICD-10 - Z72.0) 01/16/2025 WILL (generalized anxiety disorder) (ICD-10 - [...] including local providers like [facility] in [place]. - Attend medication management follow-up appointment to reassess medication efficacy and side effects. -Due to possible loss of housing related to recent fight with mom, provided list of shelters in both [place] and [facility]. -Sent message to Jacquelin in regards to [...] follow up appointment - Consider referral to tank storage supervisor or mortgage field inspector for specialized menopause management. 01/16/2025 MDD (major depressive disorder), recurrent severe, [...] including local providers like [facility] in [place]. - Attend medication management follow-up appointment to reassess medication efficacy and side effects. -Due to possible loss of housing related to recent fight with mom, provided list of shelters in both [place] and [facility]. -Sent message to Jacquelin in regards to [...] follow up appointment - Consider referral to tank storage supervisor or mortgage field inspector for specialized menopause management. 10/30/2024 ADHD (attention deficit hyperactivity disorder), combined [...] joining a grief support group, such as [employer] or [employer], for additional support. 3. Work-related stress - Patient experienced a conflict at work and is struggling with the work environment. 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 Utilize stress management techniques and coping strategies during therapy sessions. 4. Family concerns - Patient has concerns about her children's well-being and development. - Plan: Encourage the patient to seek appropriate resources and support for her children, such as the [employer] parent education program and [employer] for grief support. Continue to address family [...] therapy sessions. Informed client that [facility] does not provide psilocybin microdosing [...] joining a grief support group, such as [employer] or [employer], for additional support. 3. Work-related stress - Patient experienced a conflict at work and is struggling with the work environment. 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 Utilize stress management techniques and coping strategies during therapy sessions. 4. Family concerns - Patient has concerns about her children's well-being and development. - Plan: Encourage the patient to seek appropriate resources and support for her children, such as the [facility] parent education program and [employer] for grief support. Continue to address family [...] therapy sessions. Informed client that [facility] does not provide psilocybin microdosing [...] recurrent severe, without psychosis (ICD-10 - F33.2) 09/20/2024 WILL (generalized anxiety disorder) (ICD-10 - F41.1) 02/12/2025 Major depressive disorder, recurrent severe without psychotic features (ICD-10 - F33.2) continue current treatment as prescribed by primary psychiatric care provider 02/12/2025 Encounter for screening for cardiovascular disorders (ICD-10 - Z13.6) 01/04/2025 WILL (generalized anxiety disorder) (ICD-10 - [...] coverage and potential patient assistance programs through [employer]. - Investigate possibility of medical transportation services [...] coverage and potential patient assistance programs through [employer]. - Investigate possibility of medical transportation services [...] context of mental health treatment if needed. 07/20/2025 Major depressive disorder, recurrent severe without psychotic features (ICD-10 - F33.2) Grief and bereavement Assessment: Patient is experiencing significant sadness and grief related to the one-year anniversary of Oscar's suicide. She reports feeling overwhelmed and sad, expressing concern about managing her emotions while caring for Davey who also appears to be grieving. The patient demonstrates awareness of the mutual need for support between herself and Davey during this difficult time. Plan: - Spend time with Davey for mutual support during grief process - Share favorite stories about Oscar as part of grief processing - Maintain basic self-care including adequate nutrition - Continue EMDR therapy with Bailey Financial hardship and disability application Assessment: Patient is experiencing significant financial stress while awaiting disability approval. She reports being unable to work due to inability to tolerate arrogant and verbally abusive doctors with her last employment situation being particularly problematic. She has been working since age 16 and expresses distress about living in poverty, stating this is not by choice. Patient is at risk of losing belongings in storage including sentimental items from her partner. Plan: - Continue pursuing disability application process 07/31/2025 WILL (generalized anxiety disorder) (ICD-10 - F41.1) 07/20/2025 Grief (ICD-10 - F43.21) Grief and bereavement Assessment: Patient is experiencing significant sadness and grief related to the one-year anniversary of Oscar's suicide. She reports feeling overwhelmed and sad, expressing concern about managing her emotions while caring for Davey who also appears to be grieving. The patient demonstrates awareness of the mutual need for support between herself and Davey during this difficult time. Plan: - Spend time with Davey for mutual support during grief process - Share favorite stories about Oscar as part of grief processing - Maintain basic self-care including adequate nutrition - Continue EMDR therapy with Bailey Financial hardship and disability application Assessment: Patient is experiencing significant financial stress while awaiting disability approval. She reports being unable to work due to inability to tolerate arrogant and verbally abusive doctors with her last employment situation being particularly problematic. She has been working since age 16 and expresses distress about living in poverty, stating this is not by choice. Patient is at risk of losing belongings in storage including sentimental items from her partner. Plan: - Continue pursuing disability application process 07/06/2025 Nicotine use (ICD-10 - Z72.0) 07/05/2025 Major depressive disorder, recurrent severe without psychotic [...] - Supportive care and follow-up as needed. 06/14/2025 Major depressive disorder, recurrent severe without psychotic features (ICD-10 - F33.2) continue current treatment as prescribed by primary psychiatric care provider 06/07/2025 Major depressive disorder, recurrent severe without psychotic features (ICD-10 - F33.2) 11/24/2024 WILL (generalized anxiety disorder) (ICD-10 - F41.1) 1. Complicated grief Assessment: - Patient continues to experience grief related to the loss of her - Plans to take some of his ashes on upcoming trip to [place], where they were and had planned to [...] functioning - Encourage patient to follow financial data analyst's bankruptcy process as planned - Discuss potential [...] of his ashes on upcoming trip to [place], where they were and had planned to [...] functioning - Encourage patient to follow financial data analyst's bankruptcy process as planned - Discuss potential [...] progress and continue working on identified issues 08/25/2024 ADHD (attention deficit hyperactivity disorder), combined [...] further and consider discussing them with a contracts advisor or counselor if desired. 7. Transgender [...] further and consider discussing them with a contracts advisor or counselor if desired. 7. Transgender Child - Support the patient in understanding and accepting their child's gender identity and transition process. - Encourage open communication between the patient and their child regarding their experiences and needs. Follow-up: - Schedule a follow-up appointment in one week to continue addressing the patient's concerns and monitor progress. 08/11/2024 MDD (major depressive disorder), recurrent severe, [...] - The patient experiences anxiety about attending [employer] events, especially at her sister's house due [...] goals and dreams, such as relocating to [place], as a means to honor her 's [...] - The patient experiences anxiety about attending [employer] events, especially at her sister's house due [...] goals and dreams, such as relocating to [place], as a means to honor her 's [...] thoughts or feels overwhelmed by her emotions. 05/01/2025 Grief (ICD-10 - F43.21) Major Depressive [...] confined to her house. She has explored [id number] options but hasn't found suitable opportunities. 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 The patient demonstrates awareness of the limitations [...] confined to her house. She has explored [id number] options but hasn't found suitable opportunities. 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 The patient demonstrates awareness of the limitations of peer support and the importance of directing members to professional help when needed. Plan: - Discuss strategies for managing the online support group effectively - Explore self-care techniques to prevent burnout from group management responsibilities - Provide guidance on creating clear group guidelines and crisis response protocols 05/25/2025 Nicotine use (ICD-10 - Z72.0) 05/01/2025 Major depressive disorder, recurrent severe without [...] resolving the conflict with her middle child. 12/28/2024 Nicotine use (ICD-10 - Z72.0) 12/28/2024 [...] immediate professional help for suicidal ideation. 12/13/2024 WILL (generalized anxiety disorder) (ICD-10 - [...] resources - Offer information on [facility] [place] for grief counseling groups 2. Anxiety Disorder Assessment: - Reports panic attack while driving home from [place] - Triggered by darkness and difficult road [...] resources - Offer information on [facility] [place] for grief counseling groups 2. Anxiety Disorder Assessment: - Reports panic attack while driving home from [place] - Triggered by darkness and difficult road [...] appointment to continue addressing identified concerns 11/30/2024 WILL (generalized anxiety disorder) (ICD-10 - [...] and continue working on the identified issues. 07/02/2025 Major depressive disorder, recurrent severe without psychotic features (ICD-10 - F33.2) 07/02/2025 PTSD (post-traumatic stress disorder) (ICD-10 - F43.10) 06/28/2025 Major depressive disorder, recurrent severe without psychotic features (ICD-10 - F33.2) continue current treatment regimen as prescribed by primary psychiatric care provider 11/15/2024 MDD (major depressive disorder), recurrent severe, [...] relationships due to grief and loss of 04/12/2025 WILL (generalized anxiety disorder) (ICD-10 - [...] but faces challenges in finding an appropriate felled seam operator covered by insurance and someone who has [...] but faces challenges in finding an appropriate felled seam operator covered by insurance and someone who has known her since childhood to provide historical information. Plan: - Provide referrals for autism spectrum disorder evaluation - Explore how potential autism spectrum traits may intersect with current symptoms and coping strategies 04/05/2025 WILL (generalized anxiety disorder) (ICD-10 - F41.1) Suspected Neurodevelopment al Disorder Assessment: Ana reports multiple symptoms consistent with autism spectrum disorder (ASD) with her daughter having been recently diagnosed. Ana was previously diagnosed with attention-defici t/hyperactivity disorder (ADHD). 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, including being held back in kindergarten [...] grief and stress related to her son Dvaey not having his father present. She reports [...] guilt through cognitive restructuring and self-compassion exercises 03/19/2025 Major depressive disorder, recurrent severe without [...] continuing mental health treatment Interpersonal Conflicts and Greer Issues Assessment: Patient reports difficulties in setting [...] continuing mental health treatment Interpersonal Conflicts and Greer Issues Assessment: Patient reports difficulties in setting [...] limiting phone notifications) as needed for self-care 03/08/2025 WILL (generalized anxiety disorder) (ICD-10 - F41.1) 11/15/2024 WILL (generalized anxiety disorder) (ICD-10 - [...] relationships due to grief and loss of 07/31/2025 Major depressive disorder, recurrent severe without psychotic features (ICD-10 - F33.2) continue current treatment regimen as prescribed by primary psychiatric care provider 07/31/2025 Major depressive disorder, recurrent severe without psychotic features (ICD-10 - F33.2) 07/31/2025 WILL (generalized anxiety disorder) (ICD-10 - F41.1) 07/17/2025 ADHD (attention deficit hyperactivity disorder), combined type (ICD-10 - F90.2) 07/09/2025 Major depressive disorder, recurrent severe without psychotic features (ICD-10 - F33.2) continue current treatment regimen as prescribed by primary psychiatric care provider 07/09/2025 Major depressive disorder, recurrent severe without psychotic features (ICD-10 - F33.2) 07/17/2025 Major depressive disorder, recurrent severe without psychotic features (ICD-10 - F33.2) continue current treatment regimen as prescribed by primary psychiatric care provider 07/17/2025 Major depressive disorder, recurrent severe without psychotic features (ICD-10 - F33.2) 07/09/2025 ADHD (attention deficit hyperactivity disorder), combined type (ICD-10 - F90.2) 06/28/2025 Grief (ICD-10 - F43.21) Grief and bereavement Assessment: Patient is approaching the first anniversary of her 's in June, which is anticipated to be particularly difficult. She continues to experience emotional distress related to the loss, including being triggered by media content that reminds her of her . She reports trying not to cry around her son but acknowledges he can usually tell when she has been crying. The patient expresses concern about her son's emotional processing of the loss, noting he doesn't show much emotion about his father's , which she recognizes is difficult to process at a young age. Progress has been made in that she reports one change - that she doesn't cry as much as before. Plan: - Transition to new therapist Bailey for EMDR treatment - Patient will communicate preferences for grounding techniques to new therapist, specifically what has and has not worked for her in the past - Consider counseling for her son to help him process his father's Housing instability and safety concerns Assessment: Patient continues to experience ongoing safety issues with neighbors requiring repeated police calls. Housing authority was reportedly rude when she requested transfer due to safety concerns, stating that their specific safety issues are not grounds for transfer. The situation has escalated as neighbors now know the patient's family is reporting them to police, creating additional safety risks. Patient reports having to exercise significant restraint to avoid confrontation with neighbors to prevent legal consequences or eviction. Plan: - Consider contacting [facility] again to speak with different termite control representative - Continue avoiding direct confrontation with neighbors to prevent legal issues or eviction Financial stressors Assessment: Patient recently began receiving survivor benefits of $450 monthly. 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 She had to pawn her camera but was able to retrieve it with daughter's financial assistance. Patient is concerned about upcoming insurance changes that may affect her ability to continue therapy at current location. Plan: - Continue pursuing disability benefits - Insurance coverage confirmed through July, with uncertainty beyond that date 06/21/2025 Major depressive disorder, recurrent severe without [...] concerns Assessment: Patient received phone call from [facility] in [place] while she was in another appointment and [...] Consider follow up with housing again in [place] 06/21/2025 Post-traumatic stress disorder, chronic (ICD-10 - [...] concerns Assessment: Patient received phone call from [facility] in [place] while she was in another appointment and [...] Consider follow up with housing again in [place] 06/14/2025 Major depressive disorder, recurrent severe without [...] waitlist without placement for 2 years in [facility] with poor responsiveness from housing authorities. 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 Patient has goal of relocating to [place] to start over and has considered RV [...] previously discussed housing solution for relocation to [place] Depression and social isolation Assessment: Patient reports increased crying, social isolation, and reduced work activity. Expresses feeling that youngest son Davey is primary reason for continuing. Sleep disturbance present with button clamper awakening at 3-4 AM when unable to [...] waitlist without placement for 2 years in [facility] with poor responsiveness from housing authorities. 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 Patient has goal of relocating to [place] to start over and has considered RV [...] previously discussed housing solution for relocation to [place] Depression and social isolation Assessment: Patient reports increased crying, social isolation, and reduced work activity. Expresses feeling that youngest son Davey is primary reason for continuing. 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 She continues to experience emotional distress related to the loss, including being triggered by media content that reminds her of her . She reports trying not to cry around her son but acknowledges he can usually tell when she has been crying. The patient expresses concern about her son's emotional processing of the loss, noting he doesn't show much emotion about his father's , which she recognizes is difficult to process at a young age. Progress has been made in that she reports one change - that she doesn't cry as much as before. Plan: - Transition to new therapist Bailey for EMDR treatment - Patient will communicate preferences for grounding techniques to new therapist, specifically what has and has not worked for her in the past - Consider counseling for her son to help him process his father's Housing instability and safety concerns Assessment: Patient continues to experience ongoing safety issues with neighbors requiring repeated police calls. Housing authority was reportedly rude when she requested transfer due to safety concerns, stating that their specific safety issues are not grounds for transfer. The situation has escalated as neighbors now know the patient's family is reporting them to police, creating additional safety risks. Patient reports having to exercise significant restraint to avoid confrontation with neighbors to prevent legal consequences or eviction. Plan: - Consider contacting [employer] again to speak with different termite control representative - Continue avoiding direct confrontation with neighbors to prevent legal issues or eviction Financial stressors Assessment: Patient recently began receiving survivor benefits of $450 monthly. 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 She had to pawn her camera but was able to retrieve it with daughter's financial assistance. Patient is concerned about upcoming insurance changes that may affect her ability to continue therapy at current location. Plan: - Continue pursuing disability benefits - Insurance coverage confirmed through July, with uncertainty beyond that date 06/07/2025 Major depressive disorder, recurrent severe without psychotic features (ICD-10 - F33.2) Plan: - Continue to process upcoming anniversary and grief related to loss of . Provided information on free suicide survivors support group through [email or web address]. - Continue current depression treatment including therapy, medication management, and Spravato. - Communicate with daughter on gentle parenting and continue to improve relationship with daughter. - Practice regular self care in order to manage depression and anxiety symptoms. 06/07/2025 Post-traumatic stress disorder, chronic (ICD-10 - F43.12) Plan: - Continue to process upcoming anniversary and grief related to loss of . Provided information on [place] suicide survivors support group through [email or web address]. - Continue current depression treatment including therapy, medication management, and Spravato. - Communicate with daughter on gentle parenting and continue to improve relationship with daughter. - Practice regular self care in order to manage depression and anxiety symptoms. 05/24/2025 Major depressive disorder, recurrent severe without [...] patterns and potential triggers for early bedtimes 05/17/2025 Major depressive disorder, recurrent severe without [...] interpersonal conflicts on overall mood and functioning 05/10/2025 Major depressive disorder, recurrent severe without [...] activities, such as visiting a [facility] at [place], suggesting some improvement in activity level and [...] security support. Plan: - Provide information about [address] for access to area resources including [...] activities, such as visiting a torres at [place], suggesting some improvement in activity level and [...] security support. Plan: - Provide information about [address] for access to area resources including [...] strategies to address concerns about educational transferability. 05/31/2025 Major depressive disorder, recurrent severe without [...] techniques to improve motivation and energy levels. 04/19/2025 Post-traumatic stress disorder, chronic (ICD-10 - [...] manage perimenopausal symptoms - Consider referral to tank storage supervisor for further evaluation and management if symptoms [...] manage perimenopausal symptoms - Consider referral to tank storage supervisor for further evaluation and management if symptoms are severe 11/24/2024 Nicotine use (ICD-10 - Z72.0) 11/10/2024 WILL (generalized anxiety disorder) (ICD-10 - [...] weight management strategies - Consider referral to fruit preserver or dietitian for personalized dietary advice - [...] weight management strategies - Consider referral to fruit preserver or dietitian for personalized dietary advice - [...] approaches in light of C-PTSD diagnosis 11/24/2024 MDD (major depressive disorder), recurrent severe, without psychosis (ICD-10 - F33.2) 11/10/2024 PTSD (post-traumatic stress disorder) (ICD-10 - [...] weight management strategies - Consider referral to fruit preserver or dietitian for personalized dietary advice - [...] care approaches in light of C-PTSD diagnosis 04/19/2025 Grief (ICD-10 - F43.21) Complicated Grief [...] manage perimenopausal symptoms - Consider referral to tank storage supervisor for further evaluation and management if symptoms are severe 05/31/2025 WILL (generalized anxiety disorder) (ICD-10 - [...] techniques to improve motivation and energy levels. 05/10/2025 Grief (ICD-10 - F43.21) Social Anxiety [...] activities, such as visiting a tor[facility] at [place], suggesting some improvement in activity level and [...] security support. Plan: - Provide information about [address] for access to area resources including [...] strategies to address concerns about educational transferability. 05/17/2025 Post-traumatic stress disorder, chronic (ICD-10 - [...] interpersonal conflicts on overall mood and functioning 06/07/2025 Grief (ICD-10 - F43.21) Plan: - Continue to process upcoming anniversary and grief related to loss of . Provided information on free suicide survivors support group through [employer]. - Continue current depression treatment including therapy, medication management, and Spravato. - Communicate with daughter on gentle parenting and continue to improve relationship with daughter. - Practice regular self care in order to manage depression and anxiety symptoms. 06/28/2025 Post-traumatic stress disorder, chronic (ICD-10 - F43.12) Grief and bereavement Assessment: Patient is approaching the first anniversary of her 's in June, which is anticipated to be particularly difficult. She continues to experience emotional distress related to the loss, including being triggered by media content that reminds her of her . She reports trying not to cry around her son but acknowledges he can usually tell when she has been crying. The patient expresses concern about her son's emotional processing of the loss, noting he doesn't show much emotion about his father's , which she recognizes is difficult to process at a young age. Progress has been made in that she reports one change - that she doesn't cry as much as before. Plan: - Transition to new therapist Bailey for EMDR treatment - Patient will communicate preferences for grounding techniques to new therapist, specifically what has and has not worked for her in the past - Consider counseling for her son to help him process his father's Housing instability and safety concerns Assessment: Patient continues to experience ongoing safety issues with neighbors requiring repeated police calls. Housing authority was reportedly rude when she requested transfer due to safety concerns, stating that their specific safety issues are not grounds for transfer. The situation has escalated as neighbors now know the patient's family is reporting them to police, creating additional safety risks. Patient reports having to exercise significant restraint to avoid confrontation with neighbors to prevent legal consequences or eviction. Plan: - Consider contacting [employer] again to speak with different termite control representative - Continue avoiding direct confrontation with neighbors to prevent legal issues or eviction Financial stressors Assessment: Patient recently began receiving survivor benefits of $450 monthly. She is considering starting a [employer] business and is pursuing disability benefits. She had to pawn her camera but was able to retrieve it with daughter's financial assistance. Patient is concerned about upcoming insurance changes that may affect her ability to continue therapy at current location. Plan: - Continue pursuing disability benefits - Insurance coverage confirmed through July, with uncertainty beyond that date 06/14/2025 Other specified problems related to primary [...] waitlist without placement for 2 years in [facility] with poor responsiveness from housing authorities. 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 Patient has goal of relocating to [place] to start over and has considered RV [...] previously discussed housing solution for relocation to [place] Depression and social isolation Assessment: Patient reports increased crying, social isolation, and reduced work activity. Expresses feeling that youngest son Davey is primary reason for continuing. Sleep disturbance present with button clamper awakening at 3-4 AM when unable to [...] stressors - Monitor mood symptoms and safety 07/17/2025 WILL (generalized anxiety disorder) (ICD-10 - F41.1) 07/09/2025 WILL (generalized anxiety disorder) (ICD-10 - F41.1) 07/31/2025 ADHD (attention deficit hyperactivity disorder), combined type (ICD-10 - F90.2) 11/15/2024 ADHD (attention deficit hyperactivity disorder), combined [...] relationships due to grief and loss of 03/19/2025 ADHD (attention deficit hyperactivity disorder), combined [...] continuing mental health treatment Interpersonal Conflicts and Greer Issues Assessment: Patient reports difficulties in setting [...] limiting phone notifications) as needed for self-care 04/05/2025 Grief (ICD-10 - F43.21) Suspected Neurodevelopment al Disorder Assessment: Ana reports multiple symptoms consistent with autism spectrum disorder (ASD) with her daughter having been recently diagnosed. Ana was previously diagnosed with attention-defici t/hyperactivity disorder (ADHD). 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 Plan: - Provide referrals for autism spectrum disorder evaluation - Explore how potential autism spectrum traits may intersect with current symptoms and coping strategies 07/02/2025 WILL (generalized anxiety disorder) (ICD-10 - F41.1) 11/30/2024 ADHD (attention deficit hyperactivity disorder), combined [...] continue working on the identified issues. 12/13/2024 ADHD (attention deficit hyperactivity disorder), combined [...] resources - Offer information on [facility] [place] for grief counseling groups 2. Anxiety Disorder Assessment: - Reports panic attack while driving home from [place] - Triggered by darkness and difficult road [...] seeks immediate professional help for suicidal ideation. 05/25/2025 MDD (major depressive disorder), recurrent severe, without psychosis (ICD-10 - F33.2) SSRI/SNRI side effects discussed including but not limited to, gastric upset, nausea, vomiting, diarrhea and/or constipation, weight changes, sexual side effects including loss of libido, increased suicidal thoughts/behav iors in children and young adults, and serotonin syndrome. 04/26/2025 WILL (generalized anxiety disorder) (ICD-10 - [...] confined to her house. She has explored [id number] options but hasn't found suitable opportunities. 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 The patient demonstrates awareness of the limitations of peer support and the importance of directing members to professional help when needed. Plan: - Discuss strategies for managing the online support group effectively - Explore self-care techniques to prevent burnout from group management responsibilities - Provide guidance on creating clear group guidelines and crisis response protocols 05/01/2025 ADHD (attention deficit hyperactivity disorder), combined [...] resolving the conflict with her middle child. 12/28/2024 MDD (major depressive disorder), recurrent severe, without psychosis (ICD-10 - F33.2) SSRI/SNRI side effects discussed including but not limited to, gastric upset, nausea, vomiting, diarrhea and/or constipation, weight changes, sexual side effects including loss of libido, increased suicidal thoughts/behav iors in children and young adults, and serotonin syndrome. 08/11/2024 PTSD (post-traumatic stress disorder) (ICD-10 - [...] - The patient experiences anxiety about attending [employer] events, especially at her sister's house due [...] goals and dreams, such as relocating to [place], as a means to honor her 's [...] or feels overwhelmed by her emotions. 08/25/2024 Grief (ICD-10 - F43.21) Assessment and [...] further and consider discussing them with a contracts advisor or counselor if desired. 7. Transgender Child - Support the patient in understanding and accepting their child's gender identity and transition process. - Encourage open communication between the patient and their child regarding their experiences and needs. Follow-up: - Schedule a follow-up appointment in one week to continue addressing the patient's concerns and monitor progress. 11/24/2024 ADHD (attention deficit hyperactivity disorder), combined type (ICD-10 - F90.2) 1. Complicated grief Assessment: - Patient continues to experience grief related to the loss of her - Plans to take some of his ashes on upcoming trip to [place], where they were and had planned to [...] functioning - Encourage patient to follow financial data analyst's bankruptcy process as planned - Discuss potential [...] progress and continue working on identified issues 07/06/2025 MDD (major depressive disorder), recurrent severe, without psychosis (ICD-10 - F33.2) SSRI/SNRI side effects discussed including but not limited to, gastric upset, nausea, vomiting, diarrhea and/or constipation, weight changes, sexual side effects including loss of libido, increased suicidal thoughts/behav iors in children and young adults, and serotonin syndrome. 07/20/2025 Post-traumatic stress disorder, chronic (ICD-10 - F43.12) Grief and bereavement Assessment: Patient is experiencing significant sadness and grief related to the one-year anniversary of Oscar's suicide. She reports feeling overwhelmed and sad, expressing concern about managing her emotions while caring for Davey who also appears to be grieving. The patient demonstrates awareness of the mutual need for support between herself and Davey during this difficult time. Plan: - Spend time with Davey for mutual support during grief process - Share favorite stories about Oscar as part of grief processing - Maintain basic self-care including adequate nutrition - Continue EMDR therapy with Bailey Financial hardship and disability application Assessment: Patient is experiencing significant financial stress while awaiting disability approval. She reports being unable to work due to inability to tolerate arrogant and verbally abusive doctors with her last employment situation being particularly problematic. She has been working since age 16 and expresses distress about living in poverty, stating this is not by choice. Patient is at risk of losing belongings in storage including sentimental items from her partner. Plan: - Continue pursuing disability application process 01/04/2025 ADHD (attention deficit hyperactivity disorder), combined [...] coverage and potential patient assistance programs through [employer]. - Investigate possibility of medical transportation services [...] of mental health treatment if needed. 02/12/2025 WILL (generalized anxiety disorder) (ICD-10 - [...] continue working on the identified issues. 10/30/2024 WILL (generalized anxiety disorder) (ICD-10 - F41.1) 01/26/2025 MDD (major depressive disorder), recurrent severe, without psychosis (ICD-10 - F33.2) SSRI/SNRI side effects discussed including but not limited to, gastric upset, nausea, vomiting, diarrhea and/or constipation, weight changes, sexual side effects including loss of libido, increased suicidal thoughts/behav iors in children and young adults, and serotonin syndrome. 10/30/2024 WILL (generalized anxiety disorder) (ICD-10 - [...] joining a grief support group, such as [employer] or [employer], for additional support. 3. Work-related stress - Patient experienced a conflict at work and is struggling with the work environment. 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 Utilize stress management techniques and coping strategies during therapy sessions. 4. Family concerns - Patient has concerns about her children's well-being and development. - Plan: Encourage the patient to seek appropriate resources and support for her children, such as the [employer] parent education program and [employer] for grief support. Continue to address family [...] therapy sessions. Informed client that [facility] does not provide psilocybin microdosing [...] impact on her mood during therapy sessions. 01/16/2025 ADHD (attention deficit hyperactivity disorder), combined [...] including local providers like [facility] in [place]. - Attend medication management follow-up appointment to reassess medication efficacy and side effects. -Due to possible loss of housing related to recent fight with mom, provided list of shelters in both [place] and [facility]. -Sent message to Jacquelin in regards to [...] follow up appointment - Consider referral to tank storage supervisor or mortgage field inspector for specialized menopause management. 02/16/2025 MDD (major depressive disorder), recurrent severe, without psychosis (ICD-10 - F33.2) SSRI/SNRI side effects discussed including but not limited to, gastric upset, nausea, vomiting, diarrhea and/or constipation, weight changes, sexual side effects including loss of libido, increased suicidal thoughts/behav iors in children and young adults, and serotonin syndrome. 02/15/2025 Encounter for screening for cardiovascular disorders (ICD-10 - Z13.6) 02/13/2025 Encounter for screening for depression (ICD-10 - Z13.31) 02/20/2025 ADHD (attention deficit hyperactivity disorder), combined [...] - Provide psychoeducation on ADHD management techniques 02/26/2025 ADHD (attention deficit hyperactivity disorder), combined [...] and grief response in therapy sessions 02/20/2025 WILL (generalized anxiety disorder) (ICD-10 - F41.1) 02/22/2025 Encounter for screening for cardiovascular disorders (ICD-10 - Z13.6) 02/26/2025 PTSD (post-traumatic stress disorder) (ICD-10 - F43.10) 03/05/2025 WILL (generalized anxiety disorder) (ICD-10 - F41.1) 03/21/2025 Nicotine use (ICD-10 - Z72.0) no [...] and young adults, and serotonin syndrome. 03/29/2025 Grief (ICD-10 - F43.21) Anxiety and [...] to better process related thoughts and emotions 04/16/2025 MDD (major depressive disorder), recurrent severe, [...] to better process related thoughts and emotions 04/16/2025 WILL (generalized anxiety disorder) (ICD-10 - F41.1) 03/19/2025 WILL (generalized anxiety disorder) (ICD-10 - [...] children and young adults, and serotonin syndrome. 03/01/2025 WILL (generalized anxiety disorder) (ICD-10 - F41.1) 02/26/2025 Nicotine use (ICD-10 - Z72.0) 03/05/2025 PTSD (post-traumatic stress disorder) (ICD-10 - [...] and grief response in therapy sessions 02/20/2025 Grief (ICD-10 - F43.21) Multiple Psychosocial [...] Provide psychoeducation on ADHD management techniques 02/16/2025 WILL (generalized anxiety disorder) (ICD-10 - F41.1) 02/20/2025 PTSD (post-traumatic stress disorder) (ICD-10 - F43.10) 01/26/2025 WILL (generalized anxiety disorder) (ICD-10 - [...] including local providers like [facility] in [place]. - Attend medication management follow-up appointment to reassess medication efficacy and side effects. -Due to possible loss of housing related to recent fight with mom, provided list of shelters in both [place] and [facility]. -Sent message to Jacquelin in regards to [...] follow up appointment - Consider referral to tank storage supervisor or mortgage field inspector for specialized menopause management. 10/30/2024 PTSD (post-traumatic stress disorder) (ICD-10 - [...] patient to continue open communication with her office system analyst and coworkers to address concerns and establish boundaries. Utilize stress management techniques and coping strategies during therapy sessions. 4. Family concerns - Patient has concerns about her children's well-being and development. - Plan: Encourage the patient to seek appropriate resources and support for her children, such as the [employer] parent education program and [facility] for grief support. Continue to address family [...] therapy sessions. Informed client that [facility] does not provide psilocybin microdosing [...] on her mood during therapy sessions. 10/30/2024 PTSD (post-traumatic stress disorder) (ICD-10 - [...] and continue working on the identified issues. 02/12/2025 ADHD (attention deficit hyperactivity disorder), combined type (ICD-10 - F90.2) 01/04/2025 PTSD (post-traumatic stress disorder) (ICD-10 - [...] coverage and potential patient assistance programs through [employer]. - Investigate possibility of medical transportation services [...] context of mental health treatment if needed. 09/25/2024 PTSD (post-traumatic stress disorder) (ICD-10 - F43.10) 11/24/2024 WILL (generalized anxiety disorder) (ICD-10 - F41.1) 07/06/2025 WILL (generalized anxiety disorder) (ICD-10 - F41.1) 11/24/2024 PTSD (post-traumatic stress disorder) (ICD-10 - F43.10) 1. Complicated grief Assessment: - Patient continues to experience grief related to the loss of her - Plans to take some of his ashes on upcoming trip to [place], where they were and had planned to [...] functioning - Encourage patient to follow financial data analyst's bankruptcy process as planned - Discuss potential [...] progress and continue working on identified issues 08/11/2024 WILL (generalized anxiety disorder) (ICD-10 - [...] - The patient experiences anxiety about attending [place] events, especially at her sister's house due [...] goals and dreams, such as relocating to [place], as a means to honor her 's [...] WILL (generalized anxiety disorder) (ICD-10 - F41.1) 05/01/2025 Post-traumatic stress disorder, chronic (ICD-10 - [...] resolving the conflict with her middle child. 12/13/2024 PTSD (post-traumatic stress disorder) (ICD-10 - [...] resources - Offer information on [facility] in [place] for grief counseling groups 2. Anxiety Disorder Assessment: - Reports panic attack while driving home from [place] - Triggered by darkness and difficult road [...] appointment to continue addressing identified concerns 11/30/2024 PTSD (post-traumatic stress disorder) (ICD-10 - [...] and continue working on the identified issues. 07/02/2025 ADHD (attention deficit hyperactivity disorder), combined type (ICD-10 - F90.2) 05/25/2025 WILL (generalized anxiety disorder) (ICD-10 - F41.1) 04/12/2025 Grief (ICD-10 - F43.21) Anxiety and [...] but faces challenges in finding an appropriate felled seam operator covered by insurance and someone who has known her since childhood to provide historical information. Plan: - Provide referrals for autism spectrum disorder evaluation - Explore how potential autism spectrum traits may intersect with current symptoms and coping strategies 04/05/2025 Major depressive disorder, recurrent severe without psychotic features (ICD-10 - F33.2) Suspected Neurodevelopment al Disorder Assessment: Ana reports multiple symptoms consistent with autism spectrum disorder (ASD) with her daughter having been recently diagnosed. Ana was previously diagnosed with attention-defici t/hyperactivity disorder (ADHD). 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, including being held back in kindergarten [...] guilt through cognitive restructuring and self-compassion exercises 03/19/2025 Grief (ICD-10 - F43.21) Irritability and [...] continuing mental health treatment Interpersonal Conflicts and Greer Issues Assessment: Patient reports difficulties in setting [...] limiting phone notifications) as needed for self-care 11/15/2024 PTSD (post-traumatic stress disorder) (ICD-10 - [...] relationships due to grief and loss of 07/09/2025 PTSD (post-traumatic stress disorder) (ICD-10 - F43.10) 05/17/2025 Irritability and anger (ICD-10 - R45.4) [...] interpersonal conflicts on overall mood and functioning 11/10/2024 Grief (ICD-10 - F43.21) 1. Medication-relat [...] weight management strategies - Consider referral to fruit preserver or dietitian for personalized dietary advice - [...] approaches in light of C-PTSD diagnosis 11/10/2024 Encounter for screening for depression (ICD-10 [...] weight management strategies - Consider referral to fruit preserver or dietitian for personalized dietary advice - [...] care approaches in light of C-PTSD diagnosis 03/19/2025 Encounter for screening for depression (ICD-10 [...] continuing mental health treatment Interpersonal Conflicts and Greer Issues Assessment: Patient reports difficulties in setting [...] limiting phone notifications) as needed for self-care 04/05/2025 Post-traumatic stress disorder, chronic (ICD-10 - F43.12) Suspected Neurodevelopment al Disorder Assessment: Ana reports multiple symptoms consistent with autism spectrum disorder (ASD) with her daughter having been recently diagnosed. Ana was previously diagnosed with attention-defici t/hyperactivity disorder (ADHD). 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 Plan: - Provide referrals for autism spectrum disorder evaluation - Explore how potential autism spectrum traits may intersect with current symptoms and coping strategies 11/15/2024 Grief (ICD-10 - F43.21) 1. Major [...] relationships due to grief and loss of 11/30/2024 Grief (ICD-10 - F43.21) 1. Caregiver [...] accessing community resources - Offer information on [facility] in [place] for grief counseling groups 2. Anxiety Disorder Assessment: - Reports panic attack while driving home from [place] - Triggered by darkness and difficult road [...] appointment to continue addressing identified concerns 12/28/2024 ADHD (attention deficit hyperactivity disorder), combined [...] seeks immediate professional help for suicidal ideation. 05/25/2025 PTSD (post-traumatic stress disorder) (ICD-10 - F43.10) 12/28/2024 PTSD (post-traumatic stress disorder) (ICD-10 - F43.10) 08/11/2024 ADHD (attention deficit hyperactivity disorder), combined [...] - The patient experiences anxiety about attending [employer] events, especially at her sister's house due [...] goals and dreams, such as relocating to [place], as a means to honor her 's [...] thoughts or feels overwhelmed by her emotions. 11/24/2024 Grief (ICD-10 - F43.21) 1. Complicated grief Assessment: - Patient continues to experience grief related to the loss of her - Plans to take some of his ashes on upcoming trip to [place], where they were and had planned to [...] functioning - Encourage patient to follow financial data analyst's bankruptcy process as planned - Discuss potential [...] progress and continue working on identified issues 07/06/2025 PTSD (post-traumatic stress disorder) (ICD-10 - F43.10) 11/24/2024 PTSD (post-traumatic stress disorder) (ICD-10 - [...] coverage and potential patient assistance programs through [employer]. - Investigate possibility of medical transportation services [...] of mental health treatment if needed. 02/12/2025 PTSD (post-traumatic stress disorder) (ICD-10 - F43.10) 09/25/2024 ADHD (attention deficit hyperactivity disorder), combined type (ICD-10 - F90.2) No stimulant-cannabis use 10/30/2024 ADHD (attention deficit hyperactivity disorder), combined type (ICD-10 - F90.2) No stimulant-cannabis use 10/30/2024 Grief (ICD-10 - F43.21) Assessment and [...] joining a grief support group, such as [employer] or [employer], for additional support. 3. Work-related stress - Patient experienced a conflict at work and is struggling with the work environment. 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 Utilize stress management techniques and coping strategies during therapy sessions. 4. Family concerns - Patient has concerns about her children's well-being and development. - Plan: Encourage the patient to seek appropriate resources and support for her children, such as the [employer] parent education program and [employer] for grief support. Continue to address family [...] therapy sessions. Informed client that [facility] does not provide psilocybin microdosing [...] impact on her mood during therapy sessions. 01/26/2025 PTSD (post-traumatic stress disorder) (ICD-10 - F43.10) 01/16/2025 Encounter for screening for depression (ICD-10 [...] including local providers like [facility] in [place]. - Attend medication management follow-up appointment to reassess medication efficacy and side effects. -Due to possible loss of housing related to recent fight with mom, provided list of shelters in both [place] and [facility]. -Sent message to Jacquelin in regards to [...] follow up appointment - Consider referral to tank storage supervisor or mortgage field inspector for specialized menopause management. 02/16/2025 PTSD (post-traumatic stress disorder) (ICD-10 - F43.10) 02/20/2025 PTSD (post-traumatic stress disorder) (ICD-10 - [...] (post-traumatic stress disorder) (ICD-10 - F43.10) 02/26/2025 ADHD (attention deficit hyperactivity disorder), combined type (ICD-10 - F90.2) 02/26/2025 Encounter for screening for depression (ICD-10 [...] and grief response in therapy sessions 02/22/2025 WILL (generalized anxiety disorder) (ICD-10 - F41.1) 03/21/2025 WILL (generalized anxiety disorder) (ICD-10 - [...] and young adults, and serotonin syndrome. 03/19/2025 PTSD (post-traumatic stress disorder) (ICD-10 - F43.10) 03/29/2025 Post-traumatic stress disorder, chronic (ICD-10 - [...] to better process related thoughts and emotions 04/16/2025 PTSD (post-traumatic stress disorder) (ICD-10 - F43.10) 04/16/2025 ADHD (attention deficit hyperactivity disorder), combined type (ICD-10 - F90.2) No stimulant-cannabis use 03/19/2025 ADHD (attention deficit hyperactivity disorder), combined type (ICD-10 - F90.2) No stimulant-cannabis use 03/21/2025 PTSD (post-traumatic stress disorder) (ICD-10 - [...] children and young adults, and serotonin syndrome. 03/05/2025 ADHD (attention deficit hyperactivity disorder), combined type (ICD-10 - F90.2) 02/26/2025 Encounter for screening for cardiovascular disorders (ICD-10 - Z13.6) 03/01/2025 Nicotine use (ICD-10 - Z72.0) 02/20/2025 Major depressive disorder, recurrent severe without psychotic features (ICD-10 - F33.2) continue current treatment as prescribed by primary psychiatric care provider 02/22/2025 PTSD (post-traumatic stress disorder) (ICD-10 - F43.10) 02/20/2025 Encounter for screening for depression (ICD-10 [...] Provide psychoeducation on ADHD management techniques 02/16/2025 ADHD (attention deficit hyperactivity disorder), combined type (ICD-10 - F90.2) No stimulant-cannabis use 01/26/2025 ADHD (attention deficit hyperactivity disorder), combined type (ICD-10 - F90.2) No stimulant-cannabis use 10/30/2024 Nicotine use (ICD-10 - Z72.0) 02/12/2025 Nicotine use (ICD-10 - Z72.0) 01/04/2025 Encounter for screening for depression (ICD-10 [...] coverage and potential patient assistance programs through [employer]. - Investigate possibility of medical transportation services [...] context of mental health treatment if needed. 11/24/2024 ADHD (attention deficit hyperactivity disorder), combined type (ICD-10 - F90.2) No stimulant-cannabis use No stimulant-cannabis use 07/06/2025 ADHD (attention deficit hyperactivity disorder), combined type (ICD-10 - F90.2) No stimulant-cannabis use 12/28/2024 ADHD (attention deficit hyperactivity disorder), combined type (ICD-10 - F90.2) No stimulant-cannabis use 12/28/2024 Encounter for screening for depression [...] immediate professional help for suicidal ideation. 12/13/2024 Nicotine use (ICD-10 - Z72.0) 1. [...] resources - Offer information on [facility] in [place] for grief counseling groups 2. Anxiety Disorder Assessment: - Reports panic attack while driving home from [place] - Triggered by darkness and difficult road [...] appointment to continue addressing identified concerns 11/24/2024 Encounter for screening for depression (ICD-10 - Z13.31) 1. Complicated grief Assessment: - Patient continues to experience grief related to the loss of her - Plans to take some of his ashes on upcoming trip to [place], where they were and had planned to [...] functioning - Encourage patient to follow financial data analyst's bankruptcy process as planned - Discuss potential [...] progress and continue working on identified issues 05/25/2025 ADHD (attention deficit hyperactivity disorder), combined [...] continuing mental health treatment Interpersonal Conflicts and Greer Issues Assessment: Patient reports difficulties in setting [...] limiting phone notifications) as needed for self-care 11/15/2024 Encounter for screening for depression (ICD-10 [...] relationships due to grief and loss of 11/30/2024 Encounter for screening for depression (ICD-10 [...] stress - Encourage patient to use upcoming [place] trip as an opportunity for relaxation and rejuvenation along with potential grief processing 3. Financial stress - Follow up on status of applications for medical card and food stamps - Explore additional financial resources or support services if needed Follow-up: - Schedule a follow-up appointment to monitor the patient's progress and continue working on the identified issues. 12/13/2024 Encounter for screening for depression (ICD-10 [...] resources - Offer information on [facility] in [place] for grief counseling groups 2. Anxiety Disorder Assessment: - Reports panic attack while driving home from [place] - Triggered by darkness and difficult road [...] identified concerns 12/28/2024 Encounter for screening for cardiovascular disorders (ICD-10 - Z13.6) 11/24/2024 Encounter for screening for cardiovascular disorders (ICD-10 - Z13.6) 10/30/2024 Encounter for screening for cardiovascular disorders (ICD-10 - Z13.6) 01/26/2025 Encounter for screening for cardiovascular disorders (ICD-10 - Z13.6) 02/16/2025 Encounter for screening for cardiovascular disorders (ICD-10 - Z13.6) 02/20/2025 Encounter for screening for cardiovascular disorders (ICD-10 - Z13.6) 02/22/2025 ADHD (attention deficit hyperactivity disorder), combined type (ICD-10 - F90.2) 03/01/2025 ADHD (attention deficit hyperactivity disorder), combined type (ICD-10 - F90.2) 03/21/2025 ADHD (attention deficit hyperactivity disorder), combined [...] As needed. 3. PTSD in therapy- JAIR Ashley refer to EDMR ELAINE Avalos discuss and educated on EDMR - patient agreed to EDMR 4. ADHD SSRI side effects discussed including but not limited to, gastric upset, nausea, vomiting, diarrhea and/or constipation, weight changes, sexual side effects including loss of libido, increased suicidal thoughts/behavio rs in children and young adults, and serotonin syndrome. 02/16/2025 Encounter for screening for depression (ICD-10 - Z13.31) 01/26/2025 Encounter for screening for depression (ICD-10 - Z13.31) 11/24/2024 Encounter for screening for depression (ICD-10 - Z13.31) 12/28/2024 Encounter for screening for depression (ICD-10 - Z13.31) 09/25/2024 Other Increase lamictal to 150mg daily [...] of psychotropic medications. -Crisis prevention hotline 988. 11/24/2024 Other Stopped abilify per pt [...] of psychotropic medications. -Crisis prevention hotline 988. 12/28/2024 Other Increase duloxetine to 60mg daily [...] therapeutic effects of psychotropic medications. -Crisis prevention [facility] 988. 01/26/2025 Other Start lithium 150mg BID for [...] therapeutic effects of psychotropic medications. -Crisis prevention [facility] 988. 02/12/2025 Other Major Depressive Disorder Assessment: Patient [...] of psychotropic medications. -Crisis prevention hotline 988. 02/20/2025 Mely Perez presents for photo administration [...] efforts have been made to correct them. 02/22/2025 Other 1. Major Depressive Disorder - [...] therapy appointment with Ashley scheduled for 02-26-2025. 02/26/2025 Other Major Depressive Disorder Assessment: Patient reports depression severity of 8/10. Sleep is approximately 8 hours per night, but appetite has decreased. Patient denies suicidal ideation, hallucinations , delusions, or paranoia. No medication side effects or changes reported since last visit. Plan: - Continue medications as prescribed by Parminder - Next Spravato treatment scheduled for 03/01/25 and 03/16/25 [...] b. Monitor patient's response to Spravato treatment. 03/05/2025 Other 1. Major Depressive Disorder - [...] Complaints - No specific physical complaints mentioned. 03/08/2025 Other Major Depressi ve DisorderAssessment: Patient reports current treatment approach is going well. No hallucinations, paranoia, or delusions reported. Patient denies any side effects or concerns related to current treatment. Patient denies any current suicidal ideations.Plan:- Continue current treatment regimen 03/19/2025 Other Continue current medications Schedule for [...] of psychotropic medications. -Crisis prevention hotline 988. 03/29/2025 Other Major Depressive DisorderAssessment: Patient reports [...] prioritize self-care and relaxation after Spravato treatments 04/05/2025 Other Major Depressi ve DisorderAssessment: Patient reports current depression severity of 7/10. Recent lapse in treatment correlated with symptom exacerbation, which has caused what she describes as causing her to bottom back out. Patient denies suicidal thoughts. Recent stressors include processing multiple family members' autism diagnoses. No reported hallucinations or delusions.Plan:- Continue current treatment regimen 04/12/2025 Other DepressionAssessmen t: Patient reports feeling really sad when asked about depression. Denies suicidal ideations. Plan:- Continue monitoring mood symptoms - Continue current treatment regimen as presribed by primary pyschiatric provider 04/16/2025 Other Continue current medications -she declines [...] symptoms.Plan:- Continue depression treatment as currently prescribed 04/26/2025 Other Major Depressive DisorderAssessment: Patient reports [...] stressors related to living situation with daughter 05/03/2025 Other 1. Major Depressive Disorder - Patient rates depression at 7/10. - Plan: a. Administer Spravato as scheduled. [...] sleep. - Plan: a. Monitor sleep patterns. 05/10/2025 Other Major Depressi ve DisorderAssessment: Patient reports current depression severity at 7 out of 10. Sleep is described as pretty decent, though patient mentions waking up at 4 AM on one occasion. Appetite remains unchanged from previous visits. No suicidal ideation reported. Plan:- Continue current treatment regimen as prescribed- Monitor for any changes in symptoms 05/17/2025 Other Major Depressive DisorderAssessment: Patient is [...] for discharge per protocol, accompanied by designated auto parts delivery driver.- Verbalized understanding of post-treatment precautions:Avoid driving, operating machinery, or making major decisions until next day- Patient asked appropriate questions, verbalized understanding, and agreed to the recommended treatment and to continue to be followed.- Patient knows how to reach clinic should any problems, questions, or concerns arise. 06/28/2025 Other DepressionPatient reports depression severity at 9/10 scale. Currently receiving weekly treatments that may be losing effectiveness or plateauing. Mood remains significantly impaired despite ongoing intervention.Plan:- Continue current treatment regimen - Discuss treatment progress and changes if appropriate during next follow up visit with Parminder AnxietyPatient reports anxiety as pretty bad with significant ongoing symptoms affecting daily functioning.Plan:- Continue current treatment regimen Gastrointestinal bleeding and vomitingPatient experiencing bleeding in stool and vomiting for 4 weeks duration with associated severe abdominal and back pain. Gastroenterology consultation scheduled for July 10. Currently managed with omeprazole and baclofen for muscle relaxation. Patient experienced allergic reaction with itching to unspecified medication requiring discontinuation.Mercedes n:- Gastroenterology appointment July 10 Spravato Therapy- Patient remains an appropriate candidate [...] for discharge per protocol, accompanied by designated auto parts delivery driver.- Verbalized understanding of post-treatment precautions:Avoid driving, operating machinery, or making major decisions until next day- Patient asked appropriate questions, verbalized understanding, and agreed to the recommended treatment and to continue to be followed.- Patient knows how to reach clinic should any problems, questions, or concerns arise. 07/02/2025 Mely Crain is a patient presenting for her first session with guilt related to filing for divorce before her 's suicide one year ago on [employer], along with recent triggers from crime television shows and feelings of failure. Guilt following 's suicide Assessment: Patient presents with significant guilt related to filing for divorce prior to her 's by suicide on one year ago. The father of her 10-year-old son by suicide, creating complex grief and guilt dynamics. She reports feeling like a failure, suggesting possible depression and complicated grief. This represents her primary presenting concern and chief complaint for seeking treatment. Plan: - Initiate EMDR therapy as patient expressed interest in this therapeutic approach - Continue rapport building and supportive therapy through active listening - Provide ongoing support and reassurance 07/05/2025 Other DepressionPatient reports depression severity at 7/10. Currently receiving weekly Spravato treatments with variable effectiveness and uncertain improvement noted.Plan:- Continue current treatment regimen- Monitor for treatment response and side effects - Discuss any treatment changes if appropriate at upcoming follow up visit with Parminder Sanchez- Patient remains an appropriate candidate for Spravato [...] for discharge per protocol, accompanied by designated auto parts delivery driver.- Verbalized understanding of post-treatment precautions:Avoid driving, operating machinery, or making major decisions until next day- Patient asked appropriate questions, verbalized understanding, and agreed to the recommended treatment and to continue to be followed.- Patient knows how to reach clinic should any problems, questions, or concerns arise. 07/06/2025 Other Increase lamictal to 75mg daily for mood Patient educated on all medications including potential benefits, side effects, risks. Educated on proper dosing schedule and importance of compliance. [place] PDMP report checked and consistent with prescription history, no controlled substance prescriptions from other providers. Continue Spravato on weekly schedule -The patient continues to meet criteria for ongoing esketamine maintenance therapy, with evidence supporting sustained improvement in depressive symptoms and functional outcomes in TRD -Assessment and treatment plan reviewed with patient. -Compliance with treatment plan importance discussed. -Discussed the risks/benefits of this medication -Discussed medication side effects. -Contact office if symptoms worsen. -Discussed that it can take up to 6-8 weeks to see full therapeutic effects of psychotropic medications. -Crisis prevention hotline 988. 07/09/2025 Mely Perez, a patient, presents with grief and bereavement issues as the one-year anniversary of her 's suicide approaches on July 20, along with anxiety causing significant functional impairment. Grief and Bereavement - Assessment: Ana is approaching the one-year anniversary of her 's by suicide on July 20. She discussed family dynamics and relationships with multiple family members including her mother, daughter, father, grandfather, and . The approaching anniversary date suggests ongoing grief processing and potential for increased emotional distress during this significant milestone. -CBT, EMDR, grief support Anxiety with Functional Impairment - Assessment: Ana reports anxiety that has resulted in significant functional impairment, specifically fear of driving that is severe enough to warrant applying for Social Security Disability. She has been unable to work since October, indicating substantial occupational dysfunction related to her anxiety symptoms. - Plan: EMDR (AIP tx planning script) 07/09/2025 Other DepressionPatient reports feeling really sad with anniversary approaching, distinguishing sadness from depression. She states feeling better with it than without regarding Spravato treatment but still experiencing depressive symptoms. She denies side effects or concerns overall. She reports lamotrigine was recently increased to 75 mg by Parminder last week with refills provided.Plan:- Continue current treatment regimen as prescribed by aPrminder Spravato Therapy- Patient remains an appropriate candidate for Spravato treatment.- Patient has no noted contraindications to treatment today.- Patient denied having concerns regarding treatment today.- She tolerated previous sessions well with positive response.- Observed for 2 hours post-dose; patient remained alert, oriented, and cooperative throughout observation. No reported or observed adverse effects, or clinical signs indicating intolerance, distress, or discomfort. Vital signs remained stable. - Post-treatment patient was alert, oriented, and ambulating steadily. - Cleared for discharge per protocol, accompanied by designated auto parts delivery driver.- She verbalized understanding of post-treatment precautions:Avoid driving, operating machinery, or making major decisions until next day- Patient asked appropriate questions, verbalized understanding, and agreed to the recommended treatment and to continue to be followed.- Patient knows how to reach clinic should any problems, questions, or concerns arise. 07/17/2025 Mely Perez presents with grief and loss related to her 's by suicide, working through complex emotional responses and processing associated trauma. Grief from 's suicide - Assessment: Ana is working through grief and loss related to her 's by suicide. During treatment planning and history taking, themes of powerlessness and feelings of failure have been identified as significant patterns in her life that require therapeutic attention. The patient is actively engaged in trauma-informe d therapeutic interventions to process her loss and associated emotional responses. - Plan: - Continue AIP (Adaptive Information Processing) history taking and treatment planning. - Continue safe calm place technique. - Continue float back technique to identify and process times when patient felt powerless or like a failure. 07/17/2025 Other DepressionPatient reports ongoing depression symptoms with anniversary of 's passing noted as a contrinbuting factor. She denies suicidal ideations and denies side effects or concerns otherwise with current treatment.Plan:- Continue current treatment regimen Spravato Therapy- Patient remains an appropriate candidate for Spravato treatment.- Patient has no noted contraindications to treatment today.- Patient denied having concerns regarding treatment today.- She tolerated previous sessions well with positive response.- Observed for 2 hours post-dose; patient remained alert, oriented, and cooperative throughout observation. No reported or observed adverse effects, or clinical signs indicating intolerance, distress, or discomfort. Vital signs remained stable. - Post-treatment patient was alert, oriented, and ambulating steadily. - Cleared for discharge per protocol, accompanied by designated auto parts delivery driver.- She verbalized understanding of post-treatment precautions:Avoid driving, operating machinery, or making major decisions until next day- Patient asked appropriate questions, verbalized understanding, and agreed to the recommended treatment and to continue to be followed.- Patient knows how to reach clinic should any problems, questions, or concerns arise. 07/31/2025 Mely Perez presents with grief following her 's , with recent anniversary triggering increased emotional distress, while managing significant financial hardship. Complicated Grief - Assessment: Ana continues to process the loss of her late , with the recent anniversary of his passing serving as a significant trigger for renewed grief responses. She reports finding comfort in perceiving signs from her , indicating ongoing spiritual connection and meaning-making as part of her grief process. Her ability to find these comforting signs suggests some adaptive coping mechanisms are present, though the timing around the anniversary indicates grief remains active and impactful. - Plan: - Support and encouragement provided during session. Financial Distress - Assessment: Ana reports significant financial hardship, which she identifies as the most challenging aspect of her current situation. This financial strain appears to be compounding her grief-related distress and may be limiting her access to resources and social activities that could support her healing process. Social Isolation - Assessment: Ana is considering joining a line dancing class as a means to increase physical activity and develop social connections. This indicates recognition of her need for social engagement and physical movement, suggesting motivation toward behavioral activation and community involvement as part of her recovery process. Plan Of Treatment Pending Test Test Name Order Date UDT 03/23/2024 ADHD Testing 03/14/2024 Next Appt Details Provider Name:Sanchez Brown, 08/06/2025 11:30:00 AM, [address], [address], [place], [address], Provider Name:Bailey Fernandez, 08/07/2025 01:00:00 PM, [address], [address], [place], [address], Provider Name:Sanchez Brown, 08/07/2025 03:00:00 PM, [address], [address], [place], [address], Provider Name:Bailey Fernandez, 08/20/2025 01:00:00 PM, [address], [address], [place], [address], Provider Name:Sanchez Brown, 08/20/2025 03:15:00 PM, [address], [facility] [address], [place], [address], Insurance Providers Payer Name Payer Address Payer Phone Subscriber Number Group Number Insured Name Patient Relationship to Insured Coverage Start Date Coverage End Date [employer] [address] [place] [address] [phone] [id number] Ana Nagel Self - patient is the [...] Spravato (84 MG Dose) 06/21/2025 84 mg Spravato (84 MG Dose) 06/28/2025 84 mg Spravato (84 MG Dose) 07/05/2025 84 mg Spravato (84 MG Dose) 07/09/2025 84 mg 25B [id number] Spravato (84 MG Dose) 07/17/2025 84 mg Spravato (84 MG Dose) 07/31/2025 84 mg Medical (General) History Medical History [...] 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
--- OUTSIDE RECORDS SUMMARY | 2025-08-02 01:20 | XMS_ITS | Encounter Summary ---
Author Organization [facility] Address [facility] [place] [address] Care Team Providers Care News Assignment Editor Name Role Phone Josephine Lopez MD Primary Care Provider [phone] Encounter Details Date Type Department Care Team (Late Contact Info) Description 09/23/2023 MyChart Message Enc [facility] [address] [phone] [place] [id number] [facility]. [address] [place] [address] Pain in shoulder Social History Tobacco Use Types Packs/Day Years [...] Description 12/05/2025 3:20 PM CDT Office Visit [facility] [address] [phone] [place] [id number] [place] [address] documented as of this encounter Visit Diagnoses Diagnosis Tear of left supraspinatus tendon- Primary documented in this encounter Additional Health Concerns Infection Onset Date Last Indicated Resolved Time COVID-19 Rule Out 03/28/2024 03/28/2024 03/28/2024 10:35 AM CDT Assessment Noted Time PHQ-9 Depression Total Score: 24 023 11:33 AM [facility] [facility] documented as of this encounter Care Teams News Assignment Editor Relationship Specialty [place] [address] [place] [address] PCP - General FAMILY PRACTICE 08/28/22 documented as of this encounter
--- OUTSIDE RECORDS SUMMARY | 2025-08-02 01:21 | XMS_ITS | Data Portability ---
Author Organization [facility] Address [address] [place] [place] [address] [place] [address] Assessment Encounter Date Assessment Date Assessment LastModified by Organization Details LastModified Time 12/17/2023 12/17/2023 Annual gynecological exam performed. Patient will come back in a year unless there are new symptoms. Not available 12/17/2023 12:52:54 06/18/2025 06/18/2025 Annual gynecological exam performed. 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 09:30A M ULTRASOUND Not available Not available Not available Lab surgica l patholo gy study - #2 ECC 2024 025 [facility] (Lab), [address], [place], [address], 07/26/2025 13:41:11 pregnan cy test, urine 2024 025 tiana [place], [facility] [address], [place], [address], 07/26/2025 11:42:22 surgica l patholo gy study - #1 Cervica l polyp 2024 025 [facility] (Lab), [address], [place], [address], 07/28/2025 17:48:45 pap, IG + HR HPV - HPV regardl ess but if HPV is positiv e need subtypi ng 16,18/4 5 add gc/ct/t rich 2024 025 [facility] (Lab), [address], [place], [address], 06/22/2025 13:07:17 lh + FSH, serum 2022 023 [facility] (Lab), [address], [place], [address], 08/29/2022 05:51:45 estradi ol, serum 2022 023 [facility] (Lab), [address], [place], [address], 08/29/2022 05:51:44 prolact in, serum 2022 023 [facility] (Lab), [address], [place], [address], 08/29/2022 05:51:44 CBC w/ auto diff 2022 023 [facility] (Lab), [address], [place], [address], 08/29/2022 05:51:42 CMP, serum or plasma 2022 023 [facility] (Lab), [address], [place], [address], 08/29/2022 05:51:43 TSH, serum or plasma 2022 023 [facility] (Lab), [address], [place], [address], 08/29/2022 05:51:43 testost erone, total, serum 2022 023 [facility] (Lab), [address], [place], [address], 08/29/2022 05:51:43 Referral psychia trist jami l - Mixed anxiety and depress aisha disorde r Please contact this patient to lidya hogue appoint ment. d are the patient s demogra phics and most recent office visit notes. If you have any questio ns, please contact me at [phone]. Thank you, Jami Medina's [address] [facility], [address] [place], [address], 09/08/2022 13:00:56 Procedures None recorde d. Surgeries None recorde d. Imaging US, pelvis 2024 025 [email or web address] [place], [address], [place], [address], 07/10/2025 20:29:01 US, transva ginal 2024 025 [email or web address] [place] [facility] [address], [place], [address], 07/10/2025 20:29:01 MAMMO, screeni ng, bilrivera al [address] [facility], [address], [address], [place], [address], 12/17/2023 14:28:12 Medication Orders ondanse madalyn 4 mg disinte grating tablet 2024 025 [id number], [address] [place], [address], 07/26/2025 11:43:28 Upneeq (PF) 0.1 % eye drops in a dropper ette 2022 023 [id number], [address], [address], 12/17/2023 12:56:10 Patient TargetsNo targets recorded. Patient InstructionsNo instructions recorded. Reason for Referral Psychiatrist Referral for Mi xed anxiety and depressive disorder Mixed anxiety and depressive disorder Mixed anxiety and depressive disorderPlease contact this patient to schedule an appointment.Attached are the patients demographics and most recent office visit notes.If you have any questions, please contact me at [phone].Thank you,Keturah Medina's Referring Physician: Raquel Yoder, AIRCRAFT INSPECTION RECORD CLERK, Encounter Date: 08/28/2022 Results Created Date Observation Date Name Description Value Unit Range Abnormal Flag Note LastModifiedBy Organization Detail LastModifiedTime 08/28/1908/28/2022 CBC W/DIF F WBC 7.4 10'3/ uL 3.6-10 .2 Not Available [facility] (Lab) [address], [place], [address], 08/29/2022 05:51:42 08/28/1908/28/2022 CBC W/DIF F RBC 4.08 10'6/ uL (based on docume nted legal sex) 4.10-5 .30 low Not Available [facility] (Lab) [address], [place], [address], 08/29/2022 05:51:42 08/28/19 23 08/28/2022 CBC W/DIF F HGB 13.5 g/dL (based on docume nted legal sex) 11.9-1 5.8 Not Available [facility] (Lab) [address], [place], [address], 08/29/2022 05:51:42 08/28/19 23 08/28/2022 CBC W/DIF F HCT 41.9 % (based on docume nted legal sex) 37.4-4 8.3 Not Available [facility] (Lab) [address] [place], [address], 08/29/2022 05:51:42 08/28/19 23 08/28/2022 CBC W/DIF F MCV 102.7 fL 82.0-9 9.0 high Not Available [facility] (Lab) [address], [place], [address], 08/29/2022 05:51:42 08/28/19 23 08/28/2022 CBC W/DIF F MCH 33.1 pg 27.0-3 3.0 high Not Available [facility] (Lab) [address], [place], [address], 08/29/2022 05:51:42 08/28/19 23 08/28/2022 CBC W/DIF F MCHC 32.2 g/dL 32.0-3 6.0 Not Available [facility] (Lab) [address], [place], [address], 08/29/2022 05:51:42 08/28/19 23 08/28/2022 CBC W/DIF F RDW 11.9 % 11.0-1 5.0 Not Available [facility] (Lab) [address], [place], [address], 08/29/2022 05:51:42 08/28/19 23 08/28/2022 CBC W/DIF F plt 316 10'3/ uL 150-45 0 Not Available [facility] (Lab) [address], [place], [address], 08/29/2022 05:51:42 08/28/19 23 08/28/2022 CBC W/DIF F MPV 9.5 fL 9.8-12 .7 low Not Available [facility] (Lab) [address], [place], [address], 08/29/2022 05:51:42 08/28/19 23 08/28/2022 CBC W/DIF F NRBC's 0.0 % 0 Not Available [facility] (Lab) [address], [place], [address], 08/29/2022 05:51:42 08/28/19 23 08/28/2022 CBC W/DIF F absolute NRBCs 0.0 10'3/ uL 0 Not Available [facility] (Lab) [address], [place], [address], 08/29/2022 05:51:42 08/28/19 23 08/28/2022 CBC W/DIF F neutrophils 72.0 % 37.0-7 2.0 Not Available [facility] (Lab) [address], [place], [address], 08/29/2022 05:51:42 08/28/1908/28/2022 CBC W/DIF F lymphocytes 17.9 % 16.0-4 8.0 Not Available [facility] (Lab) [address], [place], [address], 08/29/2022 05:51:42 08/28/19 23 08/28/2022 CBC W/DIF F monocytes 5.4 % 4.0-14 .0 Not Available [facility] (Lab) [address], [place], [address], 08/29/2022 05:51:42 08/28/19 23 08/28/2022 CBC W/DIF F eosinophils 3.6 % 0.0-9. 0 Not Available [facility] (Lab) [address], [place], [address], 08/29/2022 05:51:42 08/28/1908/28/2022 CBC W/DIF F basophils 0.8 % 0.0-2. 0 Not Available [facility] (Lab) [address] [place], [address], 08/29/2022 05:51:42 08/28/1908/28/2022 CBC W/DIF F immature granulocytes 0.3 % no define d refere nce range Not Available [facility] (Lab) [address] [place], [address], 08/29/2022 05:51:42 08/28/19 23 08/28/2022 CBC W/DIF F absolute neutrophils 5.3 10'3/ uL 1.1-6. 0 Not Available [facility] (Lab) [address], [place], [address], 08/29/2022 05:51:42 08/28/19 23 08/28/2022 CBC W/DIF F absolute lymphocytes 1.3 10'3/ uL 0.7-3. 4 Not Available [facility] (Lab) [address], [place], [address], 08/29/2022 05:51:42 08/28/19 23 08/28/2022 CBC W/DIF F absolute monocytes 0.4 10'3/ uL 0.3-1. 0 Not Available [facility] (Lab) [address], [place], [address], 08/29/2022 05:51:42 08/28/19 23 08/28/2022 CBC W/DIF F absolute eosinophils 0.3 10'3/ uL 0.0-0. 6 Not Available [facility] (Lab) [address], [place], [address], 08/29/2022 05:51:42 08/28/19 23 08/28/2022 CBC W/DIF F absolute basophils 0.1 10'3/ uL 0.0-0. 1 Not Available [facility] (Lab) [address], [place], [address], 08/29/2022 05:51:42 08/28/19 23 08/28/2022 CBC W/DIF [...] resul ts are expec mohini. Not Available [facility] (Lab) [address], [place], [address], 08/29/2022 05:51:42 08/28/19 23 08/28/2022 CMP WITH BUN/C REAT RATIO sodium 141 mmol/ L 133-14 6 Not Available [facility] (Lab) [address], [place], [address], 08/29/2022 05:51:43 08/28/19 23 08/28/2022 CMP WITH BUN/C REAT RATIO potassium 4.4 mmol/ L 3.5-5. 1 Not Available [facility] (Lab) [address], [place], [address], 08/29/2022 05:51:43 08/28/19 23 08/28/2022 CMP WITH BUN/C REAT RATIO chloride 105 mmol/ L 98-107 Not Available [facility] (Lab) [address], [place], [address], 08/29/2022 05:51:43 08/28/19 23 08/28/2022 CMP WITH BUN/C REAT RATIO carbon dioxide 29 mmol/ L 21-31 Not Available [facility] (Lab) [address], [place], [address], 08/29/2022 05:51:43 08/28/19 23 08/28/2022 CMP WITH BUN/C REAT RATIO anion gap 7 mmol/ L 4-13 Not Available [facility] (Lab) [address], [place], [address], 08/29/2022 05:51:43 08/28/19 23 08/28/2022 CMP WITH BUN/C REAT RATIO blood urea nitrogen 11 mg/dL 7-25 Not Available [facility] (Lab) [address] [place], [address], 08/29/2022 05:51:43 08/28/19 23 08/28/2022 CMP WITH BUN/C REAT RATIO creatinine 0.73 mg/dL 0.60-1 .30 Not Available [facility] (Lab) [address], [place], [address], 08/29/2022 05:51:43 08/28/19 23 08/28/2022 CMP WITH BUN/C REAT RATIO egfrcr (CKD-epi 2020) >90 mL/mi n/1.7 3_m2 >=60 Not Available [facility] (Lab) [address], [place], [address], 08/29/2022 05:51:43 08/28/19 23 08/28/2022 CMP WITH BUN/C REAT RATIO BUN/creatini ne ratio 15.1 . 10.0-2 2.0 Not Available [facility] (Lab) [address], [place], [address], 08/29/2022 05:51:43 08/28/19 23 08/28/2022 CMP WITH BUN/C REAT RATIO calcium 9.4 mg/dL 8.3-10 .5 Not Available [facility] (Lab) [address], [place], [address], 08/29/2022 05:51:43 08/28/19 23 08/28/2022 CMP WITH BUN/C REAT RATIO glucose 87 mg/dL 70-100 Not Available [facility] (Lab) [address], [place], [address], 08/29/2022 05:51:43 08/28/19 23 08/28/2022 CMP WITH BUN/C REAT RATIO protein, total 7.1 g/dL 6.4-8. 3 Not Available [facility] (Lab) [address], [place], [address], 08/29/2022 05:51:43 08/28/19 23 08/28/2022 CMP WITH BUN/C REAT RATIO albumin 4.3 g/dL 3.5-5. 0 Not Available [facility] (Lab) [address], [place], [address], 08/29/2022 05:51:43 08/28/19 23 08/28/2022 CMP WITH BUN/C REAT RATIO ALT 15 units /L 9-43 Not Available [facility] (Lab) [address], [place], [address], 08/29/2022 05:51:43 08/28/19 23 08/28/2022 CMP WITH BUN/C REAT RATIO alkaline phosphatase 86 units /L 34-104 Not Available [facility] (Lab) [address], [place], [address], 08/29/2022 05:51:43 08/28/19 23 08/28/2022 CMP WITH BUN/C REAT RATIO AST 16 units /L 13-39 Not Available [facility] (Lab) [address], [place], [address], 08/29/2022 05:51:43 08/28/19 23 08/28/2022 CMP WITH BUN/C REAT RATIO bilirubin, total 0.4 mg/dL 0.2-1. 2 Not Available [facility] (Lab) [address], [place], [address], 08/29/2022 05:51:43 08/28/19 23 08/28/2022 TESTO STERO NE, TOTAL testosterone , total 36 NG/dL 0-100 Not Available [facility] (Lab) [address] [place], [address], 08/29/2022 05:51:43 08/28/19 23 08/28/2022 TSH, REFLE X FREE T4 TSH 0.62 uIU/m L 0.30-5 .33 Not Available [facility] (Lab) [address] [place], [address], 08/29/2022 05:51:43 08/28/19 23 08/28/2022 ESTRA DIOL estradiol 44.2 pg/mL This assay was perfo rmed using [employer] n reage nts and test kits. Value s obtai ryan with other assay metho ds or kits canno t be used [facility] . Femal e Estra diol Range s: Folli cular phase 12.4- 233 pg/mL Ovula tion phase 41.0- 398 pg/mL Lutea l phase 22.3- 341 pg/mL Postm enopa usal< 5-138 pg/mL Healt hy Pregn ant Women 1st Trime ster1 54-32 43 pg/mL 2nd Trime ster1 561-2 1280 pg/mL 3rd Trime ster8 525-> 08220 pg/mL Not Available [facility] (Lab) [address], [place], [address], 08/29/2022 05:51:44 08/28/19 23 08/28/2022 PROLA CTIN prolactin, total 5.60 NG/mL 4.79-2 3.30 This assay was perfo rmed using [employer] reage nts and test kits. Value s obtai ryan with other assay metho ds or kits canno t be used [facility] . Not Available [facility] (Lab) [address] [place], [address], 08/29/2022 05:51:44 08/28/19 23 08/28/2022 FSH / LH FSH 67.0 mIU/m L Not Available [facility] (Lab) [address], [place], [address], 08/29/2022 05:51:45 08/28/19 23 08/28/2022 FSH / LH LH 46.0 mIU/m L This assay was perfo rmed using [employer] reage nts and test kits. Value s obtai ryan with other assay metho ds or kits canno t be used [facility] . 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 Denton bryant garett d by Noemy Prajapati, CT [...] Thinp rep Imagi ng Syste m. CLINI USHA INFOR MATIO N: Menst rual Statu s: LMP (if appli cable ): Clini usha Histo ry/Pr eviou s Pap: Type of Neopl jose (if appli cable ): Signi fican t Clini usha Findi ngs: Other Histo ry: Hormo dylan [...] ng do not corre late with physi usha and/o r histo rical findi ngs, furth er inves tigat ion is recom dom d, as clini zacarias hoffman nted. Not Available [facility] (Lab) [address], [place], [address], 12/24/2023 12:29:58 12/17/19 24 12/17/2023 CT/GC (ROSA) , THINP REP VIAL chlamydia trachomatis, PCR Negati ve negati ve Not Available [facility] (Lab) [address] [place], [address], 12/24/2023 12:29:59 12/17/19 24 12/17/2023 CT/GC (ROSA) , THINP REP VIAL neisseria gonorrhoeae, PCR Negati ve negati ve Not Available [facility] (Lab) [address], [place], [address], 12/24/2023 12:29:59 12/17/19 24 12/17/2023 TRICH OMONA S VAGIN NEAL (RRNA ) trichomonas vaginalis ribosomal RNA (rrna) Negati ve negati ve Not Available [facility] (Lab) [address], [place], [address], 12/24/2023 12:29:59 06/18/20 25 06/18/2025 IMAGE GUIDE D PAP AND HPV REGAR DLESS image guided Pap, HPV regardless of Pap result SEE RESULT S BELOW CASE REPOR T: Cytol ogy Gynec ologi usha Repor t Case: [id number] Autho nessa g Provi an: Sharron Mondragon NP Colle cted: 06/18 1348 Order ing Locat ion: [place] Patho logy Recei sarahy: 06/19 0943 First Bernaedtte n: Vikram Merino, CT Speci men: Bernadette hitchcock Pap - Image d, Cervi x STATE MENT OF ADEQU ACY: Satis facto ry for evalu ation Trans forma tion zone compo nent prese nt ----- ----- ----- ----- ----- ----- ----- ----- ----- ----- ----- ----- ----- ----- ----- ----- ----- ---- FINAL DIAGN OSIS: Negat aisha for Intra epith elial [place] sales or Jelani allan (NIL) . Elect doron bajwa d by Vikram Merino, CT on 06/22 at [...] Thinp rep Imagi ng Syste m. CLINI USHA INFOR MATIO N: Menst rual Statu s: LMP (if appli cable ): Clini usha Histo ry/Pr eviou s Pap: Type of Neopl jose (if appli cable ): Signi fican t Clini usha Findi ngs: Other Histo ry: Hormo dylan [...] ng do not corre late with physi usha and/o r histo rical findi ngs, furth er inves tigat ion is recom dom d, as clini zacarias hoffman nted. Not Available [facility] (Lab) [address], [place], [address], 06/22/2025 13:07:17 06/18/20 25 06/18/2025 CT/GC AND TRICH OMONA S VAGIN NEAL (RRNA ), THINP REP VIAL CT/GC and trichomonas vaginalis (rrna), thinprep SEE RESULT S BELOW negati ve CHLAM YDIA TRACH OMATI S, PCR: Negat aisha NEISS ERIA GONOR RHOEA E, PCR: Negat aisha TRICH OMONA S VAGIN NEAL RIBOS OMAL RNA (RRNA ): Negat aisha Not Available [facility] (Lab) [address], [place], [address], 06/22/2025 13:07:18 07/26/20 25 07/26/2025 SURGI USHA PATHO LOGY surgical pathology SEE RESULT S BELOW CASE REPOR T: Surgi usha Patho logy Repor t Case: [id number] Autho nessa cartagena Provi an: Sharron Mondragon, TREMAINE Colle cted: 07/26 1329 Order ing Locat ion: [place] Patho logy Recei sarahy: 07/27 0548 Patho logis t: Ruddy Casper MD Speci mens: A) - Cervi x, Cervi usha Polyp B) - Endoc ervix , ECC ----- ----- ----- ----- ----- ----- ----- ----- ----- ----- ----- ----- ----- ----- ----- ----- ----- ---- FINAL DIAGN OSIS: A. Cervi x, polyp ectom y: - Anucl eated squam ous epith elium with rica stero l cleft s sugge stive of inclu jeffery cyst or benig n cervi usha cyst with prola pse-r elate d delma es. - No dyspl jose or neopl jsoe ident ified . B. Endoc ervix , curet tage: - Benig n cervi usha trans forma tion zone mucos a with no patho logic abnor malit ies. 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 A porti on of the testi ng proce ss was perfo rmed at [facility] at[facility] site NMDP1 11. Digit al imagi ng was used in the diagn ostic asses sment of this case. GROSS DESCR IPTIO N: A. Cervi x. The speci men is label ed with the patie nt's name, demog raphi cs and cervi usha polyp . Recei sarahy in forma nimo is a 1.0 x 0.9 x 0.6 cm nodul e of yello w-lopez tissu e. The speci men is bisec mohini and submi tted in casse tte A1. Gross ed by Teddy Banks on B. Endoc ervix . The speci men is label ed with the patie nt's name, annaleeog raphi cs and ECC . Recei sarahy in forma nimo is a 2.5 x 1.9 x 0.3 cm dark red tissu e aggre gate of minut e white tissu e and mucus . It is submi tted all in one casse tte. Gross ed by Teddy Banks on Not Available [facility] (Lab) [address], [place], [address], 07/28/2025 17:48:45 07/26/20 25 07/26/2025 pregn karon test, urine HCG negati ve Not Available [place] [address], [place], [address], 07/26/2025 11:09:15 10/01/19 23 09/30/2022 imagi ng/ct ashby tic resul t No observ ation record ed. [facility] [address], [place], [address], 12/30/2023 09:52:16 07/10/20 25 07/10/2025 US, pelvi s No observ ation record ed. [email or web address] [place] [address], [place], [address], 07/10/2025 18:26:34 07/10/20 25 07/11/2025 US, trans vagin al No observ ation record ed. [facility] [address], [place], [address], 07/11/2025 13:29:10 07/10/20 25 07/10/2025 US, pelvi s No observ ation record ed. [email or web address], [place], [address], 07/16/2025 15:40:41 Result Notes None recorded. Problems Name Problem SNOMED Code Status Onset Date Resolution Date Notes Provider Name and Address Organization Details Recorded Time Adult health examinati on Active 2011 Routine Medical Exam;Recor ded Elsewhere: No Locatio n: [facility] rce: EHR Chroni c: N Practice ID: 0001 Billa ble Time: 01:30:00 PM Not Available [facility] 0 16:55:52 Family planning surveilla nce Active 2011 Contracept aisha surveillan ce, unspecifie d;Recorded Elsewhere: No Locatio n: [facility]: EHR Chroni c: N Practice ID: 0001 Billa ble Time: 01:30:00 PM Not Available [facility] 0 16:55:55 Specializ ed medical examinati on Active 2013 Other specified chlamydial diseases;R ecorded Elsewhere: No Locatio n: [facility] rce: EHR Chroni c: N Practice ID: 0001 Billa ble Time: 02:30:00 PM Not Available [facility] 0 16:55:52 Specializ ed medical examinati on Active 2013 Gynecologi usha Examinatio n;Recorded Elsewhere: No Locatio n: [facility] rce: EHR Chroni c: N Practice ID: 0001 Billa ble Time: 02:30:00 PM Not Available [facility] 0 16:55:54 Venereal disease screening Active 2013 Screening examinatio n for venereal disease;Re corded Elsewhere: No Locatio n: [facility] rce: EHR Chroni c: N Practice ID: 0001 Billa ble Time: 02:30:00 PM Not Available [facility] 0 16:55:55 Anxiety state [id number] Active 2014 Anxiety;Re corded Elsewhere: No Locatio n: [facility] rce: EHR Chroni c: N Practice ID: 0001 Billa ble Time: 02:45:00 PM Not Available [facility] 0 16:55:52 Backache [id number] Active 2014 Back pain;Recor ded Elsewhere: No Locatio n: [facility] rce: EHR Chroni c: N Practice ID: 0001 Billa ble Time: 02:45:00 PM Not Available [facility] 0 16:55:53 Amenorrhe a [id number] Active 2014 Absence of menstruati on;Recorde d Elsewhere: No Locatio n: [facility] rce: EHR Chroni c: N Practice ID: 0001 Billa ble Time: 09:30:00 AM Not Available [facility] 0 16:55:52 test positive [id number] Active 2014 examinatio n or test, positive result;Rec orded Elsewhere: No Locatio n: [facility] rce: EHR Chroni c: N Practice ID: 0001 Billa ble Time: 09:30:00 AM Not Available [facility] 0 16:55:54 Threatene d miscarria ge [id number] Active 2014 Threatened ;R ecorded Elsewhere: No Locatio n: [facility] rce: EHR Chroni c: N Practice ID: 0001 Billa ble Time: 09:30:00 AM Not Available [facility] 0 16:55:52 Ultrasono graphy Active 2014 screening for malformati on using ultrasonic s;Recorded Elsewhere: No Locatio n: [facility] rce: EHR Chroni c: N Practice ID: 0001 Billa ble Time: 08:30:00 AM Not Available [facility] 0 16:55:51 screening Active 2014 screening for malformati on using ultrasonic s;Recorded Elsewhere: No Locatio n: [facility] rce: EHR Chroni c: N Practice ID: 0001 Billa ble Time: 08:30:00 AM Not Available [facility] 0 16:55:52 Congenita l malformat ion [id number] Active 2014 screening for malformati on using ultrasonic s;Recorded Elsewhere: No Locatio n: [facility] rce: EHR Chroni c: N Practice ID: 0001 Billa ble Time: 08:30:00 AM Not Available [facility] 0 16:55:52 Abnormal finding on screening of mother [id number] Active 2014 Abnormal finding on screening; Practice ID: 0001 Not Available [facility] 0 16:55:58 anatomy study Active 2014 [facility] SURVEY;Rec orded Elsewhere: No Locatio n: [facility] rce: EHR Chroni c: N Practice ID: 0001 Billa ble Time: 01:00:00 PM Not Available [facility] 0 16:55:52 Multigrav toby of advanced maternal age [id number] Active 2014 Other advanced maternal age, antepartum condition or complicati on;Recorde d Elsewhere: No Locatio n: [facility] rce: EHR Chroni c: N Practice ID: 0001 Billa ble Time: 01:00:00 PM Not Available [facility] 0 16:55:53 Cough [id number] Active 2014 COUGH;Prac leny ID: 0001 Not Available [facility] 0 16:55:54 Transient hypertens ion of - not delivered 320066381 Active 2014 TRANS HYPERTEN-A NTEPART;Pr actice ID: 0001 Not Available [facility] 0 16:55:55 Routine care Active 2014 Supervisio n of other normal ; Practice ID: 0001 Not Available [facility] 0 16:55:50 Complicat ion related to Active 2014 PREG COMPL NEC-ANTEPA RT;Practic e ID: 0001 Not Available [facility] 0 16:55:51 Uterine scar from previous surgery in , childbirt h and the puerperiu m - delivered 739821307 Active 2014 PREV C-DELIVERY -DELIVRD;P ractice ID: 0001 Not Available [facility] 0 16:55:51 Single live from alvarez 958195728 Active 2014 DELIVER-SI NGLE LIVEBORN;P ractice ID: 0001 Not Available [facility] 0 16:55:51 Procedure on genitouri nary system Active 2014 STERILIZAT ION;Practi ce ID: 0001 Not Available [facility] 0 16:55:51 Steriliza tion procedure Active 2014 Encounter for sterilizat ion;Practi ce ID: 0001 Not Available [facility] 0 16:55:50 Blood leukocyte number above reference range 236515095 Active 2014 Elevated white blood cell count, unspecifie d;Practice ID: 0001 Not Available [facility] 0 16:55:51 Lochia finding Active 2014 Encounter for routine follow-up; Practice ID: 0001 Not Available [facility] 0 16:55:50 Screening for malignant neoplasm of cervix Active 2014 Encounter for screening for malignant neoplasm of cervix;Rec orded Elsewhere: No Locatio n: [facility] rce: EHR Chroni c: N Practice ID: 0001 Billa ble Time: 11:00:00 AM Not Available [facility] 0 16:55:51 Body mass index 25-29 - overweigh t 136611850 Active 2014 Body mass index (BMI) 25.0-25.9, adult;Eliezer rded Elsewhere: No Locatio n: [facility] rce: EHR Chroni c: N Practice ID: 0001 Billa ble Time: 11:00:00 AM Not Available [facility] 0 16:55:[address] Concept Active 2016 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;P ractice ID: 0001 Not Available [facility] 0 16:55:50 Screening for malignant neoplasm of rectum Active 2016 Encounter for screening for malignant neoplasm of rectum;Pra ctice ID: 0001 Not Available [facility] 0 16:55:[address] Concept Active 2016 Encntr for general adult medical exam w/o abnormal findings;R ecorded Elsewhere: No Locatio n: [facility] rce: EHR Chroni c: N Practice ID: 0001 Billa ble Time: 11:15:00 AM Not Available [facility] 0 16:55:55 Finding of menstrual bleeding Active 2017 Excessive and frequent menstruati on with regular cycle;Prac leny ID: 0001 Not Available [facility] 0 16:55:[address] Concept Active 2019 Anxiety disorder, unspecifie d;Practice ID: 0001 Not Available [facility] 0 16:55:50 test negative 726691579 Active 2019 Encounter for test, result negative;P ractice ID: 0001 Not Available [facility] 0 16:55:50 Polyp of cervix 66657861 Active 2024 Angélica farris, [facility] 5 15:16:40 Problem Notes None recorded. Procedures Surgical History Date Name Laterality Status Provider Name and Address Organization Details Recorded Time 07/26/20 25 Endometrial Biopsy completed JERONIMO Castro [address], [place], [address], [facility] 07/27/2025 10:40:37 12/17/19 24 Date of Last [facility] 06/18/2025 13:05:58 09/30/19 23 Date of Last Mammogram completed Kathleen Casper [facility] 12/17/2023 12:57:01 05/17/20 15 [facility] 06/18/2025 13:09:17 08/23/18 97 tonsilectomy/ad enoids completed [facility] 06/22/2020 09:19:33 ligation of fallopian tube completed [facility] 06/22/2020 09:22:45 Imaging Results None recorded. Procedure Notes None recorded. Medical Equipment None Reported. Allergies Allergen ID Allergen Name Allergen Category Reaction Reaction Severity Criticality Documentation Date Start Date Code Code System Note Provider Name and Address Organization Details Recorded Time 2568 cefuroxim e Not available Not available Not available Not available 06/22/2020 2194 RxNorm [facility] 09:22:03 2569 clarithro mycin medicatio n Not available Not available Not available 06/22/202007943 Rx[facility] 0 09:22:09 81466 cephalexi n medicatio n hives Not available Not available 07/12/20252022 2231 RxNorm Not Available [facility] - External [facility] - prod 5 16:11:18 94996 Cephalosp anisa (substanc e) medicatio n hives Not available high 07/12/20252021 01706 7003 SNOMED Not Available [facility] - External Data Service - prod 5 16:11:18 81528 duloxetin e medicatio n other Not available high 07/12/20252024 61381 RxNorm Suici lucius ideat ion Not Available [facility] - External Data Service - prod 5 16:11:18 24460 Latex (substanc e) environme nt,medica tion itching Not available low 07/12/20252021 45975 8007 SNOMED Not Available [facility] - External Data Service - prod 5 16:11:18 49760 bupropion Not available other Not available high 07/12/20252022 60750 RxNorm SUICI LUCIUS IDEAT ION Not Available [facility] External Data Service - prod 5 16:11:18 29115 latex environme nt,medica tion Not available Not available Not available 07/12/2025 01923 91 RxNorm Not Available [facility] External Data Service - [facility] 5 16:15:08 Medications Name Sig Start Date Stop [...] Prescrib ed Elsewher e: No Locat ion: [facility] odify By: dejaer ich Enco unter DateTime : 06/02/20 11:00:00 [...] Prescrib ed Elsewher e: No [facility] By: kalee Palma er DateTime : 04/10/20 04:45:00 PM Not [...] 3 times every day 05/24 completed Prescrib mary ann Arceo e: No Locat ion: [facility]ify By: renato ferreira DateTime : 04/05/20 10:56:02 AM Not Available [...] Prescrib ed Elsewher e: Yes Loca tion: [facility] By: roma vyas DateTime : 04/01/20 12 01:53:11 PM Not Available Not Available Not Available doxycycli ne monohydra te 100 mg capsule TAKE 1 CAPSULE BY MOUTH TWICE A DAY 12/16 completed Not Available Not Available Not Available Micronor (28) 0.35 mg tablet take 1 tablet by oral route every day 03/02 completed Prescrib ed Elsewher e: No Locat ion: [facility]ify By: cmedical Encount er DateTime [...] Prescrib ed Elsewher e: Yes Loca tion: [facility] By: renato ferreira DateTime : [...] Prescrib ed Elsewher e: No [facility] By: renato ferreira DateTime : [...] Prescrib ed Elsewher e: No Locat ion: [facility]ify By: sang ferreira DateTime : 12/25/19 18 10:07:38 AM Not Available Not Available Not Available Flexeril 10 mg tablet take 1 tablet by oral route 2 times every day 05/24 completed Prescrib ed Elsewher e: No Locat ion: [facility]ify By: renato barneyuntjayde DateTime : 01/25/20 15 10:56:20 AM Not Available Not Available Not Available buspirone 15 mg tablet take 1 tablet by oral route 3 times every day 11/01 completed Prescrib ed Elsewher e: No Locat ion: [facility]ify By: laura barneyuntjayde DateTime : 09/21/19 15 02:45:00 PM Not [...] Prescrib ed Elsewher e: Yes Loca tion: [facility] By: sang barneyuntjayde DateTime : 09/28/19 09:30:00 AM Not Available Not Available Not Available Vitamins and Minerals tablet 11/01 completed Prescrib ed Elsewher e: Yes Loca tion: [facility] By: laura Ibrahim ncountjayde DateTime : 04/01/20 12 01:53:11 PM Not Available Not Available Not Available escitalop jessica 10 mg tablet 12/16 completed Not Available Not Available Not Available escitalop jessica 20 mg tablet TAKE 1 TABLET BY MOUTH EVERY DAY active Not Available Not Available No t Available Vitamin D3 25 mcg (1,000 unit) capsule 12/16 completed Prescrib ed Elsewher e: Yes [facility] By: amkryan Ibrahim ncountjayde DateTime : 05/24/20 11:15:00 AM Not Available [...] Elsewher e: No Locat ion: [facility] odify By: sang ferreira DateTime : 12/23/19 18 09:00:00 AM Not Available Not Available Not Available One Daily 27 mg iron-800 mcg tablet take 1 tablet by oral route every day 06/02 completed Prescrib ed Elsewher e: Yes Loca tion: [facility] odify By: sang barneyuntjayde DateTime : 11/02/19 15 09:00:00 AM Not Available Not Available Not Available Vraylar 1.5 mg capsule TAKE 1 CAPSULE BY MOUTH DAILY 06/18 completed Not Available Not Available Not Available Anusol-HC 2.5 % topical cream with perineal applicato r apply by topical route 2 times every day to the affected area(s) 05/24 completed Prescrib ed Elsewher e: No Locat ion: [facility]ify By: renato ferreira DateTime : 04/12/20 15 11:00:00 AM Not [...] Updated DateTime 08/28/2022 160.02 cm 26 kg/m2 02028.36 g 108/74 mm[Hg] Abi Jo [facility] 08/28/2022 10:10:00 Date Recorded Body height Body mass index (BMI) Body weight Systolic And Diastolic Provider Name and Address Organization Details Last Updated DateTime 12/17/2023 160.02 cm 24.8 kg/m2 85941.93 g 123/84 mm[Hg] Kathleen Casper [facility] 12/17/2023 12:53:52 Date Recorded Body height Body mass index (BMI) Body weight Systolic And Diastolic Provider Name and Address Organization Details Last Updated DateTime 06/18/2025 160.02 cm 27.3 kg/m2 77392.22 g 128/86 mm[Hg] Shae Santillan [facility] 06/18/2025 13:01:52 Date Recorded Body height Body mass index (BMI) Body weight Systolic And Diastolic Provider Name and Address Organization Details Last Updated DateTime 07/26/2025 160.02 cm 31.7 kg/m2 20060.03 g 116/74 mm[Hg] Emilia Torres [facility] 07/26/2025 11:03:25 Social History Question Answer Notes LastModified by Organizat ion Details LastModified Time Tobacco Smoking Status Current Every Day Smoker Shae Santillan kaleigh [facility] 06/18/2025 13:07:25 Are You Blind [...] Do You Have Serious Difficulty Hearing? Yes [email or web address] Information not available 06/18/2025 What Type Of Diet Are You Following? REGULAR Information n ot available 08/28/2022 What Is The Highest Grade Or Level Of School You Have Completed Or The Highest Degree You Have Received? [id number] [email or web address] Information not available 06/18/2025 Are There Any Guns Present In Your Home? No Information not available 06/18/2025 Do You Use Protection During Sex? Usually Information not available 06/18/2025 Do You Use Your Seat Belt Or Car Seat Routinely? Yes [email or web address] Information not available 06/18/2025 Are You Sexually Active? Yes Information not available 06/18/2025 Do You Have Smoke And Carbon Monoxide Detectors In Your Home? Yes [email or web address] Information not available 06/18/2025 Do You Use Sunscreen Routinely? Yes [email or web address] Information not available 06/18/2025 Do You Have Difficulty Walking Or Climbing Stairs? No Information not available 08/28/2022 Sex: Unknown Functional Status Question Answer Note LastModified by Organizat ion Details LastModified Time What is your level of alcohol consumption? Occasional [email or web address] Information not available 06/18/2025 Are you currently employed? No [email or web address] Information not available 06/18/2025 Are you able [...] anxious, or unable to sleep at night)? [id number] [email or web address] Information not available 06/18/2025 Family History Relationship Description Onset Age of this Age Resolved Age Notes LastModified by Organization Details LastModified Time Maternal Grandmother Myocardial infarction [email or web address] Not available 06/22 09:20:13 Maternal Grandmother Carcinoma in situ of colon [email or web address] Not available 2024 14:33:40 Sister Myocardial infarction [email or web address] Not available 06/22 09:20:24 Sister Carcinoma in situ of colon [email or web address] Not available 2024 14:33:40 Sister Carcinoma in situ of kidney [email or web address] Not available 2024 14:33:40 Maternal Aunt Carcinoma in situ of colon [email or web address] Not available 2024 14:33:40 Notes:Grandmother: Cancer, c [...] ICD10 Code Diagnosis IMO Codes Diagnosis Note [id number] Raquel Yoder [facility] [address] [address] 06/22/2020 10:37:25 06/22/2020 11:50:44 Tampon retained in vagina 472257189 Z18.89 No issues. Feeling better. Exam is wnl ED records available for review onfile. RTO prn if issues. Candidiasis of skin 4988 3006 B37.2 Area on face that seems to resemble possible yeast like issue. We agreed on short course of mycolog ointment & if not better will f/u PCP or Derm. Likely from frequent mask use during covid-19 [id number] Raquel Yoder [facility] [address] [address] 08/28/2022 09:57:36 08/31/2022 16:22:14 Secondary amenorrhea 051614552 N91.1 Today we agreed to start with [...] care. 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 [id number] [facility] [address] [address] 12/17/2023 12:46:35 12/17/2023 14:28:12 Gynecologic examination 36062224 Z01.419 Suggested Calcium with Vitamin D 1200-1500m g daily. Patient advised to get an annual flu shot in the fall and she could obtain at [facility] or [facility] care clinic. Also to obtain TDap [...] Screen naRoutine Labs PCP Screening mammography 24 913905 Z12.31 [id number] Sharron Mondragon [facility] [address] [address] 06/18/2025 12:50:25 06/19/2025 09:57:05 Gynecologic examination 61391515 Z01.959 [id number] WWEpostmen opausalPap - done todaySTI screen - [...] have been answered. Venereal d isease screening 534274798 Z11.3 05232 Polyp of cervix 58869346 N84.1 93489 pelvic u/s scheduledw ill discuss removal options at f/u Postmenopa usal bleeding 86238469 N95.0 98822 Pelvic u/s orderedwil l RTC to review and discuss next steps/rec Time spent in visit is a total of 35 mins with at least 50% of visit consisting of counseling and review of plan of care. [id number] Ariel Gomez MD [facility] [address] [address] 07/10/2025 14:33:29 07/10/2025 15:20:15 Polyp of cervix 89536798 N84.1 [id number] JERONIMO Castro [facility] [address] [address] 07/26/2025 10:30:18 07/27/2025 11:58:31 Polyp of cervix 10763516 N84.1 17269 r/b discussed with ptCervical lesion removed (see procedure note)[facility]i [facility] results when available Postmenopa usal bleeding 47349831 N95.0 80567 unable to obtain EMB d/t stenotic cervixreco [...] Member ID Carias Member ID Guarantor Name 07/10/2025 2 [facility] (MEDICAID HMO) [id number] Ana Nagel [id number] 07/23/2025 1 [employer] (HMO) [id number] Ana Nagel [id number] 07/23/2025 2 [place] [facility] Ana Nagel [id number] Notes Date Note Type Note Provider Name and Address Organization Details Recorded Time 3 text/html ROS as noted in the HPI Patient is a51yo white perimenopausal female who is here to discuss mood changes, mestrual changes, night sweats and poor sleep. She is under immense stress with current life situations.She has seen a Psychiatrist in [place] & does not feel she is being [...] could try a product called Upneeq? Raquel Yoder, [facility]- [address], [place], [address], [facility] 09/08/2022 12:15:25 4 text/html Annual Accreditation Coordinator Post-MenopausalReported by PatientGenitourinary symptomsFor menopausal symptoms, patient [...] andneeds to schedule colonoscopy. JERONIMO Santoyo- [address], [place], [address], [facility] 12/17/2023 13:14:59 5 text/html Annual Accreditation Coordinator Post-MenopausalReported by PatientGenitourinary symptomsFor menopausal symptoms, patient [...] during this time as well JERONIMO Castro [address], [place], [address], [facility] 06/19/2025 09:45:12 5 text/html 54yoHere today for pelvic ultrasound review and cervical polyp removal with JERONIMO Florez [address], [place], [address], [facility] 07/27/2025 11:23:01 OBGyn Episode Ob Episode Information Episode Created Date Number of Fetuses Patient Bloodtype Patient rh Status Prepregnancy Weight lbs Domestic Partner Domestic Partner Phone Father Name Professional Skateboarder Status 06/22/20 20 1 CLOSED Fetus Data First Name Last [...] Domestic Partner Domestic Partner Phone Father Name Professional Skateboarder Status 06/22/20 20 1 CLOSED Fetus Data First Name Last [...] Domestic Partner Domestic Partner Phone Father Name Professional Skateboarder Status 06/22/20 20 1 CLOSED Fetus Data First Name Last [...]
--- OUTSIDE RECORDS SUMMARY | 2025-08-02 01:21 | XMS_ITS | Continuity of Care Document ---
Author Organization [facility] [place] Address [address] [place] [address] [place] [address] Assessment No assessment recorded. 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 Referral None recorde d. Procedures None recorde d. Surgeries None recorde d. Imaging US, pelvis [address], [address], [place], [address], 07/10/2025 20:29:01 US, transva ginal [address], [address], [place], [address], 07/10/2025 20:29:01 Medication Orders None recorde d. Patient TargetsNo [...] 1348 Order ing Locat ion: [place] Patho mikel Recei sarahy: 06/19 0943 First Bernadette n: [...] epith elial [place] sales or Jelani allan ([facility]) . Elect doron bajwa d by Vikram [...] is recom dom d, as clini zacarias warra nted. Not Available [facility] (Lab) [address], [place], [address], 06/22/2025 13:07:17 06/18/20 25 06/18/2025 CT/GC AND TRICH OMONA S VAGIN NEAL (RRNA ), THINP REP VIAL CT/GC and trichomonas vaginalis (rrna), thinprep SEE RESULT S BELOW negati ve CHLAM YDIA TRACH OMATI S, PCR: Negat aisha NEISS ERIA GONOR RHOEA E, PCR: Negat aisha TRICH OMONA S VAGIN NEAL RIBOS OMAL RNA (RRNA ): Negat aisha Not Available [facility] (Lab) [address], [place], [address], 06/22/2025 13:07:18 07/10/20 25 07/10/2025 US, pelcarie s No observ ation record ed. [email or web address] [place] [address], [place], [address], 07/10/2025 18:26:34 07/10/20 25 07/11/2025 US, trans vagin al No observ ation record ed. [email or web address] [place] [address], [place], [address], 07/11/2025 13:29:10 07/10/20 25 07/10/2025 US, efrem s No observ ation record ed. [email or web address] [address]ori [address], [place], [address], 07/16/2025 15:40:41 Result Notes None recorded. Problems Name Problem SNOMED Code Status Onset Date Resolution Date Notes Provider Name and Address Organization Details Recorded Time Adult health examinati on Active 2011 Routine Medical Exam;Recor ded Elsewhere: No Locatio n: [facility] rce: EHR Chroni c: N Practice ID: 0001 Billa ble Time: 01:30:00 PM Not Available [facility] 0 16:55:52 Family planning surveilla nce Active 2011 Contracept aisha surveillan ce, unspecifie d;Recorded Elsewhere: No Locatio n: [facility] rce: EHR Chroni c: N Practice ID: 0001 Billa ble Time: 01:30:00 PM Not Available [facility] 0 16:55:55 Specializ ed medical examinati on Active 2013 Other specified chlamydial diseases;R ecorded Elsewhere: No Locatio n: [facility] rce: EHR Chroni c: N Practice ID: 0001 Billa ble Time: 02:30:00 PM Not Available [facility] 0 16:55:52 Specializ ed medical examinati on Active 2013 Gynecologi fabiola Examinatio n;Recorded Elsewhere: No Locatio n: [facility] rce: EHR Chroni c: N Practice ID: 0001 Billa ble Time: 02:30:00 PM Not Available [facility] 0 16:55:54 Venereal disease screening Active 2013 Screening examinatio n for venereal disease;Re corded Elsewhere: No Locatio n: [facility] rce: EHR Chroni c: N Practice ID: 0001 Billa ble Time: 02:30:00 PM Not Available [facility] 0 16:55:55 Anxiety state [id number] Active 2014 Anxiety;Re corded Elsewhere: No Locatio n: [facility] rce: EHR Chroni c: N Practice ID: 0001 Billa ble Time: 02:45:00 PM Not Available [facility] 0 16:55:52 Backache 973888302 Active 2014 Back pain;Recor ded Elsewhere: No Locatio n: [facility] rce: EHR Chroni c: N Practice ID: 0001 Billa ble Time: 02:45:00 PM Not Available [facility] 0 16:55:53 Amenorrhe a 06669221 Active 2014 Absence of menstruati on;Recorde d Elsewhere: No Locatio n: [facility] rce: EHR Chroni c: N Practice ID: 0001 Billa ble Time: 09:30:00 AM Not Available [facility] 0 16:55:52 test positive 523242297 Active 2014 examinatio n or test, positive result;Rec orded Elsewhere: No Locatio n: [facility] rce: EHR Chroni c: N Practice ID: 0001 Billa ble Time: 09:30:00 AM Not Available [facility] 0 16:55:54 Threatene d miscarria ge 54959087 Active 2014 Threatened ;R ecorded Elsewhere: No Locatio n: [facility] rce: EHR Chroni c: N Practice ID: 0001 Billa ble Time: 09:30:00 AM Not Available [facility] 0 16:55:52 Ultrasono graphy Active 2014 screening for malformati on using ultrasonic s;Recorded Elsewhere: No Locatio n: [facility] rce: EHR Chroni c: N Practice ID: 0001 Billa ble Time: 08:30:00 AM Not Available [facility] 0 16:55:51 screening Active 2014 screening for malformati on using ultrasonic s;Recorded Elsewhere: No Locatio n: [facility] rce: EHR Chroni c: N Practice ID: 0001 Billa ble Time: 08:30:00 AM Not Available [facility] 0 16:55:52 Congenita l malformat ion 036824363 Active 2014 screening for malformati on using ultrasonic s;Recorded Elsewhere: No Locatio n: [facility] rce: EHR Chroni c: N Practice ID: 0001 Billa ble Time: 08:30:00 AM Not Available [facility] 0 16:55:52 Abnormal finding on screening of mother 632510760 Active 2014 Abnormal finding on screening; Practice ID: 0001 Not Available [facility] 0 16:55:58 anatomy study Active 2014 SCRN ANATMC SURVEY;Rec orded Elsewhere: No Locatio n: [facility] rce: EHR Chroni c: N Practice ID: 0001 Billa ble Time: 01:00:00 PM Not Available [facility] 0 16:55:52 Multigrav toby of advanced maternal age 324891587 Active 2014 Other advanced maternal age, antepartum condition or complicati on;Recorde d Elsewhere: No Locatio n: [facility] rce: EHR Chroni c: N Practice ID: 0001 Billa ble Time: 01:00:00 PM Not Available [facility] 0 16:55:53 Cough 40249536 Active 2014 COUGH;Prac leny ID: 0001 Not Available [facility] 0 16:55:54 Transient hypertens ion of - not delivered 853127302 Active 2014 TRANS HYPERTEN-A NTEPART;Pr actice ID: [...] h and the puerperiu m - delivered 048441055 Active 2014 PREV C-DELIVERY -DELIVRD;P ractice ID: 0001 Not Available [facility] 0 16:55:51 Single live from alvarez 298825003 Active 2014 DELIVER-SI NGLE LIVEBORN;P ractice ID: 0001 Not Available [facility] 0 16:55:51 Procedure on genitouri nary system Active 2014 STERILIZAT ION;Practi ce ID: 0001 Not Available [facility] 0 16:55:51 Steriliza tion procedure Active 2014 Encounter for sterilizat ion;Practi ce ID: 0001 Not Available [facility] 0 16:55:50 Blood leukocyte number above reference range 351597711 Active 2014 Elevated white blood cell count, unspecifie d;Practice ID: 0001 Not Available [facility] 0 16:55:51 Lochia finding Active 2014 Encounter for routine follow-up; Practice ID: 0001 Not Available [facility] 0 16:55:50 Screening for malignant neoplasm of cervix Active 2014 Encounter for screening for malignant neoplasm of cervix;Rec orded Elsewhere: No Locatio n: [facility] rce: EHR Chroni c: N Practice ID: 0001 Billa ble Time: 11:00:00 AM Not Available [facility] 0 16:55:51 Body mass index 25-29 - overweigh t 060976833 Active 2014 Body mass index (BMI) 25.0-25.9, adult;Eliezer rded Elsewhere: No Locatio n: [facility] rce: EHR Chroni c: N Practice ID: 0001 Billa ble Time: 11:00:00 AM Not Available [facility] 0 16:55:[address] Concept Active 2016 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) w/o abn findings;P ractice ID: 0001 Not Available [facility] 0 16:55:50 Screening for malignant neoplasm of rectum Active 2016 Encounter for screening for malignant neoplasm of rectum;Pra ctice ID: 0001 Not Available [facility] 0 16:55:[address] Concept Active 2016 Encntr for general adult medical exam w/o abnormal findings;R ecorded Elsewhere: No Locatio n: [facility] rce: EHR Chroni c: N Practice ID: 0001 Billa ble Time: 11:15:00 AM Not Available [facility] 0 16:55:55 Finding of menstrual bleeding Active 2017 Excessive and frequent menstruati on with regular cycle;Prac leny ID: 0001 Not Available [facility] 0 16:55:[address] Concept Active 2019 Anxiety disorder, unspecifie d;Practice ID: 0001 Not Available [facility] 0 16:55:50 test negative 003959053 Active 2019 Encounter for test, result negative;P ractice ID: 0001 Not Available [facility] 0 16:55:50 Polyp of cervix 67813918 Active 2024 Angélica farris, [facility] 5 15:16:40 Problem Notes None recorded. Procedures Surgical History Date Name Laterality Status Provider Name and Address Organization Details Recorded Time 07/26/20 25 Endometrial Biopsy completed JERONIMO Castro [address], [place], [address], [facility] 07/27/2025 10:40:37 12/17/19 24 Date of Last Pap Smear completed Shae Santillan [facility] 06/18/2025 13:05:58 09/30/19 23 Date of Last Mammogram completed Kathleen Casper [facility] 12/17/2023 12:57:01 05/17/20 15 Tubal Ligation [facility] 06/18/2025 13:09:17 08/23/18 97 tonsilectomy/ad enoids completed [facility] 06/22/2020 09:19:33 ligation of fallopian tube completed [facility] 06/22/2020 09:22:45 Imaging Results None recorded. Procedure Notes None recorded. Medical Equipment None Reported. Allergies Allergen ID Allergen Name Allergen Category Reaction Reaction Severity Criticality Documentation Date Start Date Code Code System Note Provider Name and Address Organization Details Recorded Time 2568 cefuroxim e Not available Not available Not available Not available 06/22/2020 2194 RxNorm [facility] 0 09:22:03 2569 clarithro mycin medicatio n Not available Not available Not available 06/22/202050886 RxNorm Marli [facility] 0 09:22:09 93379 cephalexi n medicatio n hives Not available Not available 07/12/20252022 2231 RxNorm Not Available [facility] - External Data Service - prod 16:11:18 14073 Cephalosp anisa (substanc e) medicatio n hives Not available high 07/12/20252021 18873 7003 SNOMED Not Available [facility] - External Data Service - prod 16:11:18 65911 duloxetin e medicatio n other Not available high 07/12/20252024 79393 RxNorm Suici lucius ideat ion Not Available [facility] - External Data Service - prod 16:11:18 47938 Latex (substanc e) environme nt,medica tion itching Not available low 07/12/20252021 49341 8007 SNOMED Not Available [facility] - External Data Service - prod 16:11:18 36656 bupropion Not available other Not available high 07/12/20252022 18268 RxNorm SUICI LUCIUS IDEAT ION Not Available [place] - External Data Service - prod 5 16:11:18 19644 latex environme nt,medica tion Not available Not available Not available 07/12/2025 09124 91 RxNorm Not Available [facility] External [...] Prescrib ed Elsewher e: No [facility]at [facility] odify By: [email or web address] ich Enco unter DateTime [...] Prescrib ed Elsewher e: No [facility]at [facility] By: srussell Encount er DateTime : [...] CAPSULE BY MOUTH EVERY 6 HOURS NEEDED 04/26 /2024 completed Not Available Not Available Not Available [...] Prescrib ed Elsewher e: No Locat ion: [facility] odify By: renato ferreira DateTime : [...] ed Elsewher e: Yes Loca tion: [facility] odify By: roma vyas DateTime : 04/01/20 12 01:53:11 PM Not Available Not Available Not Available doxycycli ne monohydra te 100 mg capsule TAKE 1 CAPSULE BY MOUTH TWICE A DAY 12/16 completed Not Available Not Available Not Available Micronor (28) 0.35 mg tablet take 1 tablet by oral route every day 03/02 completed Prescrib ed Elsewher e: No [facility] By: thoe Encount er DateTime : 04/04/20 12 01:30:00 [...] ed Elsewher e: Yes Loca tion: [facility] odify By: renato ferreira DateTime : 09/28/19 [...] Prescrib ed Elsewher e: No [facility]at [facility] By: renato ferreira DateTime : [...] Prescrib ed Elsewher e: No Locat ion: [facility] odify By: sang Ibrahim ncounter DateTime : 12/25/19 18 10:07:38 AM Not Available Not Available Not Available Flexeril 10 mg tablet take 1 tablet by oral route 2 times every day 05/24 completed Prescrib ed Elsewher e: No Locat ion: [facility] odify By: renato Ibrahim ncounter DateTime : 01/25/20 15 10:56:20 AM Not Available Not Available Not Available buspirone 15 mg tablet take 1 tablet by oral route 3 times every day 11/01 completed Prescrib ed Elsewher e: No Locat ion: [facility] odify By: laura Ibrahim ncounter DateTime [...] Prescrib ed Elsewher e: Yes Loca tion: [facility] odify By: sang barneyunter DateTime : 09/28/19 15 09:30:00 AM Not Available Not Available Not Available Vitamins and Minerals tablet 11/01 completed Prescrib ed Elsewher e: Yes Loca tion: [facility] odify By: laura barneyer DateTime : 04/01/20 12 01:53:11 PM Not Available Not Available Not Available escitalop jessica 10 mg tablet 12/16 completed Not Available Not Available Not Available escitalop jessica 20 mg tablet TAKE 1 TABLET BY MOUTH EVERY DAY active Not Available Not Available No t Available Vitamin D3 25 mcg (1,000 unit) capsule 12/16 completed Prescrib ed Elsewher e: Yes Loca tion: [facility] ibrahim [facility] odify By: renato ferreira DateTime : [...] Elsewher e: No Locat ion: [facility] ibrahim [facility] odify By: sang ferreira DateTime : 12/23/19 18 09:00:00 AM Not Available Not Available Not Available One Daily 27 mg iron-800 mcg tablet take 1 tablet by oral route every day 06/02 completed Prescrib ed Elsewher e: Yes Loca tion: [facility] odify By: sang ferreira DateTime : 11/02/19 15 09:00:00 AM Not Available Not Available Not Available Vraylar 1.5 mg capsule TAKE 1 CAPSULE BY MOUTH DAILY 06/18 completed Not Available Not Available Not Available Anusol-HC 2.5 % topical cream with perineal applicato r apply by topical route 2 times every day to the affected area(s) 05/24 completed Prescrib ed Elsewher e: No Locat ion: [facility] odify By: renato Ibrahim ncounter DateTime : 04/12/20 15 11:00:00 AM Not Available Not Available Not Available Spravato active Not Available Not Avai lable Not Available Upneeq (PF) 0.1 % eye drops in a dropperet te INSTILL 1 DROP INTO AFFECTED EYE(S) BY OPHTHALM IC ROUTE ONCE DAILY 12/16 completed Not Available Not Available Not Available Vitals None Recorded Social History Question Answer Notes LastModified by Organizat ion Details LastModified Time Tobacco Smoking Status Current Every Day Smoker Shae farris, [facility] 06/18/2025 13:07:25 Are You Blind Or Do You Have Difficulty Seeing? No Information n ot available 08/28/2022 What Is Your Level Of Caffeine Consumption? Moderate [email or web address] Information not available 06/18/2025 In The 14 [...] Do You Have Serious Difficulty Hearing? Yes Information not available 06/18/2025 What Type Of Diet Are You Following? REGULAR Information n ot available 08/28/2022 What Is The Highest Grade Or Level Of School You Have Completed Or The Highest Degree You Have Received? [id number] [email or web address] Information not available 06/18/2025 Are There Any Guns Present In Your Home? No [email or web address] Information not available 06/18/2025 Do You Use Protection During Sex? Usually [email or web address] Information not available 06/18/2025 Do You Use Your Seat Belt Or Car Seat Routinely? Yes [email or web address] Information not available 06/18/2025 Are You Sexually Active? Yes [email or web address] Information not available 06/18/2025 Do You Have Smoke And Carbon Monoxide Detectors In Your Home? Yes [email or web address] Information not available 06/18/2025 Do You Use Sunscreen Routinely? Yes [email or web address] Information not available 06/18/2025 Do You Have Difficulty Walking Or Climbing Stairs? No Information not available 08/28/2022 Sex: Unknown Functional Status Question Answer Note LastModified by Organizat ion Details LastModified Time What is your level of alcohol consumption? Occasional [email or web address] Information not available 06/18/2025 Are you currently employed? No [email or web address] Information not available 06/18/2025 Are you able [...] anxious, or unable to sleep at night)? [id number] [email or web address] Information not available 06/18/2025 Family History Relationship Description Onset Age of this Age Resolved Age Notes LastModified by Organization Details LastModified Time Maternal Grandmother Myocardial infarction [email or web address] Not available 06/22 09:20:13 Maternal Grandmother Carcinoma in situ of colon Not available 2024 14:33:40 Sister Myocardial infarction [email or web address] Not available 06/22 09:20:24 Sister Carcinoma in situ of colon [email or web address] Not available 2024 14:33:40 Sister Carcinoma in situ of kidney Not available 2024 14:33:40 Maternal Aunt Carcinoma in situ of colon Not available 2024 14:33:40 Notes:Grandmother: Cancer, c [...] ICD10 Code Diagnosis IMO Codes Diagnosis Note [id number] JERONIMO Castro [place] [address] [address] 06/18/2025 12:50:25 06/19/2025 09:57:05 Gynecologic examination 39575385 Z01.157 [id number] WWEpostmen opausalPap - done todaySTI screen - [...] have been answered. Venereal d isease screening 274116733 Z11.3 52863 Polyp of cervix 07525161 N84.1 98654 pelvic u/s scheduledw ill discuss removal options at f/u Postmenopa usal bleeding 71431348 N95.0 39856 Pelvic u/s orderedwil l RTC to review and discuss next steps/rec Time spent in visit is a total of 35 mins with at least 50% of visit consisting of counseling and review of plan of care. [id number] Ariel Gomez MD [place] [address] [address] 07/10/2025 14:33:29 07/10/2025 15:20:15 Polyp of cervix 33535321 N84.1 32275 Health Concerns Section Related Observation LastModified by Organization Detai ls LastModified Time None Recorded Concern Status LastModified by Organization Details LastModified Time None Recorded Payers Encounter Date Sequence Insurance Name Policy Number Policy Carias Covered Member ID Carias Member ID Guarantor Name 07/10/2025 1 [employer] (HMO) [id number] Ana Nagel [id number] 07/10/2025 2 MEDICA[place]: [place] [employer]MENT [employer] Ana Nagel [id number] OBGyn Episode No OBEpisode recorded.
[2025-08-02 13:24] VITALS: BP 134/84; PULSE 96; RESP 16; TEMP 36.1; O2SAT 99; BMI 26.7
--- NOTE | 2025-08-02 13:29 | WPDANESEPPF ---
Anes - Initial Pre Proc Eval Procedure: Operation Date: 08/02/25 14:30 Proposed Procedures p Diagnostic Colonoscopy - Kristian Guevara MD s [facility] Hemorrhoid Treatment - Kristian Guevara MD Date/Time: 08/02/25 13:29 Surgeon: Kristian Guevara MD Pre Op Diagnosis: family hx colon ca,melena Patient Data Age: 54 Gender: F Height: 1.6 m Weight: 68.5 kg Last Vital Signs Temp 97 F L 08/02/25 13:24 Pulse 96 08/02/25 13:24 Resp 16 08/02/25 13:24 BP 134/84 08/02/25 13:24 Pulse Ox 99 08/02/25 13:24 O2 Del Method Room Air 08/02/25 13:24 Allergies Allergy/AdvReac Type Severity Reaction Status Date / Time adhesive Allergy Unknown Other Verified 08/02/25 13:22 bacitracin Allergy Unknown Unknown Verified 08/02/25 13:22 cefuroxime Allergy Unknown Unknown Verified 08/02/25 13:22 Cephalosporins Allergy Unknown . Verified 08/02/25 13:22 clarithromycin Allergy Unknown Unknown Verified 08/02/25 13:22 latex Allergy Unknown Unknown Verified 08/02/25 13:22 Home Medications ?Medication ?Instructions ?Recorded ?Confirmed ?Type albuterol sulfate 90 mcg/actuation 2 puff inhalation Q4H PRN 07/05/25 07/13/25 History aerosol inhaler (Ventolin HFA) shortness of breath or wheezing baclofen 10 mg tablet 10 mg PO TID 07/05/25 08/02/25 History escitalopram oxalate 20 mg tablet 20 mg PO DAILY 07/05/25 08/02/25 History esketamine 84 mg (28 mg x 3) nasal See Rx Instructions intranasal 07/05/25 07/13/25 History spray (Spravato) .COMPLEX hydroxyzine HCl 25 mg tablet 25 mg PO BID PRN nausea and 07/05/25 07/13/25 History vomiting lamotrigine 25 mg tablet 75 mg PO DAILY 07/05/25 08/02/25 History lorazepam 1 mg tablet 1 mg PO BID PRN anxiety 07/05/25 07/13/25 History omeprazole 40 mg capsule,delayed 40 mg PO DAILY 07/05/25 08/02/25 History release atorvastatin 40 mg tablet (Lipitor) 40 mg PO QHS 07/10/25 08/02/25 History linaclotide 145 mcg capsule 145 mcg PO QAM #30 caps 07/10/25 08/02/25 Rx (Linzess) Patient hx anesthesia problems: none Family hx anesthesia problems: none Results Review: All pre-operative results and documents have been reviewed as part of the pre-operative evaluation. [facility] Past Medical History Medical History (Updated 07/10/25 @ 10:28 by Zoie Ludwig APRN) HLD (hyperlipidemia) ADHD Depression Surgical History Surgical History Delivery by section History of bilateral tubal ligation History of tonsillectomy and adenoidectomy Family History Family History Grandparent Hypertension Carcinoma of colon Acute myocardial infarction Sibling Family history of malignant neoplasm of kidney Family history of rheumatoid arthritis Family history of lupus erythematosus Acute myocardial infarction Other Family history of malignant neoplasm of gastrointestinal tract Social History Social History Smoking packs per day: 1 Smoking cigarettes per day: 20.0 Years smoked: 30 Smoking pack-years: 30.00 Smoking status: Current every day smoker Tobacco type: cigarettes Alcohol intake: current Drinks per week: 1 Substance use: current Substance use type: marijuana Other substance usage details: daily Living arrangements: with family Gender identity (if verbalized by the patient): Female Sexual Orientation (if Verbalized by the Patient): Straight or Heterosexual Spiritual care concerns: No Anes - Eval Final PreProcedure Day of Procedure 08/02/25 13:29 Patient weight: normal Heart: regular rate and rhythm Lungs: clear to auscultation Airway: Mallampati scale class II Neurological: alert and oriented Last oral intake: >/= 8 hours ASA classification: II Emergent: no Anesthetic plan: proceed Anesthesia type and monitoring: general GIVS and standard monitoring Results Review: All pre-operative results and documents have been reviewed as part of the pre-operative evaluation. Informed Consent: The patient's anesthetic plan and its attendant risks and benefits were discussed with the patient/family/POA. Questions were solicited and answers provided to the satisfaction of the patient/family/POA.
[2025-08-02] MEDS: LACTATED RINGERS 1,000 ML 150 ML IV CONT (13:34)
--- NOTE | 2025-08-02 13:49 | WPDHPUPDATE1 ---
History and Physical Update Update Date/Time: 08/02/25 13:49 History and Physical has been reviewed, including an updated exam of the patient. There are NO changes in the patient's condition. Risks, benefits, and alternatives have been discussed and questions answered. Patient agrees to proceed with procedure.
[2025-08-02 14:05] VITALS: BP 104/64; PULSE 80; RESP 24; O2SAT 100
--- NOTE | 2025-08-02 14:06 | S_PTH ---
PATIENT: Ana Nagel LOC: [facility] Campuzano#:[id number] AGE/SX: 54/F ROOM: RE08/02/[address]: Kristian Guevara MD : 1970 BED: DIS: 08/02/2025 SPEC #: [id number] RECD: 08/02/25 14:25 STATUS: DEBI MONSON #: [id number] SHAWN: 08/02/25 14:[address]: Kristian Guevara DEPT: [facility] Surgical RECD BY: Tere Colbert ENTERED: 08/02/25 14:26 SP TYPE: Surgical OTHR DR: Josephine LopezMD Tissues: A - Colon Polypectomy B - Colon Polypectomy Procedures: Hematoxylin and Eosin Stain Gross and Microscopic Level 4
--- NOTE | 2025-08-02 14:07 | W.PM.PROC2 ---
Procedure Note - Detailed Date of Procedure 08/02/25 Pre-op Diagnosis hemorrhoids Post-op Diagnosis Same Procedure Performed irc on internal hemorrhoids Surgeon Kristian Guevara MD Anesthesia MAC (also had colonoscopy) Description of Procedure using anoscope noted grade II internal hemorrhoids, no fissure, no bleeding. Then introduced IRC probe and hemorrhoids treated for 1.5 seconds x6
[2025-08-02 14:15] VITALS: BP 106/68; PULSE 69; RESP 22; O2SAT 100
[2025-08-02 14:25] VITALS: BP 108/67; PULSE 62; RESP 20; O2SAT 100
[2025-08-02] MEDS: ACETAMINOPHEN 500 MG TABLET PO (14:25)
--- NOTE | 2025-08-02 14:36 | SUR.PHASEII ---
Patient states that rectal pain is still 9/10 despite getting oral 500mg tylenol. Patient states that Tylenol wont do anything for her. Patient states she would like to get dressed and go home. Spoke with Dr. Jewell, who states that patient can be discharged home if she wants to. Patient is currently getting dressed. OK to alternate ibuprofen, Tylenol and preparation H cream. Patient verbalizes understanding. [facility] discharge instructions also given to patient.
== END 2025-08-02 15:26 | disposition home or self-care (01) ==
PROVIDERS: PCP Family Medicine; Referring Provider Nurse Practitioner; Visit Provider Internal Medicine Gastroenterology
PROC: 0DJD8ZZ Inspection of Lower Intestinal Tract, Via Natural or Artificial Opening Endoscopic (ICD-10-PCS; CPT 45378; principal; 2025-08-02 14:30)
PROC: (CPT 46930; 2025-08-02 14:30)
DX: K92.1 Melena (principal); D12.3 Benign neoplasm of transverse colon; D12.5 Benign neoplasm of sigmoid colon; K64.8 Other hemorrhoids; K64.4 Residual hemorrhoidal skin tags; Z80.0 Family history of malignant neoplasm of digestive organs; K58.1 Irritable bowel syndrome with constipation; K76.0 Fatty (change of) liver, not elsewhere classified; R10.84 Generalized abdominal pain; M54.50 Low back pain, unspecified; F17.210 Nicotine dependence, cigarettes, uncomplicated; E78.5 Hyperlipidemia, unspecified; F90.9 Attention-deficit hyperactivity disorder, unspecified type
CPT/HCPCS: 45380; 45385; 46930; 88305; A9270; J2704; J7120